=== PATIENT | female | born 1985 | race Caucasian/White ===

== ENCOUNTER 2016-05-02 03:49 | Emergency (ER) | payer OTHER ==
[~2016-05-02] VITALS: Ht 167.6 cm; Wt 125.1 kg
[~2016-05-02 03:49] MED LIST: NAPR500T3 PO
[2016-05-02 03:57] VITALS: TEMP 36.8; Ht 167.6 cm; Wt 125.1 kg
[2016-05-02] MEDS ORDERED: DiphenhydrAMINE HCL 50 MG/ML VIAL IV STA (04:06)
[2016-05-02] MEDS ORDERED: SODIUM CHLORIDE 0.9% 1000ML 1,000 ML IV STA (04:06)
[2016-05-02] MEDS ORDERED: METOCLOPRAMIDE HCL INJ 5 MG/ML 2 ML VIAL IV STA (04:06)
[2016-05-02] MEDS ORDERED: KETOROLAC TROMETHAMINE 30 MG/ML VIAL IV STA (04:06)
--- NOTE | 2016-05-02 05:01 | EMERGENCY ROOM VISIT NOTE ---
History First contact with patient: 04:01 Chief Complaint: HEADACHE Stated Complaint: HEADACHE,NAUSEA History of Present Illness The patient is a 31 year old female who presents to the Emergency Room with complaints of headache for the past few days described as aching, ranging in severity 8 out of 10 throughout the right occipital region. Nothing makes it better or worse. Patient tried naproxen with no improvement of symptoms. She' s had headaches before. Patient with some nausea. Patient denies chest pain, dyspnea, numbness, tingling, visual problems, facial pain, fever, chills, cold symptoms, abdominal pain, localized weakness. Headache was slow in onset. Review of Systems See HPI for pertinent positives & negatives. A total of 10 systems reviewed and were otherwise negative. Past Medical/Surgical History Medical Problems: (1) Asthma (2) Diabetes mellitus (3) DM type 2 (diabetes mellitus, type 2) (4) GERD (gastroesophageal reflux disease) (5) Kidney stone Surgical Problems: (1) S/P appendectomy (2) S/P bilateral breast reduction (3) S/P section (4) S/P cholecystectomy Family History Diabetes mellitus FH: gallbladder disease FH: heart disease FH: lung disease Hypertension Kidney disease or stones Seizures Social History Smoking Status: Never Smoker Alcohol Use: none Drug Use: none Marital Status: Housing Status: lives with family Occupation Status: unemployed Current/Historical Medications Scheduled Amitriptyline HCl (Amitriptyline HCl), 50 MG PO HS Doxycycline Hyclate (Doxycycline Hyclate), 50 MG PO QAM Enalapril (Vasotec), 5 MG PO QAM Ergocalciferol (Vitamin D), 50,000 INTER.UNIT PO WK Exenatide (Bydureon), 2 MG SC WK Loratadine (Claritin), 10 MG PO HS Lubiprostone (Amitiza), 24 MCG PO BID Metformin HCl (Metformin HCl ER), 1,000 MG PO BID Montelukast Sod (Montelukast Sodium), 10 MG PO QAM Naproxen (Naproxen), 500 MG PO BID Omeprazole Magnesium (Prilosec Otc), 20 MG PO QAM Ranitidine Hcl (Zantac), 300 MG PO HS Scheduled PRN Mometasone Furoate-Formoterol (Dulera 200/5 Mcg), 2 PUFFS INH BID PRN for Shortness of Breath Allergies Uncoded Allergies: MINT (Allergy, Unknown, unknown, 08/03/15) Physical Exam Vital Signs Date Time Temp Pulse Resp B/P Pulse Ox O2 Delivery O2 Flow Rate FiO2 05/02/16 03:57 36.8 104 20 127/81 97 Room Air Physical Exam VITALS: Vitals are noted on the nurse's note and reviewed by myself. Vital signs stable. GENERAL: Pleasant female, in no acute distress, nondiaphoretic, well-developed well-nourished. SKIN: The skin was without rashes, erythema, edema, or bruising. There is no tenting of the skin. Capillary reflex less than 2 seconds. HEAD: Normocephalic atraumatic. EARS: External auditory canals clear, tympanic membranes pearly herbert without erythema or effusion bilaterally. EYES: Pupils equal round and reactive to light and accommodation. Conjunctivae without injection, sclerae without icterus. Extraocular movements intact. NOSE: Patent, turbinates without inflammation or discharge. No sinus tenderness. MOUTH: Mucous membranes moist. Pharynx without erythema or exudate. Uvula midline. Airway patent. Tongue does not deviate. NECK: Supple without nuchal rigidity. No lymphadenopathy. No thyromegaly. Cervical spine is nontender. No JVD. No meningeal signs HEART: Regular rate and rhythm without murmurs gallops or rubs. LUNGS: Clear to auscultation bilaterally without wheezes, rales or rhonchi. No dullness to percussion. No retractions or accessory muscle use. ABDOMEN: Positive bowel sounds x 4. Normal tympanic percussion. Soft, nontender, without masses or organomegaly. Garces sign negative. No guarding or rebound tenderness. MUSCULOSKELETAL: No muscle atrophy, erythema, or edema noted. NEURO: Patient was alert and oriented to person place and time. Normal sensation to light and sharp touch. No focal neurological deficits. Cranial nerves II-12 grossly intact. No pronator drift. Cerebellar exam intact. Medical Decision & Procedures Medications Administered Medications (Trade) Dose Ordered Sig/Rody Route Start Time Stop Time Status Last Admin Dose Admin Ketorolac Tromethamine (Toradol Inj) 30 mg NOW STAT IV 05/02/16 04:06 05/02/16 04:08 DC 05/02/16 04:23 30 MG Diphenhydramine HCl (Benadryl Inj) 25 mg NOW STAT IV 05/02/16 04:06 05/02/16 04:08 DC 05/02/16 04:22 25 MG Metoclopramide HCl 10 mg 10 mg NOW STAT IV 05/02/16 04:06 05/02/16 04:08 DC 05/02/16 04:23 10 MG Sodium Chloride (Nss 1000ml) 1,000 ml @ 999 mls/hr Q1H1M STAT IV 05/02/16 04:06 05/02/16 05:06 05/02/16 04:22 999 MLS/HR ED Course Prior records/ancillary studies reviewed. Additional history obtained from family Triage Nursing notes reviewed. The patient's history was concerning for headache. Differential diagnosis: Etiologies such as migraine headache, meningitis, sinusitis, CO exposure, ICH, SAH, infection, tumor, headache, sinus thrombosis, arterial dissection, as well as others were entertained. Physical examination findings: As above. Non-focal. ER treatment provided: toradol, benadryl, reglan On reassessment the patient felt better. Diagnostics interpreted by me: Deferred This appears to be consistent with migraine. Patient felt much better to be medicated as above. She was neurovascularly and neurologically intact. She is well-appearing. She felt much better. She is advised follow-up family care in a few days or here in the ER sooner for headache, fevers, chills, numbness, tingling, worsening signs or symptoms or as needed. By the evaluation outlined above emergent etiologies such as meningitis, sinusitis, CO exposure, ICH, SAH, infection, temporal arteritis, tumor, sinus thrombosis, arterial dissection, as well as others were deemed relatively unlikely. The pt informed about the findings as listed above. All questions were answered and pleased with the treatment. Return instructions were outlined and the patient was discharged in stable condition. Referral: The patient was referred back to their primary care physician for follow-up in 2 to 3 days for a recheck of the current condition. Medical Decision As above Impression Primary Impression: Migraine Departure Information Dispostion Home / Self-Care Condition GOOD Referrals Ulises Matias, D.O. (PCP) Patient Instructions My [facility] Additional Instructions DO NOT drive, drink alcohol, operate machinery, or perform dangerous activities today. You were given medications in the ER that can affect your ability to safely function or operate a vehicle. Rest today in a quiet, peaceful, dark environment and get a full 8-10 hrs of sleep tonight. Avoid loud noises, smoke/smoking, alcohol, bright lights, stress, or physical exertion today to minimize the chance the headache may return. Continue current medications. Acetaminophen(Tylenol) may be used for fever or pain. Use 1000mg every six hours as needed. Avoid using more than 3000mg in a 24 hour period. Return to the ER for passing out, worsening headache, vision problems, neck stiffness/pain, fevers, vomiting, worsening of your condition, or as needed. Follow up with your primary physician and/or a neurologist in 2-3 days for a recheck of your current condition. Problem Qualifiers Primary Impression: Migraine Migraine type: without aura Status migrainosus presence: without status migrainosus Intractability: not intractable Qualified Codes: G43.009 - Migraine without aura, not intractable, without status migrainosus
[2016-05-02 05:23] VITALS: BP 131/78; PULSE 100; O2SAT 97
[2016-05-09] MEDS ORDERED: EXEN1INJ3 SC (15:42)
[2016-05-09] MEDS ORDERED: ENAL5TAB83 PO (15:42)
[2016-05-09] MEDS ORDERED: GLCSR/500 PO (17:38)
[2016-05-09] MEDS ORDERED: DXY50 PO (17:38)
[2016-05-09] MEDS ORDERED: VTMD PO (17:38)
[2016-05-09] MEDS ORDERED: LORA10TA5 PO (19:33)
[2016-05-09] MEDS ORDERED: RANI300T PO (19:33)
[2016-05-09] MEDS ORDERED: AMT/50 PO (19:33)
[2016-05-09] MEDS ORDERED: MOME200A INH (19:43)
[2016-06-06] MEDS ORDERED: FLUC100T4 PO (14:35)
[2016-06-06] MEDS ORDERED: LEVO-18 PO (14:35)
[2016-06-24] MEDS ORDERED: AMITIZA PO (14:03)
[2016-08-04] MEDS ORDERED: ERGO1CAP41 PO (00:46)
[2016-10-28] MEDS ORDERED: PRLSR20 PO (14:01)
[2016-11-13] MEDS ORDERED: ONDA4TAB46 PO (10:23)
== END 2016-05-02 05:26 | disposition home or self-care (01) ==
LOC: C.EDB 03:50
DX: G43.009 Migraine without aura, not intractable, without status migrainosus (principal); J45.909 Unspecified asthma, uncomplicated; E11.9 Type 2 diabetes mellitus without complications; K21.9 Gastro-esophageal reflux disease without esophagitis; Z87.442 Personal history of urinary calculi; Z90.49 Acquired absence of other specified parts of digestive tract; Z83.3 Family history of diabetes mellitus; Z82.49 Family history of ischemic heart disease and other diseases of the circulatory system; Z82.0 Family history of epilepsy and other diseases of the nervous system; Z79.899 Other long term (current) drug therapy

== ENCOUNTER 2016-05-09 21:48 | Emergency (ER) | payer OTHER ==
[~2016-05-09] VITALS: Ht 167.6 cm; Wt 124.5 kg
[~2016-05-09 21:48] MED LIST changes: +AMT/50 PO; +DXY50 PO; +ENAL5TAB83 PO; +EXEN1INJ3 SC; +GLCSR/500 PO; +LORA10TA5 PO; +MOME200A INH; +RANI300T PO; +VTMD PO
[2016-05-09 21:55] VITALS: TEMP 36.8; Ht 167.6 cm; Wt 124.5 kg
[2016-05-09] MEDS ORDERED: SODIUM CHLORIDE 0.9% 1000ML 1,000 ML IV ONE (22:27)
[2016-05-09] MEDS ORDERED: SODIUM CHLORIDE 0.9% 1000ML 1,000 ML IV STA (22:27)
--- NOTE | 2016-05-09 22:38 | EMERGENCY ROOM VISIT NOTE ---
History Report prepared by Berenice: Linda Vargas Under the Supervision of: Dr. Jose R Brown M.D. First contact with patient: 22:17 Chief Complaint: ABDOMINAL PAIN Stated Complaint: ABD PAIN,DIARRHEA History of Present Illness The patient is a 31 year old female who presents to the Emergency Room with complaints of constant abdominal pain beginning today. She reports that she has a history of stomach problems and is seeing a doctor and having a swallowing study in 2 weeks. She notes that her stomach pain is worse after she eats and feels like a pressure. She complains of nausea, back pain on both sides, constipation, and red hot legs at night. She denies any vomiting and chance of . The patient states that she has diabetes and gastroparesis. Source of History: patient, friend Onset: today Position: abdomen Quality: pressure Timing: constant Modifying Factors (Worsening): eating Associated Symptoms: + back pain, + nausea, No vomiting Note: She complains of constipation, and red hot legs at night. She denies any chance of . Review of Systems See HPI for pertinent positives & negatives. A total of 10 systems reviewed and were otherwise negative. Past Medical & Surgical Medical Problems: (1) Asthma (2) Diabetes mellitus (3) DM type 2 (diabetes mellitus, type 2) (4) GERD (gastroesophageal reflux disease) (5) Kidney stone Surgical Problems: (1) S/P appendectomy (2) S/P bilateral breast reduction (3) S/P section (4) S/P cholecystectomy Old medical records were reviewed. Nurse's notes were reviewed and I agree with. Family History Diabetes mellitus FH: gallbladder disease FH: heart disease FH: lung disease Hypertension Kidney disease or stones Seizures Social History Smoking Status: Never Smoker Alcohol Use: none Drug Use: none Marital Status: Housing Status: lives with family Occupation Status: unemployed Current/Historical Medications Scheduled Amitriptyline HCl (Amitriptyline HCl), 50 MG PO HS Doxycycline Hyclate (Doxycycline Hyclate), 50 MG PO QAM Enalapril (Vasotec), 5 MG PO QAM Ergocalciferol (Vitamin D), 50,000 INTER.UNIT PO WK Exenatide (Bydureon), 2 MG SC WK Fluticasone Furoate-Vilanterol (Breo Ellipta), 1 PUFF INH DAILY Insulin Glargine (Lantus Solostar), 80 UNITS SC HS Loratadine (Claritin), 10 MG PO HS Lubiprostone (Amitiza), 24 MCG PO BID Metformin HCl (Metformin HCl ER), 1,000 MG PO BID Montelukast Sod (Montelukast Sodium), 10 MG PO QAM Naproxen Sodium (Naproxen Sodium Ds), 550 MG PO BID Omeprazole Magnesium (Prilosec Otc), 20 MG PO QAM Ranitidine Hcl (Zantac), 300 MG PO HS Scheduled PRN Albuterol Hfa (Ventolin Hfa), 2 PUFFS INH Q6H PRN for Wheezing Mometasone Furoate-Formoterol (Dulera 200/5 Mcg), 2 PUFFS INH BID PRN for Shortness of Breath Ondasetron Odt (Zofran Odt), 4 MG SL Q8 PRN for Nausea Allergies Uncoded Allergies: MINT (Allergy, Unknown, unknown, 08/03/15) Physical Exam Vital Signs Date Time Temp Pulse Resp B/P Pulse Ox O2 Delivery O2 Flow Rate FiO2 05/10/16 00:10 93 18 115/73 98 Room Air 05/09/16 23:13 96 18 135/88 99 Room Air 05/09/16 21:55 36.8 104 18 138/84 99 Room Air Physical Exam General: Well developed well nourished in no acute distress, breathing comfortably on room air. Normal speech. Non-Ill appearing young female. HEENT: Normal cephalic atraumatic. Pupils are equal round and reactive to light. SCleara anicteric. Extraocular movements are intact. Oropharynx is pink with moist mucous membranes. No swelling of the mouth lips or tongue. Neck: Supple with a midline trachea. No meningeal signs or stiffness, no JVD or bruits. No Stridor. Chest: Clear to auscultation bilaterally. No wheezes or rhonchi. No increased work of breathing. Heart: regular rate and rhythm. Abdomen: Soft nontender, nondistended without rebound guarding or rigidity. Extremities: No cyanosis clubbing or edema. No calf tenderness or assymetry Spine/Back. Non tender to palpation. No CVA tenderness Skin: Good turgor without rashes. Neurologic exam: Cranial nerves two through 12 are intact. Motor and sensation are intact and symmetrical throughout. Medical Decision & Procedures Laboratory Results 05/09/16 22:40 Red Blood Count 4.88, Mean Corpuscular Volume 80.5, Mean Corpuscular Hemoglobin 26.0, Mean Corpuscular Hemoglobin Concent 32.3, Mean Platelet Volume 9.7, Neutrophils (%) (Auto) 52.5, Lymphocytes (%) (Auto) 36.2, Monocytes (%) (Auto) 5.9, Eosinophils (%) (Auto) 4.3, Basophils (%) (Auto) 0.8, Neutrophils # (Auto) 4.15, Lymphocytes # (Auto) 2.86, Monocytes # (Auto) 0.47, Eosinophils # (Auto) 0.34, Basophils # (Auto) 0.06 05/09/16 22:40 Test 05/09/16 22:40 05/09/16 22:49 White Blood Count 7.90 K/uL (4.8-10.8) Red Blood Count 4.88 M/uL (4.2-5.4) Hemoglobin 12.7 g/dL (12.0-16.0) Hematocrit 39.3 % (37-47) Mean Corpuscular Volume 80.5 fL (80-100) Mean Corpuscular Hemoglobin 26.0 pg (25-34) Mean Corpuscular Hemoglobin Concent 32.3 g/dl (32-36) Platelet Count 297 K/uL (130-400) Mean Platelet Volume 9.7 fL (7.4-10.4) Neutrophils (%) (Auto) 52.5 % Lymphocytes (%) (Auto) 36.2 % Monocytes (%) (Auto) 5.9 % Eosinophils (%) (Auto) 4.3 % Basophils (%) (Auto) 0.8 % Neutrophils # (Auto) 4.15 K/uL (1.4-6.5) Lymphocytes # (Auto) 2.86 K/uL (1.2-3.4) Monocytes # (Auto) 0.47 K/uL (0.11-0.59) Eosinophils # (Auto) 0.34 K/uL (0-0.5) Basophils # (Auto) 0.06 K/uL (0-0.2) RDW Standard Deviation 41.9 fL (36.4-46.3) RDW Coefficient of Variation 14.4 % (11.5-14.5) Immature Granulocyte % (Auto) 0.3 % Immature Granulocyte # (Auto) 0.02 K/uL (0.00-0.02) Urine Color YELLOW Urine Appearance CLEAR (CLEAR) Urine pH 5.0 (4.5-7.5) Urine Specific [place] 1.025 (1.000-1.030) Urine Protein NEG (NEG) Urine Glucose (UA) NEG (NEG) Urine Ketones TRACE (NEG) Urine Occult Blood 2+ (NEG) Urine Nitrite NEG (NEG) Urine Bilirubin NEG (NEG) Urine Urobilinogen NEG (NEG) Urine Leukocyte Esterase NEG (NEG) Urine WBC (Auto) 1-5 /hpf (0-5) Urine RBC (Auto) 5-10 /hpf (0-4) Urine Hyaline Casts (Auto) 1-5 /lpf (0-5) Urine Epithelial Cells (Auto) >30 /lpf (0-5) Urine Bacteria (Auto) NEG (NEG) Urine Crystals CALCIUM OXALATE (NONE Anion Gap 13.0 mmol/L (3-11) Est Creatinine Clear Calc Drug Dose 171.1 ml/min Estimated GFR () 136.6 Estimated GFR (Non- 117.9 BUN/Creatinine Ratio 15.5 (10-20) Calcium Level 9.4 mg/dl (8.5-10.1) Total Bilirubin 0.3 mg/dl (0.2-1) Direct Bilirubin < 0.1 mg/dl (0-0.2) Aspartate Amino Transf (AST/SGOT) 34 U/L (15-37) Alanine Aminotransferase (ALT/SGPT) 62 U/L (12-78) Alkaline Phosphatase 104 U/L (45-117) Total Protein 7.8 gm/dl (6.4-8.2) Albumin 3.8 gm/dl (3.4-5.0) Lipase 203 U/L (73-393) Bedside Troponin I 0.000 ng/ml (0-0.045) Laboratory studies as stated above per my review. Medications Administered Medications (Trade) Dose Ordered Sig/Rody Route Start Time Stop Time Status Last Admin Dose Admin Sodium Chloride 1,000 ml @ 999 mls/hr Q1H1M STAT IV 05/09/16 22:27 05/09/16 23:27 DC 05/09/16 23:14 999 MLS/HR Sodium Chloride (Nss 1000ml) 1,000 ml @ 150 mls/hr Q6H40M ONCE IV 05/09/16 22:27 05/10/16 05:06 05/09/16 23:32 150 MLS/HR Ketorolac Tromethamine (Toradol Inj) 30 mg NOW STAT IV 05/09/16 23:17 05/09/16 23:18 DC 05/09/16 23:33 30 MG ECG Indication: abdominal pain Rate (beats per minute): 90 Rhythm: normal sinus Findings: no acute ischemic change, no ectopy Comparison ECG Date: 11/04/15 Change: no significant change ED Course 7: Past medical records reviewed. The patient was evaluated in room B3, and a complete history and physical examination were performed. 2227: Sodium Chloride 1000 ml @ 999 mls/hr IV, Sodium Chloride 1000 ml @ 150 mls /hr IV. 2317: Toradol Inj 30m IV. 0005: I reevaluated the patient. She is ready to go home. 0010: Upon reevaluation, the patient is hemodynamically stable. I discussed the results and treatment plan with the patient. She verbalized agreement of the treatment plan. The patient was discharged home. Medical Decision Differential diagnoses include gastritis, diabetic emergency, arrhythmia, infection, electrolyte or metabolic imbalance. This patient comes in as described above she has multiple medical complaints she has some epigastric pain and legs burning. she is a diabetic. She's been seen by GI specialist and is scheduled to have a nuclear GI test coming up. She looks well on exam IV access established she was given Toradol 30 milligrams IV. Multiple blood tests was obtained. She has no white count or fever to suggest infection. She's had no acute electrode or metabolic abnormalities. She has nothing to suggest UTI or . I reviewed her records. She's had multiple CAT scans for this. She has no white count or fever to suggest infection. She is not severely anemic. She is not . Her blood sugar is a 200 besides that she has no electrolyte or metabolic abnormalities and nothing to suggest diabetic emergency. Her urinalysis does not suggest UTI. And I went and reassessed her, she was sleeping and appeared comfortable and when she woke up she ask about her abdominal discomfort. I think this is related to her diabetes and she has a gastroparesis or gastritis. She should continue use her stomach medication and follow up with her doctor Wednesday for recheck and continue to have her outpatient studies as previously scheduled . return ER if increasing pain, worsening of symptoms, fever chills, any problems concerns. She was happy with plan and discharged home with her friend driving Impression Primary Impression: Epigastric abdominal pain Scribe Attestation The scribe's documentation has been prepared under my direction and personally reviewed by me in its entirety. I confirm that the note above accurately reflects all work, treatment, procedures, and medical decision making performed by me. Departure Information Dispostion Home / Self-Care Referrals Ulises Matias D.O. (PCP) Forms Call Back Authorization, HOME CARE DOCUMENTATION FORM, IMPORTANT VISIT INFORMATION Patient Instructions [facility] Additional Instructions Rest. Drink plenty of fluids. Mild diet. Continue to use your stomach pill and may use Maalox if needed Return if: Increasing pain, worsening symptoms, fever chills, any new problems or concerns Follow-up with your doctor Wednesday for recheck and have your stomach imaging test
[2016-05-09] MEDS ORDERED: AMT24 PO (22:53)
[2016-05-09] MEDS ORDERED: SNG10 PO (22:53)
[2016-05-09] MEDS ORDERED: FLUT1INH INH (22:54)
[2016-05-09] MEDS ORDERED: VNTHFA/IN INH (22:54)
[2016-05-09] MEDS ORDERED: ONDA4TAB10 SL (22:58)
[2016-05-09] MEDS ORDERED: INSDGIPEN SC (22:58)
[2016-05-09] MEDS ORDERED: NAPR-1161 PO (22:58)
[2016-05-09 23:01] LABS: BASO % 0.8 %; BASO ABS # 0.06 K/uL (0-0.2); COMPLETE YES; EOS % 4.3 %; HEMATOCRIT 39.3 % (37-47); IG% 0.3 %; LYMPH % 36.2 %; LYMPH ABS # 2.86 K/uL (1.2-3.4); MEAN CELL VOLUME 80.5 fL (80-100); MEAN CORPUSCULAR HGB CONC 32.3 g/dl (32-36); MEAN PLATELET VOLUME 9.7 fL (7.4-10.4); MONO % 5.9 %; NEUT % 52.5 %; PLATELET COUNT 297 K/uL (130-400); RED BLOOD COUNT 4.88 M/uL (4.2-5.4)
[2016-05-09 23:14] LABS: REVIEW REQ? YES; URINE APPEARANCE CLEAR (CLEAR); URINE BILIRUBIN NEG (NEG); URINE COLOR YELLOW; URINE EPITHELIAL CELL AUTO >30 /lpf (0-5); URINE NITRITE NEG (NEG); URINE SPECIFIC GRAVITY 1.025 (1.000-1.030); UROBILINOGEN NEG (NEG)
[2016-05-09 23:15] LABS: MANUAL MICROSCOPIC REQUIRED? NO
[2016-05-09] MEDS ORDERED: KETOROLAC TROMETHAMINE 30 MG/ML VIAL IV STA (23:17)
[2016-05-09 23:19] LABS: ALT/SGPT 62 U/L (12-78); AST/SGOT 34 U/L (15-37); BLOOD UREA NITROGEN 10 mg/dl (7-18); BUN/CREATININE RATIO 15.5 (10-20); CALCIUM 9.4 mg/dl (8.5-10.1); CARBON DIOXIDE 29 mmol/L (21-32); CHLORIDE 102 mmol/L (98-107); CREATININE 0.63 mg/dl (0.60-1.20); GLUCOSE 227 mg/dl (70-99); POTASSIUM 3.7 mmol/L (3.5-5.1); SODIUM 144 mmol/L (136-145)
[2016-05-09 23:22] LABS: ALKALINE PHOSPHATASE 104 U/L (45-117)
[2016-05-10 00:10] VITALS: BP 115/73; PULSE 93; O2SAT 98
[2016-06-06] MEDS ORDERED: FLUC100T4 PO (14:35)
[2016-06-06] MEDS ORDERED: LEVO-18 PO (14:35)
[2016-06-24] MEDS ORDERED: AMITIZA PO (14:03)
[2016-08-04] MEDS ORDERED: ERGO1CAP41 PO (00:46)
[2016-10-28] MEDS ORDERED: PRLSR20 PO (14:01)
[2016-11-13] MEDS ORDERED: ONDA4TAB46 PO (10:23)
== END 2016-05-10 00:12 | disposition home or self-care (01) ==
LOC: C.EDB 21:49
DX: R10.13 Epigastric pain (principal); J45.909 Unspecified asthma, uncomplicated; E11.9 Type 2 diabetes mellitus without complications; K21.9 Gastro-esophageal reflux disease without esophagitis; Z90.49 Acquired absence of other specified parts of digestive tract; Z79.4 Long term (current) use of insulin

== ENCOUNTER 2016-05-27 20:39 | Inpatient (IN) | payer OTHER ==
[~2016-05-27] VITALS: Ht 167.6 cm; Wt 122.9 kg
[~2016-05-27 20:39] MED LIST changes: -AMITIZA PO; -ERGO1CAP41 PO; -FLUC100T4 PO; -GABA1CAP4 PO; -HYDR0.2O4 EXT; -IPRASOL4 INH; -LEVO-18 PO; -LUBI8CAP4 PO; -OMEP20TA14 PO; -ONDA4TAB46 PO; -OXYC-57 PO; -PRLSR20 PO; -PROM25TA9 PO; -ZNTT/150 PO
[2016-05-27] MEDS ORDERED: SODIUM CHLORIDE 0.9% 1000ML 1,000 ML IV STA ×2 (22:03)
[2016-05-27] MEDS ORDERED: ACETAMINOPHEN 500 MG TAB PO STA (22:03)
[2016-05-27] MEDS ORDERED: CEFTRIAXONE SOD INJ 1 GM ADDVIAL IV STA (22:03)
[2016-05-27] MEDS ORDERED: NYSTATIN POWDER 15GM BTL EXT STA (22:03)
[2016-05-27] MEDS ORDERED: DiphenhydrAMINE HCL 50 MG/ML VIAL IV STA (22:03)
[2016-05-27] MEDS ORDERED: METOCLOPRAMIDE HCL INJ 5 MG/ML 2 ML VIAL IV STA (22:03)
[2016-05-27] MEDS ORDERED: GABA1CAP4 PO (22:22)
--- NOTE | 2016-05-27 22:27 | DIAGNOSTIC IMAGING REPORT ---
CHEST ONE VIEW PORTABLE CLINICAL HISTORY: Sepsis. COMPARISON STUDY: Chest radiograph August 03, 2015. FINDINGS: Lung volumes are diminished. This is unchanged. There is no pneumothorax or pleural effusion. Cardiac size is normal. Mediastinal contours are within normal limits. There is no evidence of pulmonary edema. IMPRESSION: No acute cardiopulmonary findings. No change in appearance of the chest. Electronically signed by: Ren Potts M.D. 05/27/2016 10:25 PM Dictated Date/Time: 05/27/2016 10:24 PM
[2016-05-27 22:55] LABS: URINE APPEARANCE CLEAR (CLEAR); URINE BILIRUBIN NEG (NEG); URINE COLOR YELLOW; URINE EPITHELIAL CELL AUTO >30 /lpf (0-5); URINE NITRITE NEG (NEG); URINE PH 6.5 (4.5-7.5); URINE SPECIFIC GRAVITY 1.022 (1.000-1.030); UROBILINOGEN NEG (NEG); ZZUR CULT IF INDIC CLEAN CATCH NO
[2016-05-27 22:58] LABS: MANUAL MICROSCOPIC REQUIRED? NO; REVIEW REQ? NO
[2016-05-27 23:29] LABS: BASO % 0.5 %; BASO ABS # 0.03 K/uL (0-0.2); COMPLETE YES; EOS % 2.3 %; HEMATOCRIT 33.5 % (37-47); IG% 0.2 %; LYMPH % 26.3 %; LYMPH ABS # 1.62 K/uL (1.2-3.4); MEAN CELL VOLUME 81.3 fL (80-100); MEAN CORPUSCULAR HGB CONC 31.9 g/dl (32-36); MEAN PLATELET VOLUME 9.7 fL (7.4-10.4); NEUT % 63.7 %; PLATELET COUNT 257 K/uL (130-400); RED BLOOD COUNT 4.12 M/uL (4.2-5.4); WHITE BLOOD COUNT 6.15 K/uL (4.8-10.8)
[2016-05-27 23:49] LABS: ALT/SGPT 64 U/L (12-78); AST/SGOT 33 U/L (15-37); BLOOD UREA NITROGEN 8 mg/dl (7-18); BUN/CREATININE RATIO 11.9 (10-20); CALCIUM 8.9 mg/dl (8.5-10.1); CARBON DIOXIDE 28 mmol/L (21-32); CHLORIDE 105 mmol/L (98-107); CREATININE 0.69 mg/dl (0.60-1.20); GLUCOSE 186 mg/dl (70-99); POTASSIUM 3.6 mmol/L (3.5-5.1); SODIUM 141 mmol/L (136-145)
[2016-05-27 23:51] LABS: PARTIAL THROMBOPLASTIN RATIO 0.8; PROTHROMBIN TIME (PATIENT) 10.7 SECONDS (9.0-12.0)
[2016-05-27 23:54] LABS: ALB/GLOB RATIO 0.9 (0.9-2); ALKALINE PHOSPHATASE 97 U/L (45-117)
[2016-05-28] VITALS (7 sets, daily range): BP systolic 121–145; BP diastolic 70–92; PULSE 104–120; TEMP 36.8–37.9; O2SAT 95–100; Ht 167.6 cm; Wt 122.9 kg
[2016-05-28 00:06] LABS: PREG INTERNAL NEGATIVE QC NEG CLEAR BACKGROUND; PREG INTERNAL POSITIVE QC POS CONTROL LINE
[2016-05-28 00:17] LABS: LYME DISEASE AB IGG NEG (NEG); LYME DISEASE AB IGM NEG (NEG)
[2016-05-28] MEDS ORDERED: OPTIRAY 320 IV PRN (00:30)
[2016-05-28 01:55] LABS: INFLUENZA A PCR Neg for Influ A (NEG); INFLUENZA B PCR Neg for Influ B (NEG)
[2016-05-28 02:52] LABS: MAGNESIUM 1.8 mg/dl (1.8-2.4)
--- NOTE | 2016-05-28 03:18 | EMERGENCY ROOM VISIT NOTE ---
History First contact with patient: 22:03 Chief Complaint: FLU LIKE SX Stated Complaint: CHILLY, LEFT LEG ITCH,LEFT KIDNEY History of Present Illness The patient is a 31 year old female who presents to the Emergency Room with complaints of left leg pain and swelling for the past week has been on Augmentin as gotten steadily worse who now has chest pain, dyspnea and fever and chills. Patient states the rash is itchy. No new foods soaps or discharge. No injury to the area. Patient complains of some nausea. Patient denies abdominal pain, vomiting, urinary symptoms, cough, congestion. She is tolerating by mouth fluids and food. Review of Systems See HPI for pertinent positives & negatives. A total of 10 systems reviewed and were otherwise negative. Past Medical/Surgical History Medical Problems: (1) Asthma (2) Diabetes mellitus (3) DM type 2 (diabetes mellitus, type 2) (4) GERD (gastroesophageal reflux disease) (5) Kidney stone (6) Sepsis Surgical Problems: (1) S/P appendectomy (2) S/P bilateral breast reduction (3) S/P section (4) S/P cholecystectomy Family History Diabetes mellitus FH: gallbladder disease FH: heart disease FH: lung disease Hypertension Kidney disease or stones Seizures Social History Smoking Status: Never Smoker Alcohol Use: none Drug Use: none Marital Status: Housing Status: lives with family Occupation Status: unemployed Current/Historical Medications Scheduled Amitriptyline HCl (Amitriptyline HCl), 50 MG PO HS Doxycycline Hyclate (Doxycycline Hyclate), 50 MG PO QAM Enalapril (Vasotec), 5 MG PO QAM Ergocalciferol (Vitamin D), 50,000 INTER.UNIT PO WK Exenatide (Bydureon), 2 MG SC WK Fluticasone Furoate-Vilanterol (Breo Ellipta), 1 PUFF INH DAILY Gabapentin (Gabapentin), 300 MG PO TID Insulin Glargine (Lantus Solostar), 60 UNITS SC HS Loratadine (Claritin), 10 MG PO HS Lubiprostone (Amitiza), 24 MCG PO BID Metformin HCl (Metformin HCl ER), 1,000 MG PO BID Montelukast Sod (Montelukast Sodium), 10 MG PO QAM Naproxen Sodium (Naproxen Sodium Ds), 550 MG PO BID Omeprazole Magnesium (Prilosec Otc), 20 MG PO QAM Ranitidine Hcl (Zantac), 300 MG PO HS Scheduled PRN Albuterol Hfa (Ventolin Hfa), 2 PUFFS INH Q6H PRN for Wheezing Mometasone Furoate-Formoterol (Dulera 200/5 Mcg), 2 PUFFS INH BID PRN for Shortness of Breath Ondasetron Odt (Zofran Odt), 4 MG SL Q8 PRN for Nausea Allergies Uncoded Allergies: MINT (Allergy, Unknown, unknown, 08/03/15) Physical Exam Vital Signs Date Time Temp Pulse Resp B/P Pulse Ox O2 Delivery O2 Flow Rate FiO2 05/28/16 03:09 104 20 105/73 96 05/28/16 02:23 37.3 118 16 114/64 95 Room Air 05/28/16 00:58 123 18 129/71 95 Room Air 05/28/16 00:11 117 18 132/82 96 Room Air 05/27/16 23:23 119 20 111/81 100 Room Air 05/27/16 23:11 Room Air 05/27/16 20:50 37.8 86 18 144/90 100 Room Air Physical Exam VITALS: Vitals are noted on the nurse's note and reviewed by myself. Vital signs low-grade temperature. GENERAL: Pleasant female, in no acute distress, nondiaphoretic, well-developed well-nourished. SKIN: Left medial aspect of the thigh and knee erythematous and warm concerning for cellulitis The rest of the skin was without rashes, erythema, edema, or bruising. There is no tenting of the skin. Capillary reflex less than 2 seconds. HEAD: Normocephalic atraumatic. EARS: External auditory canals clear, tympanic membranes pearly herbert without erythema or effusion bilaterally. EYES: Pupils equal round and reactive to light and accommodation. Conjunctivae without injection, sclerae without icterus. Extraocular movements intact. NOSE: Patent, turbinates without inflammation or discharge. MOUTH: Mucous membranes moist. Pharynx without erythema or exudate. Uvula midline. Airway patent. Tongue does not deviate. NECK: Supple without nuchal rigidity. No lymphadenopathy. No thyromegaly. Cervical spine is nontender. No JVD. HEART: Regular rate and rhythm without murmurs gallops or rubs. LUNGS: Clear to auscultation bilaterally without wheezes, rales or rhonchi. No dullness to percussion. No retractions or accessory muscle use. ABDOMEN: Positive bowel sounds x 4. Normal tympanic percussion. Soft, protuberant, obese, nontender, without masses or organomegaly. Garces sign negative. No guarding or rebound tenderness. No CVA tenderness MUSCULOSKELETAL: No muscle atrophy noted. + Pitting edema up to the mid tib- fib bilaterally. NEURO: Patient was alert and oriented to person place and time. Normal sensation to light and sharp touch. No focal neurological deficits. Medical Decision & Procedures Laboratory Results 05/27/16 22:25 Red Blood Count 4.12, Mean Corpuscular Volume 81.3, Mean Corpuscular Hemoglobin 26.0, Mean Corpuscular Hemoglobin Concent 31.9, Mean Platelet Volume 9.7, Neutrophils (%) (Auto) 63.7, Lymphocytes (%) (Auto) 26.3, Monocytes (%) (Auto) 7.0, Eosinophils (%) (Auto) 2.3, Basophils (%) (Auto) 0.5, Neutrophils # (Auto) 3.92, Lymphocytes # (Auto) 1.62, Monocytes # (Auto) 0.43, Eosinophils # (Auto) 0.14, Basophils # (Auto) 0.03 05/27/16 22:25 Test 05/27/16 22:20 05/27/16 22:25 05/27/16 22:33 05/27/16 23:15 Urine Color YELLOW Urine Appearance CLEAR (CLEAR) Urine pH 6.5 (4.5-7.5) Urine Specific [place] 1.022 (1.000-1.030) Urine Protein NEG (NEG) Urine Glucose (UA) NEG (NEG) Urine Ketones TRACE (NEG) Urine Occult Blood NEG (NEG) Urine Nitrite NEG (NEG) Urine Bilirubin NEG (NEG) Urine Urobilinogen NEG (NEG) Urine Leukocyte Esterase NEG (NEG) Urine WBC (Auto) 0 /hpf (0-5) Urine RBC (Auto) 5-10 /hpf (0-4) Urine Hyaline Casts (Auto) 1-5 /lpf (0-5) Urine Epithelial Cells (Auto) >30 /lpf (0-5) Urine Bacteria (Auto) NEG (NEG) White Blood Count 6.15 K/uL (4.8-10.8) Red Blood Count 4.12 M/uL (4.2-5.4) Hemoglobin 10.7 g/dL (12.0-16.0) Hematocrit 33.5 % (37-47) Mean Corpuscular Volume 81.3 fL (80-100) Mean Corpuscular Hemoglobin 26.0 pg (25-34) Mean Corpuscular Hemoglobin Concent 31.9 g/dl (32-36) Platelet Count 257 K/uL (130-400) Mean Platelet Volume 9.7 fL (7.4-10.4) Neutrophils (%) (Auto) 63.7 % Lymphocytes (%) (Auto) 26.3 % Monocytes (%) (Auto) 7.0 % Eosinophils (%) (Auto) 2.3 % Basophils (%) (Auto) 0.5 % Neutrophils # (Auto) 3.92 K/uL (1.4-6.5) Lymphocytes # (Auto) 1.62 K/uL (1.2-3.4) Monocytes # (Auto) 0.43 K/uL (0.11-0.59) Eosinophils # (Auto) 0.14 K/uL (0-0.5) Basophils # (Auto) 0.03 K/uL (0-0.2) RDW Standard Deviation 42.5 fL (36.4-46.3) RDW Coefficient of Variation 14.3 % (11.5-14.5) Immature Granulocyte % (Auto) 0.2 % Immature Granulocyte # (Auto) 0.01 K/uL (0.00-0.02) Prothrombin Time 10.7 SECONDS (9.0-12.0) Prothromb Time International Ratio 1.0 (0.9-1.1) Activated Partial Thromboplast Time 19.6 SECONDS (21.0-31.0) Partial Thromboplastin Ratio 0.8 D-Dimer 1360 ug/L FEU (0-500) Anion Gap 8.0 mmol/L (3-11) Est Creatinine Clear Calc Drug Dose 155.4 ml/min Estimated GFR () 132.6 Estimated GFR (Non- 114.4 BUN/Creatinine Ratio 11.9 (10-20) Calcium Level 8.9 mg/dl (8.5-10.1) Magnesium Level 1.8 mg/dl (1.8-2.4) Total Bilirubin 0.4 mg/dl (0.2-1) Aspartate Amino Transf (AST/SGOT) 33 U/L (15-37) Alanine Aminotransferase (ALT/SGPT) 64 U/L (12-78) Alkaline Phosphatase 97 U/L (45-117) Troponin I < 0.015 ng/ml (0-0.045) Total Protein 7.4 gm/dl (6.4-8.2) Albumin 3.6 gm/dl (3.4-5.0) Globulin 3.8 gm/dl (2.5-4.0) Albumin/Globulin Ratio 0.9 (0.9-2) Thyroid Stimulating Hormone (TSH) 1.530 uIu/ml (0.300-4.500) Human Chorionic Gonadotropin, Qual NEG (NEG) Lyme Disease IgG Antibody NEG (NEG) Lyme Disease IgM Antibody NEG (NEG) Bedside Lactic Acid Venous 1.77 mmol/L (0.90-1.70) Influenza Type A (RT-PCR) Neg for Influ A (NEG) Influenza Type A Antigen Neg for Influ A (NEG) Influenza Type B Antigen Neg for Influ B (NEG) Influenza Type B (RT-PCR) Neg for Influ B (NEG) Test 05/28/16 02:30 Lactic Acid Level 1.7 mmol/L (0.4-2.0) Medications Administered Medications (Trade) Dose Ordered Sig/Rody Route Start Time Stop Time Status Last Admin Dose Admin Metoclopramide HCl (Reglan Inj) 10 mg NOW STAT IV 05/27/16 22:03 05/27/16 22:09 DC 05/27/16 23:15 10 MG Diphenhydramine HCl 50 mg 50 mg NOW STAT IV 05/27/16 22:03 05/27/16 22:09 DC 05/27/16 23:15 50 MG Sodium Chloride 1,000 ml @ 999 mls/hr Q1H1M STAT IV 05/27/16 22:03 05/27/16 23:03 DC 05/27/16 23:16 999 MLS/HR Sodium Chloride (Nss 1000ml) 1,000 ml @ 125 mls/hr Q8H STAT IV 05/27/16 22:03 05/28/16 06:02 05/27/16 23:16 125 MLS/HR Ceftriaxone Sodium (Rocephin Inj) 1 gm NOW STAT IV 05/27/16 22:03 05/27/16 22:09 DC 05/27/16 23:16 1 GM Acetaminophen (Tylenol Tab) 1,000 mg NOW STAT PO 05/27/16 22:03 05/27/16 22:09 DC 05/27/16 23:16 1,000 MG Nystatin (Mycostatin Powder) 1 appln NOW STAT EXT 05/27/16 22:03 05/27/16 22:09 DC 05/28/16 00:12 1 APPLN ED Course Prior records reviewed and summarized as above. Triage Nursing notes reviewed. Additional history obtained from family The patient's history was concerning for swelling and redness of the skin with chest pain, dyspnea and fever. Differential diagnosis: Etiologies such as cellulitis, abscess, MRSA infection, DVT, necrotizing fasciitis, dermatitis, drug eruption, PE, cardiac, influenza, pneumonia, infectious, as well as others were entertained.. Physical examination: As above ER treatment provided: Rocephin, Tylenol On reassessment the patient felt better. Diagnostics interpreted by me: The labs revealed no worrisome leukocytosis. Hyperglycemia without DKA. Mildly elevated lactic acid. Negative urine Imaging studies: CTA CHEST: Mildly limited by beam hardening artifact. There is also suboptimal opacification of subsegmental branches. Within these technical limitations, there is no definite evidence for an acute pulmonary embolism. No acute aortic abnormality. No consolidation or effusion. Radiologist: Hubert Kyle M.D. CHEST ONE VIEW PORTABLE CLINICAL HISTORY: Sepsis. COMPARISON STUDY: Chest radiograph August 03, 2015. FINDINGS: Lung volumes are diminished. This is unchanged. There is no pneumothorax or pleural effusion. Cardiac size is normal. Mediastinal contours are within normal limits. There is no evidence of pulmonary edema. IMPRESSION: No acute cardiopulmonary findings. No change in appearance of the chest. Electronically signed by: Ren Potts M.D. Consultation: A consultation was placed with Dr. Kiesha painting. The case was discussed and diagnostics were reviewed. The patient was evaluated in the ER for further treatment. This appears to be left leg cellulitis who has been on outpatient antibiotics and gotten worse. No DVT. No PE. Patient was given antibiotics. She now has a fever and symptoms and gotten worse. Elevated lactic. Patient's been on Augmentin and symptoms got worse. She will be evaluated by medicine for possible admission. By the evaluation outlined above emergent etiologies such as abscess, necrotizing fasciitis, DVT, as well as others were deemed relatively unlikely. The pt informed about the findings as listed above. All questions were answered and pleased with the treatment. . Case reviewed with my attending Medical Decision as above Impression Primary Impression: Left leg cellulitis Additional Impressions: Chest pain Dyspnea Failure of outpatient treatment Departure Information Dispostion Being Evaluated By Hospitalist Condition FAIR Referrals No Doctor, Assigned (PCP) Patient Instructions My [facility] Problem Qualifiers
[2016-05-28] MEDS ORDERED: INSULIN GLARGINE SOLOSTAR 100 UNITS/ML 3 ML PEN SC ONE (03:20)
[2016-05-28] MEDS ORDERED: INSULIN ASPART 100 UNITS/ML 3 ML PEN SC ONE (03:20)
[2016-05-28] MEDS ORDERED: LORAZEPAM 2 MG/ML 1 ML VIAL IV PRN (03:30)
[2016-05-28] MEDS ORDERED: PROMETHAZINE HCL INJ 12.5 MG in SODIUM CHLORIDE 0.9% 50ML 50 ML IV PRN (03:30)
[2016-05-28] MEDS ORDERED: ACETAMINOPHEN 325 MG TAB PO PRN (03:30)
[2016-05-28] MEDS ORDERED: VANCOMYCIN INJ 2,700 MG in SODIUM CHLORIDE 0.9% 500ML 500 ML IV STA (03:30)
[2016-05-28] MEDS ORDERED: NITROGLYCERIN 0.4 MG SL PER TAB CHARGE SL PRN (03:30)
[2016-05-28] MEDS ORDERED: DEXTROSE 50% 50 ML SYR IV PRN (03:30)
[2016-05-28] MEDS ORDERED: LACTATED RINGER'S 1000ML 1,000 ML IV ONE (03:30)
[2016-05-28] MEDS ORDERED: GLUCOSE 40% GEL 15 GM TUBE PO PRN (03:30)
[2016-05-28] MEDS ORDERED: GLUCOSE 10 TABS/TUBE PO PRN (03:30)
[2016-05-28] MEDS ORDERED: GLUCAGON FOR INJ 1 MG VIAL SQ PRN (03:30)
[2016-05-28] MEDS ORDERED: VANCOMYCIN CONSULT ACTIVE PRN (03:45)
[2016-05-28] MEDS ORDERED: CEFEPIME IV 2,000 MG in DEXTROSE 5% 100ML 100 ML IV ONE (04:00)
[2016-05-28] MEDS ORDERED: METRONIDAZOLE / NSS 500 MG in PREMIXED NSS 100 ML IV SCH (04:00)
[2016-05-28] MEDS ORDERED: PNEUMOCOCCAL POLYSACCHARIDES 25 MCG/0.5 ML VIAL/SYR IM. ONE (04:15)
[2016-05-28] MEDS ORDERED: PNEUMOCOCCAL ADMINISTRATION CHARGE ONE (04:15)
[2016-05-28] MEDS ORDERED: BACITRACIN/POLYMYXIN B OINT 15 GM TUBE EXT ONE (04:27)
[2016-05-28] MEDS: TRAMADOL HCL 50 MG TAB PO PRN ×3 (04:38→22:34)
--- NOTE | 2016-05-28 06:41 | DIAGNOSTIC IMAGING REPORT ---
BILATERAL LOWER EXTREMITY VENOUS DOPPLER CLINICAL HISTORY: Left leg swelling, chest pain and shortness of breath. COMPARISON STUDY: Right lower extremity venous Doppler October 24, 2013. TECHNIQUE: Sonography of the deep venous system of the right lateral lower extremities was performed. Compression and augmentation were evaluated. FINDINGS: This exam was compromised by suboptimal penetration. The bilateral common femoral, superficial femoral and popliteal veins were compressible. Augmentation was normal. Flow was shown within the deep calf vessels. IMPRESSION: Technically difficult exam due to suboptimal visualization but no evidence of deep venous thrombus within the bilateral lower extremities. Electronically signed by: Ren Potts M.D. 05/28/2016 6:40 AM Dictated Date/Time: 05/28/2016 6:38 AM
[2016-05-28 06:43] LABS: BASO % 0.5 %; BASO ABS # 0.02 K/uL (0-0.2); COMPLETE YES; EOS % 2.3 %; HEMATOCRIT 34.8 % (37-47); IG% 0.2 %; LYMPH % 31.1 %; LYMPH ABS # 1.34 K/uL (1.2-3.4); MEAN CELL VOLUME 80.7 fL (80-100); MEAN CORPUSCULAR HGB CONC 32.2 g/dl (32-36); MEAN PLATELET VOLUME 9.4 fL (7.4-10.4); NEUT % 59.9 %; PLATELET COUNT 172 K/uL (130-400); RED BLOOD COUNT 4.31 M/uL (4.2-5.4); WHITE BLOOD COUNT 4.31 K/uL (4.8-10.8)
--- NOTE | 2016-05-28 06:59 | DIAGNOSTIC IMAGING REPORT ---
ABDOMEN AND PELVIS CT WITHOUT CONTRAST CT DOSE: 1973.88 mGy.cm HISTORY: Abdominal pain nephrocalcinosis TECHNIQUE: Multiaxial CT images of the abdomen and pelvis were performed without contrast. COMPARISON STUDY: 10/12/2015 FINDINGS: Lung bases are clear. Fatty infiltration of liver. Mild hepatosplenomegaly. Bilateral nonobstructing renal calcifications, difficult to see due to the presence of a small amount of residual intravenous contrast enhancement from a prior CT study. No evidence for hydronephrosis. Bowel pattern is considered nonobstructive. Uterus is anteflexed. Bladder is midline. IMPRESSION: 1. Moderate hepatosplenomegaly unchanged in the prior study. 2. Fatty infiltration of liver. 3. Otherwise no acute process of the abdomen or pelvis Electronically signed by: Toby Bautista M.D. 05/28/2016 6:57 AM Dictated Date/Time: 05/28/2016 6:54 AM
[2016-05-28 07:15] LABS: BUN/CREATININE RATIO 11.9 (10-20); CALCIUM 8.1 mg/dl (8.5-10.1); CREATININE 0.53 mg/dl (0.60-1.20); POTASSIUM 3.5 mmol/L (3.5-5.1)
--- NOTE | 2016-05-28 07:20 | DIAGNOSTIC IMAGING REPORT ---
CT ANGIOGRAPHY OF THE CHEST, PULMONARY EMBOLUS PROTOCOL CLINICAL HISTORY: Chest pain with shortness of breath and elevated d-dimer. COMPARISON STUDY: Chest CT August 11, 2013. TECHNIQUE: Following IV administration of 92 mL of [id number]-[id number], helical axial images of the chest were obtained utilizing the pulmonary embolus protocol. Maximal intensity projections and sagittal and coronal reformats were viewed on an independent 3D workstation. IV contrast was administered without complication. CT DOSE: 622.76 mGy.cm FINDINGS: No pulmonary emboli are identified although the subsegmental vessels are suboptimally assessed due to respiratory motion. There is no evidence of thoracic aortic dissection. No enlarged thoracic lymph nodes are present. Cardiac size is at the upper limits of normal. Central airways are patent. No consolidation is identified to suggest pneumonia. Linear and groundglass opacities are suggestive of atelectasis. There is no pneumothorax or pleural effusion. The bony thorax is unremarkable. Visualized portions of the upper abdomen demonstrate hepatosplenomegaly which were shown on prior CT. There is fatty infiltration of the liver. IMPRESSION: 1. No pulmonary emboli identified. 2. No acute intrathoracic findings. 3. Fatty infiltration of the liver and hepatosplenomegaly, as shown on prior CT. Electronically signed by: Ren Potts M.D. 05/28/2016 7:18 AM Dictated Date/Time: 05/28/2016 7:11 AM
--- NOTE | 2016-05-28 07:37 | HISTORY & PHYSICAL EXAMINATION ---
DATE OF ADMISSION: 05/28/2016 PRIMARY CARE DOCTOR: Dr. Matias. Hx obtained from px and records. CHIEF COMPLAINT: Fever, left leg swelling, abdominal pain. HISTORY OF PRESENT ILLNESS: Medical history significant for hypertension, DM2 insulin requiring, urolithiasis, asthma. Recent confinement last May 2014 for right ovarian cyst and renal colic. Patient was seen at PCP's office about 2 weeks ago for headache, sinus congestion for a week, itching in the lower extremities worse at night. Given doxycycline for possible sinusitis, cellulitis. No response. Patient noted bloody loose stools, achy abdominal pain, more on the left. No hematemesis, no coffee-ground emesis. Worsening of L leg swelling, itchy. itchy superficial wound also noted L sternum No chest pain, some shortness of breath, no cough symptoms. Denies bladder discomfort. At the Emergency Room the patient received ceftriaxone for sepsis. MEDICAL HISTORY: As above. May 2016 normal gastric emptying study. EGD done 03/2015 showed hiatal hernia with diffuse mild inflammation in the stomach. SURGERIES: Appendectomy, breast reduction, section, cholecystectomy. HOME MEDICATIONS: Ventolin, amitriptyline, doxycycline, Vasotec, vitamin D, exenatide, Breo Ellipta, gabapentin, Lantus, Claritin, Amitiza, Dulera, metformin, montelukast, naproxen, Prilosec, Zofran, Zantac. ALLERGIES: MINT. FAMILY HISTORY: Family history of diabetes. PERSONAL AND SOCIAL HISTORY: Nonsmoker, no chronic intake of alcoholic beverages. Currently unemployed, former [employer] employee. REVIEW OF SYSTEMS: As per HPI, all other ROS negative. PHYSICAL EXAMINATION: VITAL SIGNS: Blood pressure was noted to be 129/82, pulse rate 120, RR 18, temperature 37.8, sats 100 on room air. GENERAL: Noted to be uncomfortable. No respiratory distress. SKIN: Pallor. HEENT: Pale palpebral conjunctivae. Dry mucosa. NECK: Short neck. LUNGS: Decreased breath sounds. superficial wound, sternum with some crusting. No drainage. HEART : RRR ABDOMEN: Minimal left-sided tenderness. EXTREMITIES: papular lesions with induration on the left medial aspect of the knee, lower thigh. minimal tenderness NEUROLOGIC: No gross focality. LABS: Hemoglobin was noted to be 10.7, hematocrit 33.5, white count 6.15, platelets 257. Sodium noted to be 141, potassium 3.6, chloride 105, CO2 28, BUN 8, creatinine 0.6, glucose 186 Hemoglobin A1c March 2016 was 7.3. Chest x-ray no acute cardiopulmonary findings. LLE Venous Dopplers negative for DVT. CT thorax negative for PE. UA showed trace ketones. ASSESSMENT: 1. Sepsis possible sources : cellulitis, LLE LGIB rule out Clostridium difficile colitis 2. Hypertension, stable. 3. DM2, insulin requiring, reasonable control as of recent outpx HgA1c. 4. Anemia. Hemoglobin drop secondary to gastrointestinal bleed. PLAN: PCU CS, stool C. dif IV Vancomycin for cellulitis Cefepime, Flagyl for poss colitis CT abd pelvis RE l abd pain serial HH, transfuse pRBC if hemoglobin less than 7 and/or symptomatic anemia. GI consult RE LGIB, patient known to Dr. Valenzuela. Basal insulin adjusted for clear liquid diet for now. ISS BG goal 140-180. DVT prophylaxis, SCDs. RE GI bleed. Full code. MTDD
[2016-05-28] MEDS: INSULIN ASPART 100 UNITS/ML 3 ML PEN SC SCH ×4 (08:51→21:20)
[2016-05-28] MEDS: BREO ELLIPTA - ORDER AWAITING ACTION SCH ×2 (08:51→16:00)
[2016-05-28] MEDS: DULERA - ORDER AWAITING ACTION SCH ×2 (08:51→16:00)
[2016-05-28] MEDS: GABAPENTIN 300 MG CAP PO SCH ×2 (08:56→12:21)
[2016-05-28] MEDS: PANTOprazole SOD 40 MG TAB PO SCH (08:56)
[2016-05-28] MEDS: MONTELUKAST SOD 10 MG TAB PO SCH (08:56)
[2016-05-28] MEDS: ENALAPRIL MALEATE 5 MG TAB PO SCH (08:56)
[2016-05-28] MEDS: HYDROmorphone INJ 0.5 MG/0.5 ML SYR IV PRN ×3 (08:57→19:50)
--- NOTE | 2016-05-28 09:45 | Gastrointestinal Consultation ---
Gastrointestinal Consultation Date of Consultation: May 28, 2016 Attending Physician: Dr. Kennedy Consulting Physician: Dr. Valenzuela/KERRI Gonzales Reason for Consultation: Abdominal pain and rectal bleeding History of Present Illness Patient is a 31 year old female with a history of diabetes, morbid obesity, GERD , gastroparesis and chronic constipation following in our office as an outpatient. She has done well overall on Amitiza for control of constipation, she continued to have intermittent abdominal pain, bloating, belching and halitosis however. She did undergo an EGD one year ago with findings of a hiatus hernia and gastritis. Most recently, she did have a repeat gastric emptying study yesterday which was normal. The patient did contact our office with reports of worsening abdominal pain after the procedure and subsequently developed bloody diarrhea per H&P and presented to the hospital last night. She was also reportedly being treated as an outpatient with doxycycline for suspected cellulitis and on arrival she was febrile and hypertensive. She was admitted with cellulitis and sepsis. Laboratory testing on arrival includes a white blood cell count of 6.15, hemoglobin 10.7, and hematocrit 33.5. There were no electrolyte, renal or liver panel elevations. She did undergo a nonenhanced abdominopelvic CT which demonstrated no obstruction. No overt acute process was noted. Currently, the patient reports ongoing left-sided abdominal pain, worse in the left lower quadrant. She states to me today that she has not had a bowel movement in two days and she requests her Amitiza which has not been ordered on admission. Pain is sharp and non-radiating. No nausea or vomiting, hematochezia or melena today. Her H&H has improved to 11.2 and 34.8 today. She has never undergone a prior colonoscopy. Stool studies for enteric pathogens have been ordered but not collected as the patient has not had a bowel movement. Past Medical/Surgical History Medical Problems: (1) Abdominal pain Status: Acute (2) Anterior chest wall pain Status: Acute (3) Asthma exacerbation Status: Acute (4) Asthmatic bronchitis Status: Acute (5) Chest pain Status: Acute (6) Depression Status: Acute (7) Dyspnea Status: Acute (8) Epigastric abdominal pain Status: Acute (9) Failure of outpatient treatment Status: Acute (10) Hyperglycemia Status: Acute (11) Laceration Status: Acute (12) Left flank pain Status: Acute (13) Left leg cellulitis Status: Acute (14) Left ovarian cyst Status: Acute (15) Low back pain Status: Acute (16) Lumbosacral radiculopathy Status: Acute (17) Migraine Status: Acute (18) Pain with swallowing Status: Acute (19) Precordial chest pain Status: Acute (20) Renal colic Status: Acute (21) Renal colic Status: Acute Past Medical History: 1. Hypertension 2. Diabetes, type 2 3. Urolithiasis 4. Asthma 5. Fatty liver 6. as above Past Surgical History: 1. Appendectomy 2. Breast reduction 3. section 4. Cholecystectomy 5. EGD Family History Diabetes mellitus FH: gallbladder disease FH: heart disease FH: lung disease Hypertension Kidney disease or stones Seizures Negative for GI malignancy or IBD Social History Smoking Status: Never Smoker Alcohol Use: none Drug Use: none Marital Status: Housing Status: lives with family Occupation Status: unemployed Allergies Uncoded Allergies: MINT (Allergy, Unknown, unknown, 08/03/15) Current Medications Home Meds and Scripts Medications Dose Route/Sig Max Daily Dose Days Date Category Dose Instructions Gabapentin 300 Mg Cap 300 Mg PO TID 05/27/16 Reported Zofran Odt (Ondansetron HCl) 4 Mg Tab 4 Mg SL Q8 PRN 05/09/16 Reported Naproxen Sodium Ds (Naproxen Sodium) 550 Mg Tab 550 Mg PO BID 05/09/16 Reported TAKE THIS MEDICATION WITH FOOD Lantus Solostar (Insulin Glargine) 100 Unit/Ml Inj 60 Units SC HS 05/09/16 Reported Ventolin Hfa (Albuterol) 200 Puffs/12429 Mcg Aers 2 Puffs INH Q6H PRN 05/09/16 Reported Breo Ellipta (Fluticasone Furoate-Vilanterol) 1 Inh Inh 1 Puff INH DAILY 05/09/16 Reported Dulera 200/5 Mcg (Mometasone Furoate-Formoterol) 1 Aer Aer 2 Puffs INH BID PRN 10/12/15 Reported Amitriptyline HCl 50 Mg Tab 50 Mg PO HS 10/12/15 Reported Prilosec Otc (Omeprazole Magnesium) 20 Mg Tab 20 Mg PO QAM 10/12/15 Reported Zantac (Ranitidine Hcl) 300 Mg Tab 300 Mg PO HS 10/12/15 Reported Claritin (Loratadine) 10 Mg Tab 10 Mg PO HS 10/12/15 Reported Vitamin D (Ergocalciferol) 50,000 Interunit Cap 50,000 Inter.unit PO WK 10/10/15 Reported TAKE THIS MEDICATION EVERY WEDNESDAY Metformin HCl ER (Metformin HCl) 500 Mg Tabcr 1,000 Mg PO BID 10/10/15 Reported Doxycycline Hyclate 50 Mg Cap 50 Mg PO QAM 10/10/15 Reported Bydureon (Exenatide) 2 Mg Inj 2 Mg SC WK 04/08/15 Reported INJECT UNDER THE SKIN ONCE WEEKLY EVERY WEDNESDAY. Vasotec (Enalapril Maleate) 5 Mg Tab 5 Mg PO QAM 04/08/15 Reported Montelukast Sodium (Montelukast Sod) 10 Mg Tab 10 Mg PO QAM 12/19/14 Reported Amitiza (Lubiprostone) 24 Mcg Cap 24 Mcg PO BID 12/19/14 Reported Review of Systems See HPI for pertinent positives & negatives. A total of 10 systems reviewed and were otherwise negative. Physical Exam Date Time Temp Pulse Resp B/P Pulse Ox O2 Delivery O2 Flow Rate FiO2 05/28/16 03:38 36.8 120 18 129/82 98 Room Air 05/28/16 03:09 104 20 105/73 96 05/28/16 02:23 37.3 118 16 114/64 95 Room Air 05/28/16 00:58 123 18 129/71 95 Room Air 05/28/16 00:11 117 18 132/82 96 Room Air 05/27/16 23:23 119 20 111/81 100 Room Air 05/27/16 23:11 Room Air 05/27/16 20:50 37.8 86 18 144/90 100 Room Air General Appearance: WD/WN, no apparent distress Eyes: EOMI ENT: hearing grossly normal Neck: supple Respiratory/Chest: lungs clear, normal breath sounds, no respiratory distress Cardiovascular: regular rate, rhythm, no gallop, no murmur Abdomen: normal bowel sounds, soft, + tenderness (left side) Extremities: + swelling (and erythema of left thigh) Neurologic/Psych: alert, normal mood/affect, oriented x 3 Skin: warm/dry Laboratory Results Last 24 Hours Test 05/27/16 22:20 05/27/16 22:25 05/27/16 22:33 05/27/16 23:15 Urine Color YELLOW Urine Appearance CLEAR Urine pH 6.5 Urine Specific [place] 1.022 Urine Protein NEG Urine Glucose (UA) NEG Urine Ketones TRACE Urine Occult Blood NEG Urine Nitrite NEG Urine Bilirubin NEG Urine Urobilinogen NEG Urine Leukocyte Esterase NEG Urine WBC (Auto) 0 /hpf Urine RBC (Auto) 5-10 /hpf Urine Hyaline Casts (Auto) 1-5 /lpf Urine Epithelial Cells (Auto) >30 /lpf Urine Bacteria (Auto) NEG White Blood Count 6.15 K/uL Red Blood Count 4.12 M/uL Hemoglobin 10.7 g/dL Hematocrit 33.5 % Mean Corpuscular Volume 81.3 fL Mean Corpuscular Hemoglobin 26.0 pg Mean Corpuscular Hemoglobin Concent 31.9 g/dl Platelet Count 257 K/uL Mean Platelet Volume 9.7 fL Neutrophils (%) (Auto) 63.7 % Lymphocytes (%) (Auto) 26.3 % Monocytes (%) (Auto) 7.0 % Eosinophils (%) (Auto) 2.3 % Basophils (%) (Auto) 0.5 % Neutrophils # (Auto) 3.92 K/uL Lymphocytes # (Auto) 1.62 K/uL Monocytes # (Auto) 0.43 K/uL Eosinophils # (Auto) 0.14 K/uL Basophils # (Auto) 0.03 K/uL RDW Standard Deviation 42.5 fL RDW Coefficient of Variation 14.3 % Immature Granulocyte % (Auto) 0.2 % Immature Granulocyte # (Auto) 0.01 K/uL Prothrombin Time 10.7 SECONDS Prothromb Time International Ratio 1.0 Activated Partial Thromboplast Time 19.6 SECONDS Partial Thromboplastin Ratio 0.8 D-Dimer 1360 ug/L FEU Sodium Level 141 mmol/L Potassium Level 3.6 mmol/L Chloride Level 105 mmol/L Carbon Dioxide Level 28 mmol/L Anion Gap 8.0 mmol/L Blood Urea Nitrogen 8 mg/dl Creatinine 0.69 mg/dl Est Creatinine Clear Calc Drug Dose 155.4 ml/min Estimated GFR () 132.6 Estimated GFR (Non- 114.4 BUN/Creatinine Ratio 11.9 Random Glucose 186 mg/dl Calcium Level 8.9 mg/dl Magnesium Level 1.8 mg/dl Total Bilirubin 0.4 mg/dl Aspartate Amino Transf (AST/SGOT) 33 U/L Alanine Aminotransferase (ALT/SGPT) 64 U/L Alkaline Phosphatase 97 U/L Troponin I < 0.015 ng/ml Total Protein 7.4 gm/dl Albumin 3.6 gm/dl Globulin 3.8 gm/dl Albumin/Globulin Ratio 0.9 Thyroid Stimulating Hormone (TSH) 1.530 uIu/ml Human Chorionic Gonadotropin, Qual NEG Lyme Disease IgG Antibody NEG Lyme Disease IgM Antibody NEG Bedside Lactic Acid Venous 1.77 mmol/L Influenza Type A (RT-PCR) Neg for Influ A Influenza Type A Antigen Neg for Influ A Influenza Type B Antigen Neg for Influ B Influenza Type B (RT-PCR) Neg for Influ B Test 05/28/16 02:30 05/28/16 04:10 05/28/16 06:15 Lactic Acid Level 1.7 mmol/L Bedside Glucose 162 mg/dl White Blood Count 4.31 K/uL Red Blood Count 4.31 M/uL Hemoglobin 11.2 g/dL Hematocrit 34.8 % Mean Corpuscular Volume 80.7 fL Mean Corpuscular Hemoglobin 26.0 pg Mean Corpuscular Hemoglobin Concent 32.2 g/dl Platelet Count 172 K/uL Mean Platelet Volume 9.4 fL Neutrophils (%) (Auto) 59.9 % Lymphocytes (%) (Auto) 31.1 % Monocytes (%) (Auto) 6.0 % Eosinophils (%) (Auto) 2.3 % Basophils (%) (Auto) 0.5 % Neutrophils # (Auto) 2.58 K/uL Lymphocytes # (Auto) 1.34 K/uL Monocytes # (Auto) 0.26 K/uL Eosinophils # (Auto) 0.10 K/uL Basophils # (Auto) 0.02 K/uL RDW Standard Deviation 42.4 fL RDW Coefficient of Variation 14.4 % Immature Granulocyte % (Auto) 0.2 % Immature Granulocyte # (Auto) 0.01 K/uL Sodium Level 141 mmol/L Potassium Level 3.5 mmol/L Chloride Level 107 mmol/L Carbon Dioxide Level 25 mmol/L Anion Gap 9.0 mmol/L Blood Urea Nitrogen 6 mg/dl Creatinine 0.53 mg/dl Est Creatinine Clear Calc Drug Dose 201.9 ml/min Estimated GFR () 144.6 Estimated GFR (Non- 124.8 BUN/Creatinine Ratio 11.9 Random Glucose 155 mg/dl Calcium Level 8.1 mg/dl Impression Patient is a 31 year old female with a history of GERD, gastritis, gastroparesis , diabetes and chronic constipation presenting with fever, cellulitis and worsening abdominal pain as well as reported bloody diarrhea. Plan 1. Agree with stool studies to exclude enteric pathogens in light of recent oral antibiotic use. 2. Clear liquid diet. 3. Continue Protonix 40 mg daily for GI prophylaxis. 4. Recommend colonoscopy for further evaluation, although will await results of stool studies to determine timing. Thank you for allowing us to participate in the care of this mutual patient. If you have any questions or concerns, please do not hesitate to contact us. Agree with KERRI Gonzales as above Abd: Soft, Tender LLQ, and RUQ, ND, +BS Patient states she is feeling better over the past 12 hours She did have a BM today and is tolerating clear liquid diet Continue current treatment and supportive care
--- NOTE | 2016-05-28 10:59 | Pharmacy Progress Note ---
Pharmacy Antibiotic Consult Date of Service: May 28, 2016. Pharmacy Dosing Scope Pharmacy is consulted to initiate IV VANCOMYCIN therapy, order appropriate labs and adjust drug dose/frequency. Subjective The patient is a 31 year old female admitted on May 28, 2016 at 02:39 for worsening LLE cellulitis despite Doxycycline therapy as well as abdominal pain w / bloody loose stools and fever. Objective Height (Feet): 5 Height (Inches): 6.00 Weight (Kilograms): 122.900 Lab Results (24hrs): Laboratory Tests Test 05/27/16 22:25 05/28/16 06:15 BUN/Creatinine Ratio 11.9 11.9 Blood Urea Nitrogen 8 mg/dl 6 mg/dl Creatinine 0.69 mg/dl 0.53 mg/dl White Blood Count 6.15 K/uL 4.31 K/uL Red Blood Count 4.12 M/uL 4.31 M/uL Hemoglobin 10.7 g/dL 11.2 g/dL Hematocrit 33.5 % 34.8 % Mean Corpuscular Volume 81.3 fL 80.7 fL Mean Corpuscular Hemoglobin 26.0 pg 26.0 pg Mean Corpuscular Hemoglobin Concent 31.9 g/dl 32.2 g/dl Platelet Count 257 K/uL 172 K/uL Mean Platelet Volume 9.7 fL 9.4 fL Neutrophils (%) (Auto) 63.7 % 59.9 % Lymphocytes (%) (Auto) 26.3 % 31.1 % Monocytes (%) (Auto) 7.0 % 6.0 % Eosinophils (%) (Auto) 2.3 % 2.3 % Basophils (%) (Auto) 0.5 % 0.5 % Neutrophils # (Auto) 3.92 K/uL 2.58 K/uL Lymphocytes # (Auto) 1.62 K/uL 1.34 K/uL Monocytes # (Auto) 0.43 K/uL 0.26 K/uL Eosinophils # (Auto) 0.14 K/uL 0.10 K/uL Basophils # (Auto) 0.03 K/uL 0.02 K/uL Micro Results: Blood Cx's ordered C diff toxin ordered Lyme IgG/IgM negative Influenza A/B Ag + PCR negative Recent Pertinent Medications Metronidazole 500mg IV Q 8 hours Cefepime 2gm IV X 1 in ER Assessment & Plan * Morbidly obese 31 yo female presents to ER w/ worsening LLE cellulitis despite Doxycycline, as well as abdominal pain, fever and loose bloody stools * Lactate only mildly elevated on POC testing (1.77), not hypotensive or tachypneic, but pt is tachycardic, WBC decreased to 4.3 today, no fever noted since hospitalized * BLCX's and stool Cx's ordered, C diff toxin assay pending * CT abd no acute process per report VANCOMYCIN: * 2700mg loading dose x 1 given in ER at 0413 today * Maintenance dose: 1600mg (~13mg/kg) IV Q 8 hours * Goal trough = 15-20mcg/mL for empiric treatment of sepsis, awaiting cx results * Will check trough w/ 3rd maint dose * Very difficult to estimate this patient's p'kinetic parameters given morbid obesity (BMI 43.8). Will base doses on a smaller Vd than general, non-obese population and dose Q 8 hrs initially given predicted enhanced elimination rate. Will obtain the trough early on in treatment given these uncertainties. * P'kinetic estimates: cCrCl ~130-160cc/min; Kendall ~0.1-0.13 hr-1; Vd 0.55L/kg Pharmacy will continue to follow and will adjust dose/frequency as necessary. Thank you
[2016-05-28] MEDS: METRONIDAZOLE / NSS 500 MG in PREMIXED NSS 100 ML IV SCH ×2 (12:21→19:55)
[2016-05-28] MEDS: VANCOMYCIN INJ 1,600 MG in SODIUM CHLORIDE 0.9% 500ML 500 ML IV SCH ×2 (12:21→19:34)
--- NOTE | 2016-05-28 16:14 | Progress Note ---
Internal Med Progress Note Date of Service: May 28, 2016. Provider Documentation: still complaining of significant left lower abdominal pain. Says her pain in left lower medial thigh/knee region is better today. afebrile. hemodynamics stable. ct abd/pelvis unremarkable.On iv vancomycin and Flagyl. Await stool studies.Appreciate GI inputs. Will monitor ASSESSMENT & PLAN: [] DVT PROPHYLAXIS [] DISPOSITION [] Vital Signs: Date Time Temp Pulse Resp B/P Pulse Ox O2 Delivery O2 Flow Rate FiO2 05/28/16 12:00 Room Air 05/28/16 11:11 37.0 109 19 145/70 97 Room Air 05/28/16 08:06 37.2 108 18 124/88 97 Room Air 05/28/16 08:00 Room Air 05/28/16 03:38 36.8 120 18 129/82 98 Room Air 05/28/16 03:09 104 20 105/73 96 05/28/16 02:23 37.3 118 16 114/64 95 Room Air 05/28/16 00:58 123 18 129/71 95 Room Air 05/28/16 00:11 117 18 132/82 96 Room Air 05/27/16 23:23 119 20 111/81 100 Room Air 05/27/16 23:11 Room Air 05/27/16 20:50 37.8 86 18 144/90 100 Room Air Lab Results: Results Past 24 Hours Test 05/27/16 22:20 05/27/16 22:25 05/27/16 22:33 05/27/16 23:15 Range/Units Urine Color YELLOW Urine Appearance CLEAR CLEAR Urine pH 6.5 4.5-7.5 Urine Specific [place] 1.022 1.000-1.030 Urine Protein NEG NEG Urine Glucose (UA) NEG NEG Urine Ketones TRACE NEG Urine Occult Blood NEG NEG Urine Nitrite NEG NEG Urine Bilirubin NEG NEG Urine Urobilinogen NEG NEG Urine Leukocyte Esterase NEG NEG Urine WBC (Auto) 0 0-5 /hpf Urine RBC (Auto) 5-10 0-4 /hpf Urine Hyaline Casts (Auto) 1-5 0-5 /lpf Urine Epithelial Cells (Auto) >30 0-5 /lpf Urine Bacteria (Auto) NEG NEG White Blood Count 6.15 4.8-10.8 K/uL Red Blood Count 4.12 4.2-5.4 M/uL Hemoglobin 10.7 12.0-16.0 g/dL Hematocrit 33.5 37-47 % Mean Corpuscular Volume 81.3 80-100 fL Mean Corpuscular Hemoglobin 26.0 25-34 pg Mean Corpuscular Hemoglobin Concent 31.9 32-36 g/dl Platelet Count 257 130-400 K/uL Mean Platelet Volume 9.7 7.4-10.4 fL Neutrophils (%) (Auto) 63.7 % Lymphocytes (%) (Auto) 26.3 % Monocytes (%) (Auto) 7.0 % Eosinophils (%) (Auto) 2.3 % Basophils (%) (Auto) 0.5 % Neutrophils # (Auto) 3.92 1.4-6.5 K/uL Lymphocytes # (Auto) 1.62 1.2-3.4 K/uL Monocytes # (Auto) 0.43 0.11-0.59 K/uL Eosinophils # (Auto) 0.14 0-0.5 K/uL Basophils # (Auto) 0.03 0-0.2 K/uL RDW Standard Deviation 42.5 36.4-46.3 fL RDW Coefficient of Variation 14.3 11.5-14.5 % Immature Granulocyte % (Auto) 0.2 % Immature Granulocyte # (Auto) 0.01 0.00-0.02 K/uL Prothrombin Time 10.7 9.0-12.0 SECONDS Prothromb Time International Ratio 1.0 0.9-1.1 Activated Partial Thromboplast Time 19.6 21.0-31.0 SECONDS Partial Thromboplastin Ratio 0.8 D-Dimer 1360 0-500 ug/L FEU Sodium Level 141 136-145 mmol/L Potassium Level 3.6 3.5-5.1 mmol/L Chloride Level 105 98-107 mmol/L Carbon Dioxide Level 28 21-32 mmol/L Anion Gap 8.0 3-11 mmol/L Blood Urea Nitrogen 8 7-18 mg/dl Creatinine 0.69 0.60-1.20 mg/dl Est Creatinine Clear Calc Drug Dose 155.4 ml/min Estimated GFR () 132.6 Estimated GFR (Non- 114.4 BUN/Creatinine Ratio 11.9 10-20 Random Glucose 186 70-99 mg/dl Calcium Level 8.9 8.5-10.1 mg/dl Magnesium Level 1.8 1.8-2.4 mg/dl Total Bilirubin 0.4 0.2-1 mg/dl Aspartate Amino Transf (AST/SGOT) 33 15-37 U/L Alanine Aminotransferase (ALT/SGPT) 64 12-78 U/L Alkaline Phosphatase 97 45-117 U/L Troponin I < 0.015 0-0.045 ng/ml Total Protein 7.4 6.4-8.2 gm/dl Albumin 3.6 3.4-5.0 gm/dl Globulin 3.8 2.5-4.0 gm/dl Albumin/Globulin Ratio 0.9 0.9-2 Thyroid Stimulating Hormone (TSH) 1.530 0.300-4.500 uIu/ml Human Chorionic Gonadotropin, Qual NEG NEG Lyme Disease IgG Antibody NEG NEG Lyme Disease IgM Antibody NEG NEG Bedside Lactic Acid Venous 1.77 0.90-1.70 mmol/L Influenza Type A (RT-PCR) Neg for Influ A NEG Influenza Type A Antigen Neg for Influ A NEG Influenza Type B Antigen Neg for Influ B NEG Influenza Type B (RT-PCR) Neg for Influ B NEG Test 05/28/16 02:30 05/28/16 04:10 05/28/16 06:15 05/28/16 11:09 Range/Units Lactic Acid Level 1.7 0.4-2.0 mmol/L Bedside Glucose 162 177 70-90 mg/dl White Blood Count 4.31 4.8-10.8 K/uL Red Blood Count 4.31 4.2-5.4 M/uL Hemoglobin 11.2 12.0-16.0 g/dL Hematocrit 34.8 37-47 % Mean Corpuscular Volume 80.7 80-100 fL Mean Corpuscular Hemoglobin 26.0 25-34 pg Mean Corpuscular Hemoglobin Concent 32.2 32-36 g/dl Platelet Count 172 130-400 K/uL Mean Platelet Volume 9.4 7.4-10.4 fL Neutrophils (%) (Auto) 59.9 % Lymphocytes (%) (Auto) 31.1 % Monocytes (%) (Auto) 6.0 % Eosinophils (%) (Auto) 2.3 % Basophils (%) (Auto) 0.5 % Neutrophils # (Auto) 2.58 1.4-6.5 K/uL Lymphocytes # (Auto) 1.34 1.2-3.4 K/uL Monocytes # (Auto) 0.26 0.11-0.59 K/uL Eosinophils # (Auto) 0.10 0-0.5 K/uL Basophils # (Auto) 0.02 0-0.2 K/uL RDW Standard Deviation 42.4 36.4-46.3 fL RDW Coefficient of Variation 14.4 11.5-14.5 % Immature Granulocyte % (Auto) 0.2 % Immature Granulocyte # (Auto) 0.01 0.00-0.02 K/uL Sodium Level 141 136-145 mmol/L Potassium Level 3.5 3.5-5.1 mmol/L Chloride Level 107 98-107 mmol/L Carbon Dioxide Level 25 21-32 mmol/L Anion Gap 9.0 3-11 mmol/L Blood Urea Nitrogen 6 7-18 mg/dl Creatinine 0.53 0.60-1.20 mg/dl Est Creatinine Clear Calc Drug Dose 201.9 ml/min Estimated GFR () 144.6 Estimated GFR (Non- 124.8 BUN/Creatinine Ratio 11.9 10-20 Random Glucose 155 70-99 mg/dl Calcium Level 8.1 8.5-10.1 mg/dl Test 05/28/16 14:10 Range/Units Hemoglobin 11.1 12.0-16.0 g/dL Hematocrit 34.0 37-47 % Microbiology Results 05/27/16 Blood Culture, Received Pending 05/27/16 Blood Culture, Received Pending
[2016-05-28] MEDS ORDERED: BISACODYL 10 MG SUPP PR PRN (16:15)
[2016-05-28] MEDS ORDERED: POLYETHYLENE (MIRALAX) 17 GM PACK PO PRN (16:15)
[2016-05-28] MEDS: BACITRACIN/POLYMYXIN B OINT 15 GM TUBE EXT SCH (20:42)
[2016-05-28] MEDS: RANITIDINE HCL 150 MG TAB PO SCH (21:12)
[2016-05-28] MEDS: LORATADINE 10 MG TAB PO SCH (21:12)
[2016-05-28] MEDS: AMITRIPTYLINE HCL 50 MG TAB PO SCH (21:12)
[2016-05-28] MEDS: INSULIN GLARGINE SOLOSTAR 100 UNITS/ML 3 ML PEN SC SCH (21:20)
[2016-05-29] MEDS ORDERED: VANCOMYCIN TROUGH ONE (03:30)
[2016-05-29] MEDS: HYDROmorphone INJ 0.5 MG/0.5 ML SYR IV PRN ×3 (04:12→23:52)
[2016-05-29] MEDS: ACETAMINOPHEN 325 MG TAB PO PRN ×2 (04:14→11:56)
[2016-05-29] MEDS: ONDANSETRON INJ 2 MG/ML 2 ML VIAL IV PRN ×3 (04:15→18:49)
[2016-05-29] MEDS: VANCOMYCIN INJ 1,600 MG in SODIUM CHLORIDE 0.9% 500ML 500 ML IV SCH ×3 (04:28→20:56)
[2016-05-29 04:30] LABS: BUN/CREATININE RATIO 5.5 (10-20); CALCIUM 8.2 mg/dl (8.5-10.1); CREATININE 0.55 mg/dl (0.60-1.20); MAGNESIUM 1.8 mg/dl (1.8-2.4); POTASSIUM 3.4 mmol/L (3.5-5.1)
[2016-05-29] MEDS ORDERED: POTASSIUM CHLORIDE 10 MEQ TABCR PO ONE (07:15)
[2016-05-29 07:21] VITALS: BP 112/71; PULSE 108; TEMP 36.7; O2SAT 91
[2016-05-29] MEDS ORDERED: PIPERACILL/TAZOBAC CONSULT ACTIVE PRN (07:30)
[2016-05-29] MEDS ORDERED: PIPERACILL/TAZOBAC IV 4.5 GM in DEXTROSE 5% 100ML IV ONE (07:30)
[2016-05-29 07:37] LABS: BASO % 0.2 %; BASO ABS # 0.01 K/uL (0-0.2); COMPLETE YES; EOS % 0.2 %; HEMATOCRIT 34.7 % (37-47); IG% 0.2 %; LYMPH % 26.3 %; LYMPH ABS # 1.18 K/uL (1.2-3.4); MEAN CORPUSCULAR HEMOGLOBIN 25.7 pg (25-34); MEAN CORPUSCULAR HGB CONC 32.6 g/dl (32-36); MEAN PLATELET VOLUME 8.9 fL (7.4-10.4); MONO % 6.5 %; NEUT % 66.6 %; PLATELET COUNT 147 K/uL (130-400); RED BLOOD COUNT 4.39 M/uL (4.2-5.4); WHITE BLOOD COUNT 4.48 K/uL (4.8-10.8)
[2016-05-29] MEDS ORDERED: FLUTICASONE FUROATE-VILANTEROL 30 PUFFS/INHALER INH INH SCH (08:00)
[2016-05-29] MEDS: BACITRACIN/POLYMYXIN B OINT 15 GM TUBE EXT SCH ×2 (08:00→21:00)
[2016-05-29] MEDS: DULERA - ORDER AWAITING ACTION SCH ×4 (08:00→23:54)
[2016-05-29] MEDS: MONTELUKAST SOD 10 MG TAB PO SCH (08:07)
[2016-05-29] MEDS: ENALAPRIL MALEATE 5 MG TAB PO SCH (08:07)
[2016-05-29] MEDS: GABAPENTIN 300 MG CAP PO SCH ×3 (08:08→20:53)
[2016-05-29] MEDS: PANTOprazole SOD 40 MG TAB PO SCH (08:08)
[2016-05-29] MEDS: SODIUM CHLORIDE 0.9% 1000ML 1,000 ML IV SCH ×2 (08:12→18:39)
[2016-05-29] MEDS: INSULIN GLARGINE SOLOSTAR 100 UNITS/ML 3 ML PEN SC SCH ×2 (08:19→21:12)
[2016-05-29] MEDS: INSULIN ASPART 100 UNITS/ML 3 ML PEN SC SCH ×4 (09:34→21:13)
--- NOTE | 2016-05-29 09:42 | Gastroenterology Progress Note ---
Progress Note Date of Service: May 29, 2016 Subjective Pt evaluation today including: conversation w/ patient, physical exam, chart review, lab review, review of inpatient medication list C Diff testing negative. Patient reports improved abdominal pain. She did have a soft bowel movement yesterday. No diarrhea or bloody stools. Tolerating clear liquid diet. She was noted to be febrile last evening but not this morning. Continues IV antibiotics. Review of Systems Constitutional: + see HPI Respiratory: No problem reported Cardiac: No problem reported Abdomen: + see HPI Psych: No problem reported Medications Current Inpatient Medications Medications (Trade) Dose Ordered Sig/Rody Route Start Time Stop Time Status Last Admin Dose Admin Ioversol (Optiray 320) 100 ml UD PRN IV 05/28/16 00:30 06/01/16 00:29 Nitroglycerin (Nitrostat Tab) 0.4 mg UD PRN SL 05/28/16 03:30 06/27/16 03:29 Insulin Aspart (novoLOG ASPART) SLIDING SCALE If C... ACHS SC 05/28/16 06:45 06/27/16 06:59 05/28/16 21:20 1 UNITS Glucose (Glucose 40% Gel) 15-30 GRAMS 15 GRAMS... UD PRN PO 05/28/16 03:30 06/27/16 03:29 Glucose (Glucose Chew Tab) 4-8 Tablets 4 Tabl... UD PRN PO 05/28/16 03:30 06/27/16 03:29 Dextrose (Dextrose 50% 50ML Syringe) 25-50ML OF 50% DW IV FOR... UD PRN IV 05/28/16 03:30 06/27/16 03:29 Glucagon (Glucagon Inj) 1 mg UD PRN SQ 05/28/16 03:30 06/27/16 03:29 Amitriptyline HCl (Elavil Tab) 50 mg HS PO 05/28/16 21:00 06/27/16 20:59 05/28/16 21:12 50 MG Enalapril Maleate (Vasotec Tab) 5 mg QAM PO 05/28/16 09:00 06/27/16 08:59 05/29/16 08:07 5 MG Gabapentin (Neurontin Cap) 300 mg TID PO 05/28/16 09:00 06/27/16 08:59 05/29/16 08:08 300 MG Insulin Glargine (Lantus Solostar Pen) 10 unit BID SC 05/28/16 20:42 06/27/16 20:59 05/29/16 08:19 10 UNIT Loratadine (Claritin Tab) 10 mg HS PO 05/28/16 21:00 06/27/16 20:59 05/28/16 21:12 10 MG Montelukast Sodium (Singulair Tab) 10 mg QAM PO 05/28/16 09:00 06/27/16 08:59 05/29/16 08:07 10 MG Miscellaneous Information (Order Awaiting Action) 1 ea QS N/A 05/28/16 08:00 06/27/16 07:59 Pantoprazole Sodium (Protonix Tab) 40 mg QAM PO 05/28/16 09:00 06/27/16 08:59 05/29/16 08:08 40 MG Ranitidine HCl (zANTac TAB) 300 mg HS PO 05/28/16 21:00 06/27/16 20:59 05/28/16 21:12 300 MG Lorazepam (Ativan Inj) 0.5 mg Q4H PRN IV 05/28/16 03:30 06/27/16 03:29 Tramadol HCl (Ultram Tab) 25 mg Q6H PRN PO 05/28/16 03:30 06/27/16 03:29 05/28/16 22:34 25 MG Ondansetron HCl 4 mg 4 mg Q6H PRN IV 05/28/16 03:30 06/27/16 03:29 05/29/16 04:15 4 MG Promethazine HCl/ Sodium Chloride (Phenergan Inj/ Nss 50ml) 50.5 ml @ 204 mls/hr Q6H PRN IV 05/28/16 03:30 06/27/16 03:29 Hydromorphone HCl (Dilaudid Inj) 0.5 mg Q3H PRN IV 05/28/16 03:30 06/11/16 03:29 05/29/16 04:12 0.5 MG Vancomycin HCl (Consult) 1 ea UD PRN N/A 05/28/16 03:45 06/27/16 03:44 Acetaminophen (Tylenol Tab) 325 mg Q6H PRN PO 05/28/16 09:30 06/27/16 09:29 05/29/16 04:14 325 MG Bacitracin/ Polymyxin B Sulfate 1 appln 1 appln BID EXT 05/28/16 20:42 06/02/16 20:59 Vancomycin HCl/ Sodium Chloride (Vancomycin Inj/ Nss 500ml) 532 ml @ 200 mls/hr Q8H IV 05/28/16 12:00 06/07/16 11:59 05/29/16 04:28 200 MLS/HR Polyethylene (Miralax Powder Packet) 17 gm DAILY PRN PO 05/28/16 16:15 06/27/16 16:14 05/28/16 16:37 17 GM Bisacodyl (Dulcolax Supp) 10 mg DAILY PRN W[place] 05/28/16 16:15 06/27/16 16:14 05/28/16 16:37 10 MG Fluticasone/ Vilanterol 1 puffs 1 puffs DAILY INH 05/29/16 08:00 06/28/16 07:59 05/29/16 08:09 1 PUFFS Sodium Chloride 1,000 ml @ 100 mls/hr Q10H IV 05/29/16 07:15 06/28/16 07:14 05/29/16 08:12 100 MLS/HR Piperacillin Sod/ Tazobactam Sod/ Dextrose (Zosyn Iv/D5 100ml) 120 ml @ 30 mls/hr Q8H IV 05/29/16 14:00 06/08/16 13:59 Piperacillin Sod/ Tazobactam Sod (Consult) 1 ea UD PRN N/A 05/29/16 07:30 06/28/16 07:29 Objective Vital Signs Date Time Temp Pulse Resp B/P Pulse Ox O2 Delivery O2 Flow Rate FiO2 05/29/16 07:21 36.7 108 20 112/71 91 Room Air 05/29/16 01:00 Room Air 05/28/16 23:52 37.3 104 18 130/81 95 Room Air 05/28/16 21:00 37.6 111 18 121/86 97 Room Air 05/28/16 20:30 Room Air 05/28/16 20:00 37.9 115 18 133/90 100 Room Air 05/28/16 20:00 Room Air 05/28/16 20:00 37.9 115 18 100 05/28/16 16:00 37.1 104 20 135/92 97 Room Air 05/28/16 16:00 Room Air 05/28/16 12:00 Room Air 05/28/16 11:11 37.0 109 19 145/70 97 Room Air Physical Exam General Appearance: WD/WN, no apparent distress Eyes: EOMI ENT: hearing grossly normal Neck: supple Respiratory/Chest: lungs clear, normal breath sounds, no respiratory distress Cardiovascular: regular rate, rhythm, no gallop, no murmur Abdomen: normal bowel sounds, soft, + tenderness (minimal left-sided) Neurologic/Psych: alert, normal mood/affect, oriented x 3 Skin: warm/dry Laboratory Results Last 24 Hours Test 05/28/16 11:09 05/28/16 14:10 05/28/16 16:15 05/28/16 20:53 Bedside Glucose 177 mg/dl 110 mg/dl 189 mg/dl Hemoglobin 11.1 g/dL Hematocrit 34.0 % Test 05/29/16 04:05 05/29/16 07:10 05/29/16 07:43 Sodium Level 139 mmol/L Potassium Level 3.4 mmol/L Chloride Level 104 mmol/L Carbon Dioxide Level 26 mmol/L Anion Gap 9.0 mmol/L Blood Urea Nitrogen 3 mg/dl Creatinine 0.55 mg/dl Est Creatinine Clear Calc Drug Dose 194.6 ml/min Estimated GFR () 142.8 Estimated GFR (Non- 123.2 BUN/Creatinine Ratio 5.5 Random Glucose 164 mg/dl Lactic Acid Level 1.2 mmol/L Calcium Level 8.2 mg/dl Magnesium Level 1.8 mg/dl Vancomycin Level Trough 12.1 mcg/ml White Blood Count 4.48 K/uL Red Blood Count 4.39 M/uL Hemoglobin 11.3 g/dL Hematocrit 34.7 % Mean Corpuscular Volume 79.0 fL Mean Corpuscular Hemoglobin 25.7 pg Mean Corpuscular Hemoglobin Concent 32.6 g/dl Platelet Count 147 K/uL Mean Platelet Volume 8.9 fL Neutrophils (%) (Auto) 66.6 % Lymphocytes (%) (Auto) 26.3 % Monocytes (%) (Auto) 6.5 % Eosinophils (%) (Auto) 0.2 % Basophils (%) (Auto) 0.2 % Neutrophils # (Auto) 2.98 K/uL Lymphocytes # (Auto) 1.18 K/uL Monocytes # (Auto) 0.29 K/uL Eosinophils # (Auto) 0.01 K/uL Basophils # (Auto) 0.01 K/uL RDW Standard Deviation 41.5 fL RDW Coefficient of Variation 14.5 % Immature Granulocyte % (Auto) 0.2 % Immature Granulocyte # (Auto) 0.01 K/uL Bedside Glucose 137 mg/dl Assessment and Plan Patient is a 31 year old female with a history of GERD, gastritis, gastroparesis , diabetes and chronic constipation presenting with fever, cellulitis and worsening abdominal pain which has since improved after having a bowel movement. 1. No further bleeding noted. H&H remains stable. 2. C Diff negative. 3. Okay to advance diet as tolerated. 4. Outpatient colonoscopy once acute infection has resolved. Will arrange through our office. Agree with KERRI Gonzales as above Abd: Soft, NT, ND, +BS Continue current therapy Advance diet as tolerated
[2016-05-29] MEDS ORDERED: PIPERACILL/TAZOBAC IV 3.375 GM in DEXTROSE 5% 100ML 100 ML IV SCH (12:00)
[2016-05-29] MEDS: PIPERACILL/TAZOBAC IV 4.5 GM in DEXTROSE 5% 100ML IV SCH ×2 (14:47→22:21)
[2016-05-29] MEDS: OXYCODONE/ACETAMINOPHEN 5-325 TAB PO PRN (14:55)
--- NOTE | 2016-05-29 15:27 | Progress Note ---
Internal Med Progress Note Date of Service: May 29, 2016. Provider Documentation: sitting on the chair comfortably says her abdominal pain is better moved her bowels complains of headache eating ok had temp spike last night exam: General-alert and oriented. Not in distress ENT-normal hearing Neck-no neck masses Lungs-cta b/l no wheezing no crackles Heart-s1 and s2 heard, regular rate and rhythm no murmurs Abdomen-soft bowel sounds present non tender no distension Extremities-no edema erythema on left medial thigh region Neuro-alert and awake moves extremities ASSESSMENT & PLAN: 1. 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 Gi plan for colonoscopy as out patient. 2. Hypertension,stable on enalapril 3. DM2, insulin requiring, on lantus and iss will monitor. . 4. Anemia. Hemoglobin drop secondary to gastrointestinal bleed. hb stable at 11 will f/u labs. DVT PROPHYLAXIS scds DISPOSITION monitor in medical floor to be determined Vital Signs: Date Time Temp Pulse Resp B/P Pulse Ox O2 Delivery O2 Flow Rate FiO2 05/29/16 09:30 Room Air 05/29/16 07:21 36.7 108 20 112/71 91 Room Air 05/29/16 01:00 Room Air 05/28/16 23:52 37.3 104 18 130/81 95 Room Air 05/28/16 21:00 37.6 111 18 121/86 97 Room Air 05/28/16 20:30 Room Air 05/28/16 20:00 37.9 115 18 133/90 100 Room Air 05/28/16 20:00 Room Air 05/28/16 20:00 37.9 115 18 100 05/28/16 16:00 37.1 104 20 135/92 97 Room Air 05/28/16 16:00 Room Air Lab Results: Results Past 24 Hours Test 05/28/16 16:15 05/28/16 20:53 05/29/16 04:05 05/29/16 07:10 Range/Units Bedside Glucose 110 189 70-90 mg/dl Sodium Level 139 136-145 mmol/L Potassium Level 3.4 3.5-5.1 mmol/L Chloride Level 104 98-107 mmol/L Carbon Dioxide Level 26 21-32 mmol/L Anion Gap 9.0 3-11 mmol/L Blood Urea Nitrogen 3 7-18 mg/dl Creatinine 0.55 0.60-1.20 mg/dl Est Creatinine Clear Calc Drug Dose 194.6 ml/min Estimated GFR () 142.8 Estimated GFR (Non- 123.2 BUN/Creatinine Ratio 5.5 10-20 Random Glucose 164 70-99 mg/dl Lactic Acid Level 1.2 0.4-2.0 mmol/L Calcium Level 8.2 8.5-10.1 mg/dl Magnesium Level 1.8 1.8-2.4 mg/dl Vancomycin Level Trough 12.1 SEE COMMENT mcg/ml White Blood Count 4.48 4.8-10.8 K/uL Red Blood Count 4.39 4.2-5.4 M/uL Hemoglobin 11.3 12.0-16.0 g/dL Hematocrit 34.7 37-47 % Mean Corpuscular Volume 79.0 80-100 fL Mean Corpuscular Hemoglobin 25.7 25-34 pg Mean Corpuscular Hemoglobin Concent 32.6 32-36 g/dl Platelet Count 147 130-400 K/uL Mean Platelet Volume 8.9 7.4-10.4 fL Neutrophils (%) (Auto) 66.6 % Lymphocytes (%) (Auto) 26.3 % Monocytes (%) (Auto) 6.5 % Eosinophils (%) (Auto) 0.2 % Basophils (%) (Auto) 0.2 % Neutrophils # (Auto) 2.98 1.4-6.5 K/uL Lymphocytes # (Auto) 1.18 1.2-3.4 K/uL Monocytes # (Auto) 0.29 0.11-0.59 K/uL Eosinophils # (Auto) 0.01 0-0.5 K/uL Basophils # (Auto) 0.01 0-0.2 K/uL RDW Standard Deviation 41.5 36.4-46.3 fL RDW Coefficient of Variation 14.5 11.5-14.5 % Immature Granulocyte % (Auto) 0.2 % Immature Granulocyte # (Auto) 0.01 0.00-0.02 K/uL Test 05/29/16 07:43 05/29/16 11:53 Range/Units Bedside Glucose 137 240 70-90 mg/dl Microbiology Results 05/28/16 C.difficile Toxin B Gene (PCR) - Final, Complete No C. difficile toxin B gene detected
[2016-05-29 15:41] VITALS: BP 128/82; PULSE 116; TEMP 37; O2SAT 96
[2016-05-29] MEDS ORDERED: FLUCONAZOLE 100 MG TAB PO ONE (18:00)
[2016-05-29] MEDS: TRAMADOL HCL 50 MG TAB PO PRN (20:52)
[2016-05-29] MEDS: LORATADINE 10 MG TAB PO SCH (20:53)
[2016-05-29] MEDS: AMITRIPTYLINE HCL 50 MG TAB PO SCH (20:54)
[2016-05-29] MEDS: RANITIDINE HCL 150 MG TAB PO SCH (20:55)
[2016-05-29] MEDS: MICONAZOLE NITRATE 2% VAG CR 45 GM TUBE PV SCH (21:17)
[2016-05-29] MEDS ORDERED: ACETAMINOPHEN 325 MG TAB PO STA (22:41)
[2016-05-29] MEDS ORDERED: GI COCKTAIL PO ONE (22:45)
[2016-05-29] MEDS ORDERED: ALUMINUM/MAGNESIUM SUSP 18 ML, LIDOCAINE HCL 2% VISCOUS SOLN 6 ML, BARCODE IDENTIFIER 1 EA PO ONE ×2 (23:00)
[2016-05-29 23:41] VITALS: TEMP 37.9
[2016-05-29 23:42] LABS: BASO % 0.5 %; BASO ABS # 0.02 K/uL (0-0.2); COMPLETE YES; EOS % 0.3 %; HEMATOCRIT 32.4 % (37-47); IG% 0.3 %; LYMPH % 25.4 %; LYMPH ABS # 1.01 K/uL (1.2-3.4); MEAN CELL VOLUME 78.8 fL (80-100); MEAN PLATELET VOLUME 9.7 fL (7.4-10.4); MONO % 8.3 %; NEUT % 65.2 %; PLATELET COUNT 154 K/uL (130-400); RED BLOOD COUNT 4.11 M/uL (4.2-5.4); WHITE BLOOD COUNT 3.98 K/uL (4.8-10.8)
[2016-05-29 23:44] LABS: ALT/SGPT 63 U/L (12-78); AST/SGOT 56 U/L (15-37); BLOOD UREA NITROGEN 4 mg/dl (7-18); CALCIUM 8.1 mg/dl (8.5-10.1); CARBON DIOXIDE 29 mmol/L (21-32); CHLORIDE 103 mmol/L (98-107); CREATININE 0.68 mg/dl (0.60-1.20); GLUCOSE 191 mg/dl (70-99); POTASSIUM 3.8 mmol/L (3.5-5.1); SODIUM 140 mmol/L (136-145)
[2016-05-29 23:49] LABS: ALB/GLOB RATIO 0.8 (0.9-2); ALKALINE PHOSPHATASE 89 U/L (45-117)
[2016-05-30 00:37] LABS: PARTIAL THROMBOPLASTIN RATIO 1.1
[2016-05-30] MEDS ORDERED: OPTIRAY 320 IV PRN (02:00)
[2016-05-30] MEDS: SODIUM CHLORIDE 0.9% 1000ML 1,000 ML IV SCH ×3 (03:12→22:42)
[2016-05-30] MEDS: VANCOMYCIN INJ 1,600 MG in SODIUM CHLORIDE 0.9% 500ML 500 ML IV SCH ×3 (04:09→20:00)
[2016-05-30 04:15] VITALS: TEMP 36.7
[2016-05-30] MEDS: PIPERACILL/TAZOBAC IV 4.5 GM in DEXTROSE 5% 100ML IV SCH ×3 (05:46→21:05)
[2016-05-30] MEDS: HYDROmorphone INJ 0.5 MG/0.5 ML SYR IV PRN ×2 (05:58→12:31)
--- NOTE | 2016-05-30 05:59 | DIAGNOSTIC IMAGING REPORT ---
CHEST ONE VIEW PORTABLE CLINICAL HISTORY: sob dyspnea COMPARISON STUDY: 05/27/2016 FINDINGS: Respiratory volumes. Crowding of the basilar lung markings. No focal infiltrate. IMPRESSION: Negative chest. Electronically signed by: Toby Bautista M.D. 05/30/2016 5:58 AM Dictated Date/Time: 05/30/2016 5:57 AM
[2016-05-30 06:29] LABS: BASO % 0.7 %; BASO ABS # 0.03 K/uL (0-0.2); COMPLETE YES; EOS % 0.7 %; HEMATOCRIT 35.4 % (37-47); IG% 0.2 %; LYMPH % 27.2 %; LYMPH ABS # 1.19 K/uL (1.2-3.4); MEAN CELL VOLUME 81.4 fL (80-100); MEAN CORPUSCULAR HEMOGLOBIN 25.7 pg (25-34); MEAN CORPUSCULAR HGB CONC 31.6 g/dl (32-36); MEAN PLATELET VOLUME 9.2 fL (7.4-10.4); MONO % 9.4 %; NEUT % 61.8 %; PLATELET COUNT 150 K/uL (130-400); RED BLOOD COUNT 4.35 M/uL (4.2-5.4); WHITE BLOOD COUNT 4.37 K/uL (4.8-10.8)
--- NOTE | 2016-05-30 06:41 | DIAGNOSTIC IMAGING REPORT ---
ABDOMEN AND PELVIS CT WITH IV CONTRAST CT DOSE: 1926.59 mGy.cm HISTORY: Pain pain TECHNIQUE: Multiaxial CT images of the abdomen and pelvis were performed following the use of intravenous contrast. COMPARISON STUDY: 05/28/2016 FINDINGS: Mild bibasilar platelike atelectasis. Hepatosplenomegaly. Fatty infiltration of liver. Small nonobstructing renal calcifications unchanged. Nonobstructive bowel pattern. Bilateral ovarian cysts unchanged. Bladder is midline. IMPRESSION: Small renal and ovarian cyst. Nonobstructive bowel pattern. No change from the prior study Electronically signed by: Toby Bautista M.D. 05/30/2016 6:40 AM Dictated Date/Time: 05/30/2016 6:38 AM
[2016-05-30 06:59] LABS: BUN/CREATININE RATIO 7.3 (10-20); CALCIUM 8.6 mg/dl (8.5-10.1); CREATININE 0.51 mg/dl (0.60-1.20); MAGNESIUM 2.1 mg/dl (1.8-2.4); POTASSIUM 3.7 mmol/L (3.5-5.1)
[2016-05-30 07:31] VITALS: BP 115/71; PULSE 118; TEMP 37.6; O2SAT 95
[2016-05-30] MEDS: INSULIN ASPART 100 UNITS/ML 3 ML PEN SC SCH ×4 (09:03→21:01)
[2016-05-30] MEDS: DULERA - ORDER AWAITING ACTION SCH ×3 (09:04→23:04)
[2016-05-30] MEDS: INSULIN GLARGINE SOLOSTAR 100 UNITS/ML 3 ML PEN SC SCH ×2 (09:05→21:01)
[2016-05-30] MEDS: GABAPENTIN 300 MG CAP PO SCH ×3 (09:06→21:04)
[2016-05-30] MEDS: MONTELUKAST SOD 10 MG TAB PO SCH (09:06)
[2016-05-30] MEDS: BACITRACIN/POLYMYXIN B OINT 15 GM TUBE EXT SCH ×2 (09:06→21:40)
[2016-05-30] MEDS: ENALAPRIL MALEATE 5 MG TAB PO SCH (09:06)
[2016-05-30] MEDS: PANTOprazole SOD 40 MG TAB PO SCH (09:07)
[2016-05-30] MEDS: FLUTICASONE FUROATE-VILANTEROL 30 PUFFS/INHALER INH INH SCH (09:07)
[2016-05-30] MEDS: OXYCODONE/ACETAMINOPHEN 5-325 TAB PO PRN ×3 (09:08→19:20)
[2016-05-30 15:30] VITALS: BP 134/84; PULSE 115; TEMP 37.1; O2SAT 96
[2016-05-30] MEDS ORDERED: METHYLPREDNISOLONE IV 40 MG in SYRINGE 0 ML IV ONE (17:00)
--- NOTE | 2016-05-30 17:41 | Progress Note ---
Internal Med Progress Note Date of Service: May 30, 2016. Provider Documentation: sitting on the chair comfortably says last night she had some pain in her right side of trunk says today she noticed blood in her stool requests to advance the diet had mild temp spike exam: General-alert and oriented. Not in distress ENT-normal hearing Neck-no neck masses Lungs-cta b/l no wheezing no crackles Heart-s1 and s2 heard, regular rate and rhythm no murmurs Abdomen-soft bowel sounds present non tender no distension Extremities-no edema erythema on left medial thigh region improving Neuro-alert and awake moves extremities ASSESSMENT & PLAN: 1. 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 Gi plan for colonoscopy as out patient. maricarmen had blood in stool today will check stool Hemoccult' hb stable at 11.2 will f/u h and h 2. Hypertension,stable on enalapril 3. DM2, insulin requiring, on lantus and iss will monitor. . 4. Anemia. Hemoglobin drop secondary to gastrointestinal bleed. hb stable at 11 will f/u labs. DVT PROPHYLAXIS scds DISPOSITION monitor in medical floor to be determined Vital Signs: Date Time Temp Pulse Resp B/P Pulse Ox O2 Delivery O2 Flow Rate FiO2 05/30/16 15:36 Room Air 05/30/16 15:30 37.1 115 18 134/84 96 Room Air 05/30/16 11:46 Room Air 05/30/16 10:58 Nasal Cannula 2.0 05/30/16 07:31 37.6 118 18 115/71 95 Room Air 05/30/16 04:15 36.7 05/30/16 00:00 Room Air 05/29/16 23:41 37.9 Lab Results: Results Past 24 Hours Test 05/29/16 20:42 05/29/16 23:10 05/29/16 23:17 05/30/16 00:08 Range/Units Bedside Glucose 219 70-90 mg/dl Lactic Acid Level 1.3 0.4-2.0 mmol/L White Blood Count 3.98 4.8-10.8 K/uL Red Blood Count 4.11 4.2-5.4 M/uL Hemoglobin 10.7 12.0-16.0 g/dL Hematocrit 32.4 37-47 % Mean Corpuscular Volume 78.8 80-100 fL Mean Corpuscular Hemoglobin 26.0 25-34 pg Mean Corpuscular Hemoglobin Concent 33.0 32-36 g/dl Platelet Count 154 130-400 K/uL Mean Platelet Volume 9.7 7.4-10.4 fL Neutrophils (%) (Auto) 65.2 % Lymphocytes (%) (Auto) 25.4 % Monocytes (%) (Auto) 8.3 % Eosinophils (%) (Auto) 0.3 % Basophils (%) (Auto) 0.5 % Neutrophils # (Auto) 2.60 1.4-6.5 K/uL Lymphocytes # (Auto) 1.01 1.2-3.4 K/uL Monocytes # (Auto) 0.33 0.11-0.59 K/uL Eosinophils # (Auto) 0.01 0-0.5 K/uL Basophils # (Auto) 0.02 0-0.2 K/uL RDW Standard Deviation 42.6 36.4-46.3 fL RDW Coefficient of Variation 14.8 11.5-14.5 % Immature Granulocyte % (Auto) 0.3 % Immature Granulocyte # (Auto) 0.01 0.00-0.02 K/uL Sodium Level 140 136-145 mmol/L Potassium Level 3.8 3.5-5.1 mmol/L Chloride Level 103 98-107 mmol/L Carbon Dioxide Level 29 21-32 mmol/L Anion Gap 8.0 3-11 mmol/L Blood Urea Nitrogen 4 7-18 mg/dl Creatinine 0.68 0.60-1.20 mg/dl Est Creatinine Clear Calc Drug Dose 157.4 ml/min Estimated GFR () 133.2 Estimated GFR (Non- 114.9 BUN/Creatinine Ratio 6.0 10-20 Random Glucose 191 70-99 mg/dl Calcium Level 8.1 8.5-10.1 mg/dl Total Bilirubin 0.5 0.2-1 mg/dl Aspartate Amino Transf (AST/SGOT) 56 15-37 U/L Alanine Aminotransferase (ALT/SGPT) 63 12-78 U/L Alkaline Phosphatase 89 45-117 U/L Troponin I < 0.015 0-0.045 ng/ml Total Protein 6.6 6.4-8.2 gm/dl Albumin 3.0 3.4-5.0 gm/dl Globulin 3.6 2.5-4.0 gm/dl Albumin/Globulin Ratio 0.8 0.9-2 Lipase 85 73-393 U/L Activated Partial Thromboplast Time 28.0 21.0-31.0 SECONDS Partial Thromboplastin Ratio 1.1 Test 05/30/16 06:00 05/30/16 07:41 05/30/16 11:56 05/30/16 16:45 Range/Units White Blood Count 4.37 4.8-10.8 K/uL Red Blood Count 4.35 4.2-5.4 M/uL Hemoglobin 11.2 12.0-16.0 g/dL Hematocrit 35.4 37-47 % Mean Corpuscular Volume 81.4 80-100 fL Mean Corpuscular Hemoglobin 25.7 25-34 pg Mean Corpuscular Hemoglobin Concent 31.6 32-36 g/dl Platelet Count 150 130-400 K/uL Mean Platelet Volume 9.2 7.4-10.4 fL Neutrophils (%) (Auto) 61.8 % Lymphocytes (%) (Auto) 27.2 % Monocytes (%) (Auto) 9.4 % Eosinophils (%) (Auto) 0.7 % Basophils (%) (Auto) 0.7 % Neutrophils # (Auto) 2.70 1.4-6.5 K/uL Lymphocytes # (Auto) 1.19 1.2-3.4 K/uL Monocytes # (Auto) 0.41 0.11-0.59 K/uL Eosinophils # (Auto) 0.03 0-0.5 K/uL Basophils # (Auto) 0.03 0-0.2 K/uL RDW Standard Deviation 44.1 36.4-46.3 fL RDW Coefficient of Variation 14.9 11.5-14.5 % Immature Granulocyte % (Auto) 0.2 % Immature Granulocyte # (Auto) 0.01 0.00-0.02 K/uL Sodium Level 141 136-145 mmol/L Potassium Level 3.7 3.5-5.1 mmol/L Chloride Level 105 98-107 mmol/L Carbon Dioxide Level 28 21-32 mmol/L Anion Gap 8.0 3-11 mmol/L Blood Urea Nitrogen 4 7-18 mg/dl Creatinine 0.51 0.60-1.20 mg/dl Est Creatinine Clear Calc Drug Dose 209.8 ml/min Estimated GFR () 146.4 Estimated GFR (Non- 126.3 BUN/Creatinine Ratio 7.3 10-20 Random Glucose 187 70-99 mg/dl Calcium Level 8.6 8.5-10.1 mg/dl Magnesium Level 2.1 1.8-2.4 mg/dl Bedside Glucose 178 164 277 70-90 mg/dl Microbiology Results 05/29/16 Blood Culture, Received Pending 05/29/16 Blood Culture, Received Pending
[2016-05-30] MEDS ORDERED: PANTOprazole INJ 40 MG in SYRINGE 0 ML IV ONE (20:00)
[2016-05-30 20:13] VITALS: TEMP 37.5
[2016-05-30] MEDS: MICONAZOLE NITRATE 2% VAG CR 45 GM TUBE PV SCH (20:37)
[2016-05-30] MEDS: AMITRIPTYLINE HCL 50 MG TAB PO SCH (21:03)
[2016-05-30] MEDS: RANITIDINE HCL 150 MG TAB PO SCH (21:03)
[2016-05-30] MEDS: LORATADINE 10 MG TAB PO SCH (21:03)
[2016-05-30] MEDS ORDERED: INSULIN GLARGINE SOLOSTAR 100 UNITS/ML 3 ML PEN SC ONE (22:14)
[2016-05-30 23:39] VITALS: BP 117/77; PULSE 96; TEMP 36.7; O2SAT 92
[2016-05-31] MEDS ORDERED: VANCOMYCIN TROUGH ONE (03:30)
[2016-05-31] MEDS: VANCOMYCIN INJ 1,600 MG in SODIUM CHLORIDE 0.9% 500ML 500 ML IV SCH ×2 (03:45→12:06)
[2016-05-31 03:58] LABS: BASO % 0.3 %; BASO ABS # 0.01 K/uL (0-0.2); COMPLETE YES; HEMATOCRIT 31.3 % (37-47); IG% 0.3 %; LYMPH ABS # 0.92 K/uL (1.2-3.4); MEAN CELL VOLUME 79.4 fL (80-100); MEAN CORPUSCULAR HEMOGLOBIN 25.4 pg (25-34); MEAN CORPUSCULAR HGB CONC 31.9 g/dl (32-36); MEAN PLATELET VOLUME 9.3 fL (7.4-10.4); MONO % 8.1 %; NEUT % 67.3 %; PLATELET COUNT 139 K/uL (130-400); RED BLOOD COUNT 3.94 M/uL (4.2-5.4); WHITE BLOOD COUNT 3.84 K/uL (4.8-10.8)
[2016-05-31 04:17] LABS: BUN/CREATININE RATIO 6.1 (10-20); CALCIUM 8.4 mg/dl (8.5-10.1); CREATININE 0.54 mg/dl (0.60-1.20); MAGNESIUM 2.2 mg/dl (1.8-2.4); POTASSIUM 3.8 mmol/L (3.5-5.1)
[2016-05-31] MEDS: PIPERACILL/TAZOBAC IV 4.5 GM in DEXTROSE 5% 100ML IV SCH (05:20)
[2016-05-31 07:45] VITALS: BP 115/75; PULSE 89; TEMP 36.5; O2SAT 91
--- NOTE | 2016-05-31 08:55 | Pharmacy Progress Note ---
Pharmacy Antibiotic Prog Note Date of Service: May 31, 2016. Subjective: Patient admitted with worsening LLE cellulitis/sepsis despite Doxycycline therapy as well as abdominal pain w/ bloody loose stools and fever. The patient is currently receiving Vancomycin 1600 mg (~13 mg/kg) IV every 8 hours. The patient is currently on day # 4 of Vancomycin and day #3 of Zosyn IV therapy. Objective: Height (Feet): 5 Height (Inches): 6.00 Weight (Kilograms): 122.900 Levels: Item Value Date Time Vancomycin Level Trough 13.5 mcg/ml 05/31/16 0328 Vancomycin Level Trough 12.1 mcg/ml 05/29/16 0405 Lab Results (24hrs): Laboratory Tests Test 05/31/16 03:28 05/31/16 03:38 White Blood Count 3.84 K/uL Red Blood Count 3.94 M/uL Hemoglobin 10.0 g/dL Hematocrit 31.3 % Mean Corpuscular Volume 79.4 fL Mean Corpuscular Hemoglobin 25.4 pg Mean Corpuscular Hemoglobin Concent 31.9 g/dl Platelet Count 139 K/uL Mean Platelet Volume 9.3 fL Neutrophils (%) (Auto) 67.3 % Lymphocytes (%) (Auto) 24.0 % Monocytes (%) (Auto) 8.1 % Eosinophils (%) (Auto) 0.0 % Basophils (%) (Auto) 0.3 % Neutrophils # (Auto) 2.59 K/uL Lymphocytes # (Auto) 0.92 K/uL Monocytes # (Auto) 0.31 K/uL Eosinophils # (Auto) 0.00 K/uL Basophils # (Auto) 0.01 K/uL BUN/Creatinine Ratio 6.1 Blood Urea Nitrogen 3 mg/dl Creatinine 0.54 mg/dl Micro Results: Item Value Date Time MRSA DNA Surveillance Screen - Final Complete 05/30/16 1800 Nasal Specimen Negative for MRSA by DNA Probe Blood Culture - Preliminary Resulted 05/29/16 2317 Blood NO GROWTH TO DATE. Blood Culture - Preliminary Resulted 05/29/16 2310 Blood NO GROWTH TO DATE. C.difficile Toxin B Gene (PCR) - Final Complete 05/28/16 1730 Stool No C. difficile toxin B gene detected Blood Culture - Preliminary Resulted 05/27/16 2225 Blood NO GROWTH TO DATE. Blood Culture - Preliminary Resulted 05/27/16 2224 Blood NO GROWTH TO DATE. 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 Patient now stable, moved to general medical floor, renal function unchanged with cellulitis - decreased erythema. No positive cultures to this point. Hyperglycemia persists. This Vancomycin trough level is: trending near therapeutic - noted accumulation since previous trough, further accumulation likely and pt improving Continue Vancomycin 1600 mg IV every 8 hours. Goal peak level estimate: between 25 - 40 mcg/mL. Goal trough level estimate: between 13 - 20 mcg/mL. Repeat Vancomycin trough level has been ordered for: 06/02/16 prior to the 12 noon dose. (further accumulation expected BMI 43.8 kg/m2) Pharmacy will continue to follow and will adjust dose/frequency as necessary. Thank you
[2016-05-31] MEDS: MONTELUKAST SOD 10 MG TAB PO SCH (10:29)
[2016-05-31] MEDS: ENALAPRIL MALEATE 5 MG TAB PO SCH (10:29)
[2016-05-31] MEDS: GABAPENTIN 300 MG CAP PO SCH ×3 (10:29→20:23)
[2016-05-31] MEDS: BACITRACIN/POLYMYXIN B OINT 15 GM TUBE EXT SCH ×2 (10:30→20:36)
[2016-05-31] MEDS: FLUTICASONE FUROATE-VILANTEROL 30 PUFFS/INHALER INH INH SCH (10:30)
[2016-05-31] MEDS: DULERA - ORDER AWAITING ACTION SCH ×3 (10:30→22:34)
[2016-05-31] MEDS: OXYCODONE/ACETAMINOPHEN 5-325 TAB PO PRN ×4 (10:30→22:10)
[2016-05-31] MEDS: PANTOprazole SOD 40 MG TAB PO SCH (10:31)
[2016-05-31] MEDS: SODIUM CHLORIDE 0.9% 1000ML 1,000 ML IV SCH (10:31)
[2016-05-31] MEDS: INSULIN ASPART 100 UNITS/ML 3 ML PEN SC SCH ×4 (10:39→21:18)
[2016-05-31] MEDS: INSULIN GLARGINE SOLOSTAR 100 UNITS/ML 3 ML PEN SC SCH ×2 (10:40→21:18)
[2016-05-31] MEDS ORDERED: COUGH DROP (SUGAR FREE) LOZ 24 LOZ/1 BOX ONE (11:56)
[2016-05-31 12:41] VITALS: TEMP 37.7
[2016-05-31] MEDS: CEPHALEXIN MONOHYDRATE 500 MG CAP PO SCH ×2 (15:09→20:22)
[2016-05-31] MEDS: LACTOBACILLUS ACIDOPHILUS (FLORANEX) TAB PO SCH (15:10)
[2016-05-31 15:27] VITALS: BP 109/70; PULSE 113; TEMP 37.1; O2SAT 94
--- NOTE | 2016-05-31 16:34 | Progress Note ---
Internal Med Progress Note Date of Service: May 31, 2016. Provider Documentation: resting comfortably had mild rash on the cheeks mild temp spike no sob or chest pain exam: General-alert and oriented. Not in distress ENT-normal hearing Neck-no neck masses Lungs-cta b/l no wheezing no crackles Heart-s1 and s2 heard, regular rate and rhythm no murmurs Abdomen-soft bowel sounds present non tender no distension Extremities-no edema erythema on left medial thigh region much improved Neuro-alert and awake moves extremities ASSESSMENT & PLAN: 1. 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 Gi plan for colonoscopy as out patient. says had blood in stool yesterday negative stool Hemoccult' hb stable in 10 will f/u labs 2. Hypertension,stable on enalapril 3. DM2, insulin requiring, on lantus and iss will monitor. . 4. Anemia. Hemoglobin drop secondary to gastrointestinal bleed. hb stable at 10 will f/u labs. DVT PROPHYLAXIS scds DISPOSITION monitor in medical floor possible d/c in am Vital Signs: Date Time Temp Pulse Resp B/P Pulse Ox O2 Delivery O2 Flow Rate FiO2 05/31/16 16:20 Room Air 05/31/16 15:27 37.1 113 22 109/70 94 Room Air 05/31/16 12:41 37.7 05/31/16 10:42 Room Air 05/31/16 07:45 36.5 89 20 115/75 91 Room Air 05/31/16 01:20 Room Air 05/30/16 23:39 36.7 96 20 117/77 92 Room Air 05/30/16 20:13 37.5 05/30/16 19:46 Room Air Lab Results: Results Past 24 Hours Test 05/30/16 16:45 05/30/16 18:00 05/30/16 20:07 05/30/16 22:03 Range/Units Bedside Glucose 277 360 358 70-90 mg/dl Stool Occult Blood NEGATIVE NEGATIVE Test 05/31/16 03:28 05/31/16 03:38 05/31/16 03:55 05/31/16 07:32 Range/Units White Blood Count 3.84 4.8-10.8 K/uL Red Blood Count 3.94 4.2-5.4 M/uL Hemoglobin 10.0 12.0-16.0 g/dL Hematocrit 31.3 37-47 % Mean Corpuscular Volume 79.4 80-100 fL Mean Corpuscular Hemoglobin 25.4 25-34 pg Mean Corpuscular Hemoglobin Concent 31.9 32-36 g/dl Platelet Count 139 130-400 K/uL Mean Platelet Volume 9.3 7.4-10.4 fL Neutrophils (%) (Auto) 67.3 % Lymphocytes (%) (Auto) 24.0 % Monocytes (%) (Auto) 8.1 % Eosinophils (%) (Auto) 0.0 % Basophils (%) (Auto) 0.3 % Neutrophils # (Auto) 2.59 1.4-6.5 K/uL Lymphocytes # (Auto) 0.92 1.2-3.4 K/uL Monocytes # (Auto) 0.31 0.11-0.59 K/uL Eosinophils # (Auto) 0.00 0-0.5 K/uL Basophils # (Auto) 0.01 0-0.2 K/uL RDW Standard Deviation 43.2 36.4-46.3 fL RDW Coefficient of Variation 14.8 11.5-14.5 % Immature Granulocyte % (Auto) 0.3 % Immature Granulocyte # (Auto) 0.01 0.00-0.02 K/uL Vancomycin Level Trough 13.5 SEE COMMENT mcg/ml Sodium Level 140 136-145 mmol/L Potassium Level 3.8 3.5-5.1 mmol/L Chloride Level 104 98-107 mmol/L Carbon Dioxide Level 29 21-32 mmol/L Anion Gap 7.0 3-11 mmol/L Blood Urea Nitrogen 3 7-18 mg/dl Creatinine 0.54 0.60-1.20 mg/dl Est Creatinine Clear Calc Drug Dose 198.2 ml/min Estimated GFR () 143.7 Estimated GFR (Non- 124.0 BUN/Creatinine Ratio 6.1 10-20 Random Glucose 288 70-99 mg/dl Calcium Level 8.4 8.5-10.1 mg/dl Magnesium Level 2.2 1.8-2.4 mg/dl Bedside Glucose 273 247 70-90 mg/dl Test 05/31/16 11:46 Range/Units Bedside Glucose 158 70-90 mg/dl Microbiology Results 05/30/16 MRSA DNA Surveillance Screen - Final, Complete Specimen Negative for MRSA by DNA Probe
[2016-05-31] MEDS: GUAIFENESIN/CODEINE 100MG/10MG 5ML UDC PO PRN (20:03)
[2016-05-31] MEDS: DOXYCYCLINE HYCLATE 100 MG CAP PO SCH (20:22)
[2016-05-31] MEDS: LORATADINE 10 MG TAB PO SCH (20:22)
[2016-05-31] MEDS: AMITRIPTYLINE HCL 50 MG TAB PO SCH (20:23)
[2016-05-31] MEDS: ACETAMINOPHEN 325 MG TAB PO PRN (20:23)
[2016-05-31] MEDS: RANITIDINE HCL 150 MG TAB PO SCH (20:24)
[2016-05-31 20:32] VITALS: PULSE 120; TEMP 38.7; O2SAT 87; O2SAT 93
[2016-05-31] MEDS ORDERED: LEVALBUTEROL/IPRATROPIUM NEB INH STA (20:44)
[2016-05-31] MEDS ORDERED: LEVALBUTEROL/IPRATROPIUM NEB INH PRN (20:45)
[2016-05-31] MEDS ORDERED: LEVALBUTEROL 1.25MG/0.5ML NEB INH ONE (21:00)
[2016-05-31] MEDS ORDERED: IPRATROPIUM BROMIDE NEB SOLN 0.02% 2.5 ML VIAL INH ONE (21:00)
[2016-05-31 21:12] VITALS: PULSE 135; O2SAT 99
[2016-05-31] MEDS: MICONAZOLE NITRATE 2% VAG CR 45 GM TUBE PV SCH (21:19)
[2016-05-31 22:00] VITALS: PULSE 118; TEMP 38.3; O2SAT 94
[2016-06-01] VITALS (9 sets, daily range): BP systolic 123–150; BP diastolic 63–90; PULSE 114–128; TEMP 37.3–38.8; O2SAT 85–95
[2016-06-01] MEDS: ACETAMINOPHEN 325 MG TAB PO PRN ×2 (00:06→08:57)
[2016-06-01] MEDS: GUAIFENESIN/CODEINE 100MG/10MG 5ML UDC PO PRN ×2 (06:30→21:43)
[2016-06-01] MEDS: OXYCODONE/ACETAMINOPHEN 5-325 TAB PO PRN (06:32)
[2016-06-01] MEDS: IPRATROPIUM BROMIDE NEB SOLN 0.02% 2.5 ML VIAL INH PRN ×2 (06:38→22:18)
[2016-06-01] MEDS: LEVALBUTEROL 1.25MG/0.5ML NEB INH PRN ×2 (06:38→22:18)
[2016-06-01] MEDS: LACTOBACILLUS ACIDOPHILUS (FLORANEX) TAB PO SCH ×3 (08:55→18:39)
[2016-06-01] MEDS: ENALAPRIL MALEATE 5 MG TAB PO SCH (08:56)
[2016-06-01] MEDS: PANTOprazole SOD 40 MG TAB PO SCH (08:56)
[2016-06-01] MEDS: GABAPENTIN 300 MG CAP PO SCH ×3 (08:56→21:42)
[2016-06-01] MEDS: MONTELUKAST SOD 10 MG TAB PO SCH (08:56)
[2016-06-01] MEDS: CEPHALEXIN MONOHYDRATE 500 MG CAP PO SCH ×2 (08:56→15:41)
[2016-06-01] MEDS: DOXYCYCLINE HYCLATE 100 MG CAP PO SCH (08:56)
[2016-06-01] MEDS: FLUTICASONE FUROATE-VILANTEROL 30 PUFFS/INHALER INH INH SCH (08:59)
[2016-06-01] MEDS: INSULIN GLARGINE SOLOSTAR 100 UNITS/ML 3 ML PEN SC SCH ×2 (09:06→21:48)
[2016-06-01] MEDS: INSULIN ASPART 100 UNITS/ML 3 ML PEN SC SCH ×4 (09:06→21:46)
[2016-06-01 09:12] LABS: BASO % 0.3 %; BASO ABS # 0.02 K/uL (0-0.2); COMPLETE YES; EOS % 0.3 %; HEMATOCRIT 31.2 % (37-47); IG% 0.3 %; LYMPH % 21.9 %; LYMPH ABS # 1.55 K/uL (1.2-3.4); MEAN CELL VOLUME 81.5 fL (80-100); MEAN CORPUSCULAR HEMOGLOBIN 26.1 pg (25-34); MEAN CORPUSCULAR HGB CONC 32.1 g/dl (32-36); MEAN PLATELET VOLUME 9.8 fL (7.4-10.4); NEUT % 67.2 %; PLATELET COUNT 172 K/uL (130-400); RED BLOOD COUNT 3.83 M/uL (4.2-5.4); WHITE BLOOD COUNT 7.08 K/uL (4.8-10.8)
[2016-06-01] MEDS: DULERA - ORDER AWAITING ACTION SCH ×2 (09:20→15:42)
[2016-06-01] MEDS: BACITRACIN/POLYMYXIN B OINT 15 GM TUBE EXT SCH ×2 (11:26→21:43)
--- NOTE | 2016-06-01 12:35 | Progress Note ---
Internal Med Progress Note Date of Service: Jun 01, 2016. Provider Documentation: resting comfortably on the chair says not feeling well still spiking temps has mild low abdominal pain says she had hot feeling in her legs for about a month before she developed itchy rash on her left thigh cough seems better exam: General-alert and oriented. Not in distress ENT-normal hearing Neck-no neck masses Lungs-cta b/l no wheezing no crackles Heart-s1 and s2 heard, regular rate and rhythm no murmurs Abdomen-soft bowel sounds present non tender no distension Extremities-no edema erythema on left medial thigh region improving Neuro-alert and awake moves extremities ASSESSMENT & PLAN: 1. Sepsis cellulitis, LLE was started on iv vanco/cefepime and Flagyl but as c dif was negative cefepime and Flagyl stopped then patient developed fever and Zosyn was added to vancomycin cellulitis was improving but still patient was spiking temp vanco and Zosyn were stopped for possible drug fever and was started on po doxycycline and Keflex but today she had again temp spike 38.8 says she never had problems with penicillins multiple cx no growth so far will reculture repeat ct chest as she has cough, sob and tachycardia.. consulted ID and await recommendations 2 LG bleeding? pain ct scan fine c diff negative pain improved. Gi plan for colonoscopy as out patient. says had blood in stool but negative stool Hemoccult' hb stable in 10 no complaints today will f/u labs 3. Hypertension,stable on enalapril will monitor 4. DM2, insulin requiring, on lantus and iss will monitor. . 5. Anemia. Hemoglobin drop secondary to gastrointestinal bleed. hb stable at 10 will f/u labs. DVT PROPHYLAXIS scds DISPOSITION monitor in medical floor to be determined Vital Signs: Date Time Temp Pulse Resp B/P Pulse Ox O2 Delivery O2 Flow Rate FiO2 06/01/16 11:34 93 Nasal Cannula 4.0 06/01/16 11:29 125 20 123/78 85 Room Air 06/01/16 11:29 38.8 06/01/16 10:58 Room Air 06/01/16 07:22 37.9 128 20 150/90 91 Nasal Cannula 2.0 06/01/16 06:39 120 22 85 Nasal Cannula 2.0 06/01/16 00:15 Nasal Cannula 2.0 06/01/16 00:15 37.6 114 131/63 95 Nasal Cannula 2.0 05/31/16 22:00 38.3 118 94 Nasal Cannula 2.0 05/31/16 21:15 Nasal Cannula 2.0 05/31/16 21:12 135 22 99 Nasal Cannula 2.0 05/31/16 20:32 93 Nasal Cannula 2.0 Humidified Oxygen 05/31/16 20:32 38.7 120 24 87 Room Air 05/31/16 16:20 Room Air 05/31/16 15:27 37.1 113 22 109/70 94 Room Air 05/31/16 12:41 37.7 Lab Results: Results Past 24 Hours Test 05/31/16 17:03 05/31/16 20:15 06/01/16 07:31 06/01/16 08:45 Range/Units Bedside Glucose 171 223 205 70-90 mg/dl White Blood Count 7.08 4.8-10.8 K/uL Red Blood Count 3.83 4.2-5.4 M/uL Hemoglobin 10.0 12.0-16.0 g/dL Hematocrit 31.2 37-47 % Mean Corpuscular Volume 81.5 80-100 fL Mean Corpuscular Hemoglobin 26.1 25-34 pg Mean Corpuscular Hemoglobin Concent 32.1 32-36 g/dl Platelet Count 172 130-400 K/uL Mean Platelet Volume 9.8 7.4-10.4 fL Neutrophils (%) (Auto) 67.2 % Lymphocytes (%) (Auto) 21.9 % Monocytes (%) (Auto) 10.0 % Eosinophils (%) (Auto) 0.3 % Basophils (%) (Auto) 0.3 % Neutrophils # (Auto) 4.76 1.4-6.5 K/uL Lymphocytes # (Auto) 1.55 1.2-3.4 K/uL Monocytes # (Auto) 0.71 0.11-0.59 K/uL Eosinophils # (Auto) 0.02 0-0.5 K/uL Basophils # (Auto) 0.02 0-0.2 K/uL RDW Standard Deviation 45.4 36.4-46.3 fL RDW Coefficient of Variation 15.4 11.5-14.5 % Immature Granulocyte % (Auto) 0.3 % Immature Granulocyte # (Auto) 0.02 0.00-0.02 K/uL Test 06/01/16 11:10 Range/Units Bedside Glucose 227 70-90 mg/dl
[2016-06-01 14:18] LABS: URINE APPEARANCE CLEAR (CLEAR); URINE BILIRUBIN NEG (NEG); URINE COLOR YELLOW; URINE EPITHELIAL CELL AUTO >30 /lpf (0-5); URINE NITRITE NEG (NEG); URINE PH 7.5 (4.5-7.5); URINE SPECIFIC GRAVITY 1.014 (1.000-1.030); UROBILINOGEN NEG (NEG); ZZUR CULT IF INDIC CLEAN CATCH NO
[2016-06-01 14:23] LABS: MANUAL MICROSCOPIC REQUIRED? NO; REVIEW REQ? NO; SULFASALICYLIC ACID NEG (NEG)
[2016-06-01] MEDS: SODIUM CHLORIDE 0.9% 1000ML 1,000 ML IV SCH (15:42)
--- NOTE | 2016-06-01 16:37 | Medical Consult ---
Consultation Date of Consultation: Jun 01, 2016. Attending Physician: Pj Bacon MD Reason for Consultation: FUO History of Present Illness Patient is a 31 yo diabetic female who presented to the ED with concerns of left leg pain and swelling for about 1 week. The patient states that she had been placed on PO Augmentin previously for concerns of cellulitis in the left lower extremity. The erythema and edema did not change or improve with Augmentin. She also started to experience SOB, chest pain, sweats and chills at home. The patient describes her sweats as from the waist down she becomes very hot. She has been having this problem for about 1 year or so, but just recently started to also notice the associated rash and itching. She states that she does get itchy on and off but not typically in one spot like her current left knee rash. She otherwise denies nausea, vomiting, urinary symptoms, cough or congestion. She was having some abdominal pain on admission but that has resolved. Her WBC count has been stable or slightly decreased since admission with a Hgb of 10 today. She is diabetic and her glucose did go up to 360 2 days ago. Her urinalysis was unremarkable. Lyme screen and Flu screen and PCR were negative. Monoscreen and Parvovirus pending. Abdominal/Pelvic CT showed renal/ ovarian cyst and hepatosplenomegaly with fatty liver infiltration but otherwise were unremarkable for acute process. CTA of the chest and Venous Doppler of B/L LE showed no blood clots. Repeat blood cultures have continued to show no growth. C. Diff toxin was negative. MRSA nasal swab was negative. She is currently on PO Doxycycline and Keflex. She has not traveled out of the country recently. She has 4 kids at home. She does not have any pets. She does not go out into the dodd. She has never had contacts with TB that she knows of. She describes that she has "rheumatism" but is unsure of what exactly. Past Medical/Surgical History Medical Problems: (1) Abdominal pain Status: Acute (2) Anterior chest wall pain Status: Acute (3) Asthma exacerbation Status: Acute (4) Asthmatic bronchitis Status: Acute (5) Chest pain Status: Acute (6) Depression Status: Acute (7) Dyspnea Status: Acute (8) Epigastric abdominal pain Status: Acute (9) Failure of outpatient treatment Status: Acute (10) Hyperglycemia Status: Acute (11) Laceration Status: Acute (12) Left flank pain Status: Acute (13) Left leg cellulitis Status: Acute (14) Left ovarian cyst Status: Acute (15) Low back pain Status: Acute (16) Lumbosacral radiculopathy Status: Acute (17) Migraine Status: Acute (18) Pain with swallowing Status: Acute (19) Precordial chest pain Status: Acute (20) Renal colic Status: Acute (21) Renal colic Status: Acute Medical Problems: (1) Asthma (2) Diabetes mellitus (3) DM type 2 (diabetes mellitus, type 2) (4) GERD (gastroesophageal reflux disease) (5) Kidney stone (6) Sepsis Surgical Problems: (1) S/P appendectomy (2) S/P bilateral breast reduction (3) S/P section (4) S/P cholecystectomy Family History Diabetes mellitus FH: gallbladder disease FH: heart disease FH: lung disease Hypertension Kidney disease or stones Seizures Noncontributory Social History Smoking Status: Never Smoker Drug Use: none Marital Status: Housing Status: lives with family Occupation Status: unemployed Allergies Uncoded Allergies: MINT (Allergy, Unknown, unknown, 08/03/15) Home Medications Reported Home Medications Medications Dose Route/Sig Max Daily Dose Days Date Category Dose Instructions Gabapentin 300 Mg Cap 300 Mg PO TID 05/27/16 Reported Zofran Odt (Ondansetron HCl) 4 Mg Tab 4 Mg SL Q8 PRN 05/09/16 Reported Naproxen Sodium Ds (Naproxen Sodium) 550 Mg Tab 550 Mg PO BID 05/09/16 Reported TAKE THIS MEDICATION WITH FOOD Lantus Solostar (Insulin Glargine) 100 Unit/Ml Inj 60 Units SC HS 05/09/16 Reported Ventolin Hfa (Albuterol) 200 Puffs/04591 Mcg Aers 2 Puffs INH Q6H PRN 05/09/16 Reported Breo Ellipta (Fluticasone Furoate-Vilanterol) 1 Inh Inh 1 Puff INH DAILY 05/09/16 Reported Dulera 200/5 Mcg (Mometasone Furoate-Formoterol) 1 Aer Aer 2 Puffs INH BID PRN 10/12/15 Reported Amitriptyline HCl 50 Mg Tab 50 Mg PO HS 10/12/15 Reported Prilosec Otc (Omeprazole Magnesium) 20 Mg Tab 20 Mg PO QAM 10/12/15 Reported Zantac (Ranitidine Hcl) 300 Mg Tab 300 Mg PO HS 10/12/15 Reported Claritin (Loratadine) 10 Mg Tab 10 Mg PO HS 10/12/15 Reported Vitamin D (Ergocalciferol) 50,000 Interunit Cap 50,000 Inter.unit PO WK 10/10/15 Reported TAKE THIS MEDICATION EVERY WEDNESDAY Metformin HCl ER (Metformin HCl) 500 Mg Tabcr 1,000 Mg PO BID 10/10/15 Reported Doxycycline Hyclate 50 Mg Cap 50 Mg PO QAM 10/10/15 Reported Bydureon (Exenatide) 2 Mg Inj 2 Mg SC WK 04/08/15 Reported INJECT UNDER THE SKIN ONCE WEEKLY EVERY WEDNESDAY. Vasotec (Enalapril Maleate) 5 Mg Tab 5 Mg PO QAM 04/08/15 Reported Montelukast Sodium (Montelukast Sod) 10 Mg Tab 10 Mg PO QAM 12/19/14 Reported Amitiza (Lubiprostone) 24 Mcg Cap 24 Mcg PO BID 12/19/14 Reported Current Inpatient Medications Current Inpatient Medications Medications (Trade) Dose Ordered Sig/Rody Route Start Time Stop Time Status Last Admin Dose Admin Nitroglycerin (Nitrostat Tab) 0.4 mg UD PRN SL 05/28/16 03:30 06/27/16 03:29 Insulin Aspart (novoLOG ASPART) SLIDING SCALE If C... ACHS SC 05/28/16 06:45 06/27/16 06:59 06/01/16 12:35 2 UNITS Glucose (Glucose 40% Gel) 15-30 GRAMS 15 GRAMS... UD PRN PO 05/28/16 03:30 06/27/16 03:29 Glucose (Glucose Chew Tab) 4-8 Tablets 4 Tabl... UD PRN PO 05/28/16 03:30 06/27/16 03:29 Dextrose (Dextrose 50% 50ML Syringe) 25-50ML OF 50% DW IV FOR... UD PRN IV 05/28/16 03:30 06/27/16 03:29 Glucagon (Glucagon Inj) 1 mg UD PRN SQ 05/28/16 03:30 06/27/16 03:29 Amitriptyline HCl (Elavil Tab) 50 mg HS PO 05/28/16 21:00 06/27/16 20:59 05/31/16 20:23 50 MG Enalapril Maleate (Vasotec Tab) 5 mg QAM PO 05/28/16 09:00 06/27/16 08:59 06/01/16 08:56 5 MG Gabapentin (Neurontin Cap) 300 mg TID PO 05/28/16 09:00 06/27/16 08:59 06/01/16 15:40 300 MG Loratadine (Claritin Tab) 10 mg HS PO 05/28/16 21:00 06/27/16 20:59 05/31/16 20:22 10 MG Montelukast Sodium (Singulair Tab) 10 mg QAM PO 05/28/16 09:00 06/27/16 08:59 06/01/16 08:56 10 MG Miscellaneous Information (Order Awaiting Action) 1 ea QS N/A 05/28/16 08:00 06/27/16 07:59 Pantoprazole Sodium (Protonix Tab) 40 mg QAM PO 05/28/16 09:00 06/27/16 08:59 06/01/16 08:56 40 MG Ranitidine HCl (zANTac TAB) 300 mg HS PO 05/28/16 21:00 06/27/16 20:59 05/31/16 20:24 300 MG Lorazepam (Ativan Inj) 0.5 mg Q4H PRN IV 05/28/16 03:30 06/27/16 03:29 Tramadol HCl (Ultram Tab) 25 mg Q6H PRN PO 05/28/16 03:30 06/27/16 03:29 05/29/16 20:52 25 MG Ondansetron HCl 4 mg 4 mg Q6H PRN IV 05/28/16 03:30 06/27/16 03:29 05/29/16 18:49 4 MG Promethazine HCl/ Sodium Chloride (Phenergan Inj/ Nss 50ml) 50.5 ml @ 204 mls/hr Q6H PRN IV 05/28/16 03:30 06/27/16 03:29 Acetaminophen (Tylenol Tab) 325 mg Q6H PRN PO 05/28/16 09:30 06/27/16 09:29 06/01/16 08:57 325 MG Bacitracin/ Polymyxin B Sulfate (Polysporin Oint) 1 appln BID EXT 05/28/16 20:42 06/02/16 20:59 06/01/16 11:26 1 APPLN Polyethylene (Miralax Powder Packet) 17 gm DAILY PRN PO 05/28/16 16:15 06/27/16 16:14 05/28/16 16:37 17 GM Bisacodyl (Dulcolax Supp) 10 mg DAILY PRN MT 05/28/16 16:15 06/27/16 16:14 05/28/16 16:37 10 MG Oxycodone/ Acetaminophen (Percocet 5-325mg Tab) 1 tab Q4H PRN PO 05/29/16 13:30 06/12/16 13:29 06/01/16 06:32 1 TAB Fluticasone/ Vilanterol (Breo Ellipta 100-25 Mcg/Inh) 1 puffs DAILY INH 05/30/16 08:00 06/28/16 07:59 06/01/16 08:59 1 PUFFS Diphenhydramine HCl (Benadryl Cap) 25 mg TID PRN PO 05/29/16 17:45 06/28/16 17:44 06/01/16 00:05 25 MG Miconazole Nitrate (Monistat 7 Vag Crm) 1 appln HS PV 05/29/16 21:00 06/05/16 20:59 05/31/16 21:19 1 APPLN Ioversol (Optiray 320) 125 ml UD PRN IV 05/30/16 02:00 06/03/16 01:59 Insulin Glargine (Lantus Solostar Pen) 15 unit BID SC 05/31/16 08:00 06/30/16 07:59 06/01/16 09:06 15 UNIT Cephalexin Monohydrate (Keflex Cap) 500 mg TID PO 05/31/16 14:00 06/10/16 13:59 06/01/16 15:41 500 MG Doxycycline Hyclate (Vibramycin Cap) 100 mg BID PO 05/31/16 20:00 06/10/16 19:59 06/01/16 08:56 100 MG Lactobacillus Acidophilus (Floranex Tab) 4 tab TIDM PO 05/31/16 17:00 06/30/16 16:59 06/01/16 08:55 4 TAB Codeine Phosphate/ Guaifenesin (Robitussin-AC Sugar Free Syrup) 5 ml Q6H PRN PO 05/31/16 19:00 06/30/16 18:59 06/01/16 06:30 5 ML Ipratropium [place] (Atrovent 0.02% 0.5MG/2.5ML Neb) 0.5 mg Q4H PRN INH 05/31/16 21:00 06/30/16 20:59 06/01/16 06:38 0.5 MG Levalbuterol 1.25 mg 1.25 mg Q4H PRN INH 05/31/16 21:00 06/30/16 20:59 06/01/16 06:38 1.25 MG Sodium Chloride (Nss 1000ml) 1,000 ml @ 50 mls/hr Q20H IV 06/01/16 12:30 07/01/16 12:29 06/01/16 15:42 50 MLS/HR Review of Systems Constitutional: + fatigue, + fever Eyes: No worsening of vision ENT: + sore throat (mild- mostly resolved), No hearing loss Respiratory: + cough (this morning- none until then), No shortness of breath Cardiovascular: No chest pain, No palpitations Abdomen: + pain (resolving) Musculoskeletal: + swelling (bilateral lower extremities), No joint pain Genitourinary - Female: + dysuria (this morning), No urinary frequency, No urinary urgency Integumentary: + rash (left leg, medial knee) Physical Exam Date Time Temp Pulse Resp B/P Pulse Ox O2 Delivery O2 Flow Rate FiO2 06/01/16 15:07 37.9 123 20 123/79 89 Room Air 06/01/16 11:34 93 Nasal Cannula 4.0 06/01/16 11:29 125 20 123/78 85 Room Air 06/01/16 11:29 38.8 06/01/16 10:58 Room Air 06/01/16 07:22 37.9 128 20 150/90 91 Nasal Cannula 2.0 06/01/16 06:39 120 22 85 Nasal Cannula 2.0 06/01/16 00:15 Nasal Cannula 2.0 06/01/16 00:15 37.6 114 131/63 95 Nasal Cannula 2.0 05/31/16 22:00 38.3 118 94 Nasal Cannula 2.0 05/31/16 21:15 Nasal Cannula 2.0 05/31/16 21:12 135 22 99 Nasal Cannula 2.0 05/31/16 20:32 93 Nasal Cannula 2.0 Humidified Oxygen 05/31/16 20:32 38.7 120 24 87 Room Air General Appearance: no apparent distress, + obese Head: normocephalic, atraumatic Eyes: normal inspection, sclerae normal ENT: hearing grossly normal Neck: supple, trachea midline Respiratory/Chest: chest non-tender, lungs clear, normal breath sounds, no respiratory distress, no accessory muscle use Cardiovascular: regular rate, rhythm (distant heart sounds) Abdomen/GI: normal bowel sounds, non tender, soft Back: normal inspection Extremities/Musculoskelatal: + swelling (bilateral lower extremities) Neurologic/Psych: alert, normal mood/affect Skin: warm/dry, + rash (mild papular, morbilliform rash of the left lower extremity. Dry, very mildly erthematous patch over the superior, medial left knee. ) Laboratory Results CT ANGIOGRAPHY OF THE CHEST, PULMONARY EMBOLUS PROTOCOL CLINICAL HISTORY: Chest pain with shortness of breath and elevated d-dimer. COMPARISON STUDY: Chest CT August 11, 2013. TECHNIQUE: Following IV administration of 92 mL of Optiray-320, helical axial images of the chest were obtained utilizing the pulmonary embolus protocol. Maximal intensity projections and sagittal and coronal reformats were viewed on an independent 3D workstation. IV contrast was administered without complication. CT DOSE: 622.76 mGy.cm FINDINGS: No pulmonary emboli are identified although the subsegmental vessels are suboptimally assessed due to respiratory motion. There is no evidence of thoracic aortic dissection. No enlarged thoracic lymph nodes are present. Cardiac size is at the upper limits of normal. Central airways are patent. No consolidation is identified to suggest pneumonia. Linear and groundglass opacities are suggestive of atelectasis. There is no pneumothorax or pleural effusion. The bony thorax is unremarkable. Visualized portions of the upper abdomen demonstrate hepatosplenomegaly which were shown on prior CT. There is fatty infiltration of the liver. IMPRESSION: 1. No pulmonary emboli identified. 2. No acute intrathoracic findings. 3. Fatty infiltration of the liver and hepatosplenomegaly, as shown on prior CT. ABDOMEN AND PELVIS CT WITH IV CONTRAST CT DOSE: 1926.59 mGy.cm HISTORY: Pain pain TECHNIQUE: Multiaxial CT images of the abdomen and pelvis were performed following the use of intravenous contrast. COMPARISON STUDY: 05/28/2016 FINDINGS: Mild bibasilar platelike atelectasis. Hepatosplenomegaly. Fatty infiltration of liver. Small nonobstructing renal calcifications unchanged. Nonobstructive bowel pattern. Bilateral ovarian cysts unchanged. Bladder is midline. IMPRESSION: Small renal and ovarian cyst. Nonobstructive bowel pattern. No change from the prior study Item Value Date Time Blood Culture Received 06/01/16 1316 Blood Pending Blood Culture Received 06/01/16 1300 Blood Pending Fungal Smear Received 06/01/16 1300 Blood Pending MRSA DNA Surveillance Screen - Final Complete 05/30/16 1800 Nasal Specimen Negative for MRSA by DNA Probe Blood Culture - Preliminary Resulted 05/29/16 2317 Blood NO GROWTH TO DATE. Blood Culture - Preliminary Resulted 05/29/16 2310 Blood NO GROWTH TO DATE. C.difficile Toxin B Gene (PCR) - Final Complete 05/28/16 1730 Stool No C. difficile toxin B gene detected Blood Culture - Preliminary Resulted 05/27/16 2225 Blood NO GROWTH TO DATE. Blood Culture - Preliminary Resulted 05/27/16 2224 Blood NO GROWTH TO DATE. Last 24 Hours Test 05/31/16 17:03 05/31/16 20:15 06/01/16 00:00 06/01/16 07:31 Bedside Glucose 171 mg/dl 223 mg/dl 205 mg/dl Urine Color YELLOW Urine Appearance CLEAR Urine pH 7.5 Urine Specific [place] 1.014 Urine Protein NEG Urine Glucose (UA) 1+ Urine Ketones NEG Urine Occult Blood NEG Urine Nitrite NEG Urine Bilirubin NEG Urine Urobilinogen NEG Urine Leukocyte Esterase NEG Urine WBC (Auto) 1-5 /hpf Urine RBC (Auto) 5-10 /hpf Urine Hyaline Casts (Auto) 1-5 /lpf Urine Epithelial Cells (Auto) >30 /lpf Urine Bacteria (Auto) NEG Test 06/01/16 08:45 06/01/16 11:10 06/01/16 16:05 06/01/16 16:06 White Blood Count 7.08 K/uL Red Blood Count 3.83 M/uL Hemoglobin 10.0 g/dL Hematocrit 31.2 % Mean Corpuscular Volume 81.5 fL Mean Corpuscular Hemoglobin 26.1 pg Mean Corpuscular Hemoglobin Concent 32.1 g/dl Platelet Count 172 K/uL Mean Platelet Volume 9.8 fL Neutrophils (%) (Auto) 67.2 % Lymphocytes (%) (Auto) 21.9 % Monocytes (%) (Auto) 10.0 % Eosinophils (%) (Auto) 0.3 % Basophils (%) (Auto) 0.3 % Neutrophils # (Auto) 4.76 K/uL Lymphocytes # (Auto) 1.55 K/uL Monocytes # (Auto) 0.71 K/uL Eosinophils # (Auto) 0.02 K/uL Basophils # (Auto) 0.02 K/uL RDW Standard Deviation 45.4 fL RDW Coefficient of Variation 15.4 % Immature Granulocyte % (Auto) 0.3 % Immature Granulocyte # (Auto) 0.02 K/uL Bedside Glucose 227 mg/dl 226 mg/dl Assessment & Plan Patient with FUO, rash, and abdominal pain. TSH was normal. Abdominal/pelvic CT showed renal and ovarian cyst, hepatosplenomegaly, and fatty liver infiltration. Flu PCR negative. Lyme negative. Chest CTA and B/L LE Venous Doppler negative for DVT. Patient describes "rheumatism" but cannot explain what type. Will check KRISTI, RF, and ESR. Noted EBV and Parvovirus pending. Will also check CMV, Toxoplasmosis, and Quantiferon. Feel that this patient also could have drug related fever since she was previously on Augmentin, then Zosyn and now Doxycycline and Keflex. Not convinced of an infectious source of her fever, and blood cultures have been negative, therefore will trial off of antibiotic therapy pending further workup. We will continue to follow. Plan: 1. Check KRISTI, RF, ESr 2. Check CMV, Toxo, and Quantiferon 3. D/C Abx pending workup PROVIDER ADDENDUM: patient was examined and reviewed with Ms. Abad. Agree with above assessment. Recommended addition of CMV and toxo serologies, as well as QuantiFERON.
[2016-06-01] MEDS: RANITIDINE HCL 150 MG TAB PO SCH (21:41)
[2016-06-01] MEDS: MICONAZOLE NITRATE 2% VAG CR 45 GM TUBE PV SCH (21:41)
[2016-06-01] MEDS: LORATADINE 10 MG TAB PO SCH (21:41)
[2016-06-01] MEDS: AMITRIPTYLINE HCL 50 MG TAB PO SCH (21:42)
[2016-06-02] VITALS (9 sets, daily range): BP systolic 130–133; BP diastolic 83–87; PULSE 92–125; TEMP 36.6–36.8; O2SAT 88–95
[2016-06-02] MEDS: GUAIFENESIN/CODEINE 100MG/10MG 5ML UDC PO PRN ×2 (06:17→11:32)
[2016-06-02] MEDS: IPRATROPIUM BROMIDE NEB SOLN 0.02% 2.5 ML VIAL INH PRN ×2 (06:30→11:56)
[2016-06-02] MEDS: LEVALBUTEROL 1.25MG/0.5ML NEB INH PRN ×2 (06:30→11:56)
[2016-06-02 07:43] LABS: BASO % 0.3 %; BASO ABS # 0.02 K/uL (0-0.2); COMPLETE YES; EOS % 1.2 %; HEMATOCRIT 29.6 % (37-47); IG% 0.3 %; LYMPH % 27.1 %; LYMPH ABS # 1.88 K/uL (1.2-3.4); MEAN CELL VOLUME 81.5 fL (80-100); MEAN CORPUSCULAR HEMOGLOBIN 25.9 pg (25-34); MEAN CORPUSCULAR HGB CONC 31.8 g/dl (32-36); MEAN PLATELET VOLUME 9.3 fL (7.4-10.4); MONO % 8.1 %; PLATELET COUNT 178 K/uL (130-400); RED BLOOD COUNT 3.63 M/uL (4.2-5.4); WHITE BLOOD COUNT 6.95 K/uL (4.8-10.8)
[2016-06-02 08:13] LABS: CREATININE 0.47 mg/dl (0.60-1.20)
[2016-06-02] MEDS: BACITRACIN/POLYMYXIN B OINT 15 GM TUBE EXT SCH ×2 (08:26→20:00)
[2016-06-02] MEDS: FLUTICASONE FUROATE-VILANTEROL 30 PUFFS/INHALER INH INH SCH (08:26)
[2016-06-02] MEDS: PANTOprazole SOD 40 MG TAB PO SCH (08:27)
[2016-06-02] MEDS: MONTELUKAST SOD 10 MG TAB PO SCH (08:27)
[2016-06-02] MEDS: GABAPENTIN 300 MG CAP PO SCH ×3 (08:27→20:45)
[2016-06-02] MEDS: ENALAPRIL MALEATE 5 MG TAB PO SCH (08:27)
[2016-06-02] MEDS: LACTOBACILLUS ACIDOPHILUS (FLORANEX) TAB PO SCH ×3 (08:27→18:02)
[2016-06-02] MEDS: INSULIN ASPART 100 UNITS/ML 3 ML PEN SC SCH ×4 (08:29→20:51)
[2016-06-02] MEDS: INSULIN GLARGINE SOLOSTAR 100 UNITS/ML 3 ML PEN SC SCH ×2 (08:30→20:52)
[2016-06-02] MEDS: DULERA - ORDER AWAITING ACTION SCH ×3 (08:33→16:00)
[2016-06-02] MEDS: SODIUM CHLORIDE 0.9% 1000ML 1,000 ML IV SCH (10:20)
[2016-06-02] MEDS ORDERED: VANCOMYCIN TROUGH ONE (11:30)
[2016-06-02] MEDS ORDERED: FLUCONAZOLE 50 MG TAB PO ONE (12:15)
[2016-06-02] MEDS ORDERED: SODIUM CHLORIDE 0.65% NA SOLN 45 ML (OCEAN) ONE (14:38)
[2016-06-02 14:49] LABS: PREG INTERNAL NEGATIVE QC NEG CLEAR BACKGROUND; PREG INTERNAL POSITIVE QC POS CONTROL LINE
--- NOTE | 2016-06-02 16:32 | Infectious Disease Progress Nt ---
Progress Note Date of Service Jun 02, 2016. Subjective Pt evaluation today including: conversation w/ patient, physical exam, chart review, lab review, review of studies, conversation w/ information systems consultant (Dr. Sterling), review of inpatient medication list White blood cell count today was 6.95. Hemoglobin was 9.4. Her ESR was 58. Her creatinine was 0.47. Her urine test was negative. Rheumatoid factor was less than 10. KRISTI is pending. [place] screen was negative. Other viral serologies are pending. Her repeat blood cultures continue to show no growth but most recent set are pending. No new imaging. The patient has been afebrile today. She states that she is hoping to go home tomorrow morning because she has a very important appointment. She states that she continues to have rash and itching of the left lower extremity. She does not have any pain associated with this. She is not having any abdominal pain today, but she has had continued shortness breath. She reiterates that she has history of asthma. All Other Systems: Reviewed and Negative Medications Current Inpatient Medications Medications (Trade) Dose Ordered Sig/Rody Route Start Time Stop Time Status Last Admin Dose Admin Nitroglycerin (Nitrostat Tab) 0.4 mg UD PRN SL 05/28/16 03:30 06/27/16 03:29 Insulin Aspart (novoLOG ASPART) SLIDING SCALE If C... ACHS SC 05/28/16 06:45 06/27/16 06:59 06/02/16 12:54 5 UNITS Glucose (Glucose 40% Gel) 15-30 GRAMS 15 GRAMS... UD PRN PO 05/28/16 03:30 06/27/16 03:29 Glucose (Glucose Chew Tab) 4-8 Tablets 4 Tabl... UD PRN PO 05/28/16 03:30 06/27/16 03:29 Dextrose (Dextrose 50% 50ML Syringe) 25-50ML OF 50% DW IV FOR... UD PRN IV 05/28/16 03:30 06/27/16 03:29 Glucagon (Glucagon Inj) 1 mg UD PRN SQ 05/28/16 03:30 06/27/16 03:29 Amitriptyline HCl (Elavil Tab) 50 mg HS PO 05/28/16 21:00 06/27/16 20:59 06/01/16 21:42 50 MG Enalapril Maleate (Vasotec Tab) 5 mg QAM PO 05/28/16 09:00 06/27/16 08:59 06/02/16 08:27 5 MG Gabapentin (Neurontin Cap) 300 mg TID PO 05/28/16 09:00 06/27/16 08:59 06/02/16 12:54 300 MG Loratadine (Claritin Tab) 10 mg HS PO 05/28/16 21:00 06/27/16 20:59 06/01/16 21:41 10 MG Montelukast Sodium (Singulair Tab) 10 mg QAM PO 05/28/16 09:00 06/27/16 08:59 06/02/16 08:27 10 MG Miscellaneous Information (Order Awaiting Action) 1 ea QS N/A 05/28/16 08:00 06/27/16 07:59 Pantoprazole Sodium (Protonix Tab) 40 mg QAM PO 05/28/16 09:00 06/27/16 08:59 06/02/16 08:27 40 MG Ranitidine HCl (zANTac TAB) 300 mg HS PO 05/28/16 21:00 06/27/16 20:59 06/01/16 21:41 300 MG Lorazepam (Ativan Inj) 0.5 mg Q4H PRN IV 05/28/16 03:30 06/27/16 03:29 Tramadol HCl (Ultram Tab) 25 mg Q6H PRN PO 05/28/16 03:30 06/27/16 03:29 05/29/16 20:52 25 MG Ondansetron HCl 4 mg 4 mg Q6H PRN IV 05/28/16 03:30 06/27/16 03:29 05/29/16 18:49 4 MG Promethazine HCl/ Sodium Chloride (Phenergan Inj/ Nss 50ml) 50.5 ml @ 204 mls/hr Q6H PRN IV 05/28/16 03:30 06/27/16 03:29 Acetaminophen (Tylenol Tab) 325 mg Q6H PRN PO 05/28/16 09:30 06/27/16 09:29 06/01/16 08:57 325 MG Bacitracin/ Polymyxin B Sulfate (Polysporin Oint) 1 appln BID EXT 05/28/16 20:42 06/02/16 20:59 06/02/16 08:26 1 APPLN Polyethylene (Miralax Powder Packet) 17 gm DAILY PRN PO 05/28/16 16:15 06/27/16 16:14 05/28/16 16:37 17 GM Bisacodyl (Dulcolax Supp) 10 mg DAILY PRN [place] 05/28/16 16:15 06/27/16 16:14 05/28/16 16:37 10 MG Oxycodone/ Acetaminophen (Percocet 5-325mg Tab) 1 tab Q4H PRN PO 05/29/16 13:30 06/12/16 13:29 06/01/16 06:32 1 TAB Fluticasone/ Vilanterol (Breo Ellipta 100-25 Mcg/Inh) 1 puffs DAILY INH 05/30/16 08:00 06/28/16 07:59 06/02/16 08:26 1 PUFFS Diphenhydramine HCl (Benadryl Cap) 25 mg TID PRN PO 05/29/16 17:45 06/28/16 17:44 06/01/16 00:05 25 MG Ioversol (Optiray 320) 125 ml UD PRN IV 05/30/16 02:00 06/03/16 01:59 Insulin Glargine (Lantus Solostar Pen) 15 unit BID SC 05/31/16 08:00 06/30/16 07:59 06/02/16 08:30 15 UNIT Lactobacillus Acidophilus (Floranex Tab) 4 tab TIDM PO 05/31/16 17:00 06/30/16 16:59 06/02/16 12:54 4 TAB Codeine Phosphate/ Guaifenesin (Robitussin-AC Sugar Free Syrup) 5 ml Q6H PRN PO 05/31/16 19:00 06/30/16 18:59 06/02/16 11:32 5 ML Ipratropium [place] (Atrovent 0.02% 0.5MG/2.5ML Neb) 0.5 mg Q4H PRN INH 05/31/16 21:00 06/30/16 20:59 06/02/16 11:56 0.5 MG Levalbuterol (Xopenex 1.25MG/ 0.5ML Neb) 1.25 mg Q4H PRN INH 05/31/16 21:00 06/30/16 20:59 06/02/16 11:56 1.25 MG Objective Vital Signs Date Time Temp Pulse Resp B/P Pulse Ox O2 Delivery O2 Flow Rate FiO2 06/02/16 15:15 Nasal Cannula 1.0 06/02/16 15:03 36.8 114 22 133/87 90 Room Air 06/02/16 14:47 88 Room Air 06/02/16 14:47 94 Nasal Cannula 1.0 06/02/16 11:56 108 18 92 Nasal Cannula 1.0 06/02/16 11:08 120 94 Nasal Cannula 1.0 Humidified Air 06/02/16 10:19 93 Nasal Cannula 2.0 06/02/16 10:18 125 88 Room Air 06/02/16 09:59 Room Air 06/02/16 08:23 36.8 111 18 130/85 95 Nasal Cannula 1.0 Humidified Oxygen 06/02/16 06:30 112 18 90 Nasal Cannula 1.0 06/01/16 23:59 Room Air 06/01/16 23:56 37.3 124 20 135/84 94 Nasal Cannula 1.0 06/01/16 22:18 115 20 86 Room Air Physical Exam General Appearance: no apparent distress, + obese Eyes: normal inspection, sclerae normal ENT: hearing grossly normal Neck: supple, trachea midline Respiratory/Chest: chest non-tender, normal breath sounds, no respiratory distress, no accessory muscle use Cardiovascular: regular rate, rhythm Abdomen: normal bowel sounds, non tender Extremities: + pertinent finding (Continued mild edema of the medial left knee area, nontender, surrounding maculopapular rash ) Neurologic/Psychiatric: alert, normal mood/affect Skin: + rash (left lower extremity maculopapular rash) Laboratory Results Item Value Date Time Blood Culture Received 06/01/16 1316 Blood Pending Blood Culture Received 06/01/16 1300 Blood Pending Fungal Smear - Final Resulted 06/01/16 1300 Blood MRSA DNA Surveillance Screen - Final Complete 05/30/16 1800 Nasal Specimen Negative for MRSA by DNA Probe Blood Culture - Preliminary Resulted 05/29/16 2317 Blood NO GROWTH TO DATE. Blood Culture - Preliminary Resulted 05/29/16 2310 Blood NO GROWTH TO DATE. Last 24 Hours Test 06/01/16 20:21 06/02/16 07:05 06/02/16 07:31 06/02/16 11:31 Bedside Glucose 239 mg/dl 201 mg/dl 225 mg/dl White Blood Count 6.95 K/uL Red Blood Count 3.63 M/uL Hemoglobin 9.4 g/dL Hematocrit 29.6 % Mean Corpuscular Volume 81.5 fL Mean Corpuscular Hemoglobin 25.9 pg Mean Corpuscular Hemoglobin Concent 31.8 g/dl Platelet Count 178 K/uL Mean Platelet Volume 9.3 fL Neutrophils (%) (Auto) 63.0 % Lymphocytes (%) (Auto) 27.1 % Monocytes (%) (Auto) 8.1 % Eosinophils (%) (Auto) 1.2 % Basophils (%) (Auto) 0.3 % Neutrophils # (Auto) 4.39 K/uL Lymphocytes # (Auto) 1.88 K/uL Monocytes # (Auto) 0.56 K/uL Eosinophils # (Auto) 0.08 K/uL Basophils # (Auto) 0.02 K/uL RDW Standard Deviation 45.9 fL RDW Coefficient of Variation 15.6 % Immature Granulocyte % (Auto) 0.3 % Immature Granulocyte # (Auto) 0.02 K/uL Creatinine 0.47 mg/dl Est Creatinine Clear Calc Drug Dose 227.7 ml/min Estimated GFR () > 150.0 Estimated GFR (Non- 129.8 Rheumatoid Factor < 10.0 U/mL Test 06/02/16 13:45 Urine Test NEG Assessment and Plan Patient with FUO, rash, and abdominal pain. She did have an elevated ESR of 58 , negative rheumatoid factor, and her KRISTI is pending. Viral serology is pending. Antibiotics were discontinued, and the patient has been afebrile. Continue to monitor of antibiotic therapy. Feel at this time that this patient' s rash likely is non infectious. Will continue to follow workup. PROVIDER ADDENDUM: Patient reviewed with Ms. Abad. Agree with above assessment.
[2016-06-02] MEDS: OXYCODONE/ACETAMINOPHEN 5-325 TAB PO PRN (18:41)
[2016-06-02] MEDS: RANITIDINE HCL 150 MG TAB PO SCH (20:45)
[2016-06-02] MEDS: AMITRIPTYLINE HCL 50 MG TAB PO SCH (20:45)
[2016-06-02] MEDS: LORATADINE 10 MG TAB PO SCH (20:45)
[2016-06-02] MEDS ORDERED: PHARMACY GLYCEMIC MGMT CONSULT PRN (22:44)
--- NOTE | 2016-06-02 23:07 | Progress Note ---
Medicine Progress Note Date & Time of Visit: Jun 02, 2016 at 12:16. Subjective 31 yoF presents with FUO -reports pain where she was stuck with a needle multiple times for blood draws and/or IV placement -walking around off oxygen but still requiring it. -reports whitish curd-like discharge from vagina since starting abx for knee rash as outpatient -rash on medial L knee-itchy -otherwise denies pain in chest or abdomen and reports resolution of bloody stool or diarrhea. Objective Last 8 Hrs Date Time Temp Pulse Resp B/P Pulse Ox O2 Delivery O2 Flow Rate FiO2 06/02/16 11:56 108 18 92 Nasal Cannula 1.0 06/02/16 11:08 120 94 Nasal Cannula 1.0 Humidified Air 06/02/16 10:19 93 Nasal Cannula 2.0 06/02/16 10:18 125 88 Room Air 06/02/16 09:59 Room Air 06/02/16 08:23 36.8 111 18 130/85 95 Nasal Cannula 1.0 Humidified Oxygen 06/02/16 06:30 112 18 90 Nasal Cannula 1.0 Physical Exam: GEN: obese, in no acute distress, alert and appropriate, no conversational HEENT: NC/AT, normal sclerae CARDIO: tachy rate, S1/2 heard without m/g/r LUNGS: CTA bilaterally, no crackles, rales or wheezes, good diaphragmatic excursion ABD: soft, non-tender, non-distended, no rebound or guarding, +BS EXTREMITY: no LE swelling or edema, extremities are warm and well-perfused, medial knee rash-erythematous small circular area of papules about 10-15cm in diameter. N/M: No gross focal deficits. SKIN: warm and dry and rash as above. Laboratory Results: 06/02/16 07:05 Red Blood Count 3.63, Mean Corpuscular Volume 81.5, Mean Corpuscular Hemoglobin 25.9, Mean Corpuscular Hemoglobin Concent 31.8, Mean Platelet Volume 9.3, Neutrophils (%) (Auto) 63.0, Lymphocytes (%) (Auto) 27.1, Monocytes (%) (Auto) 8.1, Eosinophils (%) (Auto) 1.2, Basophils (%) (Auto) 0.3, Neutrophils # (Auto) 4.39, Lymphocytes # (Auto) 1.88, Monocytes # (Auto) 0.56, Eosinophils # (Auto) 0.08, Basophils # (Auto) 0.02 05/31/16 03:38 06/02/16 07:05 Test 05/27/16 22:25 05/27/16 22:33 05/27/16 23:15 05/29/16 23:10 Prothrombin Time 10.7 SECONDS (9.0-12.0) Prothromb Time International Ratio 1.0 (0.9-1.1) D-Dimer 1360 ug/L FEU (0-500) Thyroid Stimulating Hormone (TSH) 1.530 uIu/ml (0.300-4.500) Human Chorionic Gonadotropin, Qual NEG (NEG) Lyme Disease IgG Antibody NEG (NEG) Lyme Disease IgM Antibody NEG (NEG) Bedside Lactic Acid Venous 1.77 mmol/L (0.90-1.70) Influenza Type A (RT-PCR) Neg for Influ A (NEG) Influenza Type A Antigen Neg for Influ A (NEG) Influenza Type B Antigen Neg for Influ B (NEG) Influenza Type B (RT-PCR) Neg for Influ B (NEG) Lactic Acid Level 1.3 mmol/L (0.4-2.0) Test 05/29/16 23:17 05/30/16 00:08 05/30/16 18:00 05/31/16 03:28 Total Bilirubin 0.5 mg/dl (0.2-1) Aspartate Amino Transf (AST/SGOT) 56 U/L (15-37) Alanine Aminotransferase (ALT/SGPT) 63 U/L (12-78) Alkaline Phosphatase 89 U/L (45-117) Troponin I < 0.015 ng/ml (0-0.045) Total Protein 6.6 gm/dl (6.4-8.2) Albumin 3.0 gm/dl (3.4-5.0) Globulin 3.6 gm/dl (2.5-4.0) Albumin/Globulin Ratio 0.8 (0.9-2) Lipase 85 U/L (73-393) Activated Partial Thromboplast Time 28.0 SECONDS (21.0-31.0) Partial Thromboplastin Ratio 1.1 Stool Occult Blood NEGATIVE (NEGATIVE) Vancomycin Level Trough 13.5 mcg/ml (SEE COMMENT) Test 05/31/16 03:38 06/01/16 00:00 06/01/16 08:45 06/01/16 16:05 Anion Gap 7.0 mmol/L (3-11) BUN/Creatinine Ratio 6.1 (10-20) Calcium Level 8.4 mg/dl (8.5-10.1) Magnesium Level 2.2 mg/dl (1.8-2.4) Urine Color YELLOW Urine Appearance CLEAR (CLEAR) Urine pH 7.5 (4.5-7.5) Urine Specific [place] 1.014 (1.000-1.030) Urine Protein NEG (NEG) Urine Glucose (UA) 1+ (NEG) Urine Ketones NEG (NEG) Urine Occult Blood NEG (NEG) Urine Nitrite NEG (NEG) Urine Bilirubin NEG (NEG) Urine Urobilinogen NEG (NEG) Urine Leukocyte Esterase NEG (NEG) Urine WBC (Auto) 1-5 /hpf (0-5) Urine RBC (Auto) 5-10 /hpf (0-4) Urine Hyaline Casts (Auto) 1-5 /lpf (0-5) Urine Epithelial Cells (Auto) >30 /lpf (0-5) Urine Bacteria (Auto) NEG (NEG) Erythrocyte Sedimentation Rate 58 mm/hr (0-21) Monoscreen NEG (NEG) Test 06/02/16 07:05 06/02/16 13:45 06/02/16 20:09 White Blood Count 6.95 K/uL (4.8-10.8) Red Blood Count 3.63 M/uL (4.2-5.4) Hemoglobin 9.4 g/dL (12.0-16.0) Hematocrit 29.6 % (37-47) Mean Corpuscular Volume 81.5 fL (80-100) Mean Corpuscular Hemoglobin 25.9 pg (25-34) Mean Corpuscular Hemoglobin Concent 31.8 g/dl (32-36) Platelet Count 178 K/uL (130-400) Mean Platelet Volume 9.3 fL (7.4-10.4) Neutrophils (%) (Auto) 63.0 % Lymphocytes (%) (Auto) 27.1 % Monocytes (%) (Auto) 8.1 % Eosinophils (%) (Auto) 1.2 % Basophils (%) (Auto) 0.3 % Neutrophils # (Auto) 4.39 K/uL (1.4-6.5) Lymphocytes # (Auto) 1.88 K/uL (1.2-3.4) Monocytes # (Auto) 0.56 K/uL (0.11-0.59) Eosinophils # (Auto) 0.08 K/uL (0-0.5) Basophils # (Auto) 0.02 K/uL (0-0.2) RDW Standard Deviation 45.9 fL (36.4-46.3) RDW Coefficient of Variation 15.6 % (11.5-14.5) Immature Granulocyte % (Auto) 0.3 % Immature Granulocyte # (Auto) 0.02 K/uL (0.00-0.02) Est Creatinine Clear Calc Drug Dose 227.7 ml/min Estimated GFR () > 150.0 Estimated GFR (Non- 129.8 Rheumatoid Factor < 10.0 U/mL (0-15) Urine Test NEG (NEG) Bedside Glucose 220 mg/dl (70-90) Date/Time Source Procedure Growth Status 06/01/16 13:16 Blood Blood Culture Pending Received 05/30/16 18:00 Nasal MRSA DNA Surveillance Screen - Final Specimen Negative for MRSA by DNA Probe Complete 05/28/16 17:30 Stool C.difficile Toxin B Gene (PCR) - Final No C. difficile toxin B gene detected Complete Last 24 Hours Test 06/01/16 16:05 06/01/16 16:06 06/01/16 20:21 06/02/16 07:05 Monoscreen NEG Bedside Glucose 226 mg/dl 239 mg/dl White Blood Count 6.95 K/uL Red Blood Count 3.63 M/uL Hemoglobin 9.4 g/dL Hematocrit 29.6 % Mean Corpuscular Volume 81.5 fL Mean Corpuscular Hemoglobin 25.9 pg Mean Corpuscular Hemoglobin Concent 31.8 g/dl Platelet Count 178 K/uL Mean Platelet Volume 9.3 fL Neutrophils (%) (Auto) 63.0 % Lymphocytes (%) (Auto) 27.1 % Monocytes (%) (Auto) 8.1 % Eosinophils (%) (Auto) 1.2 % Basophils (%) (Auto) 0.3 % Neutrophils # (Auto) 4.39 K/uL Lymphocytes # (Auto) 1.88 K/uL Monocytes # (Auto) 0.56 K/uL Eosinophils # (Auto) 0.08 K/uL Basophils # (Auto) 0.02 K/uL RDW Standard Deviation 45.9 fL RDW Coefficient of Variation 15.6 % Immature Granulocyte % (Auto) 0.3 % Immature Granulocyte # (Auto) 0.02 K/uL Creatinine 0.47 mg/dl Est Creatinine Clear Calc Drug Dose 227.7 ml/min Estimated GFR () > 150.0 Estimated GFR (Non- 129.8 Rheumatoid Factor < 10.0 U/mL Test 06/02/16 07:31 06/02/16 11:31 Bedside Glucose 201 mg/dl 225 mg/dl Date/Time Source Procedure Growth Status 06/01/16 13:16 Blood Blood Culture Pending Received 06/01/16 13:00 Blood Blood Culture Pending Received 06/01/16 13:00 Blood Fungal Smear - Final Resulted 06/01/16 13:00 Blood Fungal Culture Pending Resulted Assessment & Plan ASSESSMENT & PLAN: 1. FUO- has knee rash for the past month and initially had some bloody diarrhea and abdominal pain that has resolved. Now is hypoxic with some nonproductive cough that began today. Infectious workup pending per ID- negative so far. All abx have been stopped and she has remained afebrile overnight. Connective tissue disease is a possibility, however, Rheumatology evaluation in 2013 was unremarkable. Other etiologies include but not limited to malignancy , drug reaction, pheochromocytoma (reports flushing in lower half of body for the past year), Familiar Medit Fever?-fits with rash, serositis, pleuritis and fever. Cont supportive care and discussion with subspecialists. Consult placed to Rheumatology. 2. Hypertension,stable on enalapril 3.. DM2, insulin requiring, on lantus and iss--uncontrolled, requesting inpatient pharmacy consult for assist. 4. Anemia. Hemoglobin drop secondary to recent GI bleeding, menstruating female, and daily phlebotomy. No indication for transfusion at this time. Monitor 5. Hypoxia-recent PFTs (05/14/16) reveal restrictive lung disease possibly 2/2 obesity or suboptimal effort. She was noted by nursing to go down to the cafeteria in street clothes off oxygen, and was short of breath when she returned, requiring 2L via NC. 6. Moderate persistent asthma-no wheezing, stable. Cont Breo ellipta, Singulair and albuterol PRN 7. LYNN-noncompliant with CPAP because of a mask fit issue. 8. Vaginal candidiasis 2/2 recent abx use. Monistat topical was stopped and Diflucan 150mg given. 9. Obesity-considering gastric bypass surgery. Noted fatty liver on imaging. DVT PROPHYLAXIS scds DISPOSITION monitor in medical floor to be determined--needs to be off oxygen and afebrile, feeling better DO Wayne Adame Hospitalist Continued [facility] stay due to: fever Discharge planning: home Consultants: Infectious Disease Current Inpatient Medications: Current Inpatient Medications Medications (Trade) Dose Ordered Sig/Rody Route Start Time Stop Time Status Last Admin Dose Admin Nitroglycerin (Nitrostat Tab) 0.4 mg UD PRN SL 05/28/16 03:30 06/27/16 03:29 Insulin Aspart (novoLOG ASPART) SLIDING SCALE If C... ACHS SC 05/28/16 06:45 06/27/16 06:59 06/02/16 08:29 4 UNITS Glucose (Glucose 40% Gel) 15-30 GRAMS 15 GRAMS... UD PRN PO 05/28/16 03:30 06/27/16 03:29 Glucose (Glucose Chew Tab) 4-8 Tablets 4 Tabl... UD PRN PO 05/28/16 03:30 06/27/16 03:29 Dextrose (Dextrose 50% 50ML Syringe) 25-50ML OF 50% DW IV FOR... UD PRN IV 05/28/16 03:30 06/27/16 03:29 Glucagon (Glucagon Inj) 1 mg UD PRN SQ 05/28/16 03:30 06/27/16 03:29 Amitriptyline HCl (Elavil Tab) 50 mg HS PO 05/28/16 21:00 06/27/16 20:59 06/01/16 21:42 50 MG Enalapril Maleate (Vasotec Tab) 5 mg QAM PO 05/28/16 09:00 06/27/16 08:59 06/02/16 08:27 5 MG Gabapentin (Neurontin Cap) 300 mg TID PO 05/28/16 09:00 06/27/16 08:59 06/02/16 08:27 300 MG Loratadine (Claritin Tab) 10 mg HS PO 05/28/16 21:00 06/27/16 20:59 06/01/16 21:41 10 MG Montelukast Sodium (Singulair Tab) 10 mg QAM PO 05/28/16 09:00 06/27/16 08:59 06/02/16 08:27 10 MG Miscellaneous Information (Order Awaiting Action) 1 ea QS N/A 05/28/16 08:00 06/27/16 07:59 Pantoprazole Sodium (Protonix Tab) 40 mg QAM PO 05/28/16 09:00 06/27/16 08:59 06/02/16 08:27 40 MG Ranitidine HCl (zANTac TAB) 300 mg HS PO 05/28/16 21:00 06/27/16 20:59 06/01/16 21:41 300 MG Lorazepam (Ativan Inj) 0.5 mg Q4H PRN IV 05/28/16 03:30 06/27/16 03:29 Tramadol HCl (Ultram Tab) 25 mg Q6H PRN PO 05/28/16 03:30 06/27/16 03:29 05/29/16 20:52 25 MG Ondansetron HCl 4 mg 4 mg Q6H PRN IV 05/28/16 03:30 06/27/16 03:29 05/29/16 18:49 4 MG Promethazine HCl/ Sodium Chloride (Phenergan Inj/ Nss 50ml) 50.5 ml @ 204 mls/hr Q6H PRN IV 05/28/16 03:30 06/27/16 03:29 Acetaminophen (Tylenol Tab) 325 mg Q6H PRN PO 05/28/16 09:30 06/27/16 09:29 06/01/16 08:57 325 MG Bacitracin/ Polymyxin B Sulfate (Polysporin Oint) 1 appln BID EXT 05/28/16 20:42 06/02/16 20:59 06/02/16 08:26 1 APPLN Polyethylene (Miralax Powder Packet) 17 gm DAILY PRN PO 05/28/16 16:15 06/27/16 16:14 05/28/16 16:37 17 GM Bisacodyl (Dulcolax Supp) 10 mg DAILY PRN [place] 05/28/16 16:15 06/27/16 16:14 05/28/16 16:37 10 MG Oxycodone/ Acetaminophen (Percocet 5-325mg Tab) 1 tab Q4H PRN PO 05/29/16 13:30 06/12/16 13:29 06/01/16 06:32 1 TAB Fluticasone/ Vilanterol (Breo Ellipta 100-25 Mcg/Inh) 1 puffs DAILY INH 05/30/16 08:00 06/28/16 07:59 06/02/16 08:26 1 PUFFS Diphenhydramine HCl (Benadryl Cap) 25 mg TID PRN PO 05/29/16 17:45 06/28/16 17:44 06/01/16 00:05 25 MG Miconazole Nitrate (Monistat 7 Vag Crm) 1 appln HS PV 05/29/16 21:00 06/05/16 20:59 06/01/16 21:41 1 APPLN Ioversol (Optiray 320) 125 ml UD PRN IV 05/30/16 02:00 06/03/16 01:59 Insulin Glargine (Lantus Solostar Pen) 15 unit BID SC 05/31/16 08:00 06/30/16 07:59 06/02/16 08:30 15 UNIT Lactobacillus Acidophilus (Floranex Tab) 4 tab TIDM PO 05/31/16 17:00 06/30/16 16:59 06/02/16 08:27 4 TAB Codeine Phosphate/ Guaifenesin (Robitussin-AC Sugar Free Syrup) 5 ml Q6H PRN PO 05/31/16 19:00 06/30/16 18:59 06/02/16 11:32 5 ML Ipratropium [place] (Atrovent 0.02% 0.5MG/2.5ML Neb) 0.5 mg Q4H PRN INH 05/31/16 21:00 06/30/16 20:59 06/02/16 11:56 0.5 MG Levalbuterol 1.25 mg 1.25 mg Q4H PRN INH 05/31/16 21:00 06/30/16 20:59 06/02/16 11:56 1.25 MG Sodium Chloride (Nss 1000ml) 1,000 ml @ 50 mls/hr Q20H IV 06/01/16 12:30 07/01/16 12:29 06/01/16 15:42 50 MLS/HR
[2016-06-03 02:00] VITALS: O2SAT 92
[2016-06-03] MEDS: DULERA - ORDER AWAITING ACTION SCH (06:56)
[2016-06-03 07:39] VITALS: BP 134/85; PULSE 98; TEMP 36.6; O2SAT 93
[2016-06-03] MEDS ORDERED: INSULIN GLARGINE SOLOSTAR 100 UNITS/ML 3 ML PEN SC SCH (08:00)
--- NOTE | 2016-06-03 08:53 | Discharge Instructions ---
Discharge Instructions Date of Service Jun 03, 2016. Admission Reason for Admission: Sepsis Discharge Discharge Diagnosis / Problem: FUO-resolved Discharge Goals Goal(s): Prevent Disease Progression Activity Recommendations Activity Limitations: resume your previous activity . Instructions / Follow-Up Instructions / Follow-Up Please take all medications as instructed. You have an appointment with your PCP, Dr. Ulises Matias, at the [facility] location for follow-up of this hospitalization. This is for 06/08 @ 1100. Please bring all paperwork from this hospitalization with you. You will need continued followup/outpatient workup for anemia, which is new. You will also need follow-up with your lung doctor as you were requiring oxygen for most of your hospitalization. I strongly recommend compliance with nightly CPAP for sleep apnea. This will help your blood pressure remain lower and lower daily fatigue. An outpatient colonoscopy will be arranged through your GI provider. Please contact their office to schedule. It was a pleasure taking care of you! Call if you have any questions or problems. You can reach a [facility] hospitalist on duty at [facility] 24 hours a day by calling [phone]. Take care of yourself. Liliana Sterling, [facility] Hospitalist Current Hospital Diet Patient's current hospital diet: Regular Diet, Diabetes Type 2 Diet Discharge Diet Recommended Diet: Diabetes Type 2 Diet Procedures Procedures Performed: None. Pending Studies Studies pending at discharge: yes List of pending studies: CMV, Toxo, parvo, Quantiferon, KRISTI screening Medical Emergencies . Who to Call and When: Medical Emergencies: If at any time you feel your situation is an emergency, please call 911 immediately. . Non-Emergent Contact Non-Emergency issues call your: Primary Care Provider . . "Provider Documentation" section prepared by Liliana Sterling. VTE Core Measure Inpt VTE Proph given/why not?: SCD's
[2016-06-03 08:59] VITALS: BP 134/85; PULSE 98; TEMP 36.6; O2SAT 93
[2016-06-03] MEDS: INSULIN ASPART 100 UNITS/ML 3 ML PEN SC SCH (09:00)
[2016-06-03] MEDS: ENALAPRIL MALEATE 5 MG TAB PO SCH (09:02)
[2016-06-03] MEDS: LACTOBACILLUS ACIDOPHILUS (FLORANEX) TAB PO SCH (09:02)
[2016-06-03] MEDS: MONTELUKAST SOD 10 MG TAB PO SCH (09:02)
[2016-06-03] MEDS: GABAPENTIN 300 MG CAP PO SCH (09:02)
[2016-06-03] MEDS: PANTOprazole SOD 40 MG TAB PO SCH (09:02)
[2016-06-03] MEDS: FLUTICASONE FUROATE-VILANTEROL 30 PUFFS/INHALER INH INH SCH (09:03)
[2016-06-03] MEDS ORDERED: FLUCONAZOLE 50 MG TAB PO STA (10:25)
[2016-06-03] MEDS ORDERED: HYDR0.2O4 EXT (10:36)
--- NOTE | 2016-06-03 10:38 | Discharge Summary ---
Discharge Summary Date of Service Jun 03, 2016. Discharge Summary Admission Date: May 28, 2016 at 02:39 Discharge Date: Jun 03, 2016 Discharge Disposition: Home Principal Diagnosis: FUO-resolved Rash on knee Vaginal areli Fatty liver Anemia Hypoxia--Restrictive lung disease Asthma Obesity DMII HTN Procedures: None. Vaccinations: None. Consultations: Infectious Disease Pending Studies/Follow-Up: see instructions below Medication Reconciliation New Medications: Hydrocortisone Valerate (Westcort) 0.2 % Oin 1 APPL EXT TID PRN for Itching for 30 Days, #45 GM Apply thin film to knee area three times daily as needed for itching Continued Medications: Albuterol Hfa (Ventolin Hfa) 200 Puffs/80068 Mcg Aers 2 PUFFS INH Q6H PRN for Wheezing Amitriptyline HCl (Amitriptyline HCl) 50 Mg Tab 50 MG PO HS Enalapril (Vasotec) 5 Mg Tab 5 MG PO QAM, TAB Ergocalciferol (Vitamin D) 50,000 Interunit Cap 34497 INTER.UNIT PO WK TAKE THIS MEDICATION EVERY WEDNESDAY Exenatide (Bydureon) 2 Mg Inj 2 MG SC WK INJECT UNDER THE SKIN ONCE WEEKLY EVERY WEDNESDAY. Fluticasone Furoate-Vilanterol (Breo Ellipta) 1 Inh Inh 1 PUFF INH DAILY Gabapentin (Gabapentin) 300 Mg Cap 300 MG PO TID, #90 Insulin Glargine (Lantus Solostar) 100 Unit/Ml Inj 60 UNITS SC HS Loratadine (Claritin) 10 Mg Tab 10 MG PO HS Metformin HCl (Metformin HCl ER) 500 Mg Tabcr 1000 MG PO BID Mometasone Furoate-Formoterol (Dulera 200/5 Mcg) 1 Aer Aer 2 PUFFS INH BID PRN for Shortness of Breath Montelukast Sod (Montelukast Sodium) 10 Mg Tab 10 MG PO QAM Naproxen Sodium (Naproxen Sodium Ds) 550 Mg Tab 550 MG PO BID TAKE THIS MEDICATION WITH FOOD Omeprazole Magnesium (Prilosec Otc) 20 Mg Tab 20 MG PO QAM Ondasetron Odt (Zofran Odt) 4 Mg Tab 4 MG SL Q8 PRN for Nausea, TAB Ranitidine Hcl (Zantac) 300 Mg Tab 300 MG PO HS Discontinued Medications: Doxycycline Hyclate (Doxycycline Hyclate) 50 Mg Cap 50 MG PO QAM Lubiprostone (Amitiza) 24 Mcg Cap 24 MCG PO BID, CAP Admission Information HPI (per Admitting provider): HISTORY OF PRESENT ILLNESS: Medical history significant for hypertension, DM2 insulin requiring, urolithiasis, asthma. Recent confinement last May 2014 for right ovarian cyst and renal colic. Patient was seen at PCP's office about 2 weeks ago for headache, sinus congestion for a week, itching in the lower extremities worse at night. Given doxycycline for possible sinusitis, cellulitis. No response. Patient noted bloody loose stools, achy abdominal pain, more on the left. No hematemesis, no coffee-ground emesis. Worsening of L leg swelling, itchy. itchy superficial wound also noted L sternum No chest pain, some shortness of breath, no cough symptoms. Denies bladder discomfort. At the Emergency Room the patient received ceftriaxone for sepsis. Physical Exam (per Admitting): PHYSICAL EXAMINATION: VITAL SIGNS: Blood pressure was noted to be 129/82, pulse rate 120, RR 18, temperature 37.8, sats 100 on room air. GENERAL: Noted to be uncomfortable. No respiratory distress. SKIN: Pallor. HEENT: Pale palpebral conjunctivae. Dry mucosa. NECK: Short neck. LUNGS: Decreased breath sounds. superficial wound, sternum with some crusting. No drainage. HEART : RRR ABDOMEN: Minimal left-sided tenderness. EXTREMITIES: papular lesions with induration on the left medial aspect of the knee, lower thigh. minimal tenderness NEUROLOGIC: No gross focality. Hospital Course ASSESSMENT & PLAN: 1. FUO- has knee rash for the past month and initially had some bloody diarrhea and abdominal pain that has resolved. Now is hypoxic with some nonproductive cough that began today. Infectious workup pending per ID- negative so far. All abx have been stopped and she has remained afebrile overnight. Connective tissue disease is a possibility, however, Rheumatology evaluation in 2013 was unremarkable. Other etiologies include but not limited to malignancy , drug reaction, pheochromocytoma (reports flushing in lower half of body for the past year), Familiar Medit Fever?-fits with rash, serositis, pleuritis and fever. Cont supportive care and discussion with subspecialists. Consult placed to Rheumatology. 2. Hypertension,stable on enalapril 3.. DM2, insulin requiring, on lantus and iss--uncontrolled, requesting inpatient pharmacy consult for assist. 4. Anemia. Hemoglobin drop secondary to recent GI bleeding, menstruating female, and daily phlebotomy. No indication for transfusion at this time. Monitor 5. Hypoxia-recent PFTs (05/14/16) reveal restrictive lung disease possibly 2/2 obesity or suboptimal effort. She was noted by nursing to go down to the cafeteria in street clothes off oxygen, and was short of breath when she returned, requiring 2L via NC. 6. Moderate persistent asthma-no wheezing, stable. Cont Breo ellipta, Singulair and albuterol PRN 7. LYNN-noncompliant with CPAP because of a mask fit issue. 8. Vaginal candidiasis 2/2 recent abx use. Monistat topical was stopped and Diflucan 150mg given. 9. Obesity-considering gastric bypass surgery. Noted fatty liver on imaging. On day of discharge Mrs. Barrett was afebrile and hemodynamically stable. She was intermittently wearing oxygen, so a two-step test was ordered revealing no need for supplemental oxygen. Physical exam was unremarkable aside from obesity, and a small rash on her left knee present on admission. She was discharged home in stable condition with close follow-up scheduled with PCP within one week of discharge. Total time spent on discharge = 60 minutes This includes examination of the patient, discharge planning, medication reconciliation, and communication with other providers. Discharge Instructions Discharge Instructions Date of Service Jun 03, 2016. Admission Reason for Admission: Sepsis Discharge Discharge Diagnosis / Problem: FUO-resolved Discharge Goals Goal(s): Prevent Disease Progression Activity Recommendations Activity Limitations: resume your previous activity . Instructions / Follow-Up Instructions / Follow-Up Please take all medications as instructed. You have an appointment with your PCP, Dr. Ulises Matias, at the [facility] location for follow-up of this hospitalization. This is for 06/08 @ 1100. Please bring all paperwork from this hospitalization with you. You will need continued followup/outpatient workup for anemia, which is new. You will also need follow-up with your lung doctor as you were requiring oxygen for most of your hospitalization. I strongly recommend compliance with nightly CPAP for sleep apnea. This will help your blood pressure remain lower and lower daily fatigue. An outpatient colonoscopy will be arranged through your GI provider. Please contact their office to schedule. It was a pleasure taking care of you! Call if you have any questions or problems. You can reach a [facility] hospitalist on duty at [facility] 24 hours a day by calling [phone]. Take care of yourself. Liliana Sterling, DO [facility] Additional Copies To Ulises Matias D.O.
--- NOTE | 2016-06-03 11:15 | Rheumatology Consultation ---
Rheumatology Consultation Date of Consultation: Jun 03, 2016. Requesting Physician: Dr Sterling Attending Physician: Dr Sterling Reason for Consultation: FUO, ? FMF History of Present Illness Ms Barrett presented to [facility] last week with ongoing abdominal pain, fevers, LE rash (concern for cellulitis) with some bloody diarrhea. She was placed on abx with some continued fever, abdominal pains and concern for sepsis/cellulitis, c diff colitis. she has a pmhx for type 2 DM (Relatively well controlled with a1c 7.3 recently), obesity (considering gastric bypass), LYNN with non compliance of CPAP, asthma. she reports that several weeks prior was seen by PCP office with concerns of sinusitis (congestion, headaches) as well as le cellulitis. was placed on augmentin. she reported that she started to have abdominal pains and loose bloody diarrhea that brought denise to [facility] 05/28/2016. she had low grade fevers as well. she has since been seen by ID and all abx was stopped. ? fever of unknown origin was raised - RF was checked and normal, NA is pending, her ESR was 58. she has not had fever for > 1 day and has been off abx as well now. she denies any family history of autoimmune diseases. No fever syndromes either. she is originally from [place] and admits does not know much family history. she has 4 children and all healthy. No issues with her pregnancies - no miscarriages or blood clots. she denies any history of photosensitivity, serositis, pericarditis, pleurisy, raynaud's, reports some mild dry mouth. she also has known history of spinal stenosis with diabetic neuropathy in her legs and possible radicular symptoms from her back into the legs as well. she reports that over that last year mainly at night she gets a burning sensation in her legs and they itch. usually not red but at times can be. she scratches her legs a lot and causes trauma and has some healing ulcers now. at the presentation to ED she had redness to the medial left knee and anterior canela. she still has some redness there and states itchy and still scratches it. she is overweight and gets swelling in her legs every day. she is trying to lose weight on her own prior to surgery. CT scan done in house showed non obstructing renal stones, small ovarian cysts, fatty liver disease with hepatosplenomegaly. she has had EGD in past that showed mild gastritis and small hiatal hernia. she denies any recurrent fevers at home over this last year or prior. she was seen by Dr Hawkins in 2013 for le joint pains and not felt to have an autoimmune disease at that time even though she had reported someone in [facility] told her she might have lupus. at that time KRISTI was negative and ESR was 39. she denies any history concerning for psoriasis, RA, CTD. she still has some adbominal pain and cough from her asthma but is feeling better. no joint complaints. Past Medical/Surgical History Medical History: asthma, chronic back pain, diabetes, ovarian cyst, other ( obesity, LYNN) Surgical History: cholecystectomy, other (breast reduction) Family History no family history of autoimmune disease Social History Smoking Status: Never Smoker History of Alcohol Use: No Drug Use: none Marital Status: Housing Status: lives with family Occupation Status: unemployed Review of Systems Constitutional: + fever, + weight loss Respiratory: + cough Cardiac: + edema, No chest pain Abdomen: + see HPI Musculoskeletal: + see HPI Neurologic: + numbness/tingling Skin: + see HPI All Other Systems: Reviewed and Negative Allergies Uncoded Allergies: MINT (Allergy, Unknown, unknown, 08/03/15) Medications Current Inpatient Medications Medications (Trade) Dose Ordered Sig/Rody Route Start Time Stop Time Status Last Admin Dose Admin Nitroglycerin (Nitrostat Tab) 0.4 mg UD PRN SL 05/28/16 03:30 06/27/16 03:29 Insulin Aspart (novoLOG ASPART) SLIDING SCALE If C... ACHS SC 05/28/16 06:45 06/27/16 06:59 06/02/16 20:51 2 UNITS Glucose (Glucose 40% Gel) 15-30 GRAMS 15 GRAMS... UD PRN PO 05/28/16 03:30 06/27/16 03:29 Glucose (Glucose Chew Tab) 4-8 Tablets 4 Tabl... UD PRN PO 05/28/16 03:30 06/27/16 03:29 Dextrose (Dextrose 50% 50ML Syringe) 25-50ML OF 50% DW IV FOR... UD PRN IV 05/28/16 03:30 06/27/16 03:29 Glucagon (Glucagon Inj) 1 mg UD PRN SQ 05/28/16 03:30 06/27/16 03:29 Amitriptyline HCl (Elavil Tab) 50 mg HS PO 05/28/16 21:00 06/27/16 20:59 06/02/16 20:45 50 MG Enalapril Maleate (Vasotec Tab) 5 mg QAM PO 05/28/16 09:00 06/27/16 08:59 06/02/16 08:27 5 MG Gabapentin (Neurontin Cap) 300 mg TID PO 05/28/16 09:00 06/27/16 08:59 06/02/16 20:45 300 MG Loratadine (Claritin Tab) 10 mg HS PO 05/28/16 21:00 06/27/16 20:59 06/02/16 20:45 10 MG Montelukast Sodium (Singulair Tab) 10 mg QAM PO 05/28/16 09:00 06/27/16 08:59 06/02/16 08:27 10 MG Miscellaneous Information (Order Awaiting Action) 1 ea QS N/A 05/28/16 08:00 06/27/16 07:59 Pantoprazole Sodium (Protonix Tab) 40 mg QAM PO 05/28/16 09:00 06/27/16 08:59 06/02/16 08:27 40 MG Ranitidine HCl (zANTac TAB) 300 mg HS PO 05/28/16 21:00 06/27/16 20:59 06/02/16 20:45 300 MG Lorazepam (Ativan Inj) 0.5 mg Q4H PRN IV 05/28/16 03:30 06/27/16 03:29 Tramadol HCl (Ultram Tab) 25 mg Q6H PRN PO 05/28/16 03:30 06/27/16 03:29 05/29/16 20:52 25 MG Ondansetron HCl 4 mg 4 mg Q6H PRN IV 05/28/16 03:30 06/27/16 03:29 05/29/16 18:49 4 MG Promethazine HCl/ Sodium Chloride (Phenergan Inj/ Nss 50ml) 50.5 ml @ 204 mls/hr Q6H PRN IV 05/28/16 03:30 06/27/16 03:29 Acetaminophen (Tylenol Tab) 325 mg Q6H PRN PO 05/28/16 09:30 06/27/16 09:29 06/01/16 08:57 325 MG Polyethylene (Miralax Powder Packet) 17 gm DAILY PRN PO 05/28/16 16:15 06/27/16 16:14 05/28/16 16:37 17 GM Bisacodyl (Dulcolax Supp) 10 mg DAILY PRN NV 05/28/16 16:15 06/27/16 16:14 05/28/16 16:37 10 MG Oxycodone/ Acetaminophen (Percocet 5-325mg Tab) 1 tab Q4H PRN PO 05/29/16 13:30 06/12/16 13:29 06/02/16 18:41 1 TAB Fluticasone/ Vilanterol (Breo Ellipta 100-25 Mcg/Inh) 1 puffs DAILY INH 05/30/16 08:00 06/28/16 07:59 06/02/16 08:26 1 PUFFS Diphenhydramine HCl (Benadryl Cap) 25 mg TID PRN PO 05/29/16 17:45 06/28/16 17:44 06/01/16 00:05 25 MG Lactobacillus Acidophilus (Floranex Tab) 4 tab TIDM PO 05/31/16 17:00 06/30/16 16:59 06/02/16 18:02 4 TAB Codeine Phosphate/ Guaifenesin (Robitussin-AC Sugar Free Syrup) 5 ml Q6H PRN PO 05/31/16 19:00 06/30/16 18:59 06/02/16 11:32 5 ML Ipratropium [place] (Atrovent 0.02% 0.5MG/2.5ML Neb) 0.5 mg Q4H PRN INH 05/31/16 21:00 06/30/16 20:59 06/02/16 11:56 0.5 MG Levalbuterol (Xopenex 1.25MG/ 0.5ML Neb) 1.25 mg Q4H PRN INH 05/31/16 21:00 06/30/16 20:59 06/02/16 11:56 1.25 MG Miscellaneous Information (Consult Glycemic Management Pharmacy) 1 ea DAILY PRN N/A 06/02/16 22:44 07/02/16 22:43 Insulin Glargine (Lantus Solostar Pen) 20 unit BID SC 06/03/16 08:00 07/03/16 07:59 Physical Exam Date Time Temp Pulse Resp B/P Pulse Ox O2 Delivery O2 Flow Rate FiO2 06/03/16 07:39 36.6 98 16 134/85 93 Nasal Cannula 1.0 06/03/16 02:00 92 Nasal Cannula 1.0 06/02/16 23:47 36.6 92 20 130/83 95 Nasal Cannula 1.0 06/02/16 15:15 Nasal Cannula 1.0 06/02/16 15:03 36.8 114 22 133/87 90 Room Air 06/02/16 14:47 88 Room Air 06/02/16 14:47 94 Nasal Cannula 1.0 06/02/16 11:56 108 18 92 Nasal Cannula 1.0 06/02/16 11:08 120 94 Nasal Cannula 1.0 Humidified Air 06/02/16 10:19 93 Nasal Cannula 2.0 06/02/16 10:18 125 88 Room Air 06/02/16 09:59 Room Air General Appearance: WD/WN, no apparent distress Eyes: bilateral eyes EOMI, bilateral eyes normal inspection ENT: normal ENT inspection, hearing grossly normal, pharynx normal Neck: supple, no adenopathy Respiratory: chest non-tender, lungs clear, normal breath sounds, no respiratory distress Cardiovascular: regular rate, rhythm, no edema, no gallop, no murmur Abdomen: normal bowel sounds, non tender, soft Musculoskeletal: normal Neurologic/Psychiatric: alert, normal mood/affect, oriented x 3 Skin: + pertinent finding (mild erythema with some scratching trauma left medial knee, mild erythema (rash ) extending anterior canela. old healed areas of excoriation) Laboratory Results Last 24 Hours Test 06/02/16 11:31 06/02/16 13:45 06/02/16 16:24 06/02/16 20:09 Bedside Glucose 225 mg/dl 141 mg/dl 220 mg/dl Urine Test NEG Test 06/03/16 08:10 Bedside Glucose 166 mg/dl Assessment & Plan Assessment & Plan: Assessment: Pal is a 31 y/o female with multiple medical issues that presented with abdominal pain, bloody diarrhea, LE cellulitis and fevers felt to be possibly FUO. Since being off abx no fevers last 1.5 days. feeling better. Overall her history is not concerning for auto immune inflammatory disease including periodic fever syndromes such as FMF. this was discussed with her. In past KRISTI was neagtive and ESR elevated at 39. Her elevated ESR likely multifactorial including diabetes, weight and recent infection. Her fevers may of been drug related since now gone once off all abx's. KRISTI is pending but would expect to be normal. I discussed case with Dr Sterling as well. Plan: 1. await KRISTI result 2. likely will not need rheumatology outpatient follow up but will arrange if KRISTI + 3. Thank you for the consult and involving me in this patient's care
[2016-06-05 00:32] LABS: PARVOVIRUS IgM INDEX 0.3 (<0.9)
[2016-06-05 13:29] LABS: CYTOMEGALOVIRUS IGG AB 3.45; QUANTIF TB AG-NIL <0.00 IU/ML; QUANTIFERON NIL 0.07 IU/ML
[2016-06-06] MEDS ORDERED: FLUC100T4 PO (14:35)
[2016-06-06] MEDS ORDERED: LEVO-18 PO (14:35)
[2016-06-24] MEDS ORDERED: AMITIZA PO (14:03)
[2016-08-04] MEDS ORDERED: ERGO1CAP41 PO (00:46)
[2016-10-28] MEDS ORDERED: PRLSR20 PO (14:01)
[2016-11-13] MEDS ORDERED: ONDA4TAB46 PO (10:23)
== END 2016-06-03 11:13 | disposition home or self-care (01) | DRG 864 ==
LOC: ENRESERVTM → ENRESERV → ENRESERVDT → C.EDB 20:42 → C.MSICU 05-28 02:39 → C.4E 05-28 20:41
PROVIDERS: ADMIT Internal Medicine; ATTEND Internal Medicine
DX: R50.9 Fever, unspecified (principal); Z68.41 Body mass index [BMI] 40.0-44.9, adult; K92.1 Melena; L03.116 Cellulitis of left lower limb; R21 Rash and other nonspecific skin eruption; R19.7 Diarrhea, unspecified; R10.9 Unspecified abdominal pain; B37.3 Candidiasis of vulva and vagina; T36.95XA Adverse effect of unspecified systemic antibiotic, initial encounter; J98.4 Other disorders of lung; J45.40 Moderate persistent asthma, uncomplicated; R09.02 Hypoxemia; I10 Essential (primary) hypertension; E11.9 Type 2 diabetes mellitus without complications; K21.9 Gastro-esophageal reflux disease without esophagitis; D50.0 Iron deficiency anemia secondary to blood loss (chronic); K76.0 Fatty (change of) liver, not elsewhere classified; K59.00 Constipation, unspecified; E66.01 Morbid (severe) obesity due to excess calories; G47.33 Obstructive sleep apnea (adult) (pediatric); Z91.19 Patient's noncompliance with other medical treatment and regimen; Z79.2 Long term (current) use of antibiotics; Z79.84 Long term (current) use of oral hypoglycemic drugs; Z79.51 Long term (current) use of inhaled steroids; Z79.4 Long term (current) use of insulin; Z79.1 Long term (current) use of non-steroidal anti-inflammatories (NSAID); Z79.899 Other long term (current) drug therapy

== ENCOUNTER → 2016-05-27 | Outpatient (CLI) | payer OTHER ==
[~2016-05-27] MED LIST changes: +AMITIZA PO; +AMT24 PO; +ERGO1CAP41 PO; +FLUC100T4 PO; +FLUT1INH INH; +GABA1CAP4 PO; +HYDR0.2O4 EXT; +INSDGIPEN SC; +IPRASOL4 INH; +LEVO-18 PO; +LUBI8CAP4 PO; +NAPR-1161 PO; -NAPR500T3 PO; +OMEP20TA14 PO; +ONDA4TAB10 SL; +ONDA4TAB46 PO; +OXYC-57 PO; +PRLSR20 PO; +PROM25TA9 PO; +SNG10 PO; +VNTHFA/IN INH; +ZNTT/150 PO
--- NOTE | 2016-05-27 14:29 | DIAGNOSTIC IMAGING REPORT ---
NUCLEAR GASTRIC EMPTYING STUDY CLINICAL HISTORY: Nausea. Early satiety. COMPARISON STUDY: Abdominal CT dated 10/12/2015. TECHNIQUE: Following the oral administration of 1.089 mCi of technetium 99m sulfur colloid in egg sandwich and 8 ounces of water, static abdominal images are obtained anteriorly and posteriorly at 0 minutes, 1 hour, 2 hour, and 4 hour time intervals. Gastric emptying was calculated utilizing the geometric mean method. FINDINGS: There is approximately 49% remaining at the 2 hour time interval (normal is less than 60%), and 0% activity remaining at the 4 hour time interval (normal is less than 10%). IMPRESSION: Findings are consistent with normal gastric emptying for solids Electronically signed by: Delonte Sow M.D. 05/27/2016 2:28 PM Dictated Date/Time: 05/27/2016 2:25 PM
== END | disposition home or self-care (01) ==
LOC: C.NUCL 08:39
PROVIDERS: ATTEND Registered Nurse
DX: K21.9 Gastro-esophageal reflux disease without esophagitis (principal); K30 Functional dyspepsia; R68.81 Early satiety; R11.0 Nausea

== ENCOUNTER 2016-06-04 18:03 | Emergency (ER) | payer OTHER ==
[2016-05-28 03:38] VITALS: BMI 43.7
[2016-06-03 02:00] VITALS: O2SAT 92
[2016-06-03 08:59] VITALS: BP 134/85; PULSE 98; TEMP 36.6
[~2016-06-04 18:03] MED LIST changes: -AMT24 PO; -DXY50 PO; +GABA1CAP4 PO; +HYDR0.2O4 EXT
[2016-06-06] MEDS ORDERED: FLUC100T4 PO (14:35)
[2016-06-06] MEDS ORDERED: LEVO-18 PO (14:35)
[2016-06-24] MEDS ORDERED: AMITIZA PO (14:03)
[2016-08-04] MEDS ORDERED: ERGO1CAP41 PO (00:46)
[2016-10-28] MEDS ORDERED: PRLSR20 PO (14:01)
[2016-11-13] MEDS ORDERED: ONDA4TAB46 PO (10:23)
== END 2016-06-04 18:19 | disposition left against medical advice (07) ==
LOC: C.EDB 18:04
DX: R06.00 Dyspnea, unspecified (principal)

== ENCOUNTER 2016-06-05 18:39 | Inpatient (IN) | payer OTHER ==
[~2016-06-05] VITALS: Ht 167.6 cm; Wt 120.7 kg
[2016-06-05] MEDS ORDERED: ONDANSETRON INJ 2 MG/ML 2 ML VIAL IV STA (19:07)
[2016-06-05] MEDS ORDERED: ALBUT/IPRATROP 3MG/0.5MG NEB 3 ML VIAL INH STA ×2 (19:09→23:09)
--- NOTE | 2016-06-05 19:12 | DIAGNOSTIC IMAGING REPORT ---
CHEST ONE VIEW PORTABLE CLINICAL HISTORY: CHEST PAIN dyspnea COMPARISON STUDY: 05/29/2016 FINDINGS: Poor inspiratory volumes. Mild cardiomegaly. No well-defined focal infiltrate. Mild prominence pulmonary vasculature IMPRESSION: Mild prominence pulmonary vasculature. Mild cardiomegaly. No acute infiltrate. Electronically signed by: Toby Bautista M.D. 06/05/2016 7:11 PM Dictated Date/Time: 06/05/2016 7:11 PM
[2016-06-05] MEDS: HYDROmorphone INJ 1 MG/ML SYR IV PRN ×2 (19:34→21:10)
[2016-06-05] MEDS ORDERED: OPTIRAY 320 IV PRN (20:15)
[2016-06-05 21:18] LABS: ALT/SGPT 47 U/L (12-78); BLOOD UREA NITROGEN 9 mg/dl (7-18); BUN/CREATININE RATIO 18.2 (10-20); CARBON DIOXIDE 26 mmol/L (21-32); CHLORIDE 107 mmol/L (98-107); CREATININE 0.51 mg/dl (0.60-1.20); GLUCOSE 144 mg/dl (70-99); POTASSIUM 3.6 mmol/L (3.5-5.1); SODIUM 140 mmol/L (136-145)
[2016-06-05 21:19] LABS: PREG INTERNAL NEGATIVE QC NEG CLEAR BACKGROUND; PREG INTERNAL POSITIVE QC POS CONTROL LINE
[2016-06-05 21:23] LABS: ALKALINE PHOSPHATASE 101 U/L (45-117); AST/SGOT 43 U/L (15-37)
--- NOTE | 2016-06-05 21:42 | DIAGNOSTIC IMAGING REPORT ---
CHEST CTA for PULMONARY ARTERIES CT DOSE: 607.11 mGy.cm HISTORY: Chest pain dyspnea TECHNIQUE: Multiaxial CT images of the chest were performed following the intravenous administration of contrast to evaluate the pulmonary arteries. Maximal intensity projection images were also obtained. COMPARISON STUDY: None. FINDINGS: There is a normal caliber thoracic aorta with no evidence for dissection. There is no evidence for pulmonary embolus. No pleural effusions. No pneumothorax. The liver and spleen are unremarkable. No mediastinal or hilar lymphadenopathy. The central airways are patent. The lungs are clear. Minimal basilar dependent atelectatic change. Potential small left basilar parenchymal infiltrate. Trace left pleural effusion. IMPRESSION: 1. Study is negative for pulmonary embolus. 2. Small parenchymal infiltrate left base. 3. Mild bibasilar atelectatic change. 4. Fatty infiltration of liver. Electronically signed by: Toby Bautista M.D. 06/05/2016 9:40 PM Dictated Date/Time: 06/05/2016 9:39 PM
[2016-06-05 21:43] LABS: BASO % 0.3 %; BASO ABS # 0.03 K/uL (0-0.2); COMPLETE YES; EOS % 3.4 %; HEMATOCRIT 34.1 % (37-47); IG% 0.6 %; LYMPH % 30.3 %; LYMPH ABS # 2.68 K/uL (1.2-3.4); MEAN CELL VOLUME 81.8 fL (80-100); MEAN CORPUSCULAR HEMOGLOBIN 25.7 pg (25-34); MEAN CORPUSCULAR HGB CONC 31.4 g/dl (32-36); MEAN PLATELET VOLUME 9.3 fL (7.4-10.4); MONO % 6.2 %; NEUT % 59.2 %; PLATELET COUNT 331 K/uL (130-400); POLYCHROMASIA 1+; RED BLOOD COUNT 4.17 M/uL (4.2-5.4); WHITE BLOOD COUNT 8.85 K/uL (4.8-10.8)
[2016-06-05] MEDS ORDERED: LEVOFLOXACIN 250 MG TAB PO STA (23:09)
[2016-06-06] MEDS ORDERED: ACETAMINOPHEN 325 MG TAB PO PRN (00:45)
--- NOTE | 2016-06-06 00:59 | History and Physical ---
History & Physical Date & Time of Service: Jun 06, 2016 at 00:59 . Chief Complaint: chest pain, shortness of breath . Primary Care Physician: Dr. Ulises Matias . History of Present Illness Source: patient, clinic records, hospital records 31 YO female followed by Dr. Ulises Matias. History of hypertension, asthma, diabetes, and other problems. Hospitalized at [facility] 05/28/16 for LLE erythema / pain- cellulitis vs other etiology. Discharged to home 06/03/16. Came to ED 06/04/16 for cough and SOB, but left before she could be evaluated. Returned to ED tonight with cough, SOB, left pleuritic chest pain. No fever. CTA chest negative for pulmonary embolism, but demonstrated LLL infiltrate. No significant improvement after receiving analgesics and nebs. Referred for admission. . Past Medical/Surgical History Chronic Medical Problems: (1) Asthma Status: Chronic (2) Diabetes mellitus Status: Chronic (3) DM type 2 (diabetes mellitus, type 2) Status: Chronic (4) GERD (gastroesophageal reflux disease) Status: Chronic (5) Kidney stone Status: Chronic (6) Ovarian cyst Status: Resolved Surgical Problems: (1) S/P appendectomy Status: Chronic (2) S/P bilateral breast reduction Status: Chronic (3) S/P section Status: Chronic (4) S/P cholecystectomy Status: Chronic . Family History Diabetes mellitus FH: gallbladder disease FH: heart disease FH: lung disease Hypertension Kidney disease or stones Seizures Social History Smoking Status: Never Smoker Drug Use: none Marital Status: Housing status: lives with family Occupational Status: unemployed Allergies Uncoded Allergies: MINT (Allergy, Unknown, unknown, 08/03/15) Home Medications Scheduled Amitriptyline HCl (Amitriptyline HCl), 50 MG PO HS Enalapril (Vasotec), 5 MG PO QAM Ergocalciferol (Vitamin D), 50,000 INTER.UNIT PO WK Exenatide (Bydureon), 2 MG SC WK Fluticasone Furoate-Vilanterol (Breo Ellipta), 1 PUFF INH DAILY Gabapentin (Gabapentin), 300 MG PO TID Insulin Glargine (Lantus Solostar), 60 UNITS SC HS Loratadine (Claritin), 10 MG PO HS Metformin HCl (Metformin HCl ER), 1,000 MG PO BID Montelukast Sod (Montelukast Sodium), 10 MG PO QAM Naproxen Sodium (Naproxen Sodium Ds), 550 MG PO BID Omeprazole Magnesium (Prilosec Otc), 20 MG PO QAM Ranitidine Hcl (Zantac), 300 MG PO HS Scheduled PRN Albuterol Hfa (Ventolin Hfa), 2 PUFFS INH Q6H PRN for Wheezing Hydrocortisone Valerate (Westcort), 1 APPL EXT TID PRN for Itching Mometasone Furoate-Formoterol (Dulera 200/5 Mcg), 2 PUFFS INH BID PRN for Shortness of Breath Ondasetron Odt (Zofran Odt), 4 MG SL Q8 PRN for Nausea Review of Systems As noted above in HPI. . Physical Exam Vital Signs Date Time Temp Pulse Resp B/P Pulse Ox O2 Delivery O2 Flow Rate FiO2 06/05/16 23:33 86 Room Air 06/05/16 23:14 100 06/05/16 22:38 102 136/72 94 Nasal Cannula 2.0 06/05/16 21:12 94 Nasal Cannula 2.0 06/05/16 21:12 107 24 114/79 88 Room Air 06/05/16 19:37 96 06/05/16 18:51 36.7 100 17 123/86 96 Room Air 06/05/16 18:51 96 Room Air General Appearance: + mild distress, + obese Head: normocephalic, atraumatic Eyes: normal inspection, PERRL, EOMI, sclerae normal ENT: normal ENT inspection, hearing grossly normal, pharynx normal Neck: supple, no adenopathy, thyroid normal, no JVD, trachea midline Respiratory/Chest: no respiratory distress, no accessory muscle use, + crackles (left base), + wheezing (mild) Cardiovascular: regular rate, rhythm, no edema, no gallop, no JVD, no murmur Abdomen/GI: normal bowel sounds, non tender, soft, no organomegaly, no pulsatile mass Extremities/Musculoskelatal: normal inspection, no calf tenderness, normal capillary refill, no pedal edema Neurologic/Psych: bone tender II-XII nml as tested, alert, oriented x 3 Skin: normal color, warm/dry, + pertinent finding (rash left medial leg / thigh ) Lymphatic: no adenopathy Diagnostics Laboratory Results Results Past 24 Hours Test 06/05/16 20:44 06/05/16 20:45 Range/Units Bedside D-Dimer > 450 0-450 ng/mlFEU Bedside Troponin I 0.000 0-0.045 ng/ml White Blood Count 8.85 4.8-10.8 K/uL Red Blood Count 4.17 4.2-5.4 M/uL Hemoglobin 10.7 12.0-16.0 g/dL Hematocrit 34.1 37-47 % Mean Corpuscular Volume 81.8 80-100 fL Mean Corpuscular Hemoglobin 25.7 25-34 pg Mean Corpuscular Hemoglobin Concent 31.4 32-36 g/dl Platelet Count 331 130-400 K/uL Mean Platelet Volume 9.3 7.4-10.4 fL Neutrophils (%) (Auto) 59.2 % Lymphocytes (%) (Auto) 30.3 % Monocytes (%) (Auto) 6.2 % Eosinophils (%) (Auto) 3.4 % Basophils (%) (Auto) 0.3 % Neutrophils # (Auto) 5.24 1.4-6.5 K/uL Lymphocytes # (Auto) 2.68 1.2-3.4 K/uL Monocytes # (Auto) 0.55 0.11-0.59 K/uL Eosinophils # (Auto) 0.30 0-0.5 K/uL Basophils # (Auto) 0.03 0-0.2 K/uL RDW Standard Deviation 45.6 36.4-46.3 fL RDW Coefficient of Variation 15.4 11.5-14.5 % Immature Granulocyte % (Auto) 0.6 % Immature Granulocyte # (Auto) 0.05 0.00-0.02 K/uL Polychromasia 1+ Sodium Level 140 136-145 mmol/L Potassium Level 3.6 3.5-5.1 mmol/L Chloride Level 107 98-107 mmol/L Carbon Dioxide Level 26 21-32 mmol/L Anion Gap 7.0 3-11 mmol/L Blood Urea Nitrogen 9 7-18 mg/dl Creatinine 0.51 0.60-1.20 mg/dl Est Creatinine Clear Calc Drug Dose 207.0 ml/min Estimated GFR () 146.4 Estimated GFR (Non- 126.3 BUN/Creatinine Ratio 18.2 10-20 Random Glucose 144 70-99 mg/dl Calcium Level 9.0 8.5-10.1 mg/dl Total Bilirubin 0.4 0.2-1 mg/dl Direct Bilirubin 0.1 0-0.2 mg/dl Aspartate Amino Transf (AST/SGOT) 43 15-37 U/L Alanine Aminotransferase (ALT/SGPT) 47 12-78 U/L Alkaline Phosphatase 101 45-117 U/L Total Creatine Kinase 31 26-192 U/L Creatine Kinase MB < 0.5 0.5-3.6 ng/ml Creatine Kinase MB Ratio 0-3.0 Total Protein 7.7 6.4-8.2 gm/dl Albumin 3.0 3.4-5.0 gm/dl Lipase 114 73-393 U/L Human Chorionic Gonadotropin, Qual NEG NEG Diagnostic Radiology CHEST ONE VIEW PORTABLE FINDINGS: Poor inspiratory volumes. Mild cardiomegaly. No well-defined focal infiltrate. Mild prominence pulmonary vasculature IMPRESSION: Mild prominence pulmonary vasculature. Mild cardiomegaly. No acute infiltrate. Electronically signed by: Toby Bautista M.D. 06/05/2016 7:11 PM CHEST CTA for PULMONARY ARTERIES COMPARISON STUDY: None. FINDINGS: There is a normal caliber thoracic aorta with no evidence for dissection. There is no evidence for pulmonary embolus. No pleural effusions. No pneumothorax. The liver and spleen are unremarkable. No mediastinal or hilar lymphadenopathy. The central airways are patent. The lungs are clear. Minimal basilar dependent atelectatic change. Potential small left basilar parenchymal infiltrate. Trace left pleural effusion. IMPRESSION: 1. Study is negative for pulmonary embolus. 2. Small parenchymal infiltrate left base. 3. Mild bibasilar atelectatic change. 4. Fatty infiltration of liver. Electronically signed by: Toby Bautista M.D. 06/05/2016 9:40 PM . EKG EKG performed at 18:52 reviewed and demonstrated NSR at 90 / minute, no acute changes. . Impression Assessment and Plan LLL PNEUMONIA / PLEURISY Rx with levofloxacin started in ED and will be continued. EXACERBATION OF ASTHMA Secondary to pneumonia. Continue bronchodilators. Short course of steroids. HYPOXIA O2 sats at low as 86%. PE ruled out by CTA. Hypoxia probably due to combination of bronchospasm and hypoventilation. Supplemental O2 as needed. DM TYPE II Hold oral agents. Lantus / NovoLog. LLE RASH Outpatient f/u. VTE PROPHYLAXIS SQ enxoaparin. RESUSCITATION STATUS Full code. DISPOSITION Admit to Med-Surg Unit. Expected discharge to home. Family Medicine follow-up with Dr. Ulises Matias. . VTE Prophylaxis VTE Risk Assessment Done? Y/N: Yes Risk Level: Moderate Given or contraindicated: Enoxaparin (Lovenox)SQ
[2016-06-06] MEDS ORDERED: HYDROmorphone INJ 0.5 MG/0.5 ML SYR IV PRN (01:45)
--- NOTE | 2016-06-06 01:55 | EMERGENCY ROOM VISIT NOTE ---
History Report prepared by Berenice: Harriet La Under the Supervision of: Dr. Aldo Clement D.O. First contact with patient: 18:46 Chief Complaint: SHORTNESS OF BREATH Stated Complaint: SOB, CHEST PAIN History of Present Illness The patient is a 31 year old female who presents to the Emergency Room with complaints of worsening shortness of breath since last night. She was discharged from the hospital 2 days ago after being treated for cellulitis of the left leg. She states that she has had a cough since she was discharged. Last night she developed left-sided chest pain that radiates into her left shoulder into her back. Exertion exacerbates her symptoms. The patient rates her pain as a 10/10 in severity. She has not taken any medication for her symptoms. She has been using her inhaler and that helped alleviate her cough. She states that she has never had pain like this before. She was brought to the ED by ambulance. She has a history of hypoxia from restrictive lung disease, HTN , DM, and asthma. The patient denies any pain or swelling in her legs. Pt denies LOC, headache, fevers, chills, diaphoresis, visual changes, neck pain, nausea, vomiting, abdominal pain, melena, hematochezia, urinary symptoms, numbness, weakness, lymphadenopathy, rash, or other complaints. She is not currently taking any blood thinners. Source of History: patient Onset: last night Position: chest Symptom Intensity: 10/10 Quality: other (radiating) Timing: worsening Modifying Factors (Worsening): exertion Modifying Factors (Relieving): other (inhaler) Associated Symptoms: + back pain, + chest pain, + cough Review of Systems See HPI for pertinent positives and negatives. A total of ten systems were reviewed and were otherwise negative. Past Medical & Surgical Medical Problems: (1) Asthma (2) Diabetes mellitus (3) DM type 2 (diabetes mellitus, type 2) (4) GERD (gastroesophageal reflux disease) (5) Kidney stone (6) Ovarian cyst (7) Sepsis Surgical Problems: (1) S/P appendectomy (2) S/P bilateral breast reduction (3) S/P section (4) S/P cholecystectomy Family History Diabetes mellitus FH: gallbladder disease FH: heart disease FH: lung disease Hypertension Kidney disease or stones Seizures Social History Smoking Status: Never Smoker Alcohol Use: none Drug Use: none Marital Status: Housing Status: lives with family Occupation Status: unemployed Current/Historical Medications Scheduled Amitriptyline HCl (Amitriptyline HCl), 50 MG PO HS Enalapril (Vasotec), 5 MG PO QAM Ergocalciferol (Vitamin D), 50,000 INTER.UNIT PO WK Exenatide (Bydureon), 2 MG SC WK Fluticasone Furoate-Vilanterol (Breo Ellipta), 1 PUFF INH DAILY Gabapentin (Gabapentin), 300 MG PO TID Insulin Glargine (Lantus Solostar), 60 UNITS SC HS Loratadine (Claritin), 10 MG PO HS Metformin HCl (Metformin HCl ER), 1,000 MG PO BID Montelukast Sod (Montelukast Sodium), 10 MG PO QAM Naproxen Sodium (Naproxen Sodium Ds), 550 MG PO BID Omeprazole Magnesium (Prilosec Otc), 20 MG PO QAM Ranitidine Hcl (Zantac), 300 MG PO HS Scheduled PRN Albuterol Hfa (Ventolin Hfa), 2 PUFFS INH Q6H PRN for Wheezing Hydrocortisone Valerate (Westcort), 1 APPL EXT TID PRN for Itching Mometasone Furoate-Formoterol (Dulera 200/5 Mcg), 2 PUFFS INH BID PRN for Shortness of Breath Ondasetron Odt (Zofran Odt), 4 MG SL Q8 PRN for Nausea Allergies Uncoded Allergies: MINT (Allergy, Unknown, unknown, 08/03/15) Physical Exam Vital Signs Date Time Temp Pulse Resp B/P Pulse Ox O2 Delivery O2 Flow Rate FiO2 06/06/16 01:33 91 19 112/58 95 06/05/16 23:33 86 Room Air 06/05/16 23:14 100 06/05/16 22:38 102 136/72 94 Nasal Cannula 2.0 06/05/16 21:12 94 Nasal Cannula 2.0 06/05/16 21:12 107 24 114/79 88 Room Air 06/05/16 19:37 96 06/05/16 18:51 36.7 100 17 123/86 96 Room Air 06/05/16 18:51 96 Room Air Physical Exam GENERAL: Awake, alert, uncomfortable-appearing, in no distress HENT: Normocephalic, atraumatic. Oropharynx unremarkable. EYES: Normal conjunctiva. Sclera non-icteric. NECK: Supple. No nuchal rigidity. FROM. No JVD. RESPIRATORY: Clear to auscultation. CARDIAC: Borderline tachycardic rate, normal rhythm. Extremities warm and well perfused. Pulses equal. ABDOMEN: Soft, non-distended. No tenderness to palpation. No rebound or guarding. No masses. RECTAL: Deferred. MUSCULOSKELETAL: Chest examination reveals no tenderness. The back is symmetrical on inspection without obvious abnormality. There is no CVA tenderness to palpation. No joint edema. LOWER EXTREMITIES: Calves are equal size bilaterally and non-tender. No edema. No discoloration. NEURO: Normal sensorium. No sensory or motor deficits noted. SKIN: No rash or jaundice noted. Medical Decision & Procedures ER Provider Diagnostic Interpretation: Radiology results as stated below per my review and radiologist interpretation: CHEST ONE VIEW PORTABLE CLINICAL HISTORY: CHEST PAIN dyspnea COMPARISON STUDY: 05/29/2016 FINDINGS: Poor inspiratory volumes. Mild cardiomegaly. No well-defined focal infiltrate. Mild prominence pulmonary vasculature IMPRESSION: Mild prominence pulmonary vasculature. Mild cardiomegaly. No acute infiltrate. Electronically signed by: Toby Bautista M.D. 06/05/2016 7:11 PM Dictated Date/Time: 06/05/2016 7:11 PM CHEST CTA for PULMONARY ARTERIES CT DOSE: 607.11 mGy.cm HISTORY: Chest pain dyspnea TECHNIQUE: Multiaxial CT images of the chest were performed following the intravenous administration of contrast to evaluate the pulmonary arteries. Maximal intensity projection images were also obtained. COMPARISON STUDY: None. FINDINGS: There is a normal caliber thoracic aorta with no evidence for dissection. There is no evidence for pulmonary embolus. No pleural effusions. No pneumothorax. The liver and spleen are unremarkable. No mediastinal or hilar lymphadenopathy. The central airways are patent. The lungs are clear. Minimal basilar dependent atelectatic change. Potential small left basilar parenchymal infiltrate. Trace left pleural effusion. IMPRESSION: 1. Study is negative for pulmonary embolus. 2. Small parenchymal infiltrate left base. 3. Mild bibasilar atelectatic change. 4. Fatty infiltration of liver. Electronically signed by: Toby Bautista M.D. 06/05/2016 9:40 PM Dictated Date/Time: 06/05/2016 9:39 PM Laboratory Results 3/24/17 20:45 Red Blood Count 4.17, Mean Corpuscular Volume 81.8, Mean Corpuscular Hemoglobin 25.7, Mean Corpuscular Hemoglobin Concent 31.4, Mean Platelet Volume 9.3, Neutrophils (%) (Auto) 59.2, Lymphocytes (%) (Auto) 30.3, Monocytes (%) (Auto) 6.2, Eosinophils (%) (Auto) 3.4, Basophils (%) (Auto) 0.3, Neutrophils # (Auto) 5.24, Lymphocytes # (Auto) 2.68, Monocytes # (Auto) 0.55, Eosinophils # (Auto) 0.30, Basophils # (Auto) 0.03 06/05/16 20:45 Test 06/05/16 20:44 06/05/16 20:45 Bedside D-Dimer > 450 ng/mlFEU (0-450) Bedside Troponin I 0.000 ng/ml (0-0.045) White Blood Count 8.85 K/uL (4.8-10.8) Red Blood Count 4.17 M/uL (4.2-5.4) Hemoglobin 10.7 g/dL (12.0-16.0) Hematocrit 34.1 % (37-47) Mean Corpuscular Volume 81.8 fL (80-100) Mean Corpuscular Hemoglobin 25.7 pg (25-34) Mean Corpuscular Hemoglobin Concent 31.4 g/dl (32-36) Platelet Count 331 K/uL (130-400) Mean Platelet Volume 9.3 fL (7.4-10.4) Neutrophils (%) (Auto) 59.2 % Lymphocytes (%) (Auto) 30.3 % Monocytes (%) (Auto) 6.2 % Eosinophils (%) (Auto) 3.4 % Basophils (%) (Auto) 0.3 % Neutrophils # (Auto) 5.24 K/uL (1.4-6.5) Lymphocytes # (Auto) 2.68 K/uL (1.2-3.4) Monocytes # (Auto) 0.55 K/uL (0.11-0.59) Eosinophils # (Auto) 0.30 K/uL (0-0.5) Basophils # (Auto) 0.03 K/uL (0-0.2) RDW Standard Deviation 45.6 fL (36.4-46.3) RDW Coefficient of Variation 15.4 % (11.5-14.5) Immature Granulocyte % (Auto) 0.6 % Immature Granulocyte # (Auto) 0.05 K/uL (0.00-0.02) Polychromasia 1+ Anion Gap 7.0 mmol/L (3-11) Est Creatinine Clear Calc Drug Dose 207.0 ml/min Estimated GFR () 146.4 Estimated GFR (Non- 126.3 BUN/Creatinine Ratio 18.2 (10-20) Calcium Level 9.0 mg/dl (8.5-10.1) Total Bilirubin 0.4 mg/dl (0.2-1) Direct Bilirubin 0.1 mg/dl (0-0.2) Aspartate Amino Transf (AST/SGOT) 43 U/L (15-37) Alanine Aminotransferase (ALT/SGPT) 47 U/L (12-78) Alkaline Phosphatase 101 U/L (45-117) Total Creatine Kinase 31 U/L (26-192) Creatine Kinase MB < 0.5 ng/ml (0.5-3.6) Creatine Kinase MB Ratio (0-3.0) Total Protein 7.7 gm/dl (6.4-8.2) Albumin 3.0 gm/dl (3.4-5.0) Lipase 114 U/L (73-393) Human Chorionic Gonadotropin, Qual NEG (NEG) Laboratory results reviewed by me Medications Administered Medications (Trade) Dose Ordered Sig/Rody Route Start Time Stop Time Status Last Admin Dose Admin Hydromorphone HCl (Dilaudid Inj) 1 mg Q15M PRN IV 06/05/16 19:15 06/19/16 19:14 06/05/16 21:10 1 MG Ondansetron HCl (Zofran Inj) 4 mg NOW STAT IV 06/05/16 19:07 06/05/16 19:09 DC 06/05/16 19:34 4 MG Albuterol/ Ipratropium (Duoneb) 3 ml NOW STAT INH 06/05/16 19:09 06/05/16 19:10 DC 06/05/16 19:34 3 ML Levofloxacin (Levaquin Tab) 500 mg NOW STAT PO 06/05/16 23:09 06/05/16 23:11 DC 06/05/16 23:13 500 MG Albuterol/ Ipratropium (Duoneb) 3 ml NOW STAT INH 06/05/16 23:09 06/05/16 23:11 DC 06/05/16 23:13 3 ML ECG Indication: chest pain Rate (beats per minute): 90 Rhythm: normal sinus Findings: no acute ischemic change, no ectopy, other (poor R-wave progression) ED Course 1855: The patient was evaluated in room C6. A complete history and physical exam was performed. 1906: Zofran 4 mg IV 1908: Duoneb 3 ml INH 1914: Dilaudid 1 mg IV - PRN 2003: I reassessed the patient and updated her on the results. She will be going for a CT. Medical Decision Triage Nursing notes reviewed. The patient's presentation and history were concerning for chest pain. Etiologies such as cardiac ischemia, aortic dissection, pulmonary embolism, pneumonia, pneumothorax, musculoskeletal, infections, gastrointestinal, as well as others were entertained. The patient was evaluated. She was feeling quite uncomfortable with her left- sided chest pain. This was worse with breathing. She was given IV Dilaudid and Zofran. She was also given a DuoNeb. She was feeling better with this. Her CBC, chemistry panel, and cardiac markers were unremarkable. ECG was nonischemic. Chest x-ray did not reveal any evidence of acute disease. A d- dimer was performed and was markedly elevated. The patient underwent CT imaging. This did reveal a pneumonia. The patient was given a second DuoNeb and oral Levaquin as she was feeling better. Unfortunately she was requiring supplemental oxygen and still had moderate pleuritic-like pain. At this point I felt the patient would need to be treated in the hospital. Consultation was made with internal medicine. I discussed the case with Dr. Richy Ramos. The Patient was evaluated in the emergency department for further treatment. The chart was completed utilizing [employer] voice recognition software. Grammatical errors, random word insertions, pronoun errors, and incomplete sentences are an occasional consequence of this system due to software limitations, ambient noise, and hardware issues. Any formal questions or concerns about the content, text, or information contained within the body of this dictation should be directly addressed to the physician for clarification. Impression Primary Impression: Pneumonia Additional Impression: Left sided chest pain Scribe Attestation The scribe's documentation has been prepared under my direction and personally reviewed by me in its entirety. I confirm that the note above accurately reflects all work, treatment, procedures, and medical decision making performed by me. Departure Information Dispostion Being Evaluated By Hospitalist Referrals No Doctor, Assigned (PCP) Patient Instructions My [facility] Problem Qualifiers
[2016-06-06] MEDS ORDERED: METHYLPREDNISOLONE IV 40 MG in SYRINGE 0 ML IV ONE (02:00)
[2016-06-06] MEDS ORDERED: PIPERACILL/TAZOBAC CONSULT ACTIVE PRN (02:15)
[2016-06-06] MEDS ORDERED: PIPERACILL/TAZOBAC IV 4.5 GM in DEXTROSE 5% 100ML IV ONE (02:30)
[2016-06-06] MEDS: OXYCODONE HCL IR 5 MG TAB (IMMEDIATE RELEASE) PO PRN ×2 (02:50→09:34)
[2016-06-06 03:37] VITALS: BP 119/82; PULSE 97; TEMP 36.5; O2SAT 96; Ht 167.6 cm; Wt 120.7 kg
[2016-06-06] MEDS ORDERED: PIPERACILL/TAZOBAC IV 4.5 GM in DEXTROSE 5% 100ML 100 ML IV SCH (06:00)
[2016-06-06] MEDS: PIPERACILL/TAZOBAC IV 4.5 GM in DEXTROSE 5% 100ML IV SCH ×2 (06:27→13:51)
[2016-06-06] MEDS ORDERED: ALBUTEROL HFA 8 GM INHALER INH PRN (06:45)
[2016-06-06] MEDS ORDERED: ONDANSETRON 4MG OD TAB SL PRN (06:45)
[2016-06-06] MEDS ORDERED: HYDROCORTISONE VAL 0.2% OINT 15GM TUBE EXT PRN (06:45)
[2016-06-06 07:43] VITALS: BP 129/80; PULSE 107; TEMP 36.7; O2SAT 92
[2016-06-06 08:00] VITALS: O2SAT 92
[2016-06-06] MEDS ORDERED: PNEUMOCOCCAL ADMINISTRATION CHARGE ONE (08:00)
[2016-06-06] MEDS ORDERED: PNEUMOCOCCAL POLYSACCHARIDES 25 MCG/0.5 ML VIAL/SYR IM. ONE (08:00)
[2016-06-06] MEDS ORDERED: PANTOprazole SOD 40 MG TAB PO SCH (08:00)
[2016-06-06] MEDS ORDERED: ENALAPRIL MALEATE 5 MG TAB PO SCH (08:00)
[2016-06-06] MEDS ORDERED: MONTELUKAST SOD 10 MG TAB PO SCH (08:00)
[2016-06-06] MEDS: GABAPENTIN 300 MG CAP PO SCH ×2 (08:09→13:51)
[2016-06-06] MEDS: INSULIN ASPART 100 UNITS/ML 3 ML PEN SC SCH ×2 (08:12→12:39)
[2016-06-06] MEDS ORDERED: ENOXAPARIN 40 MG/0.4 ML SYR SQ ONE (12:45)
[2016-06-06] MEDS ORDERED: LEVO-18 PO (14:35)
[2016-06-06] MEDS ORDERED: FLUC100T4 PO (14:35)
--- NOTE | 2016-06-06 14:46 | Discharge Instructions ---
Discharge Instructions Date of Service Jun 06, 2016. Admission Reason for Admission: Hypoxia,Pneumonia Discharge Discharge Diagnosis / Problem: HCAP Discharge Goals Goal(s): Prevent Disease Progression Activity Recommendations Activity Limitations: per Instructions/Follow-up section . Instructions / Follow-Up Instructions / Follow-Up Please take all medications as instructed. You have been given an antibiotic course of Levaquin to finish for pneumonia, which is the likely cause of your chest pain. Please use Naproxen 500mg twice daily as needed for the pain at home. If you develop a vaginal yeast infection , you may take the Diflucan tablet provided. Please follow-up with Rheumatology (Dr. Coronado) as an outpatient to discuss your recent bloodwork from the prior hospitalization. You will need continued followup/outpatient workup for anemia, which is new. You will also need follow-up with your lung doctor as you were requiring oxygen for most of your hospitalization. I strongly recommend compliance with nightly CPAP for sleep apnea. This will help your blood pressure remain lower and lower daily fatigue. An outpatient colonoscopy will be arranged through your GI provider. Please contact their office to schedule. You have a follow-up appointment with Dr. Ulises Matias at the [facility] location for 06/08 at 11:00am. Please bring all paperwork from recent hospitalizations with you to this appointment. It was a pleasure taking care of you! Call if you have any questions or problems. You can reach a [facility] hospitalist on duty at [facility] 24 hours a day by calling [phone]. Take care of yourself. Liliana Sterling, DO [facility] Diet Patient's current hospital diet: Diabetes Type 2 Diet, AHA Diet (Heart Healthy) Discharge Diet Recommended Diet: AHA Diet (Heart Healthy), Diabetes Type 2 Diet Procedures Procedures Performed: None. Pending Studies Studies pending at discharge: no Medical Emergencies . Who to Call and When: Medical Emergencies: If at any time you feel your situation is an emergency, please call 911 immediately. . Non-Emergent Contact Non-Emergency issues call your: Primary Care Provider . . "Provider Documentation" section prepared by Liliana Sterling. VTE Core Measure Inpt VTE Proph given/why not?: Enoxaparin (Lovenox)SQ
[2016-06-06 14:57] VITALS: BP 120/73; PULSE 98; TEMP 36.7; O2SAT 91
[2016-06-06 15:05] VITALS: BP 120/73; PULSE 98; TEMP 36.7; O2SAT 91
[2016-06-06] MEDS ORDERED: RANITIDINE HCL 150 MG TAB PO SCH (21:00)
[2016-06-06] MEDS ORDERED: LORATADINE 10 MG TAB PO SCH (21:00)
[2016-06-06] MEDS ORDERED: INSULIN GLARGINE SOLOSTAR 100 UNITS/ML 3 ML PEN SC SCH (21:00)
[2016-06-06] MEDS ORDERED: AMITRIPTYLINE HCL 50 MG TAB PO SCH (21:00)
[2016-06-06] MEDS ORDERED: LEVOFLOXACIN / D5W 750 MG in PREMIXED IN D5W 150 ML IV SCH (22:00)
[2016-06-07] MEDS ORDERED: ENOXAPARIN 40 MG/0.4 ML SYR SQ SCH (08:00)
--- NOTE | 2016-06-12 10:27 | Discharge Summary ---
Discharge Summary Date of Service Jun 12, 2016. Discharge Summary Admission Date: Jun 06, 2016 at 00:44 Discharge Date: Jun 06, 2016 Discharge Disposition: Home Principal Diagnosis: HCAP Rash on knee-resolving Fatty liver Anemia Hypoxia--Restrictive lung disease--resolved Asthma Obesity DMII HTN Procedures: None. Vaccinations: None. Consultations: None. Pending Studies/Follow-Up: see instructions below Medication Reconciliation New Medications: Levofloxacin (Levaquin) 750 Mg Tab 1 TAB PO DAILY for 7 Days, #7 TAB Continued Medications: Albuterol Hfa (Ventolin Hfa) 200 Puffs/82821 Mcg Aers 2 PUFFS INH Q6H PRN for Wheezing Amitriptyline HCl (Amitriptyline HCl) 50 Mg Tab 50 MG PO HS Enalapril (Vasotec) 5 Mg Tab 5 MG PO QAM, TAB Ergocalciferol (Vitamin D) 50,000 Interunit Cap 00639 INTER.UNIT PO WK TAKE THIS MEDICATION EVERY WEDNESDAY Exenatide (Bydureon) 2 Mg Inj 2 MG SC WK INJECT UNDER THE SKIN ONCE WEEKLY EVERY WEDNESDAY. Fluticasone Furoate-Vilanterol (Breo Ellipta) 1 Inh Inh 1 PUFF INH DAILY Gabapentin (Gabapentin) 300 Mg Cap 300 MG PO TID, #90 Hydrocortisone Valerate (Westcort) 0.2 % Oin 1 APPL EXT TID PRN for Itching for 30 Days, #45 GM Apply thin film to knee area three times daily as needed for itching Insulin Glargine (Lantus Solostar) 100 Unit/Ml Inj 60 UNITS SC HS Loratadine (Claritin) 10 Mg Tab 10 MG PO HS Metformin HCl (Metformin HCl ER) 500 Mg Tabcr 1000 MG PO BID Mometasone Furoate-Formoterol (Dulera 200/5 Mcg) 1 Aer Aer 2 PUFFS INH BID PRN for Shortness of Breath Montelukast Sod (Montelukast Sodium) 10 Mg Tab 10 MG PO QAM Naproxen Sodium (Naproxen Sodium Ds) 550 Mg Tab 550 MG PO BID PRN for Pain TAKE THIS MEDICATION WITH FOOD Omeprazole Magnesium (Prilosec Otc) 20 Mg Tab 20 MG PO QAM Ondasetron Odt (Zofran Odt) 4 Mg Tab 4 MG SL Q8 PRN for Nausea, TAB Ranitidine Hcl (Zantac) 300 Mg Tab 300 MG PO HS Admission Information HPI (per Admitting provider): 31 YO female followed by Dr. Ulises Matias. History of hypertension, asthma, diabetes, and other problems. Hospitalized at [facility] 05/28/16 for LLE erythema / pain- cellulitis vs other etiology. Discharged to home 06/03/16. Came to ED 06/04/16 for cough and SOB, but left before she could be evaluated. Returned to ED tonight with cough, SOB, left pleuritic chest pain. No fever. CTA chest negative for pulmonary embolism, but demonstrated LLL infiltrate. No significant improvement after receiving analgesics and nebs. Referred for admission. . Physical Exam (per Admitting): General Appearance: + mild distress, + obese Head: normocephalic, atraumatic Eyes: normal inspection, PERRL, EOMI, sclerae normal ENT: normal ENT inspection, hearing grossly normal, pharynx normal Neck: supple, no adenopathy, thyroid normal, no JVD, trachea midline Respiratory/Chest: no respiratory distress, no accessory muscle use, + crackles (left base), + wheezing (mild) Cardiovascular: regular rate, rhythm, no edema, no gallop, no JVD, no murmur Abdomen/GI: normal bowel sounds, non tender, soft, no organomegaly, no pulsatile mass Extremities/Musculoskelatal: normal inspection, no calf tenderness, normal capillary refill, no pedal edema 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 In the ED she was given Dilaudid for her chest pain along with a Duoneb treatment and was reportedly better. Her CBC, chem. Panel and cardiac markers were unremarkable. EKG did not reveal evidence of ischemia. CXR did not reveal evidence of acute disease. A D-dimer was performed and was markedly elevated so a CT chest was ordered which revealed an infiltrate. She was started on Levaquin and although she was feeling better she had an oxygen requirement, so she was admitted to the hospital. Crackles and mild wheezing was noted by the admitting physician, which is the setting of known asthma, prompted the use of steroids. Wheezing was resolved the following morning. She was requesting to go home and was off oxygen and feeling better the following day. She was afebrile, hemodynamically stable, ambulating around the room and tolerating PO without issue. Her physical exam was otherwise unremarkable with a noted improvement on the hydrocortisone cream that had been given to her at prior discharge. She was given a dose of Diflucan to take in case of re-emergence of vaginal discharge with the Levaquin as she had a history of vaginal yeast infection on antibiotics in the past. She has a follow-up appointment already established with PCP within this week. Total time spent on discharge = 60 minutes This includes examination of the patient, discharge planning, medication reconciliation, and communication with other providers. Discharge Instructions Discharge Instructions Date of Service Jun 06, 2016. Admission Reason for Admission: Hypoxia,Pneumonia Discharge Discharge Diagnosis / Problem: HCAP Discharge Goals Goal(s): Prevent Disease Progression Activity Recommendations Activity Limitations: per Instructions/Follow-up section . Instructions / Follow-Up Instructions / Follow-Up Please take all medications as instructed. You have been given an antibiotic course of Levaquin to finish for pneumonia, which is the likely cause of your chest pain. Please use Naproxen 500mg twice daily as needed for the pain at home. If you develop a vaginal yeast infection , you may take the Diflucan tablet provided. Please follow-up with Rheumatology (Dr. Coronado) as an outpatient to discuss your recent bloodwork from the prior hospitalization. You will need continued followup/outpatient workup for anemia, which is new. You will also need follow-up with your lung doctor as you were requiring oxygen for most of your hospitalization. I strongly recommend compliance with nightly CPAP for sleep apnea. This will help your blood pressure remain lower and lower daily fatigue. An outpatient colonoscopy will be arranged through your GI provider. Please contact their office to schedule. You have a follow-up appointment with Dr. Ulises Matias at the [facility] location for 06/08 at 11:00am. Please bring all paperwork from recent hospitalizations with you to this appointment. It was a pleasure taking care of you! Call if you have any questions or problems. You can reach a [facility] hospitalist on duty at [facility] 24 hours a day by calling [phone]. Take care of yourself. Liliana Sterling DO [facility] Additional Copies To Ulises Matias D.O.
[2016-06-24] MEDS ORDERED: AMITIZA PO (14:03)
[2016-08-04] MEDS ORDERED: ERGO1CAP41 PO (00:46)
[2016-10-28] MEDS ORDERED: PRLSR20 PO (14:01)
[2016-11-13] MEDS ORDERED: ONDA4TAB46 PO (10:23)
== END 2016-06-06 15:18 | disposition home or self-care (01) | DRG 194 ==
LOC: ENRESERVTM → ENRESERVDT → EDBD 18:39 → C.EDC 18:43 → C.4E 06-06 00:44
PROVIDERS: ADMIT Hospitalist; ATTEND Hospitalist
DX: J18.9 Pneumonia, unspecified organism (principal); J45.901 Unspecified asthma with (acute) exacerbation; R09.1 Pleurisy; R09.02 Hypoxemia; I10 Essential (primary) hypertension; E11.9 Type 2 diabetes mellitus without complications; R21 Rash and other nonspecific skin eruption; Z79.84 Long term (current) use of oral hypoglycemic drugs; Z79.51 Long term (current) use of inhaled steroids; Z79.4 Long term (current) use of insulin; Z79.1 Long term (current) use of non-steroidal anti-inflammatories (NSAID); Z79.899 Other long term (current) drug therapy

== ENCOUNTER → 2016-07-02 | Day surgery (SDC) | payer OTHER ==
[2016-06-24 14:05] VITALS: BMI 42.0
[~2016-07-02] VITALS: Ht 167.6 cm; Wt 119.1 kg
[~2016-07-02] MED LIST changes: +AMITIZA PO; +AMT24 PO; +ANT25 PO; +ERGO500011 PO; -GABA1CAP4 PO; -HYDR0.2O4 EXT; +IPRASOL4 INH; +LIDOCAINE HCL 2% 2 ML VIAL (20MG/ML) ONE; +LUBI8CAP4 PO; +MIDAZOLAM HCL 1 MG/ML 2ML VIAL ONE; -MOME200A INH; -NAPR-1161 PO; +OMEP20TA14 PO; +ONDA4TAB46 PO; +ONDANSETRON INJ 2 MG/ML 2 ML VIAL ONE; +OXYC-57 PO; +PRLSR20 PO; +PROM25TA9 PO; +PROPOFOL IV EMULSION 10 MG/ML 20 ML VIAL IV ONE; -RANI300T PO; +ZNTT/150 PO
[2016-07-02 14:40] VITALS: Ht 167.6 cm; Wt 119.1 kg
--- NOTE | 2016-07-02 16:10 | Endo History and Physical ---
History & Physical Date of Service: Jul 02, 2016. Chief Complaint: CHANGE IN BOWEL HABITS CONSTIPATION/DIARRHEA Referring Physician: DR MARY CARMEN RAMÍREZ History of Present Illness 31 yo female who presents for colonoscopy secondary to change in bowel habits. Past Medical History Diabetes, Asthma, Reflux, High Cholesterol, CHF Past Surgical History Hx Cardiac Surgery: No Hx Internal Defibrillator: No Hx Pacemaker: No Hx Abdominal Surgery: Yes ( X3, APPY AND LISSY) Hx of Implantable Prosthesis: No Hx Post-Op Nausea and Vomiting: No Hx Cancer Surgery: No Hx Thoracic Surgery: No Hx Orthopedic: No Hx Urinary Tract Surgery: No Family History None Social History Smoking Status: Never Smoker Hx Substance Use: No Hx Alcohol Use: No Allergies Coded Allergies: NO KNOWN DRUG ALLERGIES (Verified Allergy, Unknown, ., 07/02/16) Current Medications Reported Home Medications Medications Dose Route/Sig Max Daily Dose Days Date Category Dose Instructions [Amitiza] 1 Tab PO BID 06/24/16 Reported Zofran Odt (Ondansetron HCl) 4 Mg Tab 4 Mg SL Q8 PRN 05/09/16 Reported Lantus Solostar (Insulin Glargine) 100 Unit/Ml Inj 80 Units SC HS 05/09/16 Reported Ventolin Hfa (Albuterol) 200 Puffs/13483 Mcg Aers 2 Puffs INH Q6H PRN 05/09/16 Reported Breo Ellipta (Fluticasone Furoate-Vilanterol) 1 Inh Inh 1 Puff INH QAM 05/09/16 Reported Amitriptyline HCl 50 Mg Tab 50 Mg PO HS 10/12/15 Reported Prilosec Otc (Omeprazole Magnesium) 20 Mg Tab 20 Mg PO QAM 10/12/15 Reported Claritin (Loratadine) 10 Mg Tab 10 Mg PO HS 10/12/15 Reported Vitamin D (Ergocalciferol) 50,000 Interunit Cap 50,000 Inter.unit PO WK 10/10/15 Reported TAKE THIS MEDICATION EVERY WEDNESDAY Metformin HCl ER (Metformin HCl) 500 Mg Tabcr 1,000 Mg PO BID 10/10/15 Reported Bydureon (Exenatide) 2 Mg Inj 2 Mg SC WK 04/08/15 Reported INJECT UNDER THE SKIN ONCE WEEKLY EVERY WEDNESDAY. Vasotec (Enalapril Maleate) 5 Mg Tab 5 Mg PO QAM 04/08/15 Reported Montelukast Sodium (Montelukast Sod) 10 Mg Tab 10 Mg PO QAM PRN 12/19/14 Reported Vital Signs Weight (Kilograms): 119.09 Height (Feet): 5 Height (Inches): 6 Date Time Temp Pulse Resp B/P Pulse Ox O2 Delivery O2 Flow Rate FiO2 07/02/16 14:45 36.8 95 20 127/71 97 Room Air Physical Exam General Appearance: WD/WN, no apparent distress Respiratory/Chest: Auscultation: breath sounds normal Cardiovascular: Heart Auscultation: RRR Abdomen: Bowel Sounds: normal Inspection & Palpation: soft, non-distended, no tenderness, guarding & rebound Assessment and Plan Assessment: 31 yo female who presents for colonoscopy secondary to change in bowel habits. Plan: Proceed with colonoscopy.
--- NOTE | 2016-07-02 16:10 | Discharge Instructions ---
Endoscopy Patient Instructions Date / Procedure(s) Performed Jul 02, 2016. Colonoscopy Allergy Information Coded Allergies: NO KNOWN DRUG ALLERGIES (Verified Allergy, Unknown, ., 07/02/16) Discharge Date / Findings Jul 02, 2016. Internal hemorrhoids Medication Instructions Stopped Medication(s): PT HAS NOT TAKEN ANY PO MEDS SINCE WEDNESDAY TOOK 1/2 DOSE OF INSULIN LAST PM OK to resume all medications today as prescribed Reported Home Medications Medications Dose Route/Sig Max Daily Dose Days Date Category Dose Instructions [Amitiza] 1 Tab PO BID 06/24/16 Reported Zofran Odt (Ondansetron HCl) 4 Mg Tab 4 Mg SL Q8 PRN 05/09/16 Reported Lantus Solostar (Insulin Glargine) 100 Unit/Ml Inj 80 Units SC HS 05/09/16 Reported Ventolin Hfa (Albuterol) 200 Puffs/31434 Mcg Aers 2 Puffs INH Q6H PRN 05/09/16 Reported Breo Ellipta (Fluticasone Furoate-Vilanterol) 1 Inh Inh 1 Puff INH QAM 05/09/16 Reported Amitriptyline HCl 50 Mg Tab 50 Mg PO HS 10/12/15 Reported Prilosec Otc (Omeprazole Magnesium) 20 Mg Tab 20 Mg PO QAM 10/12/15 Reported Claritin (Loratadine) 10 Mg Tab 10 Mg PO HS 10/12/15 Reported Vitamin D (Ergocalciferol) 50,000 Interunit Cap 50,000 Inter.unit PO WK 10/10/15 Reported TAKE THIS MEDICATION EVERY WEDNESDAY Metformin HCl ER (Metformin HCl) 500 Mg Tabcr 1,000 Mg PO BID 10/10/15 Reported Bydureon (Exenatide) 2 Mg Inj 2 Mg SC WK 04/08/15 Reported INJECT UNDER THE SKIN ONCE WEEKLY EVERY WEDNESDAY. Vasotec (Enalapril Maleate) 5 Mg Tab 5 Mg PO QAM 04/08/15 Reported Montelukast Sodium (Montelukast Sod) 10 Mg Tab 10 Mg PO QAM PRN 12/19/14 Reported Provider Instructions Activity Restrictions - No exercising or heavy lifting for 24 hours. - Do not drink alcohol the day of the procedure. - Do not drive a car or operate machinery until the day after the procedure. - Do not make any important decisions or sign important papers in 24 hours after the procedure. Following Day: - Return to full activity which may include returning to work/school. Diet Start your diet with liquids and light foods (jello, soup, juice, toast). Then eat your usual diet if not nauseated. Treatment For Common After Affects For mild abdominal pain, bloating, or excessive gas: - Rest - Eat lightly - Lie on right side Follow-Up Information Follow-up with DR MARY CARMEN RAMÍREZ as scheduled Anesthesia Information What You Should Know You have had a procedure that required some medicine to reduce anxiety and discomfort. This treatment is called moderate sedation. After receiving the treatment, you may be sleepy, but you will be able to breathe on your own. The effects of the treatment may last for several hours. Follow these instructions along with Activity/Diet recommendations noted above: * Do NOT do anything where dizziness or clumsiness would be dangerous. * Rest quietly at home today, then you can be up and about tomorrow. * Have a responsible person stay with you the rest of today. * You may have had an I.V. today. If so, you may take the dressing off later today. Recommendations Call your doctor if: * Trouble breathing * Continuous vomiting for more than 24 hours * Temperature above 101 degrees * Severe abdominal pain or bloating * Pain not relieved by pain medicine ordered * There is increased drainage or redness from any incision * A large amount of rectal bleeding greater than 2-3 tablespoons. (If you had a polyp/s removed or have hemorrhoids, a small amount of blood - from the rectum is to be expected.) * You have any unanswered questions or concerns. IN THE EVENT OF A SERIOUS EMERGENCY, GO TO THE NEAREST EMERGENCY ROOM Your discharge instructions were prepared by provider Hermes Valenzuela. Patient Instructions Signature Page Pal Barrett Patient (or Guardian) Signature/Date: I have read and understand the instructions given to me by my caregivers. Caregiver/RN/Doctor Signature/Date: The above-named patient and/or guardian has received patient instructions on this date. + Original Patient Signature Page (only) stays with chart. Please make copy for patient.
--- NOTE | 2016-07-02 16:16 | GI REPORT ---
Procedure Date: 07/02/2016 3:35 PM Procedure: Colonoscopy Indications: Change in bowel habits Medicines: Monitored Anesthesia Care Complications: No immediate complications. Estimated Blood Loss: Estimated blood loss: none. Procedure: Pre-Anesthesia Assessment: - Prior to the procedure, a History and Physical was performed, and patient medications and allergies were reviewed. The patient's tolerance of previous anesthesia was also reviewed. The risks and benefits of the procedure and the sedation options and risks were discussed with the patient. All questions were answered, and informed consent was obtained. Prior Anticoagulants: The patient has taken no previous anticoagulant or antiplatelet agents. ASA Grade Assessment: III - A patient with severe systemic disease. After reviewing the risks and benefits, the patient was deemed in satisfactory condition to undergo the procedure. After I obtained informed consent, the scope was passed under direct vision. Throughout the procedure, the patient's blood pressure, pulse, and oxygen saturations were monitored continuously. The scope was introduced through the anus and advanced to the terminal ileum. The colonoscopy was performed without difficulty. The patient tolerated the procedure well. The quality of the bowel preparation was good. The terminal ileum, ileocecal valve, appendiceal orifice, and rectum were photographed. Findings: Non-bleeding internal hemorrhoids were found during retroflexion. The hemorrhoids were small. The exam was otherwise without abnormality. Impression: - Non-bleeding internal hemorrhoids. - The examination was otherwise normal. - No specimens collected. Recommendation: - Resume previous diet. - Continue present medications. - Repeat colonoscopy in 10 years for surveillance. - Return to primary care physician as previously scheduled. Hermes Valenzuela DO 07/02/2016 4:14:58 PM This report has been signed electronically. Note Initiated On: 07/02/2016 3:35 PM I attest to the content of the Intraoperative Record and orders documented therein, exceptions below
--- NOTE | 2016-07-02 16:24 | Anesthesiology Progress Note ---
Anesthesia Post Op Note Date & Time Jul 02, 2016 at 16:24 Vital Signs Pain Intensity: 0 Vital Signs Past 12 Hours Date Time Temp Pulse Resp B/P Pulse Ox O2 Delivery O2 Flow Rate FiO2 07/02/16 16:09 101 16 112/76 95 Room Air 07/02/16 14:45 36.8 95 20 127/71 97 Room Air Notes Mental Status: alert / awake / arousable, participated in evaluation Pt Amnestic to Procedure: Yes Nausea / Vomiting: adequately controlled Pain: adequately controlled Airway Patency, RR, SpO2: stable & adequate BP & HR: stable & adequate Hydration State: stable & adequate Anesthetic Complications: no major complications apparent
[2016-07-02 16:39] VITALS: BP 114/87; PULSE 99; O2SAT 96
== END | disposition home or self-care (01) ==
LOC: C.GI 14:20
PROVIDERS: ATTEND Internal Medicine
DX: R19.4 Change in bowel habit (principal); K64.8 Other hemorrhoids; I50.9 Heart failure, unspecified; E11.9 Type 2 diabetes mellitus without complications; E78.00 Pure hypercholesterolemia, unspecified; J45.909 Unspecified asthma, uncomplicated; K21.9 Gastro-esophageal reflux disease without esophagitis; Z79.4 Long term (current) use of insulin; Z79.899 Other long term (current) drug therapy

== ENCOUNTER 2016-08-03 23:23 | Emergency (ER) | payer OTHER ==
[~2016-08-03] VITALS: Ht 167.6 cm; Wt 115.3 kg
[~2016-08-03 23:23] MED LIST changes: -AMT24 PO; -ANT25 PO; -ERGO500011 PO; -IPRASOL4 INH; -LIDOCAINE HCL 2% 2 ML VIAL (20MG/ML) ONE; -LUBI8CAP4 PO; -MIDAZOLAM HCL 1 MG/ML 2ML VIAL ONE; -OMEP20TA14 PO; -ONDA4TAB46 PO; -ONDANSETRON INJ 2 MG/ML 2 ML VIAL ONE; -OXYC-57 PO; -PRLSR20 PO; -PROM25TA9 PO; -PROPOFOL IV EMULSION 10 MG/ML 20 ML VIAL IV ONE; -ZNTT/150 PO
[2016-08-03 23:28] VITALS: Ht 167.6 cm; Wt 115.3 kg
[2016-08-03] MEDS ORDERED: FAMOTIDINE IV INJ 20 MG in DEXTROSE 5% 100ML 100 ML IV ONE (23:45)
[2016-08-03] MEDS ORDERED: DiphenhydrAMINE HCL 50 MG/ML VIAL IV STA (23:45)
[2016-08-03] MEDS ORDERED: SODIUM CHLORIDE 0.9% 1000ML 1,000 ML IV ONE (23:45)
[2016-08-03] MEDS ORDERED: FAMOTIDINE 20MG/102 ML D5W ONE (23:58)
[2016-08-04 00:19] LABS: BASO % 0.1 %; BASO ABS # 0.01 K/uL (0-0.2); COMPLETE YES; EOS % 3.4 %; HEMATOCRIT 37.7 % (37-47); IG% 0.1 %; LYMPH % 21.9 %; LYMPH ABS # 1.55 K/uL (1.2-3.4); MEAN CORPUSCULAR HEMOGLOBIN 26.1 pg (25-34); MEAN CORPUSCULAR HGB CONC 31.8 g/dl (32-36); MEAN PLATELET VOLUME 9.1 fL (7.4-10.4); MONO % 5.6 %; NEUT % 68.9 %; PLATELET COUNT 259 K/uL (130-400); WHITE BLOOD COUNT 7.08 K/uL (4.8-10.8)
[2016-08-04 00:28] LABS: URINE APPEARANCE CLEAR (CLEAR); URINE COLOR DK YELLOW; URINE NITRITE NEG (NEG); URINE SPECIFIC GRAVITY 1.023 (1.000-1.030); UROBILINOGEN NEG (NEG); ZZUR CULT IF INDIC CLEAN CATCH NO
[2016-08-04 00:38] LABS: ALT/SGPT 49 U/L (12-78); AST/SGOT 21 U/L (15-37); BLOOD UREA NITROGEN 5 mg/dl (7-18); BUN/CREATININE RATIO 10.9 (10-20); CARBON DIOXIDE 28 mmol/L (21-32); CHLORIDE 105 mmol/L (98-107); CREATININE 0.47 mg/dl (0.60-1.20); GLUCOSE 124 mg/dl (70-99); POTASSIUM 3.6 mmol/L (3.5-5.1); SODIUM 141 mmol/L (136-145)
[2016-08-04 00:40] LABS: ALB/GLOB RATIO 0.7 (0.9-2); ALKALINE PHOSPHATASE 121 U/L (45-117)
[2016-08-04] MEDS ORDERED: LUBI8CAP4 PO (00:43)
[2016-08-04] MEDS ORDERED: AMT24 PO (00:44)
[2016-08-04 00:45] LABS: MANUAL MICROSCOPIC REQUIRED? NO; REVIEW REQ? NO; URINE BILIRUBIN NEG (NEG)
[2016-08-04] MEDS ORDERED: ERGO500011 PO (00:46)
[2016-08-04] MEDS ORDERED: IPRASOL4 INH (00:48)
[2016-08-04 01:27] VITALS: BP 127/101; PULSE 101; TEMP 36.8; O2SAT 94
--- NOTE | 2016-08-04 06:47 | EMERGENCY ROOM VISIT NOTE ---
History First contact with patient: 23:31 Chief Complaint: SKIN PROBLEM Stated Complaint: ITCHING EVERYWHERE,BLEEDING FROM SCRATCHING History of Present Illness The patient is a 31 year old female who presents to the Emergency Room with complaints of itching of her arms, abdomen, and back worsening over the past 3 or 4 days. The patient does not have reports of new detergents or exposure to irritants. She had a gastric bypass performed at [facility] last week and has been recovering well following this. She does not have chest pain, chest tightness, shortness of breath, abdominal pain, or difficulty using the bathroom. She has been taking some pain medication, but has not taken any today because of her itching. She is without fever or chills. She rates her current discomfort a 5/10. Review of Systems More than 10 systems were reviewed and otherwise negative with the exception of history of present illness. Past Medical/Surgical History Medical Problems: (1) Asthma (2) Diabetes mellitus (3) DM type 2 (diabetes mellitus, type 2) (4) GERD (gastroesophageal reflux disease) (5) Kidney stone (6) Ovarian cyst (7) Sepsis Surgical Problems: (1) S/P appendectomy (2) S/P bilateral breast reduction (3) S/P section (4) S/P cholecystectomy Family History Diabetes mellitus FH: gallbladder disease FH: heart disease FH: lung disease Hypertension Kidney disease or stones Seizures Social History Smoking Status: Never Smoker Alcohol Use: none Drug Use: none Marital Status: Housing Status: lives with family Occupation Status: unemployed Current/Historical Medications Scheduled Amitriptyline HCl (Amitriptyline HCl), 50 MG PO HS Enalapril (Vasotec), 5 MG PO QAM Ergocalciferol (Vitamin D 34123 Unit), 500,000 UNIT PO WK Exenatide (Bydureon), 2 MG SC WK Fluticasone Furoate-Vilanterol (Breo Ellipta), 1 PUFF INH QAM Insulin Glargine (Lantus Solostar), 26 UNITS SC QAM Loratadine (Claritin), 10 MG PO HS Lubiprostone (Amitiza), 24 MCG PO BID Metformin HCl (Metformin HCl ER), 1,000 MG PO BID Omeprazole Magnesium (Prilosec Otc), 20 MG PO QAM Scheduled PRN Albuterol Hfa (Ventolin Hfa), 2 PUFFS INH Q6H PRN for Wheezing Ipratropium-Albuterol (Duoneb), 1 TREATMENT INH Q6 PRN for SOB/Wheezing Montelukast Sod (Montelukast Sodium), 10 MG PO QAM PRN for ALLERGIES Ondasetron Odt (Zofran Odt), 4 MG SL Q8 PRN for Nausea Allergies Coded Allergies: NO KNOWN DRUG ALLERGIES (Verified Allergy, Unknown, ., 08/04/16) Physical Exam Vital Signs Date Time Temp Pulse Resp B/P Pulse Ox O2 Delivery O2 Flow Rate FiO2 08/04/16 01:27 36.8 101 18 127/101 94 08/03/16 23:28 36.8 102 18 130/76 96 Room Air Pain Rating (0-10): 0 Physical Exam VITALS: Vitals are noted on the nurse's note and reviewed by myself. Vital signs stable. GENERAL: Well-developed, well-nourished, female, who is in no acute distress and resting comfortably. Patient is cooperative with the examination. HEAD: Normocephalic atraumatic. HEART: Regular rate and rhythm without murmurs gallops or rubs. LUNGS: Clear to auscultation bilaterally without wheezes, rales or rhonchi. No retractions or accessory muscle use. ABDOMEN: Positive normal bowel sounds x 4. Soft and nontender. Well-healing surgical incision sites appear intact without drainage, discharge, or evidence of infection. MUSCULOSKELETAL: No muscle atrophy, erythema, or edema noted. No posterior calf tenderness. NEURO: Patient was alert and oriented to person place and time. CN II through XII grossly intact. SKIN: The skin was with with several excoriated areas along the arms, back, and abdomen. No obvious lesions noted. No urticaria. Medical Decision & Procedures Laboratory Results 08/04/16 00:08 Red Blood Count 4.60, Mean Corpuscular Volume 82.0, Mean Corpuscular Hemoglobin 26.1, Mean Corpuscular Hemoglobin Concent 31.8, Mean Platelet Volume 9.1, Neutrophils (%) (Auto) 68.9, Lymphocytes (%) (Auto) 21.9, Monocytes (%) (Auto) 5.6, Eosinophils (%) (Auto) 3.4, Basophils (%) (Auto) 0.1, Neutrophils # (Auto) 4.87, Lymphocytes # (Auto) 1.55, Monocytes # (Auto) 0.40, Eosinophils # (Auto) 0.24, Basophils # (Auto) 0.01 08/04/16 00:08 Test 08/04/16 00:08 White Blood Count 7.08 K/uL (4.8-10.8) Red Blood Count 4.60 M/uL (4.2-5.4) Hemoglobin 12.0 g/dL (12.0-16.0) Hematocrit 37.7 % (37-47) Mean Corpuscular Volume 82.0 fL (80-100) Mean Corpuscular Hemoglobin 26.1 pg (25-34) Mean Corpuscular Hemoglobin Concent 31.8 g/dl (32-36) Platelet Count 259 K/uL (130-400) Mean Platelet Volume 9.1 fL (7.4-10.4) Neutrophils (%) (Auto) 68.9 % Lymphocytes (%) (Auto) 21.9 % Monocytes (%) (Auto) 5.6 % Eosinophils (%) (Auto) 3.4 % Basophils (%) (Auto) 0.1 % Neutrophils # (Auto) 4.87 K/uL (1.4-6.5) Lymphocytes # (Auto) 1.55 K/uL (1.2-3.4) Monocytes # (Auto) 0.40 K/uL (0.11-0.59) Eosinophils # (Auto) 0.24 K/uL (0-0.5) Basophils # (Auto) 0.01 K/uL (0-0.2) RDW Standard Deviation 44.4 fL (36.4-46.3) RDW Coefficient of Variation 15.1 % (11.5-14.5) Immature Granulocyte % (Auto) 0.1 % Immature Granulocyte # (Auto) 0.01 K/uL (0.00-0.02) Urine Color DK YELLOW Urine Appearance CLEAR (CLEAR) Urine pH 6.0 (4.5-7.5) Urine Specific [place] 1.023 (1.000-1.030) Urine Protein NEG (NEG) Urine Glucose (UA) NEG (NEG) Urine Ketones 4+ (NEG) Urine Occult Blood NEG (NEG) Urine Nitrite NEG (NEG) Urine Bilirubin NEG (NEG) Urine Urobilinogen NEG (NEG) Urine Leukocyte Esterase NEG (NEG) Anion Gap 8.0 mmol/L (3-11) Est Creatinine Clear Calc Drug Dose 219.5 ml/min Estimated GFR () > 150.0 Estimated GFR (Non- 129.8 BUN/Creatinine Ratio 10.9 (10-20) Calcium Level 9.0 mg/dl (8.5-10.1) Total Bilirubin 0.6 mg/dl (0.2-1) Aspartate Amino Transf (AST/SGOT) 21 U/L (15-37) Alanine Aminotransferase (ALT/SGPT) 49 U/L (12-78) Alkaline Phosphatase 121 U/L (45-117) Total Protein 7.3 gm/dl (6.4-8.2) Albumin 3.0 gm/dl (3.4-5.0) Globulin 4.3 gm/dl (2.5-4.0) Albumin/Globulin Ratio 0.7 (0.9-2) Medications Administered Medications (Trade) Dose Ordered Sig/Rody Route Start Time Stop Time Status Last Admin Dose Admin Diphenhydramine HCl 50 mg 50 mg NOW STAT IV 08/03/16 23:45 08/03/16 23:47 DC 08/04/16 00:23 50 MG Sodium Chloride (Nss 1000ml) 1,000 ml @ 999 mls/hr Q1H1M ONCE IV 08/03/16 23:45 08/04/16 00:45 DC 08/04/16 00:23 999 MLS/HR Famotidine (Pepcid 20mg/100 ml) 20 mg STK-MED ONCE .ROUTE 08/03/16 23:58 08/03/16 23:59 DC 08/04/16 00:22 20 MG ED Course Physical exam and history were performed. Nursing notes and EMR were reviewed. Patient appears to have itching for the past several days. She recently had gastric bypass surgery, but does not appear to have evidence of postoperative infection. She certainly does not have abdominal tenderness. IV access was established and labs were obtained. The patient was given IV Benadryl and IV Prevacid here in the department. Steroids were considered, but not provided as the patient is a diabetic and recently underwent surgery. The patient's blood work is as above and was reviewed. She does not have a significantly elevated white blood cell count, gross anemia, bandemia, or significant electrolyte imbalance. After being provided Benadryl and Prevacid the patient was able to sleep comfortably and essentially had complete resolution of her symptoms. The patient is felt to be having pruritus from her narcotic pain medication postoperatively. The patient should use her medication sparingly and may use [id number] Benadryl. She should follow with her primary care physician and surgeon for ongoing care. She was otherwise invited back to the ER with any new, worsening, or concerning symptoms. The chart was completed utilizing [employer] Speech Voice Recognition Software. Grammatical errors, random word insertions, pronoun errors, and incomplete sentences are an occasional consequence of this system due to software limitations, ambient noise, and hardware issues. Any formal questions or concerns about the content, text, or information contained within the body of this dictation should be directly addressed to the provider for clarification. . Medical Decision Differential diagnosis: Etiologies such as allergic reaction, anaphylaxis, urticaria, Paulino-Glenn syndrome, toxic epidermal necrolysis, erythema multiforme, cellulitis, as well as others were entertained. Impression Primary Impression: Itching with irritation Departure Information Dispostion Home / Self-Care Condition GOOD Forms HOME CARE DOCUMENTATION FORM, IMPORTANT VISIT INFORMATION Patient Instructions My [facility] Additional Instructions You were seen and evaluated today on an emergency basis only. This is not a substitute for, or an effort to provide, complete comprehensive medical care. It is not possible to recognize and treat all injuries or illnesses in a single emergency department visit. For this reason it is recommended that you followup with your primary care physician this week for ongoing care and evaluation. You may take [id number] Benadryl 25-50 mg every 6 hours for itching. Continue your other medications at home as prescribed. You are welcome to return to the emergency department anytime with new, worsening, or concerning symptoms.
[2016-10-28] MEDS ORDERED: PRLSR20 PO (14:01)
[2017-01-01] MEDS ORDERED: ONDA4TAB46 PO (10:23)
[2017-01-01] MEDS ORDERED: OMEP20TA14 PO (18:20)
== END 2016-08-04 01:27 | disposition home or self-care (01) ==
LOC: C.EDB 23:23 → C.EDA 08-04 01:27
DX: L29.9 Pruritus, unspecified (principal); Z98.890 Other specified postprocedural states; Z98.84 Bariatric surgery status; J45.909 Unspecified asthma, uncomplicated; E11.9 Type 2 diabetes mellitus without complications; K21.9 Gastro-esophageal reflux disease without esophagitis; Z87.442 Personal history of urinary calculi; Z90.49 Acquired absence of other specified parts of digestive tract; Z83.3 Family history of diabetes mellitus; Z82.49 Family history of ischemic heart disease and other diseases of the circulatory system; Z82.0 Family history of epilepsy and other diseases of the nervous system; Z84.1 Family history of disorders of kidney and ureter; Z79.899 Other long term (current) drug therapy; Z79.4 Long term (current) use of insulin

== ENCOUNTER 2016-08-15 17:42 | Emergency (ER) | payer OTHER ==
[~2016-08-15] VITALS: Ht 167.6 cm; Wt 105.9 kg
[~2016-08-15 17:42] MED LIST changes: -AMITIZA PO; +AMT24 PO; +ERGO500011 PO; +IPRASOL4 INH; -VTMD PO
[2016-08-15 17:49] VITALS: TEMP 36.8; Ht 167.6 cm; Wt 105.9 kg
[2016-08-15] MEDS ORDERED: SODIUM CHLORIDE 0.9% 1000ML 1,000 ML IV STA (18:03)
[2016-08-15] MEDS ORDERED: ONDANSETRON INJ 2 MG/ML 2 ML VIAL IV STA (18:03)
[2016-08-15 19:02] LABS: BASO % 0.4 %; BASO ABS # 0.03 K/uL (0-0.2); COMPLETE YES; EOS % 3.3 %; IG% 0.1 %; LYMPH % 28.7 %; LYMPH ABS # 2.12 K/uL (1.2-3.4); MEAN CELL VOLUME 79.6 fL (80-100); MEAN CORPUSCULAR HGB CONC 31.5 g/dl (32-36); MEAN PLATELET VOLUME 9.5 fL (7.4-10.4); MONO % 4.7 %; NEUT % 62.8 %; PLATELET COUNT 403 K/uL (130-400); RED BLOOD COUNT 5.15 M/uL (4.2-5.4); WHITE BLOOD COUNT 7.38 K/uL (4.8-10.8)
[2016-08-15 19:14] LABS: BUN/CREATININE RATIO 11.7 (10-20); CALCIUM 9.4 mg/dl (8.5-10.1); CREATININE 0.58 mg/dl (0.60-1.20); POTASSIUM 3.3 mmol/L (3.5-5.1)
--- NOTE | 2016-08-15 19:23 | EMERGENCY ROOM VISIT NOTE ---
History Report prepared by Berenice: Honey Turner Under the Supervision of: Dr. Hang Gudino D.O. First contact with patient: 17:53 Chief Complaint: CHOKING Stated Complaint: HEART HURTS,NAUSEA, HAVENT ATE FOR 4 DAYS Nursing Triage Summary: Pt presents with c/o "something stuck in my tongue. I don't know what I did. When I swallow it hurts. I haven't been able to eat or drink for four days. I feel hurt in my heart. The saw circles in my throat when I was in [place]. I was there because I had gastric byass on July 28." Pt reports nausea. History of Present Illness The patient is a 31 year old female who presents to the Emergency Room with complaints of persistent trouble swallowing that started about 2.5 weeks ago. The patient states that she had gastric bypass surgery done in [place] on July 29 and her symptoms started the day before that. She states that they "looked in her throat with a camera and they told her that she had a little yuhaaviatam on her tongue." The patient states that they looked in her mouth with a camera in the ED in [place]. She states that they told her she would have to follow-up with her PCP for further evaluation of that. The patient saw her PCP 1.5 weeks ago for further evaluation of the spot on her tongue and they referred her to ENT. She states that ENT still has not contacted her back to setup an appointment. She is also experiencing nausea and states that she has not been able to eat for the past 4 days. She states that she is able to drink some water , but it hurts to swallow. She states that she is also experiencing GERD and pruritus on her back and legs. The patient states that she had the gastric bypass surgery to lose weight and because she is diabetic. Source of History: patient Onset: 2.5 weeks ago Position: tongue Quality: other (trouble swallowing) Timing: other (persistent) Associated Symptoms: + nausea Note: GERD, pruritus on her back and legs, unable to eat, GERD Review of Systems See HPI for pertinent positives & negatives. A total of 10 systems reviewed and were otherwise negative. Past Medical & Surgical Medical Problems: (1) Asthma (2) Diabetes mellitus (3) DM type 2 (diabetes mellitus, type 2) (4) GERD (gastroesophageal reflux disease) (5) Kidney stone (6) Ovarian cyst (7) Sepsis Surgical Problems: (1) S/P appendectomy (2) S/P bilateral breast reduction (3) S/P section (4) S/P cholecystectomy Family History Diabetes mellitus FH: gallbladder disease FH: heart disease FH: lung disease Hypertension Kidney disease or stones Seizures Social History Smoking Status: Never Smoker Alcohol Use: none Drug Use: none Marital Status: Housing Status: lives with family Occupation Status: unemployed Current/Historical Medications Scheduled Enalapril (Vasotec), 5 MG PO QAM Fluticasone Furoate-Vilanterol (Breo Ellipta), 1 PUFF INH QAM Insulin Glargine (Lantus Solostar), 26 UNITS SC QAM Loratadine (Claritin), 10 MG PO HS Omeprazole Magnesium (Prilosec Otc), 20 MG PO QAM Scheduled PRN Albuterol Hfa (Ventolin Hfa), 2 PUFFS INH Q6H PRN for Wheezing Ipratropium-Albuterol (Duoneb), 1 TREATMENT INH Q6 PRN for SOB/Wheezing Ondasetron Odt (Zofran Odt), 4 MG SL Q8 PRN for Nausea Allergies Coded Allergies: NO KNOWN DRUG ALLERGIES (Verified Allergy, Unknown, ., 08/15/16) Physical Exam Vital Signs Date Time Temp Pulse Resp B/P (MAP) Pulse Ox O2 Delivery O2 Flow Rate FiO2 08/15/16 17:52 97 Room Air 08/15/16 17:49 36.8 95 18 128/81 97 Room Air Physical Exam CONSTITUTIONAL/VITAL SIGNS: Reviewed / noted above. GENERAL: Non-toxic in appearance. INTEGUMENTARY: Warm, dry, and [place]. HEAD: Normocephalic. EYES: without scleral icterus or trauma. ENT/OROPHARYNX: clear and moist. LYMPHADENOPATHY/NECK: Is supple without lymphadenopathy or meningismus. RESPIRATORY: Lungs clear and equal. CARDIOVASCULAR: Regular rate and rhythm. GI/ABDOMEN: Soft and nontender. No organomegaly or pulsatile mass. No rebound or guarding. Normal bowel sounds. EXTREMITIES: Warm and well perfused. BACK: No CVA tenderness. NEUROLOGICAL: Intact without focal deficits. PSYCHIATRIC: normal affect. MUSCULOSKELETAL: Normally developed with good muscle tone. Medical Decision & Procedures Laboratory Results 08/15/16 18:45 Red Blood Count 5.15, Mean Corpuscular Volume 79.6, Mean Corpuscular Hemoglobin 25.0, Mean Corpuscular Hemoglobin Concent 31.5, Mean Platelet Volume 9.5, Neutrophils (%) (Auto) 62.8, Lymphocytes (%) (Auto) 28.7, Monocytes (%) (Auto) 4.7, Eosinophils (%) (Auto) 3.3, Basophils (%) (Auto) 0.4, Neutrophils # (Auto) 4.63, Lymphocytes # (Auto) 2.12, Monocytes # (Auto) 0.35, Eosinophils # (Auto) 0.24, Basophils # (Auto) 0.03 08/15/16 18:45 Test 08/15/16 18:45 White Blood Count 7.38 K/uL (4.8-10.8) Red Blood Count 5.15 M/uL (4.2-5.4) Hemoglobin 12.9 g/dL (12.0-16.0) Hematocrit 41.0 % (37-47) Mean Corpuscular Volume 79.6 fL (80-100) Mean Corpuscular Hemoglobin 25.0 pg (25-34) Mean Corpuscular Hemoglobin Concent 31.5 g/dl (32-36) Platelet Count 403 K/uL (130-400) Mean Platelet Volume 9.5 fL (7.4-10.4) Neutrophils (%) (Auto) 62.8 % Lymphocytes (%) (Auto) 28.7 % Monocytes (%) (Auto) 4.7 % Eosinophils (%) (Auto) 3.3 % Basophils (%) (Auto) 0.4 % Neutrophils # (Auto) 4.63 K/uL (1.4-6.5) Lymphocytes # (Auto) 2.12 K/uL (1.2-3.4) Monocytes # (Auto) 0.35 K/uL (0.11-0.59) Eosinophils # (Auto) 0.24 K/uL (0-0.5) Basophils # (Auto) 0.03 K/uL (0-0.2) RDW Standard Deviation 42.2 fL (36.4-46.3) RDW Coefficient of Variation 14.6 % (11.5-14.5) Immature Granulocyte % (Auto) 0.1 % Immature Granulocyte # (Auto) 0.01 K/uL (0.00-0.02) Anion Gap 11.0 mmol/L (3-11) Est Creatinine Clear Calc Drug Dose 169.7 ml/min Estimated GFR () 140.4 Estimated GFR (Non- 121.1 BUN/Creatinine Ratio 11.7 (10-20) Calcium Level 9.4 mg/dl (8.5-10.1) Lipase 207 U/L (73-393) Laboratory results as stated above per my review. Medications Administered Medications (Trade) Dose Ordered Sig/Rody Route Start Time Stop Time Status Last Admin Dose Admin Sodium Chloride 1,000 ml @ 999 mls/hr Q1H1M STAT IV 08/15/16 18:03 08/15/16 19:03 DC 08/15/16 18:50 999 MLS/HR Ondansetron HCl (Zofran Inj) 4 mg NOW STAT IV 08/15/16 18:03 08/15/16 18:06 DC 08/15/16 18:50 4 MG ED Course 1754: Previous medical records were reviewed. The patient was evaluated in room B2. A complete history and physical examination was performed. 1803: Ordered Zofran Inj 4 mg IV, Sodium Chloride 1000 ml @ 999 mls/hr IV 1923: On reevaluation, the patient is doing well. I discussed the results and findings with the patient. She verbalized agreement of the treatment plan. She was discharged home. Medical Decision The differential was considered includes dehydration, electrolyte abnormality, esophagitis. Medication Reconciliation: I attest that I have personally reviewed the patient' s current medication list. Blood pressure Screening: Patient was found to have normal blood pressure on screening and does not require follow-up. This is a 31-year-old female who presents to the ED with a chief complaint of a sensation of swelling in the right side of her tongue. The patient states that she has had this for at least 2 or 3 weeks. She had gastric bypass on July 29. She feels like she is unable to keep fluids down or eat because of the sensation that she has in her mouth. The patient does have follow-up with Dr. Rubio for this and has previously seen him in the past. She reports a history of diabetes. The patient's exam did not reveal any obvious abnormalities intraorally or in the neck. She has no difficulty breathing and does not appear to be having any difficulty swallowing her saliva. The rest of her exam was unremarkable. Her post surgical wounds appear to be healing normally. Abdomen is soft and nontender. Patient's blood work were normal. Vital signs are normal. The patient was treated with IV fluids and IV Zofran as she reported some nausea. She is felt to be stable for discharge and outpatient follow-up. Impression Primary Impression: Nausea Scribe Attestation The scribe's documentation has been prepared under my direction and personally reviewed by me in its entirety. I confirm that the note above accurately reflects all work, treatment, procedures, and medical decision making performed by me. Departure Information Dispostion Home / Self-Care Referrals Ulises Matias D.O. (PCP) Steve Rubio D.O. Forms HOME CARE DOCUMENTATION FORM, IMPORTANT VISIT INFORMATION, WORK / SCHOOL INSTRUCTIONS Patient Instructions My [facility] Additional Instructions Follow-up with your doctor for further care and evaluation in 1-2 days. Return to the emergency department for worsening or new symptoms or any concerns. You have been examined and treated today on an emergency basis only. This is not a substitute for, or an effort to provide, complete comprehensive medical care. It is impossible to recognize and treat all injuries or illnesses in a single emergency department visit. It is therefore important that you follow up closely with your doctor. Call as soon as possible for an appointment.
[2016-08-15 19:59] VITALS: BP 131/79; PULSE 92; O2SAT 100
[2016-10-28] MEDS ORDERED: PRLSR20 PO (14:01)
[2017-01-01] MEDS ORDERED: ONDA4TAB46 PO (10:23)
[2017-01-01] MEDS ORDERED: OMEP20TA14 PO (18:20)
== END 2016-08-15 19:45 | disposition home or self-care (01) ==
LOC: C.EDB 17:43
DX: R11.0 Nausea (principal); K21.9 Gastro-esophageal reflux disease without esophagitis; J45.909 Unspecified asthma, uncomplicated; E11.9 Type 2 diabetes mellitus without complications; Z83.3 Family history of diabetes mellitus; Z82.49 Family history of ischemic heart disease and other diseases of the circulatory system; Z82.0 Family history of epilepsy and other diseases of the nervous system; Z79.4 Long term (current) use of insulin

== ENCOUNTER 2016-08-25 12:58 | Emergency (ER) | payer OTHER ==
[~2016-08-25] VITALS: Ht 167.6 cm; Wt 107.0 kg
[~2016-08-25 12:58] MED LIST changes: -AMT/50 PO; -AMT24 PO; -ERGO500011 PO; -EXEN1INJ3 SC; -GLCSR/500 PO; -SNG10 PO
[2016-08-25 13:03] VITALS: Ht 167.6 cm; Wt 107.0 kg
[2016-08-25] MEDS ORDERED: SODIUM CHLORIDE 0.9% 1000ML 1,000 ML IV STA (13:17)
[2016-08-25] MEDS ORDERED: METOCLOPRAMIDE HCL INJ 5 MG/ML 2 ML VIAL IV STA (13:23)
[2016-08-25] MEDS ORDERED: HYDROmorphone INJ 1 MG/ML SYR IV STA (13:23)
[2016-08-25] MEDS ORDERED: OPTIRAY 320 IV PRN (13:30)
[2016-08-25 13:35] LABS: BASO % 0.7 %; BASO ABS # 0.03 K/uL (0-0.2); COMPLETE YES; EOS % 4.5 %; HEMATOCRIT 40.5 % (37-47); IG% 0.2 %; LYMPH % 48.6 %; LYMPH ABS # 2.15 K/uL (1.2-3.4); MEAN CELL VOLUME 81.8 fL (80-100); MEAN CORPUSCULAR HEMOGLOBIN 26.1 pg (25-34); MEAN CORPUSCULAR HGB CONC 31.9 g/dl (32-36); MEAN PLATELET VOLUME 10.6 fL (7.4-10.4); PLATELET COUNT 272 K/uL (130-400); RED BLOOD COUNT 4.95 M/uL (4.2-5.4); WHITE BLOOD COUNT 4.42 K/uL (4.8-10.8)
--- NOTE | 2016-08-25 13:39 | EMERGENCY ROOM VISIT NOTE ---
History Report prepared by Berenice: Luigi Ayala Under the Supervision of: Dr. Hang Begum M.D. First contact with patient: 13:05 Chief Complaint: ABDOMINAL PAIN Stated Complaint: STOMACH PAIN Nursing Triage Summary: triage note: pt reports generalized abd pain "it started 15-20 min ago." pt denies need for boat hop. pt reports hx of gastric bypass. History of Present Illness The patient is a 31 year old female who presents to the Emergency Room with complaints of sudden generalized abdominal pain that began 20 minutes prior to arrival. The patient reports her pain as a 10/10 in severity. She states that she was eating a small amount of chicken for lunch when she felt a sudden diffusive pain along her abdomen. The patient also reports that she felt burning up into her esophagus, was dry heaving, diaphoretic, and hot. She states that she had a large bowel movement before she came to the ED. The patient admits that she has a history of a gastric bypass and cholecystectomy. Source of History: patient Onset: 20 minutes COUNTER FORMER Position: abdomen Symptom Intensity: 10/10 Timing: other (sudden) Modifying Factors (Worsening): eating Associated Symptoms: + diaphoresis Review of Systems See HPI for pertinent positives & negatives. A total of 10 systems reviewed and were otherwise negative. Past Medical & Surgical Medical Problems: (1) Asthma (2) Diabetes mellitus (3) DM type 2 (diabetes mellitus, type 2) (4) GERD (gastroesophageal reflux disease) (5) Kidney stone (6) Ovarian cyst (7) Sepsis Surgical Problems: (1) S/P appendectomy (2) S/P bilateral breast reduction (3) S/P section (4) S/P cholecystectomy Family History Diabetes mellitus FH: gallbladder disease FH: heart disease FH: lung disease Hypertension Kidney disease or stones Seizures Social History Smoking Status: Never Smoker Alcohol Use: none Drug Use: none Marital Status: Housing Status: lives with family Occupation Status: unemployed Current/Historical Medications Scheduled Fluticasone Furoate-Vilanterol (Breo Ellipta), 1 PUFF INH QAM Omeprazole Magnesium (Prilosec Otc), 20 MG PO QAM Scheduled PRN Albuterol Hfa (Ventolin Hfa), 2 PUFFS INH Q6H PRN for Wheezing Ondasetron Odt (Zofran Odt), 4 MG SL Q8 PRN for Nausea Oxycodone/Acetaminophen 5MG/325MG (Percocet 5MG/325MG), 1-2 TAB PO Q4H PRN for Pain Allergies Coded Allergies: NO KNOWN DRUG ALLERGIES (Verified Allergy, Unknown, ., 08/25/16) Physical Exam Vital Signs Date Time Temp Pulse Resp B/P (MAP) Pulse Ox O2 Delivery O2 Flow Rate FiO2 08/25/16 17:14 36.4 62 18 131/77 96 08/25/16 15:28 74 18 118/65 98 Room Air 08/25/16 13:50 82 08/25/16 13:03 36.4 93 18 119/79 100 Room Air Physical Exam GENERAL: Patient is a healthy-appearing well-nourished [] HEAD: Normocephalic atraumatic EYES: Ocular movements intact pupils equal and react to light OROPHARYNX mucous membranes are moist no exudates present no erythema or edema present NECK: Supple no nuchal rigidity CHEST: Good equal expansion LUNGS: Clear and equal to auscultation CARDIAC: Normal S1 and S2 ABDOMEN: Tender in the epigastric area. no guarding BACK: No CVA tenderness EXTREMITIES: No pain upon palpation normal muscle strength in all groups no clubbing cyanosis or edema NEURO: Patient is following commands and answering questions appropriately. Alert and oriented x3 Cranial Nerves 2-12 grossly intact Medical Decision & Procedures ER Provider Diagnostic Interpretation: CT ABD/PELVIS IV AND ORAL CONT CLINICAL HISTORY: Diffuse epigastric pain. History of gastric bypass. History of cholecystectomy. History of appendectomy. COMPARISON STUDY: 05/30/2016 TECHNIQUE: Following the IV administration of 82 mL of Optiray-320, CT scan of the abdomen and pelvis was performed from the lung bases to the proximal femurs. Images are reviewed in the axial, sagittal, and coronal planes. IV contrast was administered without complication. CT DOSE: 1326.82 mGy.cm FINDINGS: Lower chest: There are minor basilar atelectatic changes. Liver: There is hepatic steatosis. No focal masses are visualized. Gallbladder: Surgically absent Spleen: Spleen is mildly enlarged measuring 13.4 cm. Pancreas: Unremarkable. Adrenal glands: Unremarkable. Kidneys: There is a stable 1 cm left renal hypodensity, likely representing a cyst. Bowel: There are no transition zones indicate bowel obstruction. There is minimal infiltration of the fat surrounding the transverse colon. This is likely secondary to either a colitis or omental infarct. There are postsurgical changes of a gastric bypass. Peritoneum: There is no intraperitoneal free air or abdominal ascites. Vasculature: The abdominal aorta is normal in course and caliber. Adenopathy: Minimally prominent central mesenteric lymph nodes are likely reactive. Pelvic viscera: There is prominent fluid within the endocervical canal, similar to the preceding study. No adnexal masses are visualized. Skeletal structures: No destructive osseous lesions are seen. IMPRESSION: 1. No evidence of bowel obstruction. No evidence of free air 2. Postsurgical changes of a prior gastric bypass 3. Surgically absent gallbladder and appendix 4. Hepatic steatosis. Mild splenomegaly. 5. Borderline diffuse colonic wall thickening. Subtle infiltration of the fat surrounding the transverse colon, likely secondary to either a colitis or an omental infarct. Electronically signed by: Shayan Marcial M.D. 08/25/2016 4:38 PM Dictated Date/Time: 08/25/2016 4:31 PM Laboratory Results 08/25/16 13:20 Red Blood Count 4.95, Mean Corpuscular Volume 81.8, Mean Corpuscular Hemoglobin 26.1, Mean Corpuscular Hemoglobin Concent 31.9, Mean Platelet Volume 10.6, Neutrophils (%) (Auto) 39.0, Lymphocytes (%) (Auto) 48.6, Monocytes (%) (Auto) 7.0, Eosinophils (%) (Auto) 4.5, Basophils (%) (Auto) 0.7, Neutrophils # (Auto) 1.72, Lymphocytes # (Auto) 2.15, Monocytes # (Auto) 0.31, Eosinophils # (Auto) 0.20, Basophils # (Auto) 0.03 08/25/16 13:20 Test 08/25/16 13:20 08/25/16 13:30 White Blood Count 4.42 K/uL (4.8-10.8) Red Blood Count 4.95 M/uL (4.2-5.4) Hemoglobin 12.9 g/dL (12.0-16.0) Hematocrit 40.5 % (37-47) Mean Corpuscular Volume 81.8 fL (80-100) Mean Corpuscular Hemoglobin 26.1 pg (25-34) Mean Corpuscular Hemoglobin Concent 31.9 g/dl (32-36) Platelet Count 272 K/uL (130-400) Mean Platelet Volume 10.6 fL (7.4-10.4) Neutrophils (%) (Auto) 39.0 % Lymphocytes (%) (Auto) 48.6 % Monocytes (%) (Auto) 7.0 % Eosinophils (%) (Auto) 4.5 % Basophils (%) (Auto) 0.7 % Neutrophils # (Auto) 1.72 K/uL (1.4-6.5) Lymphocytes # (Auto) 2.15 K/uL (1.2-3.4) Monocytes # (Auto) 0.31 K/uL (0.11-0.59) Eosinophils # (Auto) 0.20 K/uL (0-0.5) Basophils # (Auto) 0.03 K/uL (0-0.2) RDW Standard Deviation 45.1 fL (36.4-46.3) RDW Coefficient of Variation 15.2 % (11.5-14.5) Immature Granulocyte % (Auto) 0.2 % Immature Granulocyte # (Auto) 0.01 K/uL (0.00-0.02) Anion Gap 11.0 mmol/L (3-11) Est Creatinine Clear Calc Drug Dose 113.8 ml/min Estimated GFR () 101.4 Estimated GFR (Non- 87.5 BUN/Creatinine Ratio 6.9 (10-20) Calcium Level 9.1 mg/dl (8.5-10.1) Total Bilirubin 0.5 mg/dl (0.2-1) Direct Bilirubin 0.1 mg/dl (0-0.2) Aspartate Amino Transf (AST/SGOT) 50 U/L (15-37) Alanine Aminotransferase (ALT/SGPT) 70 U/L (12-78) Alkaline Phosphatase 82 U/L (45-117) Total Protein 6.9 gm/dl (6.4-8.2) Albumin 3.4 gm/dl (3.4-5.0) Lipase 126 U/L (73-393) Urine Color DK YELLOW Urine Appearance CLOUDY (CLEAR) Urine pH 6.0 (4.5-7.5) Urine Specific [place] 1.022 (1.000-1.030) Urine Protein TRACE (NEG) Urine Glucose (UA) NEG (NEG) Urine Ketones TRACE (NEG) Urine Occult Blood NEG (NEG) Urine Nitrite NEG (NEG) Urine Bilirubin NEG (NEG) Urine Urobilinogen NEG (NEG) Urine Leukocyte Esterase NEG (NEG) Urine WBC (Auto) 5-10 /hpf (0-5) Urine RBC (Auto) 5-10 /hpf (0-4) Urine Hyaline Casts (Auto) 0 /lpf (0-5) Urine Epithelial Cells (Auto) >30 /lpf (0-5) Urine Bacteria (Auto) NEG (NEG) Urine Renal Epithelial Cells /lpf (0-5) Urine Pathogenic Casts /lpf (0) Urine Test NEG (NEG) Labs reviewed by ED physician. Medications Administered Medications (Trade) Dose Ordered Sig/Rody Route Start Time Stop Time Status Last Admin Dose Admin Sodium Chloride 1,000 ml @ 999 mls/hr Q1H1M STAT IV 08/25/16 13:17 08/25/16 14:17 DC 08/25/16 13:17 999 MLS/HR Hydromorphone HCl (Dilaudid Inj) 1 mg NOW STAT IV 08/25/16 13:23 08/25/16 13:24 DC 08/25/16 13:37 1 MG Metoclopramide HCl (Reglan Inj) 10 mg NOW STAT IV 08/25/16 13:23 08/25/16 13:24 DC 08/25/16 13:36 10 MG Potassium Chloride (Bere Ciel Elix) 40 meq NOW STAT PO 08/25/16 14:00 08/25/16 14:01 DC 08/25/16 14:57 40 MEQ Ondansetron HCl (Zofran Inj) 4 mg NOW STAT IV 08/25/16 14:00 08/25/16 14:01 DC 08/25/16 14:56 4 MG ED Course 1317: Sodium Chloride 1000 ml @ 999 mls/hr IV. 1322: Past medical records reviewed. The patient was evaluated in room A02. A complete history and physical examination was performed. 1323:Reglan Injection 10 mg IV, Dilaudid Injection 1 mg IV. 1330: Ioversol 100 ml IV. Medical Decision The differential diagnosis includes but is not limited to: Etiologies such as appendicitis, diverticulitis, PUD, biliary pathology, UTI, pancreatitis, obstruction, mesenteric ischemia, aortic pathology, infections, inflammatory bowel disease, renal colic, as well as others were entertained. Medications were reviewed by me This is a 31-year-old female who presents emergency department complaining of severe epigastric pain after eating today. The patient has a history of gastric bypass. Based on this finding a CAT scan was performed of the abdomen and pelvis. IV was established, the patient given normal saline bolus, Dilaudid , Zofran. Repeat examination revealed improvement the patient's symptoms. Serial abdominal examinations were performed on the patient in the emergency department and at no time did the patient exhibit a surgical abdomen. CAT scan does not show any acute process I do believe the patient can be safely discharged home. Impression Primary Impression: Epigastric pain Scribe Attestation The scribe's documentation has been prepared under my direction and personally reviewed by me in its entirety. I confirm that the note above accurately reflects all work, treatment, procedures, and medical decision making performed by me. Departure Information Prescriptions Oxycodone/Acetaminophen 5MG/325MG (PERCOCET 5MG/325MG) Tab 1-2 TAB PO Q4H Y for Pain, #14 TAB Prov: Hang Begum MD 08/25/16 Referrals Ulises Matias, D.OChristina (PCP) Patient Instructions [facility]
[2016-08-25 13:53] LABS: CALCIUM 9.1 mg/dl (8.5-10.1)
[2016-08-25 13:57] LABS: BUN/CREATININE RATIO 6.9 (10-20); CREATININE 0.87 mg/dl (0.60-1.20); POTASSIUM 2.9 mmol/L (3.5-5.1)
[2016-08-25 13:57] LABS: URINE APPEARANCE CLOUDY (CLEAR); URINE COLOR DK YELLOW; URINE EPITHELIAL CELL AUTO >30 /lpf (0-5); URINE NITRITE NEG (NEG); URINE SPECIFIC GRAVITY 1.022 (1.000-1.030); UROBILINOGEN NEG (NEG)
[2016-08-25] MEDS ORDERED: ONDANSETRON INJ 2 MG/ML 2 ML VIAL IV STA (14:00)
[2016-08-25] MEDS ORDERED: POTASSIUM CHLORIDE 20 MEQ/15 ML UDC PO STA (14:00)
[2016-08-25 14:19] LABS: MANUAL MICROSCOPIC REQUIRED? NO; REVIEW REQ? YES
[2016-08-25 14:20] LABS: URINE BILIRUBIN NEG (NEG)
--- NOTE | 2016-08-25 16:40 | DIAGNOSTIC IMAGING REPORT ---
CT ABD/PELVIS IV AND ORAL CONT CLINICAL HISTORY: Diffuse epigastric pain. History of gastric bypass. History of cholecystectomy. History of appendectomy. COMPARISON STUDY: 05/30/2016 TECHNIQUE: Following the IV administration of 82 mL of Optiray-320, CT scan of the abdomen and pelvis was performed from the lung bases to the proximal femurs. Images are reviewed in the axial, sagittal, and coronal planes. IV contrast was administered without complication. CT DOSE: 1326.82 mGy.cm FINDINGS: Lower chest: There are minor basilar atelectatic changes. Liver: There is hepatic steatosis. No focal masses are visualized. Gallbladder: Surgically absent Spleen: Spleen is mildly enlarged measuring 13.4 cm. Pancreas: Unremarkable. Adrenal glands: Unremarkable. Kidneys: There is a stable 1 cm left renal hypodensity, likely representing a cyst. Bowel: There are no transition zones indicate bowel obstruction. There is minimal infiltration of the fat surrounding the transverse colon. This is likely secondary to either a colitis or omental infarct. There are postsurgical changes of a gastric bypass. Peritoneum: There is no intraperitoneal free air or abdominal ascites. Vasculature: The abdominal aorta is normal in course and caliber. Adenopathy: Minimally prominent central mesenteric lymph nodes are likely reactive. Pelvic viscera: There is prominent fluid within the endocervical canal, similar to the preceding study. No adnexal masses are visualized. Skeletal structures: No destructive osseous lesions are seen. IMPRESSION: 1. No evidence of bowel obstruction. No evidence of free air 2. Postsurgical changes of a prior gastric bypass 3. Surgically absent gallbladder and appendix 4. Hepatic steatosis. Mild splenomegaly. 5. Borderline diffuse colonic wall thickening. Subtle infiltration of the fat surrounding the transverse colon, likely secondary to either a colitis or an omental infarct. Electronically signed by: Shayan Marcial M.D. 08/25/2016 4:38 PM Dictated Date/Time: 08/25/2016 4:31 PM
[2016-08-25] MEDS ORDERED: OXYC-57 PO (16:53)
[2016-08-25 17:14] VITALS: BP 131/77; PULSE 62; TEMP 36.4; O2SAT 96
[2016-10-28] MEDS ORDERED: PRLSR20 PO (14:01)
[2017-01-01] MEDS ORDERED: ONDA4TAB46 PO (10:23)
[2017-01-01] MEDS ORDERED: OMEP20TA14 PO (18:20)
== END 2016-08-25 17:15 | disposition home or self-care (01) ==
LOC: C.EDB 12:59 → C.EDA 17:15
DX: R10.13 Epigastric pain (principal); E11.9 Type 2 diabetes mellitus without complications; K21.9 Gastro-esophageal reflux disease without esophagitis; N83.209 Unspecified ovarian cyst, unspecified side; J45.909 Unspecified asthma, uncomplicated; Z87.442 Personal history of urinary calculi; Z90.49 Acquired absence of other specified parts of digestive tract; Z98.890 Other specified postprocedural states; Z79.899 Other long term (current) drug therapy; Z83.3 Family history of diabetes mellitus; Z83.79 Family history of other diseases of the digestive system; Z82.49 Family history of ischemic heart disease and other diseases of the circulatory system; Z84.1 Family history of disorders of kidney and ureter; Z82.0 Family history of epilepsy and other diseases of the nervous system

== ENCOUNTER → 2016-09-01 | Outpatient (CLI) | payer OTHER ==
[~2016-09-01] MED LIST changes: +ANT25 PO; -ENAL5TAB83 PO; -INSDGIPEN SC; -IPRASOL4 INH; -LORA10TA5 PO; +OMEP20TA14 PO; +ONDA4TAB46 PO; +OPTIRAY 320 IV PRN; +OXYC-57 PO; +PRLSR20 PO; +PROM25TA9 PO; +ZNTT/150 PO
--- NOTE | 2016-09-01 11:29 | DIAGNOSTIC IMAGING REPORT ---
CT SCAN OF THE NECK WITH IV CONTRAST CLINICAL HISTORY: Trunk pain. Intermittent neck swelling with eating. COMPARISON STUDY: Radiographs of the neck dated 09/26/2013. Barium esophagram dated 02/02/2013. TECHNIQUE: Following the IV administration of 92 cc of Optiray 320, CT scan of the soft tissues of the neck was performed from the skull base to the upper chest. Images are reviewed in the axial, sagittal, and coronal planes. IV contrast was administered without complication. CT DOSE: 453.25 mGy.cm FINDINGS: Pharynx: The nasopharynx, oropharynx, and laryngeal pharynx are normal in appearance. The pharyngeal airway is widely patent. There is no evidence of mass lesion. The vocal cords are symmetric. The parapharyngeal fat is well maintained. The prevertebral/retropharyngeal soft tissues are within normal limits. The epiglottis is normal. The tongue is normal as visualized. Lymphadenopathy: No cervical lymphadenopathy is seen Thyroid: Normal in size and attenuation. Salivary glands: The parotid and submandibular glands are within normal limits. Brain parenchyma: The visualized brain parenchyma at the skull base is normal in appearance. Vascular structures: The carotid arteries and jugular veins are widely patent bilaterally. Skeletal structures: Imaged portions of the calvarium at the skull base are within normal limits. The cervical spine appears intact. Orbits: The bony orbits are intact. Orbital contents are normal as visualized. Sinuses and mastoids: There is mild to moderate mucosal thickening within the maxillary antra bilaterally, left greater than right. Trace mucosal thickening is present within the sphenoid sinuses. Moderate mucosal thickening is noted in the frontal and ethmoid sinuses. The mastoid air cells are well pneumatized. Lung apices: Visualized apical lung parenchyma is clear. IMPRESSION: 1. No acute abnormality. Specifically, the tongue is normal as visualized. 2. Pansinus disease as above. Electronically signed by: Delonte Sow M.D. 09/01/2016 11:28 AM Dictated Date/Time: 09/01/2016 11:23 AM
== END | disposition home or self-care (01) ==
LOC: C.CTS 10:19
DX: K14.6 Glossodynia (principal); R52 Pain, unspecified; J01.40 Acute pansinusitis, unspecified

== ENCOUNTER → 2016-09-23 | Outpatient (CLI) | payer OTHER ==
[~2016-09-23] MED LIST changes: -ANT25 PO; -OPTIRAY 320 IV PRN
--- NOTE | 2016-09-23 11:24 | DIAGNOSTIC IMAGING REPORT ---
Study: Fusion CT sinuses HISTORY: Chronic sinusitis FINDINGS: Moderate mucosal thickening along major sinuses. Soft tissue occlusion of the estimated units. No evidence for a bony destructive process. Near-complete opacification of the ethmoid sinuses. Mild mucosal thickening left frontal sinuses. IMPRESSION: Diffuse mucosal thickening of all major sinuses with near-complete opacification of the ethmoids. 2. Soft tissue occlusion of the ostiomeatal units bilaterally. 3. No evidence for bony destructive process. Electronically signed by: Toby Bautista M.D. 09/23/2016 11:23 AM Dictated Date/Time: 09/23/2016 10:59 AM
== END | disposition home or self-care (01) ==
LOC: C.CTS 10:34
DX: J32.9 Chronic sinusitis, unspecified (principal)

== ENCOUNTER 2016-10-24 17:53 | Emergency (ER) | payer OTHER ==
[~2016-10-24] VITALS: Ht 167.6 cm; Wt 98.0 kg
[~2016-10-24 17:53] MED LIST changes: -OMEP20TA14 PO; -ONDA4TAB46 PO; -PRLSR20 PO; -PROM25TA9 PO; -ZNTT/150 PO
[2016-10-24 18:03] VITALS: TEMP 36.6; Ht 167.6 cm; Wt 98.0 kg
[2016-10-24] MEDS ORDERED: ONDANSETRON INJ 2 MG/ML 2 ML VIAL IV STA (18:18)
[2016-10-24] MEDS ORDERED: MoRPHine SULFATE 10 MG/ML CARP/VIAL IV STA (18:18)
[2016-10-24] MEDS ORDERED: SODIUM CHLORIDE 0.9% 1000ML 1,000 ML IV STA (18:18)
[2016-10-24] MEDS ORDERED: GI COCKTAIL PO ONE (18:30)
[2016-10-24 18:56] LABS: URINE APPEARANCE CLEAR (CLEAR); URINE BILIRUBIN NEG (NEG); URINE COLOR YELLOW; URINE NITRITE NEG (NEG); URINE SPECIFIC GRAVITY 1.021 (1.000-1.030); UROBILINOGEN NEG (NEG)
[2016-10-24 19:00] LABS: MANUAL MICROSCOPIC REQUIRED? NO; REVIEW REQ? NO
[2016-10-24] MEDS ORDERED: MoRPHine SULFATE 2 MG/ML CARP ONE (19:09)
[2016-10-24] MEDS: MoRPHine SULFATE 4 MG/ML 1 ML CARP\\VIAL IV PRN ×2 (19:17→20:36)
[2016-10-24 19:24] LABS: BASO % 0.5 %; BASO ABS # 0.03 K/uL (0-0.2); COMPLETE YES; EOS % 3.9 %; IG% 0.2 %; LYMPH % 35.8 %; LYMPH ABS # 2.29 K/uL (1.2-3.4); MEAN CELL VOLUME 83.5 fL (80-100); MEAN CORPUSCULAR HEMOGLOBIN 26.3 pg (25-34); MEAN CORPUSCULAR HGB CONC 31.5 g/dl (32-36); MEAN PLATELET VOLUME 10.1 fL (7.4-10.4); MONO % 5.3 %; NEUT % 54.3 %; PLATELET COUNT 245 K/uL (130-400); RED BLOOD COUNT 4.91 M/uL (4.2-5.4)
[2016-10-24] MEDS ORDERED: OMEP20TA14 PO (19:33)
[2016-10-24] MEDS ORDERED: LIDOCAINE HCL 2% VISC SOLN 20 ML UDC ONE (19:33)
[2016-10-24] MEDS ORDERED: ALUMINUM/MAGNESIUM SUSP 30 ML UDC ONE (19:33)
[2016-10-24 19:35] LABS: ALT/SGPT 38 U/L (12-78); BLOOD UREA NITROGEN 7 mg/dl (7-18); BUN/CREATININE RATIO 11.1 (10-20); CALCIUM 9.1 mg/dl (8.5-10.1); CARBON DIOXIDE 29 mmol/L (21-32); CHLORIDE 110 mmol/L (98-107); CREATININE 0.62 mg/dl (0.60-1.20); GLUCOSE 86 mg/dl (70-99); POTASSIUM 4.1 mmol/L (3.5-5.1); SODIUM 144 mmol/L (136-145)
[2016-10-24 19:38] LABS: ALKALINE PHOSPHATASE 90 U/L (45-117); AST/SGOT 31 U/L (15-37)
[2016-10-24] MEDS ORDERED: OPTIRAY 320 IV PRN (22:00)
--- NOTE | 2016-10-24 22:15 | DIAGNOSTIC IMAGING REPORT ---
CT OF THE ABDOMEN AND PELVIS WITH CONTRAST CLINICAL HISTORY: Epigastric burning. COMPARISON STUDY: CT of the abdomen and pelvis August 25, 2016. TECHNIQUE: Following IV administration of 115 mL of Optiray-320, axial images of the abdomen and pelvis were obtained from the lung bases to the proximal femurs. Images were reviewed in the axial, sagittal, and coronal planes. IV contrast was administered without complication. A dose lowering technique was utilized adhering to the principles of ALARA. Oral contrast was administered. CT DOSE: 1091.18 mGy.cm FINDINGS: Fatty infiltration of the liver is noted. Mild hepatosplenomegaly is unchanged. There is no biliary ductal dilatation status post cholecystectomy. No peripancreatic infiltration is present. Note is made of a 1 cm left renal cyst. The nephrograms are symmetric. There is no hydronephrosis. There are findings consistent with a Nadeen-en-Y gastric bypass. A prominent loop of jejunum within the mid abdomen is noted which appears mildly dilated but this is at the anastomosis. Contrast passes beyond this site. There is no evidence for a bowel obstruction. The appendix is not visualized. The ovaries are not enlarged. There is no pneumatosis, free air or portal venous gas. There is an apparent small filling defect within the left ovarian vein. This is best shown on image 64 of 96. No suspicious osseous lesions are present. There is no lymphadenopathy. There are punctate right renal calculi. IMPRESSION: 1. Status post Nadeen-en-Y gastric bypass. Mild jejunal dilatation without transition point to suggest bowel obstruction. Oral contrast reaches the terminal ileum. 2. Punctate right renal calculi. No ureteral calculi or hydronephrosis. 3. Apparent small filling defect within the left ovarian vein. This could reflect a small amount of ovarian vein thrombus or mixing artifact. A short-term follow-up CT of the abdomen and pelvis with IV contrast might be considered. 4. Fatty infiltration of the liver. Electronically signed by: Ren Potts M.D. 10/24/2016 10:14 PM Dictated Date/Time: 10/24/2016 9:51 PM
[2016-10-24 22:53] VITALS: BP 109/67; PULSE 65; O2SAT 99
--- NOTE | 2016-10-24 23:44 | EMERGENCY ROOM VISIT NOTE ---
ED Visit Note First contact with patient: 18:01 Chief Complaint: Abdominal pain. History of Present Illness: Ms. Barrett is a 31 year-old [place] female who ambulates into the ED accompanied by male friend complaining of epigastric quadrant abdominal pain. Historically patient reports she has a history of gastric reflux since her gastric bypass surgery in July 2016 and she is also status post appendectomy and cholecystectomy. Most recently she had a uterine biopsy for enlarged uterus and was also told at that time she had a left ovarian cyst Patient reports gradual onset of severe epigastric abdominal pain that started approximately 14 hours ago. Since that time the pain has been gradually increasing in intensity. The pain is currently described as burning. The pain is radiating superiorly into the esophagus. She has not noted any aggravating or alleviating factors related to the pain. She has taken her prescribed Prilosec without relief of her discomfort. Associated with her pain she reports she has been intermittently nauseated but has not vomited, she has had 4 episodes of watery stools, she is feeling lightheaded and reports a frontal headache. Patient denies fevers, chills, sweats, skin eruptions, skin color changes, upper respiratory tract symptoms, shortness of breath, chest pain, constipation , rectal bleeding, black/tarry stools, urinary symptoms, hematuria, vaginal bleeding, vaginal discharge, back/flank pain. Review of Systems: As noted above in history of present illness. All body systems were reviewed and found to be negative as noted above. Past Medical History: As previously noted, asthma, bronchitis, diabetes, kidney stones, ovarian cysts, status post section and bilateral breast reduction. Current Medications:Prilosec. Allergies to Medications: Patient denies. Social History: Patient is not employed; she feels safe in her home environment ; she denies tobacco and alcohol use. Physical Examination: Vital Signs: Date Time Temp Pulse Resp B/P (MAP) Pulse Ox O2 Delivery O2 Flow Rate FiO2 10/24/16 22:53 65 15 109/67 99 10/24/16 20:35 70 22 100/64 99 Room Air 10/24/16 20:05 62 10/24/16 18:03 36.6 83 20 110/72 99 GENERAL: 31-year-old female in mild distress due to pain, nontoxic-appearing, afebrile and hemodynamically stable. NEUROLOGICAL: Awake, alert and oriented to person, place and time. Answering questions appropriately and following commands. Normal gait. Good hand eye coordination. SKIN: Warm, dry and pink. No soft tissue eruptions or trauma noted. HEENT: Atraumatic and normocephalic. PERRLA. Sclera white and conjunctiva pink. Oral cavity moist and pink. Pharynx is nonerythematous or edematous. Speech normal. No lymphadenopathy. Trachea midline. No jugular venous distention. BACK: No tenderness over the bony spine. No CVA tenderness. THORAX: Lungs sounds are clear to auscultation and equal bilaterally with symmetrical chest wall. No wheezing, rales or rhonchi. No crepitus, tenderness , subcutaneous air or deformities noted. HEART: Regular rate and rhythm. No gallops, rubs or murmurs are appreciated. ABDOMEN: Obese and soft with mild tenderness in the epigastrium and the left upper quadrant. Decreased bowel sounds in all quadrants. No guarding, rigidity or organomegaly. EXTREMITIES: Moves all extremities well on command and with purpose. All distal neurovascular statuses are intact and equal bilaterally. ED Course: Patient is assessed as noted above. Laboratory Testing: Test 10/24/16 18:37 10/24/16 18:55 Range/Units Urine Color YELLOW Urine Appearance CLEAR CLEAR Urine pH 5.0 4.5-7.5 Urine Specific [place] 1.021 1.000-1.030 Urine Protein NEG NEG Urine Glucose (UA) NEG NEG Urine Ketones NEG NEG Urine Occult Blood NEG NEG Urine Nitrite NEG NEG Urine Bilirubin NEG NEG Urine Urobilinogen NEG NEG Urine Leukocyte Esterase NEG NEG Urine Test NEG NEG White Blood Count 6.40 4.8-10.8 K/uL Red Blood Count 4.91 4.2-5.4 M/uL Hemoglobin 12.9 12.0-16.0 g/dL Hematocrit 41.0 37-47 % Mean Corpuscular Volume 83.5 80-100 fL Mean Corpuscular Hemoglobin 26.3 25-34 pg Mean Corpuscular Hemoglobin Concent 31.5 32-36 g/dl Platelet Count 245 130-400 K/uL Mean Platelet Volume 10.1 7.4-10.4 fL Neutrophils (%) (Auto) 54.3 % Lymphocytes (%) (Auto) 35.8 % Monocytes (%) (Auto) 5.3 % Eosinophils (%) (Auto) 3.9 % Basophils (%) (Auto) 0.5 % Neutrophils # (Auto) 3.48 1.4-6.5 K/uL Lymphocytes # (Auto) 2.29 1.2-3.4 K/uL Monocytes # (Auto) 0.34 0.11-0.59 K/uL Eosinophils # (Auto) 0.25 0-0.5 K/uL Basophils # (Auto) 0.03 0-0.2 K/uL RDW Standard Deviation 48.2 36.4-46.3 fL RDW Coefficient of Variation 15.6 11.5-14.5 % Immature Granulocyte % (Auto) 0.2 % Immature Granulocyte # (Auto) 0.01 0.00-0.02 K/uL Sodium Level 144 136-145 mmol/L Potassium Level 4.1 3.5-5.1 mmol/L Chloride Level 110 98-107 mmol/L Carbon Dioxide Level 29 21-32 mmol/L Anion Gap 5.0 3-11 mmol/L Blood Urea Nitrogen 7 7-18 mg/dl Creatinine 0.62 0.60-1.20 mg/dl Est Creatinine Clear Calc Drug Dose 152.3 ml/min Estimated GFR () 137.3 Estimated GFR (Non- 118.5 BUN/Creatinine Ratio 11.1 10-20 Random Glucose 86 70-99 mg/dl Calcium Level 9.1 8.5-10.1 mg/dl Total Bilirubin 0.3 0.2-1 mg/dl Direct Bilirubin < 0.1 0-0.2 mg/dl Aspartate Amino Transf (AST/SGOT) 31 15-37 U/L Alanine Aminotransferase (ALT/SGPT) 38 12-78 U/L Alkaline Phosphatase 90 45-117 U/L Total Protein 6.9 6.4-8.2 gm/dl Albumin 3.3 3.4-5.0 gm/dl Lipase 115 73-393 U/L Contrast Abdominal/Pelvic CT:was reviewed by myself and read by the radiologist and shows status post gastric bypass with mild jejunal dilatation without transition point to suggest bowel obstruction; oral cavity reaches terminal ileum. Punctate renal calculi with no hydronephrosis or ureter calculus. Small filling defect of the left ovary. Fatty infiltration of the liver. Patient was hydrated with normal saline and she received a total of 8 mg of morphine IV for pain and 4 mg of Zofran IV. patient was offered an oral GI cocktail and refused. I did have the [employer] manager the [facility] medical records and found the results of her EGD which were basically reported as normal; I did inform patient of this report. Patient was reassessed multiple times during her stay in the emergency department. Patient was educated about today's findings and instructed on her treatment plan ; she verbalizes understanding and agreement with this plan. Clinical Impression: Epigastric abdominal pain. Decision-Making: Initially my differential diagnosis I considered hepatitis, pancreatitis, bowel obstruction, anastomosis ulcer, GERD exacerbation and other causes. Disposition: Patient discharged home in stable condition accompanied by male friend; prior to departure she was reassessed and subjectively reported she was pain-free. Plan: Patient was encouraged to continue her current medications as prescribed. Patient was encouraged to use a bland diet and avoid stomach irritants. Patient was encouraged use 650 mg of acetaminophen every 6 hours as needed for pain. Patient was encouraged to follow-up with her manager lvn. Patient was encouraged return ED for worsening pain, bloody stools, fevers or any new/concerning symptoms.
[2016-10-28] MEDS ORDERED: PRLSR20 PO (14:01)
[2016-11-13] MEDS ORDERED: ONDA4TAB46 PO (10:23)
== END 2016-10-24 23:07 | disposition home or self-care (01) ==
LOC: C.EDB 17:55 → C.EDC 23:07
DX: R10.13 Epigastric pain (principal); R11.0 Nausea; R19.7 Diarrhea, unspecified; R51 Headache; K21.9 Gastro-esophageal reflux disease without esophagitis; Z98.84 Bariatric surgery status; N83.202 Unspecified ovarian cyst, left side; J45.909 Unspecified asthma, uncomplicated; E11.9 Type 2 diabetes mellitus without complications; Z87.442 Personal history of urinary calculi

== ENCOUNTER 2016-10-30 17:41 | Emergency (ER) | payer OTHER ==
[~2016-10-30] VITALS: Ht 167.6 cm; Wt 96.6 kg
[~2016-10-30 17:41] MED LIST changes: -FLUT1INH INH; -ONDA4TAB10 SL; -OXYC-57 PO; +PRLSR20 PO; -VNTHFA/IN INH
[2016-10-30 17:43] VITALS: TEMP 36.8; Ht 167.6 cm; Wt 96.6 kg
[2016-10-30] MEDS ORDERED: RANITIDINE HCL 50 MG/100 ML D5W IV STA (17:57)
[2016-10-30] MEDS ORDERED: SODIUM CHLORIDE 0.9% 1000ML 500 ML IV STA (17:57)
[2016-10-30] MEDS ORDERED: PROMETHAZINE HCL INJ 6.25 MG in SODIUM CHLORIDE 0.9% 50ML 50 ML IV STA (17:57)
[2016-10-30] MEDS ORDERED: ONDANSETRON INJ 2 MG/ML 2 ML VIAL IV STA (17:57)
[2016-10-30] MEDS ORDERED: SODIUM CHLORIDE 0.9% 1000ML 1,000 ML IV STA (17:57)
--- NOTE | 2016-10-30 18:14 | EMERGENCY ROOM VISIT NOTE ---
History Report prepared by Berenice: Rosa Ott Under the Supervision of: Dr. Delonte Cardenas M.D. First contact with patient: 17:50 Chief Complaint: DIZZY Stated Complaint: DIZZY, VOMITING, ABD PAIN History of Present Illness The patient is a 31 year old female who presents to the Emergency Room with complaints of persistent epigastric abdominal pain that started two weeks ago. The patient notes that her pain worsens when she eats. She states that she ate a small amount of food an hour ago and had an episode of productive vomiting soon after. The patient also notes shakes, dizziness, reflux, and a fever. The patient rates her pain as a 10/10. The patient notes she had a gastric bypass in July of this year. The patient was in the ED 6 days ago for the same symptoms that she is experiencing today. The patient states that she had a CT scan when in the ED that was slightly abnormal. The patient was discharged from the ED and told to follow up with GI. She saw GI 4 days ago and was referred back to her surgeon--she has an appt next week. The patient states she last saw her doctor who did her gastric bypass surgery in August and things were normal then. Source of History: patient Onset: two weeks ago Position: abdomen Symptom Intensity: 10/10 Timing: other (persistent) Modifying Factors (Worsening): eating Associated Symptoms: + fevers, + vomiting Note: Pt notes shakes, dizziness, reflux, Review of Systems See HPI for pertinent positives & negatives. A total of 10 systems reviewed and were otherwise negative. Past Medical & Surgical Medical Problems: (1) Asthma (2) Diabetes mellitus (3) DM type 2 (diabetes mellitus, type 2) (4) GERD (gastroesophageal reflux disease) (5) Kidney stone (6) Ovarian cyst (7) Sepsis Surgical Problems: (1) S/P appendectomy (2) S/P bilateral breast reduction (3) S/P section (4) S/P cholecystectomy Family History Diabetes mellitus FH: gallbladder disease FH: heart disease FH: lung disease Hypertension Kidney disease or stones Seizures Social History Smoking Status: Never Smoker Alcohol Use: none Drug Use: none Marital Status: Housing Status: lives with family Occupation Status: unemployed Current/Historical Medications Scheduled Omeprazole Magnesium (Prilosec Otc), 20 MG PO BID Ranitidine (Zantac), 150 MG PO BID Scheduled PRN Promethazine Hcl (Phenergan), 25 MG PO Q6H PRN for Nausea Allergies Coded Allergies: No Known Allergies (Unverified , 10/28/16) Physical Exam Vital Signs Date Time Temp Pulse Resp B/P (MAP) Pulse Ox O2 Delivery O2 Flow Rate FiO2 10/30/16 19:41 69 18 106/61 97 Room Air 10/30/16 18:40 77 16 108/63 99 Room Air 10/30/16 17:43 36.8 87 17 117/66 96 Room Air Physical Exam GENERAL: Patient is in no acute distress. HEENT: No acute trauma, normocephalic atraumatic, mucous membranes moist, no nasal congestion, no scleral icterus. NECK: No stridor, no adenopathy, no meningismus, trachea is midline. LUNGS: Clear to auscultation bilaterally, no wheeze, no rhonchi, breath sounds equal. HEART: Without murmurs gallops or rubs, regular rate and rhythm. ABDOMEN: Soft, moderately tender in epigastrium, bowel sounds positive, no hernias, no peritonitis. EXTREMITIES: No cyanosis or edema, full range of motion of all the joints without pain or difficulty, no signs for acute trauma. NEUROLOGIC: Oriented x 3, no acute motor or sensory deficits, no focal weakness. SKIN: No rash, no jaundice, no diaphoresis. Medical Decision & Procedures ER Provider Diagnostic Interpretation: Radiology results as stated below per my review and radiologist interpretation: CT SCAN OF THE ABDOMEN AND PELVIS WITH IV CONTRAST FINDINGS: Lung bases: The heart is normal in size and without pericardial effusion. The lung bases are clear. Liver: The contrast-enhanced liver is enlarged, measuring 20 cm in length. The liver demonstrates diffusely diminished attenuation consistent with hepatic steatosis. There is minimal central intrahepatic biliary ductal dilatation. The hepatic veins and portal veins are patent. Gallbladder: Surgically absent. Spleen: The spleen is enlarged, measuring 13.7 cm in length. Pancreas: Unremarkable. Adrenal glands: Unremarkable. Kidneys: The contrast enhanced kidneys are normal in size and without hydronephrosis. The kidneys enhance symmetrically. There is a 3 mm nonobstructing right renal calculus. A subcentimeter cortical hypodensity in the left kidney likely represents a cyst but is too small for definitive characterization. Abdominal vasculature: The abdominal aorta is normal in course and caliber. Stomach and bowel: There are postoperative changes consistent with a Nadeen-en-Y gastric bypass surgery. No bowel obstruction is seen. The appendix is not identified and reported surgically absent. Peritoneum: There is no intraperitoneal free air or abdominal ascites. Lymphadenopathy: None. Pelvic viscera: The bladder, uterus, and adnexa are normal as visualized. There are bilateral ovarian follicles. The left gonadal vein is not well opacified on today's examination. The questioned vein thrombus T12 17 is not appreciated. Skeletal structures: No lytic or blastic lesions are seen. IMPRESSION: 1. There are no acute infectious or inflammatory findings in the abdomen or pelvis and there has been no significant change from recent prior examinations. 2. There are postoperative changes consistent with a Nadeen-en-Y gastric bypass procedure. No bowel obstruction is seen. 3. Hepatomegaly and hepatic steatosis. 4. Splenomegaly. 5. Small nonobstructing right renal calculus. Electronically signed by: Delonte Sow M.D. SINGLE VIEW CHEST FINDINGS: An AP, portable, upright chest radiograph is compared to chest x-ray and chest CT dated 06/05/2016. The examination is degraded by portable technique and patient rotation. The cardiomediastinal silhouette is unremarkable. There are low lung volumes with mild bibasilar atelectasis. The lungs and pleural spaces are otherwise clear. No pneumothorax is seen. The bony thorax is grossly intact. IMPRESSION: Low lung volumes with no active disease in the chest. Electronically signed by: Delonte Sow M.D. Laboratory Results 10/30/16 19:49 Red Blood Count 4.62, Mean Corpuscular Volume 82.7, Mean Corpuscular Hemoglobin 26.0, Mean Corpuscular Hemoglobin Concent 31.4, Mean Platelet Volume 10.1, Neutrophils (%) (Auto) 64.2, Lymphocytes (%) (Auto) 28.2, Monocytes (%) (Auto) 5.8, Eosinophils (%) (Auto) 1.4, Basophils (%) (Auto) 0.3, Neutrophils # (Auto) 4.58, Lymphocytes # (Auto) 2.01, Monocytes # (Auto) 0.41, Eosinophils # (Auto) 0.10, Basophils # (Auto) 0.02 10/30/16 19:49 Test 10/30/16 18:30 10/30/16 19:49 Urine Color DK YELLOW Urine Appearance CLOUDY (CLEAR) Urine pH 5.0 (4.5-7.5) Urine Specific [place] 1.026 (1.000-1.030) Urine Protein NEG (NEG) Urine Glucose (UA) NEG (NEG) Urine Ketones 1+ (NEG) Urine Occult Blood NEG (NEG) Urine Nitrite NEG (NEG) Urine Bilirubin NEG (NEG) Urine Urobilinogen NEG (NEG) Urine Leukocyte Esterase TRACE (NEG) Urine WBC (Auto) 1-5 /hpf (0-5) Urine RBC (Auto) 5-10 /hpf (0-4) Urine Hyaline Casts (Auto) 1-5 /lpf (0-5) Urine Epithelial Cells (Auto) >30 /lpf (0-5) Urine Bacteria (Auto) NEG (NEG) Urine Pathogenic Casts /lpf (0) Urine Mucus PRESENT (NONE PRSENT) White Blood Count 7.13 K/uL (4.8-10.8) Red Blood Count 4.62 M/uL (4.2-5.4) Hemoglobin 12.0 g/dL (12.0-16.0) Hematocrit 38.2 % (37-47) Mean Corpuscular Volume 82.7 fL (80-100) Mean Corpuscular Hemoglobin 26.0 pg (25-34) Mean Corpuscular Hemoglobin Concent 31.4 g/dl (32-36) Platelet Count 209 K/uL (130-400) Mean Platelet Volume 10.1 fL (7.4-10.4) Neutrophils (%) (Auto) 64.2 % Lymphocytes (%) (Auto) 28.2 % Monocytes (%) (Auto) 5.8 % Eosinophils (%) (Auto) 1.4 % Basophils (%) (Auto) 0.3 % Neutrophils # (Auto) 4.58 K/uL (1.4-6.5) Lymphocytes # (Auto) 2.01 K/uL (1.2-3.4) Monocytes # (Auto) 0.41 K/uL (0.11-0.59) Eosinophils # (Auto) 0.10 K/uL (0-0.5) Basophils # (Auto) 0.02 K/uL (0-0.2) RDW Standard Deviation 46.7 fL (36.4-46.3) RDW Coefficient of Variation 15.5 % (11.5-14.5) Immature Granulocyte % (Auto) 0.1 % Immature Granulocyte # (Auto) 0.01 K/uL (0.00-0.02) Anion Gap 6.0 mmol/L (3-11) Est Creatinine Clear Calc Drug Dose 173.6 ml/min Estimated GFR () 143.7 Estimated GFR (Non- 124.0 BUN/Creatinine Ratio 12.1 (10-20) Lactic Acid Level 0.7 mmol/L (0.4-2.0) Calcium Level 8.6 mg/dl (8.5-10.1) Total Bilirubin 0.6 mg/dl (0.2-1) Aspartate Amino Transf (AST/SGOT) 27 U/L (15-37) Alanine Aminotransferase (ALT/SGPT) 35 U/L (12-78) Alkaline Phosphatase 92 U/L (45-117) Troponin I < 0.015 ng/ml (0-0.045) Total Protein 6.5 gm/dl (6.4-8.2) Albumin 3.1 gm/dl (3.4-5.0) Globulin 3.4 gm/dl (2.5-4.0) Albumin/Globulin Ratio 0.9 (0.9-2) Lipase 90 U/L (73-393) Human Chorionic Gonadotropin, Qual NEG (NEG) Laboratory results reviewed by me. Medications Administered Medications (Trade) Dose Ordered Sig/Rody Route Start Time Stop Time Status Last Admin Dose Admin Sodium Chloride 500 ml @ 999 mls/hr Q31M STAT IV 10/30/16 17:57 10/30/16 18:27 DC 10/30/16 19:16 999 MLS/HR Ondansetron HCl (Zofran Inj) 4 mg NOW STAT IV 10/30/16 17:57 10/30/16 18:02 DC 10/30/16 19:17 4 MG Sodium Chloride 1,000 ml @ 200 mls/hr Q5H STAT IV 10/30/16 17:57 10/30/16 22:56 10/30/16 20:09 200 MLS/HR Morphine Sulfate (MoRPHine SULFATE INJ) 4 mg Q30M PRN IV 10/30/16 18:00 11/13/16 17:59 10/30/16 21:39 4 MG Ranitidine HCl (zANTac IV) 50 mg NOW STAT IV 10/30/16 17:57 10/30/16 18:02 DC 10/30/16 19:20 50 MG Promethazine HCl 6.25 mg/Sodium Chloride 50.25 ml @ 204 mls/hr NOW STAT IV 10/30/16 17:57 10/30/16 18:11 DC 10/30/16 20:08 204 MLS/HR ECG Indication: other (dizziness) Rate (beats per minute): 73 Rhythm: normal sinus (poor r wave progression) Findings: no acute ischemic change ED Course 1754: The patient was evaluated in room B8. A complete history and physical exam was performed. 1756: Promethazine HCl 6.25mg/Sodium Chloride 50.25 ml @ 204 mls/hr IV. zANTac IV 50 mg IV, Sodium Chloride 1000 ml @ 200 mls/hr IV, Zofran Inj 4 mg IV, Sodium Chloride 500 ml @ 999 mls/hr IV. 1800: Morphine Sulfate 4 mg IV. 1904: I reevaluated the patient she is resting comfortably. 2034: Reevaluated the patient. Discussed results and discharge instructions: She verbalized understanding and agreement. The patient is ready for discharge. Medical Decision Differential diagnosis includes but is not limited to gastric outlet obstruction , gastritis, ulcer, bowel obstruction, pancreatitis, cardiac ischemia, pneumonia , dehydration, electrolyte imbalance, anemia. There is no leukocytosis or concerning anemia. No significant electrolyte abnormality, kidney failure, hepatitis or pancreatitis. Urinalysis shows contamination, no infection. Chest x-ray does not show free air, pneumonia or pneumothorax. EKG shows a sinus rhythm, no acute ischemia. Cardiac enzyme testing times one is not consistent with acute cardiac injury. Lactic acid level is not elevated making bowel ischemia less likely. Abdominal and pelvis CT shows some chronic findings, no bowel obstruction. No evidence for acute infectious process or acute surgical process by CT. On exam, there was no peritonitis, she was not toxic or febrile. The patient received IV saline, IV Phenergan and IV Zofran. She was given IV morphine for pain. She received IV Zantac. The patient presents with 2 weeks of epigastric pain when eating. She has seen GI. She has an appointment with her gastric bypass surgeon next week. The patient is stable for discharge. She may have a narrowing at her gastric bypass anastomosis site. This could explain her discomfort and vomiting with eating. She is going to continue her Prilosec, I will add Zantac as she still is describing heartburn. She can use Zofran or Phenergan for nausea. A bland and simple diet was suggested, small meals were suggested. If worsening, if developing fever, she can return. Medication Reconcilliation Current Medication List: was personally reviewed by me Blood Pressure Screening Patient's blood pressure: Normal blood pressure Blood pressure disposition: Did not require urgent referral Impression Primary Impression: Epigastric abdominal pain Additional Impression: S/P gastric bypass Scribe Attestation The scribe's documentation has been prepared under my direction and personally reviewed by me in its entirety. I confirm that the note above accurately reflects all work, treatment, procedures, and medical decision making performed by me. Departure Information Dispostion Home / Self-Care Prescriptions Ranitidine (Zantac) 150 Mg Tab 150 MG PO BID, #30 TAB Prov: Delonte Cardenas M.D. 10/30/16 Promethazine Hcl (Phenergan) 25 Mg Tab 25 MG PO Q6H Y for Nausea, #12 TAB Prov: Delonte Cardenas M.D. 10/30/16 Referrals Ulises Matias, D.O. (PCP) Forms HOME CARE DOCUMENTATION FORM, IMPORTANT VISIT INFORMATION Patient Instructions My [facility] Additional Instructions continue the prilosec zantac 2x per day use zofran or phenergan for nausea small meals at a time bland diet---crackers, soup, toast, gatorade otc pain meds like tylenol return if worsening or have fever see your surgeon as soon as possible Problem Qualifiers
[2016-10-30] MEDS ORDERED: OPTIRAY 320 IV PRN (18:15)
[2016-10-30] MEDS ORDERED: OMEP20TA14 PO (18:20)
--- NOTE | 2016-10-30 18:42 | DIAGNOSTIC IMAGING REPORT ---
SINGLE VIEW CHEST CLINICAL HISTORY: Generalized abdominal pain. FINDINGS: An AP, portable, upright chest radiograph is compared to chest x-ray and chest CT dated 06/05/2016. The examination is degraded by portable technique and patient rotation. The cardiomediastinal silhouette is unremarkable. There are low lung volumes with mild bibasilar atelectasis. The lungs and pleural spaces are otherwise clear. No pneumothorax is seen. The bony thorax is grossly intact. IMPRESSION: Low lung volumes with no active disease in the chest. Electronically signed by: Delonte Sow M.D. 10/30/2016 6:41 PM Dictated Date/Time: 10/30/2016 6:40 PM
[2016-10-30 18:49] LABS: MANUAL MICROSCOPIC REQUIRED? NO; REVIEW REQ? YES; URINE APPEARANCE CLOUDY (CLEAR); URINE COLOR DK YELLOW; URINE EPITHELIAL CELL AUTO >30 /lpf (0-5); URINE NITRITE NEG (NEG); URINE SPECIFIC GRAVITY 1.026 (1.000-1.030); UROBILINOGEN NEG (NEG); ZZUR CULT IF INDIC CLEAN CATCH NO
[2016-10-30 18:51] LABS: URINE BILIRUBIN NEG (NEG)
[2016-10-30 19:01] LABS: URINE MUCUS PRESENT (NONE PRSENT)
[2016-10-30] MEDS: MoRPHine SULFATE 4 MG/ML 1 ML CARP\\VIAL IV PRN ×2 (19:20→21:39)
[2016-10-30 20:02] LABS: BASO % 0.3 %; BASO ABS # 0.02 K/uL (0-0.2); COMPLETE YES; EOS % 1.4 %; HEMATOCRIT 38.2 % (37-47); IG% 0.1 %; LYMPH % 28.2 %; LYMPH ABS # 2.01 K/uL (1.2-3.4); MEAN CELL VOLUME 82.7 fL (80-100); MEAN CORPUSCULAR HGB CONC 31.4 g/dl (32-36); MEAN PLATELET VOLUME 10.1 fL (7.4-10.4); MONO % 5.8 %; NEUT % 64.2 %; PLATELET COUNT 209 K/uL (130-400); RED BLOOD COUNT 4.62 M/uL (4.2-5.4); WHITE BLOOD COUNT 7.13 K/uL (4.8-10.8)
[2016-10-30 20:28] LABS: ALT/SGPT 35 U/L (12-78); AST/SGOT 27 U/L (15-37); BLOOD UREA NITROGEN 7 mg/dl (7-18); BUN/CREATININE RATIO 12.1 (10-20); CALCIUM 8.6 mg/dl (8.5-10.1); CARBON DIOXIDE 27 mmol/L (21-32); CHLORIDE 109 mmol/L (98-107); CREATININE 0.54 mg/dl (0.60-1.20); GLUCOSE 105 mg/dl (70-99); POTASSIUM 3.7 mmol/L (3.5-5.1); SODIUM 142 mmol/L (136-145)
[2016-10-30 20:33] LABS: ALB/GLOB RATIO 0.9 (0.9-2); ALKALINE PHOSPHATASE 92 U/L (45-117); PREG INTERNAL NEGATIVE QC NEG CLEAR BACKGROUND; PREG INTERNAL POSITIVE QC POS CONTROL LINE
--- NOTE | 2016-10-30 21:14 | DIAGNOSTIC IMAGING REPORT ---
CT SCAN OF THE ABDOMEN AND PELVIS WITH IV CONTRAST CLINICAL HISTORY: Generalized abdominal pain. Vomiting. COMPARISON STUDY: Abdominal CT dated 10/24/2016. TECHNIQUE: Following the IV administration of 94 cc of Optiray 320, CT scan of the abdomen and pelvis is performed from the lung bases to the proximal femora. Images are reviewed in the axial, sagittal, and coronal planes. IV contrast was administered without complication. Automated dose control exposure was utilized. The examination is degraded by large body habitus, and by streak artifact from the body wall abutting the CT gantry. A dose lowering technique was utilized adhering to the principles of ALARA. CT DOSE: 1137.75 mGy.cm FINDINGS: Lung bases: The heart is normal in size and without pericardial effusion. The lung bases are clear. Liver: The contrast-enhanced liver is enlarged, measuring 20 cm in length. The liver demonstrates diffusely diminished attenuation consistent with hepatic steatosis. There is minimal central intrahepatic biliary ductal dilatation. The hepatic veins and portal veins are patent. Gallbladder: Surgically absent. Spleen: The spleen is enlarged, measuring 13.7 cm in length. Pancreas: Unremarkable. Adrenal glands: Unremarkable. Kidneys: The contrast enhanced kidneys are normal in size and without hydronephrosis. The kidneys enhance symmetrically. There is a 3 mm nonobstructing right renal calculus. A subcentimeter cortical hypodensity in the left kidney likely represents a cyst but is too small for definitive characterization. Abdominal vasculature: The abdominal aorta is normal in course and caliber. Stomach and bowel: There are postoperative changes consistent with a Nadeen-en-Y gastric bypass surgery. No bowel obstruction is seen. The appendix is not identified and reported surgically absent. Peritoneum: There is no intraperitoneal free air or abdominal ascites. Lymphadenopathy: None. Pelvic viscera: The bladder, uterus, and adnexa are normal as visualized. There are bilateral ovarian follicles. The left gonadal vein is not well opacified on today's examination. The questioned vein thrombus T12 17 is not appreciated. Skeletal structures: No lytic or blastic lesions are seen. IMPRESSION: 1. There are no acute infectious or inflammatory findings in the abdomen or pelvis and there has been no significant change from recent prior examinations. 2. There are postoperative changes consistent with a Nadeen-en-Y gastric bypass procedure. No bowel obstruction is seen. 3. Hepatomegaly and hepatic steatosis. 4. Splenomegaly. 5. Small nonobstructing right renal calculus. Electronically signed by: Delonte Sow M.D. 10/30/2016 9:13 PM Dictated Date/Time: 10/30/2016 9:08 PM
[2016-10-30] MEDS ORDERED: PROM25TA9 PO (21:30)
[2016-10-30] MEDS ORDERED: ZNTT/150 PO (21:30)
[2016-10-30 22:02] VITALS: BP 100/59; PULSE 73; O2SAT 97
[2016-11-13] MEDS ORDERED: ONDA4TAB46 PO (10:23)
== END 2016-10-30 22:02 | disposition home or self-care (01) ==
LOC: C.EDB 17:41
DX: R10.13 Epigastric pain (principal); Z98.84 Bariatric surgery status; R50.9 Fever, unspecified; R11.2 Nausea with vomiting, unspecified; E11.9 Type 2 diabetes mellitus without complications; K21.9 Gastro-esophageal reflux disease without esophagitis; J45.909 Unspecified asthma, uncomplicated; Z79.899 Other long term (current) drug therapy; Z87.42 Personal history of other diseases of the female genital tract; Z87.448 Personal history of other diseases of urinary system; Z86.19 Personal history of other infectious and parasitic diseases; Z82.0 Family history of epilepsy and other diseases of the nervous system; Z82.49 Family history of ischemic heart disease and other diseases of the circulatory system; Z83.3 Family history of diabetes mellitus; Z83.6 Family history of other diseases of the respiratory system; Z83.79 Family history of other diseases of the digestive system; Z84.1 Family history of disorders of kidney and ureter

== ENCOUNTER → 2016-11-13 | Day surgery (SDC) | payer OTHER ==
[2016-10-28 14:01] VITALS: BMI 34.0
[2016-11-09 09:39] LABS: BASO % 0.6 %; BASO ABS # 0.04 K/uL (0-0.2); COMPLETE YES; EOS % 2.5 %; HEMATOCRIT 40.1 % (37-47); IG% 0.2 %; LYMPH ABS # 2.04 K/uL (1.2-3.4); MEAN CELL VOLUME 81.2 fL (80-100); MEAN CORPUSCULAR HEMOGLOBIN 26.1 pg (25-34); MEAN CORPUSCULAR HGB CONC 32.2 g/dl (32-36); MEAN PLATELET VOLUME 10.5 fL (7.4-10.4); MONO % 5.5 %; NEUT % 59.2 %; PLATELET COUNT 240 K/uL (130-400); RED BLOOD COUNT 4.94 M/uL (4.2-5.4); WHITE BLOOD COUNT 6.38 K/uL (4.8-10.8)
[2016-11-09 09:44] LABS: PREG INTERNAL NEGATIVE QC NEG CLEAR BACKGROUND; PREG INTERNAL POSITIVE QC POS CONTROL LINE
[2016-11-09 09:48] LABS: PROTHROMBIN TIME (PATIENT) 11.1 SECONDS (9.0-12.0)
[2016-11-09 09:57] LABS: POTASSIUM 3.8 mmol/L (3.5-5.1)
[~2016-11-13] VITALS: Ht 167.6 cm; Wt 94.0 kg
[~2016-11-13] MED LIST changes: +ATROPINE SULFATE 0.1 MG/ML 5ML SYR IV PRN; +CEFAZOLIN 2000 MG/60 ML D5W IV SCH; +DEXAMETHASONE SOD INJ 4 MG/ML VIAL ONE; +EpHEDrine SULFATE INJ 50 MG/ML AMP IV PRN; +EpINEphrine INJ 1MG/ML AMP 1 MG/ML AMP ONE; +FENTANYL CITRATE INJ 50 MCG/1 ML 2 ML VIAL IV PRN; +FENTANYL CITRATE INJ 50 MCG/1 ML 2 ML VIAL ONE; +GLYCOPYRROLATE INJ 0.2 MG/ML VIAL ONE; +HYDROCODONE/ACETAMOPHEN 5/325MG TAB PO PRN; +LIDOCAINE 4% MPF SOAK 5 ML = 1 DOSE TOP ONE; +LIDOCAINE HCL 2% 2 ML VIAL (20MG/ML) ONE; +LIDOCAINE/EPINEPHRINE 1% INJ 50 ML VIAL ONE; +MIDAZOLAM HCL 1 MG/ML 2ML VIAL ONE; +NEOSTIGMINE METHYLSULFATE 5 MG/5 ML SYR ONE; +OMEP20TA14 PO; +ONDA4TAB46 PO; +ONDANSETRON INJ 2 MG/ML 2 ML VIAL IV PRN; +ONDANSETRON INJ 2 MG/ML 2 ML VIAL IV STA; +ONDANSETRON INJ 2 MG/ML 2 ML VIAL ONE; +OXYMETAZOLINE HCL 0.05% NA SPR 15 ML BTL NAE SCH; +OXYMETAZOLINE HCL 0.05% NA SPR 15 ML BTL PRN; -PRLSR20 PO; +PROM25TA9 PO; +PROPOFOL IV EMULSION 10 MG/ML 20 ML VIAL IV ONE; +SCOPOLAMINE 1.5 MG TDSY TD ONE; +ZNTT/150 PO
[2016-11-13 10:26] VITALS: Ht 167.6 cm; Wt 94.0 kg
[2016-11-13] MEDS: LACTATED RINGER'S 1000ML 1,000 ML IV SCH ×2 (10:51→14:37)
--- NOTE | 2016-11-13 12:17 | History and Physical: Surg Cnt ---
History & Physical Date Nov 13, 2016. Chief Complaint CHRONIC SINUSITIS History of Present Illness The patient is a 31 year old female with complaints of CHRONIC SINUSITIS WITH SYMPTOMS DESPITE MAXIMAL MEDICAL RX. Past Medical/Surgical History Medical Problems: (1) Asthma (2) Diabetes mellitus (3) DM type 2 (diabetes mellitus, type 2) (4) GERD (gastroesophageal reflux disease) (5) Kidney stone (6) Ovarian cyst (7) Sepsis 8. ARTHRITIS 9. DYSLIPIDEMIA 10. OBESITY 11. VITAMIN D DEFICIENCY Surgical Problems: (1) S/P appendectomy (2) S/P bilateral breast reduction (3) S/P section (4) S/P cholecystectomy 5. S/P GASTRIC BYPASS SURGERY Allergies Coded Allergies: No Known Allergies (Unverified , 11/13/16) Home Medications Scheduled Omeprazole Magnesium (Prilosec Otc), 20 MG PO BID Ranitidine (Zantac), 150 MG PO BID Scheduled PRN Ondansetron Hcl (Zofran), Unknown Dose PO for Nausea Promethazine Hcl (Phenergan), 25 MG PO Q6H PRN for Nausea Physical Examination Skin: warm/dry, no rash Eyes: normal inspection, EOMI, sclerae normal ENT: + pertinent finding (HYPONASAL VOICE, MILD CONGESTION, SEVERE B ITH) Head: normocephalic, atraumatic Neck: supple, no adenopathy, trachea midline Respiratory/Chest: lungs clear, normal breath sounds, no respiratory distress Cardiovascular: regular rate, rhythm, no edema, no murmur Neurologic/Psych: no motor/sensory deficits, alert, normal reflexes, oriented x 3 Diagnosis CHRONIC SINUSITIS AND BILATERAL INFERIOR TURBINATE HYPERTROPHY Plan of Treatment IMAGE GUIDED B FESS AND INFERIOR TURBINATE REDUCTION
--- NOTE | 2016-11-13 13:59 | [facility] Operative Report ---
Operative Report Operative Date Nov 13, 2016. Pre-Operative Diagnosis Chronic sinusitis and bilateral inferior turbinate hypertrophy Post-Operative Diagnosis Same as preop Procedure(s) Performed Image Guided Bilateral Endoscopic Sinus Surgery And Bilateral Inferior Turbinate Reduction Surgeon Dr. Haro [employer]ist Surgeon(s) None Estimated Blood Loss 50 mL Findings 1. SEVERE B ITH 2. SEVERE POLYPOSIS INVOLVING B ETHMOID SINUSES 3. SEVERE L FRONTAL, B MAXILLARY, AND B SPHENOID SINUS MPT Specimens None I attest to the content of the Intraoperative Record and any orders documented therein. Any exceptions are noted below.
--- NOTE | 2016-11-13 14:02 | Discharge Instructions ---
Discharge Instructions Date of Service Nov 13, 2016. Admission Reason for Admission: Chronic Sinusitis, Hypertrophy Of Both Inferior Discharge Discharge Diagnosis / Problem: SAME Discharge Goals Goal(s): Therapeutic intervention Activity Recommendations Activity Limitations: as noted below LIGHT ACTIVITY AND NO NOSE BLOWING FOR 2 WEEKS; NO DRIVING WHILE ON NORCO . Current Hospital Diet Patient's current hospital diet: Discharge Diet Recommended Diet: Regular Diet Procedures Procedures Performed: Image Guided Bilateral Endoscopic Sinus Surgery And Bilateral Inferior Turbinate Reduction Pending Studies Studies pending at discharge: no Medical Emergencies . Who to Call and When: Medical Emergencies: If at any time you feel your situation is an emergency, please call 911 immediately. . Non-Emergent Contact Non-Emergency issues call your: Surgeon . . "Provider Documentation" section prepared by Tray Haro. . VTE Core Measure Inpt VTE Proph given/why not?: SCD's
[2016-11-13] MEDS: FENTANYL CITRATE INJ 50 MCG/1 ML 2 ML VIAL IV PRN ×3 (14:14→14:44)
--- NOTE | 2016-11-13 14:21 | Anesthesia Progress Nt - [facility] ---
Anesthesia Post Op Note Date & Time Nov 13, 2016 at 14:20 Vital Signs Pain Intensity: 9.0 Vital Signs Past 12 Hours Date Time Temp Pulse Resp B/P (MAP) Pulse Ox O2 Delivery O2 Flow Rate FiO2 11/13/16 13:53 36.5 94 16 133/81 98 High Flow Oxygen 6 Mask 11/13/16 10:23 36.3 70 16 111/69 (83) 100 Room Air Notes Mental Status: alert / awake / arousable, participated in evaluation Pt Amnestic to Procedure: Yes Nausea / Vomiting: adequately controlled Pain: adequately controlled Airway Patency, RR, SpO2: stable & adequate BP & HR: stable & adequate Hydration State: stable & adequate Anesthetic Complications: no major complications apparent
[2016-11-13 15:01] VITALS: TEMP 36.9
[2016-11-13 15:57] VITALS: BP 122/80; PULSE 86; O2SAT 94
--- NOTE | 2016-11-13 22:37 | OPERATIVE REPORT ---
DATE OF OPERATION: 11/13/2016 PREOPERATIVE DIAGNOSES: 1. Chronic rhinosinusitis. 2. Bilateral inferior turbinate hypertrophy. POSTOPERATIVEDIAGNOSES: 1. Chronic rhinosinusitis. 2. Bilateral inferior turbinate hypertrophy. PROCEDURES: Image guided bilateral endoscopic sinus surgery consisting of: 1. Balloon sinuplasty assisted left frontal sinusotomy. 2. Bilateral maxillary antrostomies. 3. Bilateral complete ethmoidectomies. 4. Bilateral sphenoidotomies. 5. Bilateral inferior turbinate reduction. SURGEON: Dr. Haro. ANESTHESIA: General endotracheal. ESTIMATED BLOOD LOSS: 50 mL. FINDINGS: 1. Severe bilateral inferior turbinate hypertrophy. 2. Severe bilateral ethmoid polyposis. 3. Severe mucosal thickening involving the bilateral maxillary, left frontal, bilateral sphenoid sinuses. SPECIMENS: None. COMPLICATIONS: None. INDICATIONS FOR THE PROCEDURE: The patient is a 31-year-old female with chronic polypoid rhinosinusitis which has been unresponsive to maximal medical therapy including systemic antibiotics and steroids. A posttreatment CT scan of the sinuses revealed pansinusitis with the patient having an absent right frontal sinus. She also has severe bilateral inferior turbinate hypertrophy. She presents for the above-mentioned procedure on an outpatient elective basis. DESCRIPTION OF PROCEDURE: After informed consent had been obtained from the patient, the patient was wheeled to the operating room and placed on the operating table in the supine position. Monitors were placed. After induction of general endotracheal anesthesia, the patient was prepped in the usual fashion for image guided endoscopic sinus surgery. Lidocaine and epinephrine pledgets were placed in the bilateral nasal cavities and pressure applied. The [employer] headset was placed over the forehead and was registered, calibrated and verified and used for the frontal sinus and sphenoid sinus portions of the case. Also, due to the severe nasal polyposis in the ethmoid sinuses were used during the ethmoid sinus portion of the case. The pledgets were removed from the left side. A freer elevator was used to medialize the left middle turbinate. The left middle turbinate and uncinate process were injected with 1% lidocaine with 1:100,000 epinephrine. Lidocaine and epinephrine pledget was then placed in the left middle meatus. The right side was then addressed in a similar fashion. The left-sided pledget was removed. A straight Kevin-Cut forceps was used to remove the inferior half of the middle turbinate due to the patient's anatomy for ease of debridement in the office postoperatively. An uncinatectomy was then performed using a freer elevator and straight Kevin-Cut forceps as well as powered instrumentation and backbiting forceps. The natural ostium of the left maxillary sinus was identified and this was enlarged anteriorly, inferiorly, and posteriorly using backbiting forceps and powered instrumentation. Of note, there was severe mucosal thickening involving the left maxillary sinus, but there was no purulence or polyposis. A complete ethmoidectomy was then performed on the left hand side and the intraoperative findings were of severe nasal polyposis involving all of the ethmoid sinus. Image guidance was used for the left complete ethmoidectomy. A #6 frontal sinus balloon was then placed in the left frontal sinus and this was inflated to 12 atmospheres of pressure at 2 different locations in order to dilate the left frontal recess tract. Powered instrumentation was then used to remove polypoid tissue that was blocking the left frontal recess. A transethmoid approach to the sphenoid sinus was then undertaken and the left sphenoid sinus was entered and the natural ostium was enlarged medially and inferiorly using powered instrumentation. A lidocaine and epinephrine pledget was then placed in the left ethmoid cavity. The right side was then addressed in a similar fashion; however, on this side, there was an absent frontal sinus and therefore frontal sinusotomy was not performed. The inferior turbinates were then infractured and subsequently outfractured using a Pelayo elevator. The inferior turbinates were injected with 1% lidocaine with 1:100,000 epinephrine. A 2.0 mm turbinate blade using powered instrumentation was then used to perform bilateral inferior turbinoplasties in the submucosal fashion. The sinonasal cavities were then suctioned. A small amount of fibrillar followed by Merogel was placed into the bilateral ethmoid cavities for hemostasis. The nasal cavities and nasopharynx were suctioned. An orogastric tube was placed and the stomach was suctioned free of air and stomach contents. This marked the end of the case. The patient tolerated the procedure well. There were no apparent complications. The patient was extubated and transferred to recovery room in stable condition. I attest to the content of the Intraoperative Record and any orders documented therein. Any exception s are noted below.
== END | disposition home or self-care (01) ==
LOC: X.SURG 09:48
DX: J32.9 Chronic sinusitis, unspecified (principal); J34.3 Hypertrophy of nasal turbinates; J45.909 Unspecified asthma, uncomplicated; E11.9 Type 2 diabetes mellitus without complications; K21.9 Gastro-esophageal reflux disease without esophagitis; E78.5 Hyperlipidemia, unspecified; M19.90 Unspecified osteoarthritis, unspecified site; E66.9 Obesity, unspecified; E55.9 Vitamin D deficiency, unspecified; Z98.84 Bariatric surgery status

== ENCOUNTER → 2016-12-10 | Outpatient (CLI) | payer OTHER ==
[~2016-12-10] MED LIST changes: -ATROPINE SULFATE 0.1 MG/ML 5ML SYR IV PRN; -CEFAZOLIN 2000 MG/60 ML D5W IV SCH; -DEXAMETHASONE SOD INJ 4 MG/ML VIAL ONE; -EpHEDrine SULFATE INJ 50 MG/ML AMP IV PRN; -EpINEphrine INJ 1MG/ML AMP 1 MG/ML AMP ONE; -FENTANYL CITRATE INJ 50 MCG/1 ML 2 ML VIAL IV PRN; -FENTANYL CITRATE INJ 50 MCG/1 ML 2 ML VIAL ONE; -GLYCOPYRROLATE INJ 0.2 MG/ML VIAL ONE; -HYDROCODONE/ACETAMOPHEN 5/325MG TAB PO PRN; -LIDOCAINE 4% MPF SOAK 5 ML = 1 DOSE TOP ONE; -LIDOCAINE HCL 2% 2 ML VIAL (20MG/ML) ONE; -LIDOCAINE/EPINEPHRINE 1% INJ 50 ML VIAL ONE; -MIDAZOLAM HCL 1 MG/ML 2ML VIAL ONE; -NEOSTIGMINE METHYLSULFATE 5 MG/5 ML SYR ONE; -ONDANSETRON INJ 2 MG/ML 2 ML VIAL IV PRN; -ONDANSETRON INJ 2 MG/ML 2 ML VIAL IV STA; -ONDANSETRON INJ 2 MG/ML 2 ML VIAL ONE; -OXYMETAZOLINE HCL 0.05% NA SPR 15 ML BTL NAE SCH; -OXYMETAZOLINE HCL 0.05% NA SPR 15 ML BTL PRN; -PROPOFOL IV EMULSION 10 MG/ML 20 ML VIAL IV ONE; -SCOPOLAMINE 1.5 MG TDSY TD ONE
--- NOTE | 2016-12-10 12:21 | DIAGNOSTIC IMAGING REPORT ---
GI SERIES W/AIR ROUTINE CLINICAL HISTORY: TYPE II DIABETES. Pain. History of gastric bypass and Nadeen-en-Y anastomosis COMPARISON STUDY: None FLUOROSCOPY TIME: 1.2 minutes. NUMBER OF FLUOROSCOPIC IMAGES: 26 FINDINGS: The patient swallowed barium without difficulty. There are postsurgical changes of a gastric bypass. Gastrojejunostomy appears patent. No contrast was visualized within the excluded stomach. IMPRESSION: Postsurgical changes of a gastric bypass. No complicating features identified. Electronically signed by: Shayan Marcial M.D. 12/10/2016 12:19 PM Dictated Date/Time: 12/10/2016 12:18 PM
== END | disposition home or self-care (01) ==
LOC: C.RAD 10:37
PROVIDERS: ATTEND Surgery
DX: E11.9 Type 2 diabetes mellitus without complications (principal); G47.33 Obstructive sleep apnea (adult) (pediatric); Z98.84 Bariatric surgery status

== ENCOUNTER 2017-01-01 21:51 | Emergency (ER) | payer OTHER ==
[~2017-01-01] VITALS: Ht 167.6 cm; Wt 91.8 kg
[2017-01-01 22:02] VITALS: TEMP 36.9; Ht 167.6 cm; Wt 91.8 kg
[2017-01-01] MEDS ORDERED: SODIUM CHLORIDE 0.9% 1000ML 1,000 ML IV STA (22:36)
[2017-01-01] MEDS ORDERED: ONDANSETRON INJ 2 MG/ML 2 ML VIAL IV STA (22:36)
[2017-01-01] MEDS ORDERED: MoRPHine SULFATE 4 MG/ML 1 ML CARP\\VIAL IV STA ×2 (22:36→23:35)
[2017-01-01] MEDS ORDERED: OPTIRAY 320 IV PRN (22:45)
--- NOTE | 2017-01-01 22:48 | EMERGENCY ROOM VISIT NOTE ---
History First contact with patient: 22:25 Chief Complaint: ABDOMINAL PAIN Stated Complaint: AMBDOMINAL PAIN Nursing Triage Summary: PT HX of gastric bypass at [facility] in July. PT placed on augmentin approx 3 days ago R/T sinus infection. PT tonight has diffuse abd pain, cramping in nature, with nausea. PT has no fever/chills, does have sweats. PT has no vomiting and denies any diarrhea. abd is tender all over History of Present Illness The patient is a 31 year old female who presents to the Emergency Room with complaints of diffuse abdominal pain that started at approximately 9 PM today. She states the pain is diffuse but worse in her left upper quadrant and radiates up into her left shoulder, constant, 10/10. She had gastric bypass surgery with [facility] at [facility] July 2016. She reports she has been having increased pain with eating for the past few months, and has had some imaging studies done by her doctors and told everything was normal. She states that this pain is much worse and more sudden compared to any other pain she has had the past. She reports sweats and nausea, but denies any fevers or chills, vomiting, diarrhea constipation, blood in her stool, urinary symptoms, abnormal vaginal discharge or bleeding, chest pain, shortness of breath, dizziness or passing out. Review of Systems A complete 10 point review of systems was reviewed with the patient with pertinent positives and negatives as per history of present illness. All else were negative. Past Medical/Surgical History Medical Problems: (1) Asthma (2) Diabetes mellitus (3) DM type 2 (diabetes mellitus, type 2) (4) GERD (gastroesophageal reflux disease) (5) Kidney stone (6) Ovarian cyst (7) Sepsis Surgical Problems: (1) S/P appendectomy (2) S/P bilateral breast reduction (3) S/P section (4) S/P cholecystectomy Family History Diabetes mellitus FH: gallbladder disease FH: heart disease FH: lung disease Hypertension Kidney disease or stones Seizures Social History Smoking Status: Never Smoker Alcohol Use: none Drug Use: none Marital Status: Housing Status: lives with family Occupation Status: unemployed Current/Historical Medications Scheduled Omeprazole Magnesium (Prilosec Otc), 20 MG PO BID Ranitidine (Zantac), 150 MG PO BID Scheduled PRN Ondansetron Hcl (Zofran), 1 DOSE PO UD PRN for Nausea Promethazine Hcl (Phenergan), 25 MG PO Q6H PRN for Nausea Allergies Coded Allergies: No Known Allergies (Unverified , 11/13/16) Physical Exam Vital Signs Date Time Temp Pulse Resp B/P (MAP) Pulse Ox O2 Delivery O2 Flow Rate FiO2 01/02/17 07:57 61 15 93/55 97 01/02/17 07:35 61 15 97 01/02/17 07:20 58 13 98 01/02/17 07:01 60 15 93/55 98 01/02/17 06:50 63 15 96 01/02/17 06:36 63 01/02/17 06:35 63 13 97 01/02/17 06:20 70 16 100 01/02/17 06:14 107/59 01/02/17 06:06 70 15 98 01/02/17 05:06 17 01/02/17 05:01 109/70 01/02/17 04:24 81 17 100 01/02/17 04:19 94/59 01/02/17 04:10 60 13 97 01/02/17 03:40 59 14 98 01/02/17 03:13 61 01/02/17 03:10 66 18 99 01/02/17 03:06 72 16 90/51 97 Room Air 01/02/17 01:20 71 18 121/76 100 Room Air 01/01/17 23:46 69 18 111/62 100 Room Air 01/01/17 22:54 73 01/01/17 22:02 36.9 82 18 123/72 98 Room Air Physical Exam CONSTITUTIONAL: No acute distress, but she appears to be in significant pain. Dehydrated. Well appearing and well nourished. Alert and oriented X 4 with normal affect. HEENT: Normocephalic, atraumatic. Pupils equal, round and reactive to light, EOMI. TMs normal. Pharynx normal. Dry mucous membranes. NECK: Supple, full active range of motion without discomfort. RESPIRATORY: Clear to auscultation bilaterally with no wheezing, crackles, rhonchi or stridor. Equal expansion bilaterally. CARDIOVASCULAR: Regular rate and rhythm with no murmurs, rubs or gallops. Normal peripheral perfusion. No edema. GASTROINTESTINAL: Diffuse abdominal tenderness, most significant in the left upper quadrant and flank area, positive guarding. Negative rebound. Abdomen is soft and nondistended. Bowel sounds present in all quadrants. MUSCULOSKELETAL: Full range of motion of all joints without discomfort. INTEGUMENTARY: No rash or other significant dermatologic conditions noted. NEUROLOGIC: Cranial nerves II-XII grossly intact. No focal neurologic deficits noted. Medical Decision & Procedures ER Provider Diagnostic Interpretation: CT SCAN OF THE ABDOMEN AND PELVIS WITH IV CONTRAST CLINICAL HISTORY: Generalized abdominal pain. COMPARISON STUDY: Prior abdominal CT scans, most recently dated 10/30/2016. TECHNIQUE: Following the IV administration of 94 cc of Optiray 320, CT scan of the abdomen and pelvis is performed from the lung bases to the proximal femora. Images are reviewed in the axial, sagittal, and coronal planes. IV contrast was administered without complication. Automated dose control exposure was utilized. The examination is degraded by large body habitus, and by streak artifact from the body wall abutting the CT gantry. A dose lowering technique was utilized adhering to the principles of ALARA. CT DOSE: 928.26 mGy.cm FINDINGS: Lung bases: The heart is normal in size and without pericardial effusion. The lung bases are clear. Liver: The contrast-enhanced liver is enlarged, measuring 19.1 cm in length. The liver demonstrates diminished attenuation consistent with mild hepatic steatosis. There is minimal central intrahepatic biliary ductal dilatation. The hepatic veins and portal veins are patent. Gallbladder: Surgically absent. Spleen: Top normal in size measuring 13.0 cm in length. Pancreas: Unremarkable. Adrenal glands: Unremarkable. Kidneys: The contrast enhanced kidneys are normal in size and without hydronephrosis. The kidneys enhance symmetrically. There is a 3 mm nonobstructing right renal calculus. A subcentimeter cortical hypodensity in the left kidney likely represents a cyst but is too small for definitive characterization. Abdominal vasculature: The abdominal aorta is normal in course and caliber. Stomach and bowel: There are postoperative changes consistent with a Nadeen-en-Y gastric bypass surgery. No bowel obstruction is seen. Enteric contrast fills the pancreaticobiliary limb and the excluded stomach. The appendix is not identified and reported surgically absent. Peritoneum: There is no intraperitoneal free air or abdominal ascites. Lymphadenopathy: None. Pelvic viscera: The bladder is normal as visualized. The uterus appears mildly enlarged and heterogeneous. There are bilateral ovarian follicles. There is a 4.7 cm left ovarian cyst. 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 Skeletal structures: No lytic or blastic lesions are seen. IMPRESSION: 1. There is a 4.7 cm left ovarian cyst. 2. There are postoperative changes consistent with a Nadeen-en-Y gastric bypass procedure. No bowel obstruction is seen. 3. There is enteric contrast present within the excluded stomach and the pancreaticobiliary limb. This suggests a communication between the Nadeen loop and the Y-loop. Follow-up with the patient's bariatric surgeon is recommended. 4. Hepatomegaly and mild hepatic steatosis. 5. Small nonobstructing right renal calculus. 6. 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 This was seen on earlier prior examinations. Laboratory Results 01/01/17 22:37 Red Blood Count 4.79, Mean Corpuscular Volume 81.8, Mean Corpuscular Hemoglobin 26.3, Mean Corpuscular Hemoglobin Concent 32.1, Mean Platelet Volume 10.3, Neutrophils (%) (Auto) 53.6, Lymphocytes (%) (Auto) 37.3, Monocytes (%) (Auto) 6.4, Eosinophils (%) (Auto) 2.3, Basophils (%) (Auto) 0.3, Neutrophils # (Auto) 4.19, Lymphocytes # (Auto) 2.91, Monocytes # (Auto) 0.50, Eosinophils # (Auto) 0.18, Basophils # (Auto) 0.02 01/01/17 22:37 Test 01/01/17 22:37 01/01/17 23:47 White Blood Count 7.81 K/uL (4.8-10.8) Red Blood Count 4.79 M/uL (4.2-5.4) Hemoglobin 12.6 g/dL (12.0-16.0) Hematocrit 39.2 % (37-47) Mean Corpuscular Volume 81.8 fL (80-100) Mean Corpuscular Hemoglobin 26.3 pg (25-34) Mean Corpuscular Hemoglobin Concent 32.1 g/dl (32-36) Platelet Count 255 K/uL (130-400) Mean Platelet Volume 10.3 fL (7.4-10.4) Neutrophils (%) (Auto) 53.6 % Lymphocytes (%) (Auto) 37.3 % Monocytes (%) (Auto) 6.4 % Eosinophils (%) (Auto) 2.3 % Basophils (%) (Auto) 0.3 % Neutrophils # (Auto) 4.19 K/uL (1.4-6.5) Lymphocytes # (Auto) 2.91 K/uL (1.2-3.4) Monocytes # (Auto) 0.50 K/uL (0.11-0.59) Eosinophils # (Auto) 0.18 K/uL (0-0.5) Basophils # (Auto) 0.02 K/uL (0-0.2) RDW Standard Deviation 42.2 fL (36.4-46.3) RDW Coefficient of Variation 14.1 % (11.5-14.5) Immature Granulocyte % (Auto) 0.1 % Immature Granulocyte # (Auto) 0.01 K/uL (0.00-0.02) Anion Gap 5.0 mmol/L (3-11) Est Creatinine Clear Calc Drug Dose 157.4 ml/min Estimated GFR () 140.4 Estimated GFR (Non- 121.1 BUN/Creatinine Ratio 17.2 (10-20) Calcium Level 9.4 mg/dl (8.5-10.1) Total Bilirubin 0.5 mg/dl (0.2-1) Direct Bilirubin 0.1 mg/dl (0-0.2) Aspartate Amino Transf (AST/SGOT) 19 U/L (15-37) Alanine Aminotransferase (ALT/SGPT) 28 U/L (12-78) Alkaline Phosphatase 122 U/L (45-117) Total Protein 8.1 gm/dl (6.4-8.2) Albumin 3.9 gm/dl (3.4-5.0) Lipase 133 U/L (73-393) Urine Color YELLOW Urine Appearance CLEAR (CLEAR) Urine pH 5.0 (4.5-7.5) Urine Specific [place] 1.021 (1.000-1.030) Urine Protein NEG (NEG) Urine Glucose (UA) NEG (NEG) Urine Ketones TRACE (NEG) Urine Occult Blood NEG (NEG) Urine Nitrite NEG (NEG) Urine Bilirubin NEG (NEG) Urine Urobilinogen NEG (NEG) Urine Leukocyte Esterase NEG (NEG) Urine Test NEG (NEG) Medications Administered Medications (Trade) Dose Ordered Sig/Rody Route Start Time Stop Time Status Last Admin Dose Admin Sodium Chloride 1,000 ml @ 999 mls/hr Q1H1M STAT IV 01/01/17 22:36 01/01/17 23:36 DC 01/01/17 22:45 999 MLS/HR Ondansetron HCl (Zofran Inj) 4 mg NOW STAT IV 01/01/17 22:36 01/01/17 22:40 DC 01/01/17 22:45 4 MG Morphine Sulfate (MoRPHine SULFATE INJ) 4 mg NOW STAT IV 01/01/17 22:36 01/01/17 22:40 DC 01/01/17 22:45 4 MG Morphine Sulfate (MoRPHine SULFATE INJ) 4 mg NOW STAT IV 01/01/17 23:35 01/01/17 23:36 DC 01/01/17 23:38 4 MG Morphine Sulfate (MoRPHine SULFATE INJ) 4 mg NOW STAT IV 01/02/17 01:08 01/02/17 01:09 DC 01/02/17 01:16 4 MG Sodium Chloride 1,000 ml @ 125 mls/hr Q8H STAT IV 01/02/17 04:02 01/02/17 09:03 DC 01/02/17 04:40 125 MLS/HR Ondansetron HCl (Zofran Inj) 4 mg NOW STAT IV 01/02/17 04:47 01/02/17 04:50 DC 01/02/17 04:58 4 MG Famotidine (Pepcid 20mg/100 ml) 20 mg ONE STAT IV 01/02/17 04:47 01/02/17 04:50 DC 01/02/17 04:58 20 MG Morphine Sulfate (MoRPHine SULFATE INJ) 2 mg NOW STAT IV 01/02/17 05:10 01/02/17 05:11 DC 01/02/17 06:19 2 MG Medical Decision CC: Patient presenting with complaint of severe abdominal pain and nausea Interpretation of Labs: No leukocytosis, no anemia, no significant electrolyte abnormalities, normal renal function, normal liver enzymes and lipase, UA negative. Differential Diagnosis: Includes, but not limited to gastritis, gastroenteritis , peptic ulcer disease, complication of gastric bypass surgery including anastomotic leak, fistula, infection/abscess, small bowel obstruction, adhesions , diverticulitis, pancreatitis, cholelithiasis, choledocholithiasis, among others. Medication Reconciliation: I attest that I have personally reviewed the patient' s current medication list. Vital signs review: I reviewed the patient's vital signs and interpret them as follows: T: Afebrile; BP: Normotensive; HR: Within normal limits; RR: Within normal limits; Pulse Ox: Within normal limits on room air. Summary: Patient was evaluated at bedside, history of physical exam performed. Patient is alert and in no acute distress, but does appear to be very uncomfortable and in pain. She is tearful on exam. She has significant tenderness in the left flank and upper quadrant, diffuse tenderness throughout the abdomen. Orders were placed at bedside for labs, UA, IV fluids for hydration, IV pain and nausea medication, acute abdominal x-ray series to rule out free air, and CT abdomen/pelvis with IV and oral contrast to evaluate for gastric bypass complication. Patient discussed with Dr. Mukherjee, who agrees with my assessment and plan. Labs reviewed as above, no acute abnormalities. X-ray imaging negative for free air. CT imaging reviewed, no obstruction or obvious acute palpation however there is note of contrast media within the loop. I called and spoke with the on-call surgery attending at [facility], who agrees to accept the patient is a transfer for further evaluation. Patient reassessed multiple times throughout ED stay, her pain and nausea have been controlled medication, she has been resting comfortably in the stretcher. I discussed all results with the patient and plan for transfer to [facility], she verbalizes understanding and is in agreement with this plan. Patient was transferred in stable condition. Impression Primary Impression: Abdominal pain Departure Information Dispostion Transfer Acute Care Facility Condition [facility] Referrals No Doctor, Assigned (PCP) Patient Instructions My [facility] Problem Qualifiers Primary Impression: Abdominal pain Abdominal location: left upper quadrant Qualified Codes: R10.12 - Left upper quadrant pain
[2017-01-01 22:51] LABS: BASO % 0.3 %; BASO ABS # 0.02 K/uL (0-0.2); COMPLETE YES; EOS % 2.3 %; HEMATOCRIT 39.2 % (37-47); IG% 0.1 %; LYMPH % 37.3 %; LYMPH ABS # 2.91 K/uL (1.2-3.4); MEAN CELL VOLUME 81.8 fL (80-100); MEAN CORPUSCULAR HEMOGLOBIN 26.3 pg (25-34); MEAN CORPUSCULAR HGB CONC 32.1 g/dl (32-36); MEAN PLATELET VOLUME 10.3 fL (7.4-10.4); MONO % 6.4 %; NEUT % 53.6 %; PLATELET COUNT 255 K/uL (130-400); RED BLOOD COUNT 4.79 M/uL (4.2-5.4); WHITE BLOOD COUNT 7.81 K/uL (4.8-10.8)
[2017-01-01 23:14] LABS: BUN/CREATININE RATIO 17.2 (10-20); CALCIUM 9.4 mg/dl (8.5-10.1); CREATININE 0.58 mg/dl (0.60-1.20); POTASSIUM 3.7 mmol/L (3.5-5.1)
[2017-01-02 00:11] LABS: URINE APPEARANCE CLEAR (CLEAR); URINE BILIRUBIN NEG (NEG); URINE COLOR YELLOW; URINE NITRITE NEG (NEG); URINE SPECIFIC GRAVITY 1.021 (1.000-1.030); UROBILINOGEN NEG (NEG); ZZUR CULT IF INDIC CLEAN CATCH NO
[2017-01-02 00:20] LABS: MANUAL MICROSCOPIC REQUIRED? NO; REVIEW REQ? NO
--- NOTE | 2017-01-02 00:39 | DIAGNOSTIC IMAGING REPORT ---
PA CHEST WITH ABDOMINAL SERIES CLINICAL HISTORY: Generalized abdominal pain. Nausea. FINDINGS: A PA chest radiograph is compared to study dated 10/20/2016. The cardiomediastinal silhouette is unremarkable. There is chronic elevation of the right hemidiaphragm with associated atelectasis. The lungs and pleural spaces are otherwise clear. No pneumothorax is seen. The bony thorax is grossly intact. Supine and erect abdominal radiographs are correlated with abdominal CT dated 10/30/2016. Suture material projects over the gastroesophageal junction. Enteric contrast is noted. There are mildly distended loops of contrast-filled small bowel. There is no evidence of high-grade small bowel obstruction as gas is present throughout the colon. Scattered air-fluid levels are noted on the upright view. No evidence of intraperitoneal free air is seen. There are no abnormal abdominal calcifications. The lumbosacral spine and bony pelvis appear intact. IMPRESSION: 1. No active disease in the chest. 2. There are mildly distended loops of small bowel which demonstrate air-fluid levels. This could represent low-grade/partial small bowel obstruction versus a nonspecific enteritis. There is no evidence of high-grade small bowel obstruction as gas is seen throughout the colon. Electronically signed by: Delonte Sow M.D. 01/02/2017 12:37 AM Dictated Date/Time: 01/02/2017 12:35 AM
[2017-01-02] MEDS ORDERED: MoRPHine SULFATE 4 MG/ML 1 ML CARP\\VIAL IV STA ×2 (01:08→05:10)
--- NOTE | 2017-01-02 01:22 | DIAGNOSTIC IMAGING REPORT ---
CT SCAN OF THE ABDOMEN AND PELVIS WITH IV CONTRAST CLINICAL HISTORY: Generalized abdominal pain. COMPARISON STUDY: Prior abdominal CT scans, most recently dated 10/30/2016. TECHNIQUE: Following the IV administration of 94 cc of Optiray 320, CT scan of the abdomen and pelvis is performed from the lung bases to the proximal femora. Images are reviewed in the axial, sagittal, and coronal planes. IV contrast was administered without complication. Automated dose control exposure was utilized. The examination is degraded by large body habitus, and by streak artifact from the body wall abutting the CT gantry. A dose lowering technique was utilized adhering to the principles of ALARA. CT DOSE: 928.26 mGy.cm FINDINGS: Lung bases: The heart is normal in size and without pericardial effusion. The lung bases are clear. Liver: The contrast-enhanced liver is enlarged, measuring 19.1 cm in length. The liver demonstrates diminished attenuation consistent with mild hepatic steatosis. There is minimal central intrahepatic biliary ductal dilatation. The hepatic veins and portal veins are patent. Gallbladder: Surgically absent. Spleen: Top normal in size measuring 13.0 cm in length. Pancreas: Unremarkable. Adrenal glands: Unremarkable. Kidneys: The contrast enhanced kidneys are normal in size and without hydronephrosis. The kidneys enhance symmetrically. There is a 3 mm nonobstructing right renal calculus. A subcentimeter cortical hypodensity in the left kidney likely represents a cyst but is too small for definitive characterization. Abdominal vasculature: The abdominal aorta is normal in course and caliber. Stomach and bowel: There are postoperative changes consistent with a Nadeen-en-Y gastric bypass surgery. No bowel obstruction is seen. Enteric contrast fills the pancreaticobiliary limb and the excluded stomach. The appendix is not identified and reported surgically absent. Peritoneum: There is no intraperitoneal free air or abdominal ascites. Lymphadenopathy: None. Pelvic viscera: The bladder is normal as visualized. The uterus appears mildly enlarged and heterogeneous. There are bilateral ovarian follicles. There is a 4.7 cm left ovarian cyst. 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 Skeletal structures: No lytic or blastic lesions are seen. IMPRESSION: 1. There is a 4.7 cm left ovarian cyst. 2. There are postoperative changes consistent with a Nadeen-en-Y gastric bypass procedure. No bowel obstruction is seen. 3. There is enteric contrast present within the excluded stomach and the pancreaticobiliary limb. This suggests a communication between the Nadeen loop and the Y-loop. Follow-up with the patient's bariatric surgeon is recommended. 4. Hepatomegaly and mild hepatic steatosis. 5. Small nonobstructing right renal calculus. 6. 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 This was seen on earlier prior examinations. Electronically signed by: Delonte Sow M.D. 01/02/2017 1:20 AM Dictated Date/Time: 01/02/2017 1:13 AM
[2017-01-02] MEDS ORDERED: SODIUM CHLORIDE 0.9% 1000ML 1,000 ML IV STA (04:02)
[2017-01-02] MEDS ORDERED: ONDANSETRON INJ 2 MG/ML 2 ML VIAL IV STA (04:47)
[2017-01-02] MEDS ORDERED: FAMOTIDINE 20MG/102 ML D5W IV STA (04:47)
[2017-01-02 07:57] VITALS: BP 93/55; PULSE 61; O2SAT 97
== END 2017-01-02 07:59 | disposition short-term general hospital (02) ==
LOC: EDBD 21:51 → C.EDA 21:52
DX: R10.12 Left upper quadrant pain (principal); J45.909 Unspecified asthma, uncomplicated; E11.9 Type 2 diabetes mellitus without complications; K21.9 Gastro-esophageal reflux disease without esophagitis; Z83.3 Family history of diabetes mellitus; Z82.49 Family history of ischemic heart disease and other diseases of the circulatory system; Z82.0 Family history of epilepsy and other diseases of the nervous system; N83.202 Unspecified ovarian cyst, left side

== ENCOUNTER → 2017-01-07 | Outpatient (CLI) | payer OTHER ==
--- NOTE | 2017-01-07 13:53 | DIAGNOSTIC IMAGING REPORT ---
CT SCAN OF THE PARANASAL SINUSES CLINICAL HISTORY: Chronic sinusitis. COMPARISON STUDY: CT scan of the paranasal sinuses dated 09/23/2016. TECHNIQUE: High-resolution CT scan of the paranasal sinuses is performed. Images are reviewed in the axial, sagittal, and coronal planes. IV contrast was not administered for this examination. Examination is performed using the fusion protocol. A dose lowering technique was utilized adhering to the principles of ALARA. CT DOSE: 639.50 mGy.cm FINDINGS: Postoperative change: There are postoperative changes from bilateral maxillary antrectomy with antrostomy formation as well as ethmoid sinus resection. Maxillary antra: Moderate nodular mucosal thickening is seen in the left. Mild nodular mucosal thickening seen on the right. Anterior ethmoid sinuses: Trace mucosal thickening is seen on the left. Moderate to severe mucosal thickening is seen in the right. Posterior ethmoid sinuses: Subtotally opacified bilaterally. Sphenoid sinuses: Mild circumferential mucosal thickening is seen bilaterally. Frontal sinuses: Subtotally opacified on the right. Clear on the left. Antrostomies: The right maxillary antrostomy is widely patent. The left antrostomy is severely narrowed by mucosal thickening. Frontoethmoidal and sphenoethmoidal recesses: The left frontoethmoidal recess is clear. The right frontoethmoidal recess and the sphenoethmoidal recesses are occluded. Carotid arteries: The carotid arteries are covered and without septal attachments. Ethmoid roofs: There is slightly asymmetric elevation of the right ethmoid roof as compared to the left. Nasal turbinates: Normal in appearance. Nasal septum: There is minimal leftward deviation of the bony nasal septum. Optic nerves: Covered. Orbits: The bony orbits are intact. Orbital contents are normal in appearance. Calvarium: The imaged calvarium is normal in appearance Mastoid air cells: Well pneumatized. Brain parenchyma: Partially visualized brain parenchyma is within normal limits. IMPRESSION: Postoperative change and paranasal sinus disease as above. Electronically signed by: Delonte Sow M.D. 01/07/2017 1:52 PM Dictated Date/Time: 01/07/2017 1:48 PM
== END | disposition home or self-care (01) ==
LOC: C.CTS 13:27
DX: J32.9 Chronic sinusitis, unspecified (principal); Z98.890 Other specified postprocedural states

== ENCOUNTER 2017-01-22 19:19 | Emergency (ER) | payer OTHER ==
[~2017-01-22] VITALS: Ht 167.6 cm; Wt 88.8 kg
[~2017-01-22 19:19] MED LIST changes: -PROM25TA9 PO; -ZNTT/150 PO
[2017-01-22 19:26] VITALS: TEMP 37; Ht 167.6 cm; Wt 88.8 kg
[2017-01-22] MEDS ORDERED: SODIUM CHLORIDE 0.9% 1000ML 1,000 ML IV STA (19:46)
[2017-01-22] MEDS ORDERED: MECLIZINE HCL 25 MG TAB PO STA (19:46)
[2017-01-22] MEDS ORDERED: KETOROLAC TROMETHAMINE 30 MG/ML VIAL IV STA (19:46)
[2017-01-22 20:04] VITALS: BP 116/67
[2017-01-22 20:10] LABS: BASO % 0.6 %; BASO ABS # 0.05 K/uL (0-0.2); COMPLETE YES; EOS % 3.1 %; HEMATOCRIT 38.8 % (37-47); IG% 0.1 %; LYMPH % 38.9 %; LYMPH ABS # 3.14 K/uL (1.2-3.4); MEAN CELL VOLUME 82.7 fL (80-100); MEAN CORPUSCULAR HEMOGLOBIN 26.7 pg (25-34); MEAN CORPUSCULAR HGB CONC 32.2 g/dl (32-36); MEAN PLATELET VOLUME 10.1 fL (7.4-10.4); MONO % 5.9 %; NEUT % 51.4 %; PLATELET COUNT 275 K/uL (130-400); RED BLOOD COUNT 4.69 M/uL (4.2-5.4); WHITE BLOOD COUNT 8.07 K/uL (4.8-10.8)
[2017-01-22 20:12] LABS: URINE APPEARANCE CLEAR (CLEAR); URINE BILIRUBIN NEG (NEG); URINE COLOR YELLOW; URINE EPITHELIAL CELL AUTO >30 /lpf (0-5); URINE NITRITE NEG (NEG); URINE PH 6.5 (4.5-7.5); URINE SPECIFIC GRAVITY 1.026 (1.000-1.030); UROBILINOGEN NEG (NEG); ZZUR CULT IF INDIC CLEAN CATCH NO
[2017-01-22 20:14] LABS: MANUAL MICROSCOPIC REQUIRED? NO; REVIEW REQ? NO
[2017-01-22 20:34] LABS: ALT/SGPT 23 U/L (12-78); BLOOD UREA NITROGEN 9 mg/dl (7-18); CARBON DIOXIDE 27 mmol/L (21-32); CHLORIDE 107 mmol/L (98-107); CREATININE 0.59 mg/dl (0.60-1.20); GLUCOSE 89 mg/dl (70-99); POTASSIUM 3.5 mmol/L (3.5-5.1); SODIUM 141 mmol/L (136-145)
[2017-01-22 20:39] LABS: ALKALINE PHOSPHATASE 120 U/L (45-117); AST/SGOT 17 U/L (15-37)
--- NOTE | 2017-01-22 20:40 | DIAGNOSTIC IMAGING REPORT ---
HEAD WITHOUT CONTRAST (CT) CLINICAL HISTORY: 31 years-old Female with ELLISON dizzy . Acute headache and dizziness TECHNIQUE: Multiple axial CT images of the head were obtained without contrast. A dose lowering technique was utilized adhering to the principles of ALARA. CT DOSE: 638.56 mGycm COMPARISON: None. FINDINGS: No acute intracranial hemorrhage, midline shift, mass, large territorial ischemia or abnormal extra-axial collection. The calvarium is intact. Mastoid air cells and middle ear cavities are clear. Moderate to severe mucosal thickening of the ethmoid air cells. There is hypoplasia of the right frontal sinus. Moderate mucoperiosteal thickening of the sphenoid and imaged maxillary sinuses. Soft tissues are unremarkable. IMPRESSION: 1. No acute intracranial abnormality. 2. Paranasal sinus disease as above, most pronounced within the ethmoid sinuses. The above report was generated using voice recognition software. It may contain grammatical, syntax or spelling errors. Electronically signed by: Jagdeep Bhatti M.D. 01/22/2017 8:38 PM Dictated Date/Time: 01/22/2017 8:35 PM
[2017-01-22] MEDS ORDERED: ACETAMINOPHEN 500 MG TAB PO STA (21:11)
[2017-01-22 21:24] VITALS: PULSE 68; O2SAT 100
[2017-01-22] MEDS ORDERED: ANT25 PO (21:28)
--- NOTE | 2017-01-22 21:46 | DIAGNOSTIC IMAGING REPORT ---
ABDOMEN 2VIEW W/PA CHEST RTN HISTORY: 31 years-old Female abd pain acute generalized abdominal pain with nausea COMPARISON: Acute abdominal series radiographs and CT 01/02/2017 TECHNIQUE: PA view of the chest with erect and supine views of the abdomen FINDINGS: Cardiomediastinal and hilar silhouettes are within normal limits. Mild right hemidiaphragmatic elevation redemonstrated. There is no pneumothorax, pleural effusion or focal airspace consolidation. The bones of the chest are grossly intact. Surgical suture material seen within the left upper and left mid abdomen compatible with patient history of prior Nadeen-en-Y gastric bypass. Bowel gas pattern is nonobstructive. There is moderate stool volume of the ascending, transverse and descending colon. Punctate density of the right midabdomen at the level of L2 suggests right renal calculus as seen on comparison CT. IMPRESSION: 1. No acute cardiopulmonary process. 2. Nonobstructive bowel gas pattern with post surgical changes of the central and left upper abdomen compatible with patient history of prior Nadeen-en-Y gastric bypass. 3. Right nephrolithiasis redemonstrated. 4. Moderate stool volume as above suggests constipation. The above report was generated using voice recognition software. It may contain grammatical, syntax or spelling errors. Electronically signed by: Jagdeep Bhatti M.D. 01/22/2017 9:45 PM Dictated Date/Time: 01/22/2017 9:41 PM
--- NOTE | 2017-01-22 22:23 | EMERGENCY ROOM VISIT NOTE ---
History Report prepared by Berenice: Shabbir Gallegos Under the Supervision of: Dr. Adan Andre D.O. First contact with patient: 19:36 Chief Complaint: IRREGULAR HEARTBEAT Stated Complaint: IRREGULAR HEART BEAT,DIZZY,FEVER History of Present Illness The patient is a 31 year old female who presents to the Emergency Room with complaints of persistent lightheadedness beginning two hours ago. The patient states that she experienced similar symptoms a few days ago, but had never had it prior to this. She notes that the lightheadedness feels like she has a spinning in her head. She feels like this is located on the right side. She also complains of abdominal pain, nausea, bilateral legs feeling "hot", shakiness, headache, generalized weakness, and blurred vision. She notes that her abdominal pain is located around her umbilicus. This is unchanged from the same pain that she has had before in the past. No vomiting or diarrhea. Previous appendectomy and cholecystectomy. Previous gastric bypass. Also complains of a headache began 30 minutes ago. This headache came on gradually and progressively worsened. No fevers or stiff neck. She states that her vision is blurry to short distances from her eyes but she has no problem seeing far away. She denies wearing contacts or glasses. The patient states that her additional symptoms all began around the same time as her lightheadedness. She also admits to feeling her heart race which has been present for the past several hours. She denies any chest pain shortness of breath. She has feels that she has a fluttering in her heart. She also complains of a warmness in her bilateral thighs. Nothing makes this better or worse. She's never had this before. Aurelio she complains of feeling shaky and weak throughout her entire body. This all started several hours ago as well. She denies chest pain , SOB, numbness, vomiting, or diarrhea. Her LNMP was 1.5 weeks ago. Her last normal bowel movement was earlier today. No dysuria, urgency or frequency. She admits to having a history of anxiety but notes that this feels different. She denies any drugs or alcohol. She denies any fevers above 100.4. Source of History: patient Onset: Two hours ago Quality: other (lightheadedness) Timing: other (persistent) Associated Symptoms: + headache, + nausea, + abdominal pain, + weakness ( generalized), No vomiting, No diarrhea, No numbness Note: The patient also complains of bilateral legs feeling "hot", shakiness, and blurred vision. Review of Systems See HPI for pertinent positives & negatives. A total of 10 systems reviewed and were otherwise negative. Past Medical & Surgical Medical Problems: (1) Asthma (2) Diabetes mellitus (3) DM type 2 (diabetes mellitus, type 2) (4) GERD (gastroesophageal reflux disease) (5) Kidney stone (6) Ovarian cyst (7) Sepsis Surgical Problems: (1) S/P appendectomy (2) S/P bilateral breast reduction (3) S/P section (4) S/P cholecystectomy Family History Diabetes mellitus FH: gallbladder disease FH: heart disease FH: lung disease Hypertension Kidney disease or stones Seizures Social History Smoking Status: Never Smoker Alcohol Use: none Drug Use: none Marital Status: Housing Status: lives with family Occupation Status: unemployed Current/Historical Medications Scheduled Meclizine HCl (Meclizine HCl), 25 MG PO TID Omeprazole Magnesium (Prilosec Otc), 20 MG PO BID Scheduled PRN Ondansetron Hcl (Zofran), 1 DOSE PO UD PRN for Nausea Allergies Coded Allergies: No Known Allergies (Unverified , 01/22/17) Physical Exam Vital Signs Date Time Temp Pulse Resp B/P (MAP) Pulse Ox O2 Delivery O2 Flow Rate FiO2 01/22/17 21:24 68 19 100 01/22/17 20:24 75 18 01/22/17 20:19 82 18 93 Room Air 01/22/17 20:04 72 18 116/67 01/22/17 19:38 Room Air 01/22/17 19:26 37.0 77 18 119/68 99 Room Air Physical Exam GENERAL: Sitting up in bed, alert, well appearing, well nourished, no distress, non-toxic EYE EXAM: normal conjunctiva. PERRL and EOM's intact. OROPHARYNX: no exudate, no erythema, lips, buccal mucosa, and tongue normal and mucous membranes are moist NECK: supple, no nuchal rigidity, no adenopathy, non-tender LUNGS: Clear to auscultation. Normal chest wall mechanics HEART: no murmurs, S1 normal and S2 normal ABDOMEN: abdomen soft, non-tender, normo-active bowel sounds, no masses, no rebound or guarding. BACK: Back is symmetrical on inspection and there is no deformity, no midline tenderness, no CVA tenderness. SKIN: no rashes and no bruising UPPER EXTREMITIES: upper extremities are grossly normal. LOWER EXTREMITIES: No pitting edema. NEURO EXAM: Normal sensorium, cranial nerves II-XII intact, normal speech, no weakness of arms, no weakness of legs. No drift. Finger to nose intact. Gross sensation intact. Rapid alternating movements of the upper extremities intact. Medical Decision & Procedures ER Provider Diagnostic Interpretation: Radiology results as stated below per my review and the radiologist's interpretation: HEAD WITHOUT CONTRAST (CT) FINDINGS: No acute intracranial hemorrhage, midline shift, mass, large territorial ischemia or abnormal extra-axial collection. The calvarium is intact. Mastoid air cells and middle ear cavities are clear. Moderate to severe mucosal thickening of the ethmoid air cells. There is hypoplasia of the right frontal sinus. Moderate mucoperiosteal thickening of the sphenoid and imaged maxillary sinuses. Soft tissues are unremarkable. IMPRESSION: 1. No acute intracranial abnormality. 2. Paranasal sinus disease as above, most pronounced within the ethmoid sinuses. The above report was generated using voice recognition software. It may contain grammatical, syntax or spelling errors. Electronically signed by: Jagdeep Bhatti M.D. 01/22/2017 8:38 PM ABDOMEN 2VIEW W/PA CHEST RTN FINDINGS: Cardiomediastinal and hilar silhouettes are within normal limits. Mild right hemidiaphragmatic elevation redemonstrated. There is no pneumothorax, pleural effusion or focal airspace consolidation. The bones of the chest are grossly intact. Surgical suture material seen within the left upper and left mid abdomen compatible with patient history of prior Nadeen-en-Y gastric bypass. Bowel gas pattern is nonobstructive. There is moderate stool volume of the ascending, transverse and descending colon. Punctate density of the right midabdomen at the level of L2 suggests right renal calculus as seen on comparison CT. IMPRESSION: 1. No acute cardiopulmonary process. 2. Nonobstructive bowel gas pattern with post surgical changes of the central and left upper abdomen compatible with patient history of prior Nadeen-en-Y gastric bypass. 3. Right nephrolithiasis redemonstrated. 4. Moderate stool volume as above suggests constipation. The above report was generated using voice recognition software. It may contain grammatical, syntax or spelling errors. Electronically signed by: Jagdeep Bhatti M.D. 01/22/2017 9:45 PM Laboratory Results 01/22/17 19:45 Red Blood Count 4.69, Mean Corpuscular Volume 82.7, Mean Corpuscular Hemoglobin 26.7, Mean Corpuscular Hemoglobin Concent 32.2, Mean Platelet Volume 10.1, Neutrophils (%) (Auto) 51.4, Lymphocytes (%) (Auto) 38.9, Monocytes (%) (Auto) 5.9, Eosinophils (%) (Auto) 3.1, Basophils (%) (Auto) 0.6, Neutrophils # (Auto) 4.14, Lymphocytes # (Auto) 3.14, Monocytes # (Auto) 0.48, Eosinophils # (Auto) 0.25, Basophils # (Auto) 0.05 01/22/17 19:45 Test 01/22/17 19:45 White Blood Count 8.07 K/uL (4.8-10.8) Red Blood Count 4.69 M/uL (4.2-5.4) Hemoglobin 12.5 g/dL (12.0-16.0) Hematocrit 38.8 % (37-47) Mean Corpuscular Volume 82.7 fL (80-100) Mean Corpuscular Hemoglobin 26.7 pg (25-34) Mean Corpuscular Hemoglobin Concent 32.2 g/dl (32-36) Platelet Count 275 K/uL (130-400) Mean Platelet Volume 10.1 fL (7.4-10.4) Neutrophils (%) (Auto) 51.4 % Lymphocytes (%) (Auto) 38.9 % Monocytes (%) (Auto) 5.9 % Eosinophils (%) (Auto) 3.1 % Basophils (%) (Auto) 0.6 % Neutrophils # (Auto) 4.14 K/uL (1.4-6.5) Lymphocytes # (Auto) 3.14 K/uL (1.2-3.4) Monocytes # (Auto) 0.48 K/uL (0.11-0.59) Eosinophils # (Auto) 0.25 K/uL (0-0.5) Basophils # (Auto) 0.05 K/uL (0-0.2) RDW Standard Deviation 42.2 fL (36.4-46.3) RDW Coefficient of Variation 14.2 % (11.5-14.5) Immature Granulocyte % (Auto) 0.1 % Immature Granulocyte # (Auto) 0.01 K/uL (0.00-0.02) Urine Color YELLOW Urine Appearance CLEAR (CLEAR) Urine pH 6.5 (4.5-7.5) Urine Specific [place] 1.026 (1.000-1.030) Urine Protein NEG (NEG) Urine Glucose (UA) NEG (NEG) Urine Ketones NEG (NEG) Urine Occult Blood NEG (NEG) Urine Nitrite NEG (NEG) Urine Bilirubin NEG (NEG) Urine Urobilinogen NEG (NEG) Urine Leukocyte Esterase NEG (NEG) Urine WBC (Auto) 1-5 /hpf (0-5) Urine RBC (Auto) 5-10 /hpf (0-4) Urine Hyaline Casts (Auto) 1-5 /lpf (0-5) Urine Epithelial Cells (Auto) >30 /lpf (0-5) Urine Bacteria (Auto) NEG (NEG) Urine Test NEG (NEG) Anion Gap 6.0 mmol/L (3-11) Est Creatinine Clear Calc Drug Dose 152.2 ml/min Estimated GFR () 139.6 Estimated GFR (Non- 120.4 BUN/Creatinine Ratio 16.0 (10-20) Calcium Level 9.0 mg/dl (8.5-10.1) Total Bilirubin 0.3 mg/dl (0.2-1) Direct Bilirubin 0.1 mg/dl (0-0.2) Aspartate Amino Transf (AST/SGOT) 17 U/L (15-37) Alanine Aminotransferase (ALT/SGPT) 23 U/L (12-78) Alkaline Phosphatase 120 U/L (45-117) Troponin I < 0.015 ng/ml (0-0.045) Total Protein 7.7 gm/dl (6.4-8.2) Albumin 3.8 gm/dl (3.4-5.0) Lipase 159 U/L (73-393) Laboratory results per my review. Medications Administered Medications (Trade) Dose Ordered Sig/Rody Route Start Time Stop Time Status Last Admin Dose Admin Sodium Chloride 1,000 ml @ 999 mls/hr Q1H1M STAT IV 01/22/17 19:46 01/22/17 20:46 DC 01/22/17 20:07 999 MLS/HR Ketorolac Tromethamine (Toradol Inj) 30 mg NOW STAT IV 01/22/17 19:46 01/22/17 19:49 DC 01/22/17 20:07 30 MG Meclizine HCl (Antivert Tab) 25 mg NOW STAT PO 01/22/17 19:46 01/22/17 19:49 DC 01/22/17 20:04 25 MG ECG Indication: abdominal pain Rate (beats per minute): 68 Rhythm: sinus rhythm Findings: T-wave inversion (Septal), no ectopy, other (Normal axis) Comparison ECG Date: 01/01/2017 Change: no significant change ED Course ED COURSE: Vital signs were reviewed and appeared normal. The patients medical record was reviewed The above diagnostic studies were performed and reviewed. ED treatments and interventions as stated above. 1936: The patient was evaluated in room B5. A complete history and physical examination was performed. 1945: Ordered Antivert Tab 25 mg PO, Toradol Inj 30 mg IV, Sodium Chloride 1000 ml @ 999 mls/hr IV. 2110: Ordered Tylenol Tab 1000 mg PO. 2042: I reassessed the patient. Her shakiness, sensations in her legs, and dizziness have all improved. 2134: The patient eloped. Medical Decision Differential diagnosis includes etiologies such as benign positional vertigo, dehydration, hypovolemia, anemia, tumor, infection, hypoglycemia, electrolyte abnormalities, cardiac sources, intracerebral event, toxicologic, neurologic, as well as others were entertained. Patient is a 31-year-old female who presents to ER for multiple complaints as noted in the history of present illness. She is completely neurologically intact. EKG was unremarkable. CT head was negative. Neurologic exam is intact. Favor peripheral rather than central cause of dizziness as Antivert worked and neuro exam completely intact. Her abdominal exam is completely benign. Obstruction series was unremarkable. CBC all BMP, LFTs, bilirubin and lipase is unremarkable. Troponin was negative. UA was negative. was negative. With her completely benign abdominal exam I did not feel this warranted any imaging. There is no signs of any arrhythmia on EKG. She was given Toradol and Antivert. She had near complete resolution of the dizziness and headache. Nothing to suggest subarachnoid, meningitis or encephalitis. Patient did have her IV removed by the nurse. She eloped. I was unable to obtain a visual acuity secondary to this. I was also unable to repeat a troponin although she had no chest pain. I did place discharge instructions and she comes back in and Antivert prior to me leaving the ER although I doubt she will return. I questioned this is secondary to me not giving her narcotics for what she described and admitted as her chronic abdominal pain. No discharge instructions were given and she did elope. Medication Reconcilliation Current Medication List: was personally reviewed by me Blood Pressure Screening Patient's blood pressure: Normal blood pressure Blood pressure disposition: Did not require urgent referral Impression Primary Impression: Dizzy Additional Impressions: Abdominal pain Blurry vision, bilateral Warm skin Palpitation Generalized pain Headache Scribe Attestation The scribe's documentation has been prepared under my direction and personally reviewed by me in its entirety. I confirm that the note above accurately reflects all work, treatment, procedures, and medical decision making performed by me. Departure Information Dispostion Other (Eloped) Prescriptions Meclizine HCl (Meclizine HCl) 25 Mg Tab 25 MG PO TID for dizzy, #20 Prov: Adan Andre, DO 01/22/17 Referrals No Doctor, Assigned (PCP) Forms HOME CARE DOCUMENTATION FORM, IMPORTANT VISIT INFORMATION Patient Instructions My [facility] Problem Qualifiers Additional Impressions: Abdominal pain Abdominal location: unspecified location Qualified Codes: R10.9 - Unspecified abdominal pain Headache Headache type: unspecified Headache chronicity pattern: acute headache Intractability: not intractable Qualified Codes: R51 - Headache
== END 2017-01-22 21:25 | disposition home or self-care (01) ==
LOC: C.EDB 19:20
DX: R42 Dizziness and giddiness (principal); R10.9 Unspecified abdominal pain; H53.8 Other visual disturbances; R00.2 Palpitations; R52 Pain, unspecified; R51 Headache; E11.9 Type 2 diabetes mellitus without complications; K21.9 Gastro-esophageal reflux disease without esophagitis; J45.909 Unspecified asthma, uncomplicated; N83.209 Unspecified ovarian cyst, unspecified side; Z87.442 Personal history of urinary calculi; Z86.19 Personal history of other infectious and parasitic diseases; Z90.49 Acquired absence of other specified parts of digestive tract; Z98.890 Other specified postprocedural states; Z79.899 Other long term (current) drug therapy; Z83.3 Family history of diabetes mellitus; Z83.79 Family history of other diseases of the digestive system; Z82.49 Family history of ischemic heart disease and other diseases of the circulatory system; Z84.1 Family history of disorders of kidney and ureter; Z82.0 Family history of epilepsy and other diseases of the nervous system

== ENCOUNTER → 2017-02-01 | Day surgery (SDC) | payer OTHER ==
[2017-01-19 11:42] VITALS: BMI 31.0
[~2017-02-01] VITALS: Ht 167.6 cm; Wt 87.3 kg
[~2017-02-01] MED LIST changes: +ANT25 PO; +ATROPINE SULFATE 0.1 MG/ML 5ML SYR IV PRN; +CEFAZOLIN 2000MG IV PUSH 10 ML IV SCH; +DEXAMETHASONE SOD INJ 4 MG/ML VIAL ONE; +EpHEDrine SULFATE INJ 50 MG/ML AMP IV PRN; +EpHEDrine SULFATE INJ 50 MG/ML AMP ONE; +EpINEphrine INJ 1MG/ML AMP 1 MG/ML AMP ONE; +FENTANYL CITRATE INJ 50 MCG/1 ML 2 ML VIAL ONE; +GLYCOPYRROLATE INJ 0.2 MG/ML VIAL ONE; +HYDROCODONE/ACETAMOPHEN 5/325MG TAB PO PRN; +LACTATED RINGER'S 1000ML 1,000 ML IV SCH; +LIDOCAINE 4% MPF SOAK 5 ML = 1 DOSE TOP ONE; +LIDOCAINE HCL 2% 2 ML VIAL (20MG/ML) ONE; +LIDOCAINE/EPINEPHRINE 1% INJ 50 ML VIAL ONE; +MIDAZOLAM HCL 1 MG/ML 2ML VIAL ONE; +NEOSTIGMINE METHYLSULFATE 5 MG/5 ML SYR ONE; +ONDANSETRON INJ 2 MG/ML 2 ML VIAL IV PRN; +ONDANSETRON INJ 2 MG/ML 2 ML VIAL IV STA; +ONDANSETRON INJ 2 MG/ML 2 ML VIAL ONE; +OXYMETAZOLINE HCL 0.05% NA SPR 15 ML BTL PRN; +OXYMETAZOLINE HCL 0.05% NA SPR 15 ML BTL SCH; +PHENYLEPHRINE HCL INJ 10 MG/ML VIAL ONE; +PROMETHAZINE HCL INJ 12.5 MG in SODIUM CHLORIDE 0.9% 50ML 50 ML IV PRN; +PROMETHAZINE HCL INJ 25 MG/ML 1 ML VIAL ONE; +PROPOFOL IV EMULSION 10 MG/ML 20 ML VIAL IV ONE; +SUCCINYLCHOLINE CHLORIDE 20 MG/ML 10 ML VIAL IV ONE
[2017-02-01 10:17] VITALS: Ht 167.6 cm; Wt 87.3 kg
--- NOTE | 2017-02-01 11:57 | History & Physical Bridge - SC ---
H&P Re-Evaluation Bridge Note: I have examined the patient, reviewed the History & Physical and in the interval since the performance of the History & Physical I have noted the following changes of clinical significance: No changes noted
--- NOTE | 2017-02-01 13:35 | [facility] Operative Report ---
Operative Report Operative Date Feb 01, 2017. Pre-Operative Diagnosis Chronic Sinusitis Post-Operative Diagnosis Same Procedure(s) Performed Revision Image Guided Bilateral Endoscopic Sinus Surgery Surgeon Dr. Haro Cribber Surgeon(s) None Estimated Blood Loss 100 mL Findings 1. SEVERE R>L POLYPOID MUCOSAL THICKENING BLOCKING PREVIOUS L>R MAXILLARY ANTROSTOMIES AND ETHMOID CAVITIES, AND SYNECHIAE SCARRING THE PREVIOUS SPHENOIDOTOMIES BILATERALLY Specimens None I attest to the content of the Intraoperative Record and any orders documented therein. Any exceptions are noted below.
--- NOTE | 2017-02-01 13:37 | Discharge Instructions ---
Discharge Instructions Date of Service Feb 01, 2017. Admission Reason for Admission: Chronic Sinusitis Discharge Discharge Diagnosis / Problem: SAME Discharge Goals Goal(s): Therapeutic intervention Activity Recommendations Activity Limitations: as noted below LIGHT ACTIVITY FOR 2 WEEKS; NO DRIVING WHILE ON NORCO . Current Hospital Diet Patient's current hospital diet: Discharge Diet Recommended Diet: Regular Diet Procedures Procedures Performed: Revision Image Guided Bilateral Endoscopic Sinus Surgery Pending Studies Studies pending at discharge: no Medical Emergencies . Who to Call and When: Medical Emergencies: If at any time you feel your situation is an emergency, please call 911 immediately. . Non-Emergent Contact Non-Emergency issues call your: Surgeon . . "Provider Documentation" section prepared by Tray Haro. . VTE Core Measure Inpt VTE Proph given/why not?: SCD's
[2017-02-01] MEDS: FENTANYL CITRATE INJ 50 MCG/1 ML 2 ML VIAL IV PRN ×4 (14:11→14:51)
--- NOTE | 2017-02-01 14:13 | OPERATIVE REPORT ---
DATE OF OPERATION: 02/01/2017 PREOPERATIVE DIAGNOSIS: Chronic polypoid rhinosinusitis. POSTOPERATIVE DIAGNOSIS: Chronic polypoid rhinosinusitis. PROCEDURE: Image guided revision, bilateral endoscopic sinus surgery consisting of: 1. Bilateral revision maxillary antrostomies. 2. Bilateral revision complete ethmoidectomies. 3. Bilateral revision sphenoidotomies. 4. Revision right frontal sinusotomy. SURGEON: Dr. Tray Haro. ANESTHESIA: General endotracheal. ESTIMATED BLOOD LOSS: 100 mL. FINDINGS: 1. Severe polypoid mucosal thickening involving the left greater than right maxillary sinuses and right greater than left ethmoid and sphenoid sinuses with mild right frontal ethmoidal recess blockage. 2. Synechia blocking the previous bilateral sphenoidotomies. 3. Purulence within the left posterior ethmoid sinus. SPECIMENS: None. COMPLICATIONS: None. INDICATIONS FOR THE PROCEDURE: The patient is a 31-year-old female who underwent image-guided bilateral endoscopic sinus surgery and inferior turbinate reduction for severe polypoid rhinosinusitis. The patient did not tolerate in-office sinonasal debridements very well and developed some scar tissue and further polypoid mucosal thickening due to the inability to have all of the sinonasal crusting and debris removed in the office. Despite several rounds of antibiotics and steroids, she continued to have sinonasal symptoms, but overall was "50%" better after her original surgery compared to the preoperative state. Due to her continued symptomatology, a posttreatment fusion CT scan of sinuses was obtained, which showed resolution of her left frontal sinusitis and improvement of her bilateral maxillary and ethmoid sinusitis. However, she continued to have relative pansinusitis with worsening of the right frontal sinus, improvement of the left frontal sinus, improvement of the bilateral maxillary and ethmoid sinuses and no change in sphenoid sinuses. It was decided to perform revision image-guided bilateral endoscopic sinus surgery and plan a sinonasal debridement in the operating room 2 weeks later to try to prevent this from occurring again. She presents for the above-mentioned procedures on an outpatient elective basis. DESCRIPTION OF PROCEDURE: After informed consent had been obtained from the patient, the patient was wheeled to the operating room and placed on the operating table in the supine position. Monitors were placed. After induction of general endotracheal anesthesia, the patient was prepped in the usual fashion for image guided endoscopic sinus surgery. The Kublax headset was placed over the forehead and was registered, calibrated and used for the majority of the procedure, especially the right frontal sinusotomy and bilateral sphenoidotomies. Lidocaine and epinephrine pledgets were placed in the bilateral nasal cavities and pressure applied. On the left hand side, a Gilchrist elevator was used to medialize the left middle turbinate. The left middle turbinate and lateral nasal wall were injected with 1% lidocaine with 1:100,000 epinephrine. The lidocaine and epinephrine pledget was then placed in the left middle meatus. The right side was then addressed in a similar fashion. On the left hand side, the pledget was removed. The patient's previous left maxillary antrostomy had severe polypoid tissue, blocking the opening to this and this was removed using powered instrumentation. Straight Kevin-Cut forceps was used to enlarge the previous left maxillary antrostomy posteriorly. Powered instrumentation was used to enlarge the inferior and anterior aspects of the maxillary antrostomy. The superior aspect was left undisturbed. Some of the polypoid tissue was removed from the medial aspect of the maxillary sinus to try to prevent synechia formation from occurring due to the severe polypoid mucosal thickening with almost opposing edges of the anterior and posterior aspects of the mucosa of the maxillary sinus. After this had been performed, a revision left complete ethmoidectomy was performed. There was polypoid tissue blocking some of the previous work that had been done. There was some purulence within the left posterior ethmoid sinus, which was suctioned using a straight Mancini suction. Using a transnasal approach, the sphenoid sinus ostium was encountered. There was significant synechia formation, blocking the previous sphenoidotomy. An image-guided straight suction was used to enter the sphenoid sinus and the medial and inferior aspects of the sphenoid sinus ostia were enlarged using powered instrumentation. The frontal sinus was explored and this was found to be widely patent as was depicted on the fusion CT scan. Lidocaine and epinephrine pledget was then placed in the left ethmoid cavity. The right side was then addressed. On this side, the patient's previous maxillary antrostomy was more widely patent than on the left. Nevertheless, the posterior aspect of this was revised using powered instrumentation and straight Kevin-Cut forceps. The mucosa of the right maxillary sinus only showed mild polypoid mucosal thickening and not severe like the left hand side. However, the right ethmoid sinus and sphenoid sinuses seemed to be more inflamed with polypoid mucosal thickening and scar formation. There was synechia and polypoid formation blocking the right frontal ethmoid recess. Using a curved frontal sinus suction, the right frontal sinus was cannulated. Polypoid tissue and synechia was removed using powered instrumentation. Therefore, a right frontal sinusotomy was then performed. Similarly to the left hand side, a transnasal approach to the sphenoid sinus was undertaken. There was significant synechia, blocking the previous sphenoidotomy. This was entered using a Mancini suction and the sphenoid sinus ostium was enlarged medially and inferiorly. There was more extensive bleeding posteriorly within the right posterior ethmoid system and this had to be cauterized using suction Bovie electrocautery. Care was taken to achieve adequate hemostasis. Estimated blood loss was 100 mL. All the pledgets were then removed from the patient. The sinonasal cavities were suctioned. The nasopharynx was suctioned. Merogel was placed in the bilateral ethmoid sinuses/middle meati and an orogastric tube was placed and the stomach was suctioned free of air and stomach contents. This marked the end of the case. The patient tolerated the procedure well. There were no apparent complications. The patient was extubated and transferred to recovery room in stable condition. I attest to the content of the Intraoperative Record and any orders documented therein. Any exception s are noted below.
--- NOTE | 2017-02-01 16:00 | Anesthesia Progress Nt - [facility] ---
Anesthesia Post Op Note Date & Time Feb 01, 2017 at 15:59 Vital Signs Pain Intensity: 5 Vital Signs Past 12 Hours Date Time Temp Pulse Resp B/P (MAP) Pulse Ox O2 Delivery O2 Flow Rate FiO2 02/01/17 15:29 37.5 81 16 138/93 (108) 99 Room Air 02/01/17 15:06 133/91 02/01/17 15:05 78 14 02/01/17 15:05 83 14 96 02/01/17 15:01 145/101 02/01/17 15:00 70 13 98 02/01/17 15:00 72 13 02/01/17 14:56 37.5 71 15 136/92 98 Room Air 02/01/17 14:56 136/92 02/01/17 14:55 89 19 96 02/01/17 14:55 86 19 02/01/17 14:54 70 12 99 02/01/17 14:54 71 12 02/01/17 14:51 151/99 02/01/17 14:49 83 16 02/01/17 14:49 85 16 99 02/01/17 14:46 142/85 02/01/17 14:44 77 13 02/01/17 14:44 76 13 99 02/01/17 14:43 75 12 02/01/17 14:43 75 12 99 02/01/17 14:41 140/95 02/01/17 14:38 76 11 98 02/01/17 14:38 76 11 02/01/17 14:36 134/86 02/01/17 14:33 75 12 02/01/17 14:33 76 12 97 02/01/17 14:31 139/91 02/01/17 14:28 76 13 98 02/01/17 14:28 75 13 02/01/17 14:26 137/94 02/01/17 14:23 72 11 02/01/17 14:23 71 11 95 02/01/17 14:21 132/91 02/01/17 14:18 73 14 96 02/01/17 14:18 73 14 02/01/17 14:16 136/95 02/01/17 14:13 77 12 100 02/01/17 14:13 78 12 02/01/17 14:11 130/102 02/01/17 14:08 84 17 02/01/17 14:08 86 17 99 02/01/17 14:07 143/86 02/01/17 14:03 87 11 02/01/17 14:03 84 11 100 02/01/17 14:01 132/97 02/01/17 13:58 79 14 100 02/01/17 13:58 78 14 02/01/17 13:56 137/91 02/01/17 13:53 82 15 02/01/17 13:53 82 15 100 02/01/17 13:51 129/86 02/01/17 13:48 90 14 100 02/01/17 13:48 90 14 02/01/17 13:46 127/86 02/01/17 13:44 128/84 02/01/17 13:43 96 02/01/17 13:43 96 100 02/01/17 13:43 36.8 88 16 120/84 100 Humidified Oxygen 6 Mask 02/01/17 10:12 36.9 71 20 109/75 (86) 99 Room Air Notes Mental Status: alert / awake / arousable, participated in evaluation Pt Amnestic to Procedure: Yes Nausea / Vomiting: adequately controlled Pain: adequately controlled Airway Patency, RR, SpO2: stable & adequate BP & HR: stable & adequate Hydration State: stable & adequate Anesthetic Complications: no major complications apparent Doing well. Nausea better after phenergan. VSS. Ready for d/c
[2017-02-01 16:08] VITALS: BP 132/82; PULSE 78; TEMP 37.4; O2SAT 100
== END | disposition home or self-care (01) ==
LOC: X.SURG 09:44
DX: J32.0 Chronic maxillary sinusitis (principal); J32.2 Chronic ethmoidal sinusitis; J32.3 Chronic sphenoidal sinusitis; J34.89 Other specified disorders of nose and nasal sinuses; E11.9 Type 2 diabetes mellitus without complications; Z79.899 Other long term (current) drug therapy; Z98.84 Bariatric surgery status
CPT/HCPCS: 31255; 31256; 31276; 31287; S1090

== ENCOUNTER → 2017-02-09 | Day surgery (SDC) | payer OTHER ==
[~2017-02-09] VITALS: Ht 167.6 cm; Wt 85.9 kg
[~2017-02-09] MED LIST changes: -CEFAZOLIN 2000MG IV PUSH 10 ML IV SCH; -DEXAMETHASONE SOD INJ 4 MG/ML VIAL ONE; -EpHEDrine SULFATE INJ 50 MG/ML AMP ONE; -EpINEphrine INJ 1MG/ML AMP 1 MG/ML AMP ONE; -GLYCOPYRROLATE INJ 0.2 MG/ML VIAL ONE; -HYDROCODONE/ACETAMOPHEN 5/325MG TAB PO PRN; -LACTATED RINGER'S 1000ML 1,000 ML IV SCH; -LIDOCAINE 4% MPF SOAK 5 ML = 1 DOSE TOP ONE; -LIDOCAINE/EPINEPHRINE 1% INJ 50 ML VIAL ONE; -MIDAZOLAM HCL 1 MG/ML 2ML VIAL ONE; -NEOSTIGMINE METHYLSULFATE 5 MG/5 ML SYR ONE; -ONDANSETRON INJ 2 MG/ML 2 ML VIAL IV PRN; -ONDANSETRON INJ 2 MG/ML 2 ML VIAL IV STA; -ONDANSETRON INJ 2 MG/ML 2 ML VIAL ONE; -OXYMETAZOLINE HCL 0.05% NA SPR 15 ML BTL PRN; -OXYMETAZOLINE HCL 0.05% NA SPR 15 ML BTL SCH; -PHENYLEPHRINE HCL INJ 10 MG/ML VIAL ONE; -PROMETHAZINE HCL INJ 12.5 MG in SODIUM CHLORIDE 0.9% 50ML 50 ML IV PRN; -PROMETHAZINE HCL INJ 25 MG/ML 1 ML VIAL ONE; +SODIUM CHLORIDE 0.9% 500ML 500 ML IV ONE; -SUCCINYLCHOLINE CHLORIDE 20 MG/ML 10 ML VIAL IV ONE
[2017-02-09 09:43] VITALS: Ht 167.6 cm; Wt 85.9 kg
--- NOTE | 2017-02-09 10:04 | Endo History and Physical ---
History & Physical Date of Service: Feb 09, 2017. Chief Complaint: abdomen pain Referring Physician: Dr. Ulises Matias History of Present Illness 31 yo female who presents for EGD secondary to abdominal pain. Past Medical History Diabetes, Asthma, Reflux, High Cholesterol, CHF Past Surgical History Hx Cardiac Surgery: No Hx Internal Defibrillator: No Hx Pacemaker: No Hx Abdominal Surgery: Yes ( X3, APPY, LISSY, GASTRIC BYPASS (JULY 2016) ) Hx Post-Op Nausea and Vomiting: No Hx Cancer Surgery: No Hx Thoracic Surgery: No Hx Orthopedic: No Hx Urinary Tract Surgery: No Family History None Social History Smoking Status: Never Smoker Hx Substance Use: No Hx Alcohol Use: No Allergies Coded Allergies: No Known Allergies (Verified , 02/09/17) Current Medications Reported Home Medications Medications Dose Route/Sig Max Daily Dose Days Date Category Zofran (Ondansetron HCl) 4 Mg Tab 1 Dose PO UD PRN 11/13/16 Reported Prilosec Otc (Omeprazole Magnesium) 20 Mg Tab 20 Mg PO BID 10/30/16 Reported Vital Signs Weight (Kilograms): 85.91 Height (Feet): 5 Height (Inches): 6 Date Time Temp Pulse Resp B/P (MAP) Pulse Ox O2 Delivery O2 Flow Rate FiO2 02/09/17 09:54 36.8 89 18 173/83 (113) 98 Room Air Physical Exam General Appearance: WD/WN, no apparent distress Respiratory/Chest: Auscultation: breath sounds normal Cardiovascular: Heart Auscultation: RRR Abdomen: Bowel Sounds: normal Inspection & Palpation: soft, non-distended, no tenderness, guarding & rebound Assessment and Plan Assessment: 31 yo female who presents for EGD secondary to abdominal pain. Plan: Proceed with EGD.
--- NOTE | 2017-02-09 10:55 | Discharge Instructions ---
Endoscopy Patient Instructions Date / Procedure(s) Performed Feb 09, 2017. EGD Allergy Information Coded Allergies: No Known Allergies (Verified , 02/09/17) Discharge Date / Findings Feb 09, 2017. Anastomotic ulcer s/p biopsies Medication Instructions OK to resume all medications today as prescribed Reported Home Medications Medications Dose Route/Sig Max Daily Dose Days Date Category Zofran (Ondansetron HCl) 4 Mg Tab 1 Dose PO UD PRN 11/13/16 Reported Prilosec Otc (Omeprazole Magnesium) 20 Mg Tab 20 Mg PO BID 10/30/16 Reported Provider Instructions Activity Restrictions - No exercising or heavy lifting for 24 hours. - Do not drink alcohol the day of the procedure. - Do not drive a car or operate machinery until the day after the procedure. - Do not make any important decisions or sign important papers in 24 hours after the procedure. Following Day: - Return to full activity which may include returning to work/school. Diet Start your diet with liquids and light foods (jello, soup, juice, toast). Then eat your usual diet if not nauseated. Treatment For Common After Affects For mild abdominal pain, bloating, or excessive gas: - Rest - Eat lightly - Lie on right side Follow-Up Information Follow-up with Dr. Ulises Matias as scheduled Anesthesia Information What You Should Know You have had a procedure that required some medicine to reduce anxiety and discomfort. This treatment is called moderate sedation. After receiving the treatment, you may be sleepy, but you will be able to breathe on your own. The effects of the treatment may last for several hours. Follow these instructions along with Activity/Diet recommendations noted above: * Do NOT do anything where dizziness or clumsiness would be dangerous. * Rest quietly at home today, then you can be up and about tomorrow. * Have a responsible person stay with you the rest of today. * You may have had an I.V. today. If so, you may take the dressing off later today. Recommendations Call your doctor if: * Trouble breathing * Continuous vomiting for more than 24 hours * Temperature above 101 degrees * Severe abdominal pain or bloating * Pain not relieved by pain medicine ordered * There is increased drainage or redness from any incision * A large amount of rectal bleeding greater than 2-3 tablespoons. (If you had a polyp/s removed or have hemorrhoids, a small amount of blood - from the rectum is to be expected.) * You have any unanswered questions or concerns. IN THE EVENT OF A SERIOUS EMERGENCY, GO TO THE NEAREST EMERGENCY ROOM Your discharge instructions were prepared by provider Hermes Valenzuela. Patient Instructions Signature Page Pal Barrett Patient (or Guardian) Signature/Date: I have read and understand the instructions given to me by my caregivers. Caregiver/RN/Doctor Signature/Date: The above-named patient and/or guardian has received patient instructions on this date. + Original Patient Signature Page (only) stays with chart. Please make copy for patient.
--- NOTE | 2017-02-09 11:03 | GI REPORT ---
Procedure Date: 02/09/2017 10:28 AM Procedure: Upper GI endoscopy Indications: Epigastric abdominal pain Medicines: Monitored Anesthesia Care Complications: No immediate complications. Estimated Blood Loss: Estimated blood loss: none. Procedure: Pre-Anesthesia Assessment: - Prior to the procedure, a History and Physical was performed, and patient medications and allergies were reviewed. The patient's tolerance of previous anesthesia was also reviewed. The risks and benefits of the procedure and the sedation options and risks were discussed with the patient. All questions were answered, and informed consent was obtained. Prior Anticoagulants: The patient has taken no previous anticoagulant or antiplatelet agents. ASA Grade Assessment: III - A patient with severe systemic disease. After reviewing the risks and benefits, the patient was deemed in satisfactory condition to undergo the procedure. After obtaining informed consent, the endoscope was passed under direct vision. Throughout the procedure, the patient's blood pressure, pulse, and oxygen saturations were monitored continuously. The scope was introduced through the mouth, and advanced to the second part of duodenum. The upper GI endoscopy was accomplished without difficulty. The patient tolerated the procedure well. Findings: The examined esophagus was normal. Evidence of a Nadeen-en-Y gastrojejunostomy was found. The gastrojejunal anastomosis was characterized by ulceration. This was traversed. The irbxk-va-vgeolda limb was characterized by ulceration. The [id number]-oh-pkbkbdl limb was not examined as it could not be found. Biopsies were taken with a cold forceps for histology. The examined jejunum was normal. Impression: - Normal esophagus. - Nadeen-en-Y gastrojejunostomy with gastrojejunal anastomosis characterized by ulceration. Biopsied. - Normal examined jejunum. Recommendation: - Resume previous diet. - Continue present medications. - Await pathology results. - Return to GI clinic as previously scheduled. Hermes Valenzuela, DO 02/09/2017 11:02:57 AM This report has been signed electronically. Note Initiated On: 02/09/2017 10:28 AM I attest to the content of the Intraoperative Record and orders documented therein, exceptions below
[2017-02-09 11:22] VITALS: BP 119/81; PULSE 71; O2SAT 100
--- NOTE | 2017-02-09 11:27 | Anesthesiology Progress Note ---
Anesthesia Post Op Note Date & Time Feb 09, 2017 at 11:27 Vital Signs Pain Intensity: 0 Vital Signs Past 12 Hours Date Time Temp Pulse Resp B/P (MAP) Pulse Ox O2 Delivery O2 Flow Rate FiO2 02/09/17 11:22 71 18 119/81 (94) 100 Room Air 02/09/17 11:11 69 18 123/77 (92) 100 Room Air 02/09/17 10:56 71 18 116/70 (85) 100 Room Air 02/09/17 09:54 36.8 89 18 173/83 (113) 98 Room Air Notes Mental Status: alert / awake / arousable, participated in evaluation Pt Amnestic to Procedure: Yes Nausea / Vomiting: adequately controlled Pain: adequately controlled Airway Patency, RR, SpO2: stable & adequate BP & HR: stable & adequate Hydration State: stable & adequate Anesthetic Complications: no major complications apparent
== END | disposition home or self-care (01) ==
LOC: C.GI 09:12
PROVIDERS: ATTEND Internal Medicine
DX: R10.13 Epigastric pain (principal); E11.9 Type 2 diabetes mellitus without complications; J45.909 Unspecified asthma, uncomplicated; G47.33 Obstructive sleep apnea (adult) (pediatric); K21.9 Gastro-esophageal reflux disease without esophagitis; E78.00 Pure hypercholesterolemia, unspecified; I50.9 Heart failure, unspecified; Z90.49 Acquired absence of other specified parts of digestive tract; Z98.84 Bariatric surgery status

== ENCOUNTER → 2017-02-15 | Day surgery (SDC) | payer OTHER ==
[2017-01-20 13:40] VITALS: Ht 167.6 cm; Wt 89.1 kg
[~2017-02-15] VITALS: Ht 167.6 cm; Wt 89.1 kg
[~2017-02-15] MED LIST changes: -ANT25 PO; +DEXAMETHASONE SOD INJ 4 MG/ML VIAL ONE; +EpINEphrine INJ 1MG/ML AMP 1 MG/ML AMP ONE; +HYDROCODONE/ACETAMOPHEN 5/325MG TAB PO PRN; +LACTATED RINGER'S 1000ML 1,000 ML IV SCH; +LIDOCAINE 4% MPF SOAK 5 ML = 1 DOSE TOP ONE; +LIDOCAINE/EPINEPHRINE 1% INJ 50 ML VIAL ONE; +MIDAZOLAM HCL 1 MG/ML 2ML VIAL ONE; +ONDANSETRON INJ 2 MG/ML 2 ML VIAL IV PRN; +ONDANSETRON INJ 2 MG/ML 2 ML VIAL ONE; +OXYMETAZOLINE HCL 0.05% NA SPR 15 ML BTL PRN; +OXYMETAZOLINE HCL 0.05% NA SPR 15 ML BTL SCH; -SODIUM CHLORIDE 0.9% 500ML 500 ML IV ONE
--- NOTE | 2017-02-15 08:30 | History and Physical: Surg Cnt ---
History & Physical Date Feb 15, 2017. Chief Complaint S/P REVISION B FESS HERE FOR DEBRIDEMENT History of Present Illness The patient is a 31 year old female with complaints of NEED FOR POSTOPERATIVE SINONASAL DEBRIDEMENT AFTER REVISION B FESS 2 WKS AGO. PT DOESN'T TOLERATE DEBRIDEMENT WELL IN THE OFFICE. Past Medical/Surgical History Medical Problems: (1) Asthma (2) Diabetes mellitus (3) DM type 2 (diabetes mellitus, type 2) (4) GERD (gastroesophageal reflux disease) (5) Kidney stone (6) Ovarian cyst (7) Sepsis Surgical Problems: (1) S/P appendectomy (2) S/P bilateral breast reduction (3) S/P section (4) S/P cholecystectomy S/P B FESS X 2 Additional History Hepatic Disease: No Endocrine Disorder: No Kidney Disease: No Hypertension: No Heart Disease: No Bleeding Tendencies: No Infectious Diseases: No Allergies Coded Allergies: No Known Allergies (Verified , 02/15/17) Home Medications Scheduled Omeprazole Magnesium (Prilosec Otc), 20 MG PO BID Scheduled PRN Ondansetron Hcl (Zofran), 1 DOSE PO UD PRN for Nausea Physical Examination Skin: warm/dry, no rash Eyes: normal inspection, EOMI, sclerae normal ENT: normal ENT inspection, pharynx normal Head: normocephalic, atraumatic Neck: supple, no adenopathy, trachea midline Respiratory/Chest: lungs clear, normal breath sounds, no respiratory distress Cardiovascular: regular rate, rhythm, no edema, no murmur Neurologic/Psych: no motor/sensory deficits, alert, normal reflexes, oriented x 3 Diagnosis S/P REVISION B FESS HERE FOR POSTOPERATIVE SINONASAL DEBRIDEMENT Plan of Treatment BILATERAL SINONASAL DEBRIDEMENT
--- NOTE | 2017-02-15 09:49 | [facility] Operative Report ---
Operative Report Operative Date Feb 15, 2017. Pre-Operative Diagnosis CHRONIC SINUSITIS S/P REVISION IMAGE-GUIDED BILATERAL ENDOSCOPIC SINUS SURGERY 2 WEEKS AGO Post-Operative Diagnosis SAME ABOVE Procedure(s) Performed BILATERAL SINONASAL DEBRIDEMENT Surgeon SYLVAIN Insurance Examining Clerk Surgeon(s) NONE Estimated Blood Loss 5ML Findings CRUSTING/DEBRIS WITHIN BILATERAL MAXILLARY/ETHMOID/SPHENOID SINUSES; ALL PARANASAL SINUSES WIDELY PATENT AFTER DEBRIDEMENT Specimens NONE I attest to the content of the Intraoperative Record and any orders documented therein. Any exceptions are noted below.
--- NOTE | 2017-02-15 09:51 | Discharge Instructions ---
Discharge Instructions Date of Service Feb 15, 2017. Admission Reason for Admission: Chronic Sinusitis Discharge Discharge Diagnosis / Problem: SAME Discharge Goals Goal(s): Therapeutic intervention Activity Recommendations Activity Limitations: as noted below LIGHT ACTIVITY FOR 2 DAYS . Current Hospital Diet Patient's current hospital diet: Discharge Diet Recommended Diet: Regular Diet Procedures Procedures Performed: BILATERAL SINONASAL DEBRIDEMENT Pending Studies Studies pending at discharge: no Medical Emergencies . Who to Call and When: Medical Emergencies: If at any time you feel your situation is an emergency, please call 911 immediately. . Non-Emergent Contact Non-Emergency issues call your: Surgeon . . "Provider Documentation" section prepared by Tray Haro. . VTE Core Measure Inpt VTE Proph given/why not?: SCD's
--- NOTE | 2017-02-15 10:25 | Anesthesia Progress Nt - [facility] ---
Anesthesia Post Op Note Date & Time Feb 15, 2017 at 10:25 Vital Signs Pain Intensity: 2 Vital Signs Past 12 Hours Date Time Temp Pulse Resp B/P (MAP) Pulse Ox O2 Delivery O2 Flow Rate FiO2 02/15/17 09:53 36.3 83 20 111/67 97 Humidified Oxygen 5 Diffusion Mask 02/15/17 08:12 36.6 71 18 116/72 (87) 100 Room Air Notes Mental Status: alert / awake / arousable, participated in evaluation Pt Amnestic to Procedure: Yes Nausea / Vomiting: adequately controlled Pain: adequately controlled Airway Patency, RR, SpO2: stable & adequate BP & HR: stable & adequate Hydration State: stable & adequate Anesthetic Complications: no major complications apparent
[2017-02-15] MEDS: FENTANYL CITRATE INJ 50 MCG/1 ML 2 ML VIAL IV PRN ×4 (10:30→10:46)
--- NOTE | 2017-02-15 10:40 | OPERATIVE REPORT ---
DATE OF OPERATION: 02/15/2017 PREOPERATIVE DIAGNOSIS: Chronic sinusitis status post revision image guided bilateral endoscopic sinus surgery. POSTOPERATIVE DIAGNOSIS: Same. PROCEDURE: Bilateral sinonasal debridement. SURGEON: Dr. Tray Haro. ANESTHESIA: General laryngeal mask airway. ESTIMATED BLOOD LOSS: 5 mL. FINDINGS: Crusting and debris as well as leftover Merogel dressing within the bilateral maxillary, ethmoid, and left sphenoid sinuses. SPECIMENS: None. COMPLICATIONS: None. INDICATIONS FOR THE PROCEDURE: The patient is a 31-year-old female who underwent revision image guided bilateral endoscopic sinus surgery 2 weeks ago. One of the reasons that she had revision surgery was that she did not tolerate in office sinonasal debridement very well and therefore needed to have her second postoperative debridement done in the operating room. She presents for the above-mentioned procedure on an outpatient elective basis. DESCRIPTION OF PROCEDURE: After informed consent had been obtained from the patient, the patient was wheeled to the operating room and placed on the operating table in supine position. Monitors were placed. After induction of general anesthesia via laryngeal mask airway, the patient was prepped in the usual fashion for endoscopic sinus surgery. Lidocaine and epinephrine pledgets were placed in the bilateral nasal cavity and pressure applied. After allowing adequate time for vasoconstriction and anesthesia, the left-sided pledget was removed. A 0 degree rigid endoscope was used to perform a left-sided sinonasal debridement removing blood clots, crusting, and leftover Merogel dressing from the left ethmoid, maxillary, and sphenoid sinuses. There was mild mucosal thickening but no purulence, synechiae, or polyp formation. A pledget was then placed into the left ethmoid cavity. The right side was then addressed in a similar fashion; however, there was no purulence within the right sphenoid sinus. There was more mucosal inflammation on the right hand side. Estimated blood loss was 5 mL during the case. All the pledgets were removed from the patient. Afrin was sprayed into the bilateral sinonasal cavities. This marked the end of the case. The patient tolerated the procedure well. There were no complications. All the instrumentation was removed from the patient. The patient had her laryngeal mask airway removed and was transferred to the recovery room in stable condition. I attest to the content of the Intraoperative Record and any orders documented therein. Any exception s are noted below.
[2017-02-15 11:10] VITALS: TEMP 36.1
[2017-02-15 11:38] VITALS: BP 101/70; PULSE 65; O2SAT 100
== END | disposition home or self-care (01) ==
LOC: X.SURG 07:40
DX: J32.9 Chronic sinusitis, unspecified (principal); E11.9 Type 2 diabetes mellitus without complications; J45.909 Unspecified asthma, uncomplicated; K21.9 Gastro-esophageal reflux disease without esophagitis; Z79.899 Other long term (current) drug therapy

== ENCOUNTER 2017-03-03 22:46 | Emergency (ER) | payer OTHER ==
[~2017-03-03] VITALS: Ht 167.6 cm; Wt 86.2 kg
[~2017-03-03 22:46] MED LIST changes: -ATROPINE SULFATE 0.1 MG/ML 5ML SYR IV PRN; -DEXAMETHASONE SOD INJ 4 MG/ML VIAL ONE; -EpHEDrine SULFATE INJ 50 MG/ML AMP IV PRN; -EpINEphrine INJ 1MG/ML AMP 1 MG/ML AMP ONE; -FENTANYL CITRATE INJ 50 MCG/1 ML 2 ML VIAL ONE; -HYDROCODONE/ACETAMOPHEN 5/325MG TAB PO PRN; -LACTATED RINGER'S 1000ML 1,000 ML IV SCH; -LIDOCAINE 4% MPF SOAK 5 ML = 1 DOSE TOP ONE; -LIDOCAINE HCL 2% 2 ML VIAL (20MG/ML) ONE; -LIDOCAINE/EPINEPHRINE 1% INJ 50 ML VIAL ONE; -MIDAZOLAM HCL 1 MG/ML 2ML VIAL ONE; -ONDANSETRON INJ 2 MG/ML 2 ML VIAL IV PRN; -ONDANSETRON INJ 2 MG/ML 2 ML VIAL ONE; -OXYMETAZOLINE HCL 0.05% NA SPR 15 ML BTL PRN; -OXYMETAZOLINE HCL 0.05% NA SPR 15 ML BTL SCH; -PROPOFOL IV EMULSION 10 MG/ML 20 ML VIAL IV ONE
[2017-03-03 22:49] VITALS: BP 102/64; PULSE 70; TEMP 36.5; O2SAT 99; Ht 167.6 cm; Wt 86.2 kg
[2017-03-03] MEDS ORDERED: CEPH500C2 PO (23:09)
[2017-03-03] MEDS ORDERED: CEPHALEXIN 500MG HOME PACK 1 EA BTL PO ONE (23:15)
--- NOTE | 2017-03-03 23:33 | EMERGENCY ROOM VISIT NOTE ---
History First contact with patient: 22:51 Chief Complaint: ABDOMINAL PAIN Stated Complaint: BELLY BUTTON IS RED IN COLOR Nursing Triage Summary: Pt c/o pain and redness around umbilicus that began today. History of Present Illness The patient is a 31 year old female who presents to the Emergency Room with complaints of redness and drainage around her umbilicus for the past day. No history of cellulitis to this area in the past. No injury to the area. No piercings. Patient denies chest pain, dyspnea, fever, chills, nausea, vomiting , diarrhea, back pain. Tetanus is current. Review of Systems See HPI for pertinent positives & negatives. A total of 10 systems reviewed and were otherwise negative. Past Medical/Surgical History Medical Problems: (1) Asthma (2) Diabetes mellitus (3) DM type 2 (diabetes mellitus, type 2) (4) GERD (gastroesophageal reflux disease) (5) Kidney stone (6) Ovarian cyst (7) Sepsis Surgical Problems: (1) S/P appendectomy (2) S/P bilateral breast reduction (3) S/P section (4) S/P cholecystectomy Family History Diabetes mellitus FH: gallbladder disease FH: heart disease FH: lung disease Hypertension Kidney disease or stones Seizures Social History Smoking Status: Current Every Day Smoker Alcohol Use: none Drug Use: none Marital Status: Housing Status: lives with family Occupation Status: unemployed Current/Historical Medications Scheduled Cephalexin Monohydrate (Keflex), 500 MG PO QID Omeprazole Magnesium (Prilosec Otc), 20 MG PO BID Scheduled PRN Ondansetron Hcl (Zofran), 1 DOSE PO UD PRN for Nausea Physical Exam Vital Signs Date Time Temp Pulse Resp B/P (MAP) Pulse Ox O2 Delivery O2 Flow Rate FiO2 03/03/17 22:49 36.5 70 16 102/64 99 Room Air Physical Exam VITALS: Vitals are noted on the nurse's note and reviewed by myself. Vital signs stable. GENERAL: Pleasant female, in no acute distress, nondiaphoretic, well-developed well-nourished. SKIN: Capillary reflex less than 2 seconds. HEENT: Normocephalic. PERRLA. EOMI. Nares patent. Mucous membranes moist. Neck is supple without nuchal rigidity. HEART: Regular rate and rhythm without murmurs gallops or rubs. LUNGS: Clear to auscultation bilaterally without wheezes, rales or rhonchi. No retractions or accessory muscle use. ABDOMEN: Positive bowel sounds x 4. Normal tympanic percussion. Umbilicus erythematous with minimal clear drainage without palpable abscess or lymphangitis Soft, nontender, without masses or organomegaly. Garces sign negative. No guarding or rebound tenderness. No CVA tenderness MUSCULOSKELETAL: No gross musculoskeletal defects. NEURO: Patient was alert and oriented to person place and time. Normal sensation to light and sharp touch. No focal neurological deficits. Medical Decision & Procedures ED Course Prior records reviewed and summarized as above. Triage Nursing notes reviewed. Additional history obtained from family. The patient's history was concerning for swelling and redness of the skin. Differential diagnosis: Etiologies such as cellulitis, abscess, MRSA infection, yeast, necrotizing fasciitis, dermatitis, drug eruption, as well as others were entertained.. Physical examination: The physical examination was consistent with cellulitis ER treatment provided: wound care and Keflex On reassessment the patient felt better. Diagnostics interpreted by me: deferred This appears to be isolated cellulitis. Patient had no abscess. no lymphangitis. she did not have acute abdomen on exam. Patient was advised to apply bacitracin and bandage daily until the drainage heels and take antibiotics as directed. She is advised to follow-up with family care in 2 days for recheck or here in the ER sooner for spreading infection, fevers, abdominal pain, worsening signs or symptoms or as needed. By the evaluation outlined above emergent etiologies such as abscess, necrotizing fasciitis, as well as others were deemed relatively unlikely. The pt informed about the findings as listed above. All questions were answered and pleased with the treatment. Return instructions were outlined and the patient was discharged in stable condition. Outpatient prescription management: Keflex Referral: The patient was referred back to primary care physician for follow-up in 2 to 3 days for a recheck of the current condition. Medical Decision As above Medication Reconcilliation Current Medication List: was personally reviewed by me Blood Pressure Screening Patient's blood pressure: Normal blood pressure Impression Primary Impression: Cellulitis of umbilicus Departure Information Dispostion Home / Self-Care Condition GOOD Prescriptions Cephalexin Monohydrate (KEFLEX) 500 Mg Cap 500 MG PO QID for 10 Days, #40 CAP Prov: Ashley Elizabeth .ZIA 03/03/17 Referrals No Doctor, Assigned Forms Call Back Authorization, HOME CARE DOCUMENTATION FORM, IMPORTANT VISIT INFORMATION Patient Instructions Cellulitis - [facility], [facility] Additional Instructions Cephalexin(Keflex) 500mg: Take one pill four times daily for 10 days for your skin infection. All antibiotics can cause diarrhea. If this occurs and you feel worse or it does not resolve in 1-2 days follow up with your doctor or return to the Emergency Department as this could be signs of serious underlying problems. Any medication can cause an allergic reaction, stop the pills immediately and return to the ER for rash, hives, breathing difficulties, or swelling. Ibuprofen(Motrin, Advil) may be used for fever or pain. Use 600mg every six hours as needed. Take with food. Avoid using more than 2400mg in a 24 hour period. Do not use 2400mg per day for more than three consecutive days without physician direction. Prolonged inappropriate use can lead to stomach upset or ulcers. (AND/OR) Acetaminophen(Tylenol) may be used for fever or pain. Use 1000mg every six hours as needed. Avoid using more than 3000mg in a 24 hour period. Antibiotic ointment and bandage to the areas until healed. Rest and drink plenty of fluids. Continue current medications. Return to the ER for severe pain, persistent fevers, spreading redness, or any worsening of your condition. Follow up with your primary physician within 2-3 days for a recheck of the current condition.
== END 2017-03-03 23:20 | disposition home or self-care (01) ==
LOC: C.EDB 22:48
DX: L03.316 Cellulitis of umbilicus (principal); J45.909 Unspecified asthma, uncomplicated; E11.9 Type 2 diabetes mellitus without complications; K21.9 Gastro-esophageal reflux disease without esophagitis; N83.209 Unspecified ovarian cyst, unspecified side; F17.200 Nicotine dependence, unspecified, uncomplicated; Z87.442 Personal history of urinary calculi; Z83.3 Family history of diabetes mellitus; Z82.49 Family history of ischemic heart disease and other diseases of the circulatory system; Z82.0 Family history of epilepsy and other diseases of the nervous system; Z84.1 Family history of disorders of kidney and ureter

== ENCOUNTER 2017-04-15 16:02 | Emergency (ER) | payer OTHER ==
[~2017-04-15] VITALS: Ht 167.6 cm; Wt 83.7 kg
[2017-04-15 16:10] VITALS: TEMP 36.9; Ht 167.6 cm; Wt 83.7 kg
[2017-04-15] MEDS ORDERED: SODIUM CHLORIDE 0.9% 500ML 500 ML IV STA (16:46)
[2017-04-15] MEDS ORDERED: ONDANSETRON INJ 2 MG/ML 2 ML VIAL IV STA (16:46)
[2017-04-15] MEDS ORDERED: KETOROLAC TROMETHAMINE 30 MG/ML VIAL IV STA (16:46)
--- NOTE | 2017-04-15 16:51 | EMERGENCY ROOM VISIT NOTE ---
History First contact with patient: 16:33 Chief Complaint: ABDOMINAL PAIN Stated Complaint: KIDNEY AND STOMACH PAIN History of Present Illness The patient is a 32 year old female who presents to the Emergency Room with complaints of bilateral flank pain that started last night. She describes it as a severe, dull aching sensation that radiates to the front of her abdomen. She denies any urinary symptoms. No fever or chills. She has had nausea without vomiting. Her last bowel movement was this morning and reportedly normal. The patient has a history of gastric bypass. Her last menstrual period was one week ago Review of Systems 10 system review performed and negative unless noted in HPI or below Past Medical/Surgical History Medical Problems: (1) Asthma (2) Diabetes mellitus (3) DM type 2 (diabetes mellitus, type 2) (4) GERD (gastroesophageal reflux disease) (5) Kidney stone (6) Ovarian cyst (7) Sepsis Surgical Problems: (1) S/P appendectomy (2) S/P bilateral breast reduction (3) S/P section (4) S/P cholecystectomy Family History Diabetes mellitus FH: gallbladder disease FH: heart disease FH: lung disease Hypertension Kidney disease or stones Seizures Social History Smoking Status: Never Smoker Alcohol Use: none Drug Use: none Marital Status: Housing Status: lives with family Occupation Status: unemployed Current/Historical Medications Scheduled Amoxicillin & Pot Clavulanate (Augmentin 875-125 mg), 1 TAB PO BID Calcium Carbonate-Vitamin D (Calcium), 1 TAB PO BID Cyclobenzaprine Hcl (Flexeril), 10 MG PO TID Ergocalciferol (Vitamin D 17765 Unit), 50,000 UNITS PO WK Fluticasone Furoate-Vilanterol (Breo Ellipta), 1 PUFF IN DAILY Multivitamins/Minerals (Mvi With Minerals), 1 TAB PO BID Omeprazole (Prilosec), 20 MG PO BID Ondasetron Odt (Zofran Odt), 4 MG SL Q6H Scheduled PRN Ondansetron Hcl (Zofran), 4 MG PO PRN UD PRN for Nausea Tramadol (Ultram), 1 TAB PO Q4H PRN for Pain Physical Exam Vital Signs Date Time Temp Pulse Resp B/P (MAP) Pulse Ox O2 Delivery O2 Flow Rate FiO2 04/15/17 21:17 65 17 107/66 98 Room Air 04/15/17 19:20 69 15 108/54 99 Room Air 04/15/17 17:32 69 20 100 04/15/17 17:32 68 04/15/17 17:25 112/65 04/15/17 16:10 36.9 74 17 102/69 100 Room Air Physical Exam VITALS: Vitals are noted on the nurse's note and reviewed by myself. Vital signs stable. GENERAL: 32-year-old female, in no acute distress, nondiaphoretic, well- developed well-nourished. SKIN: The skin was without rashes, erythema, edema, or bruising. HEAD: Normocephalic atraumatic. MOUTH: Mucous membranes slightly dry NECK: Supple without nuchal rigidity. No lymphadenopathy. Cervical spine is nontender. No JVD. HEART: Regular rate and rhythm without murmurs gallops or rubs. LUNGS: Clear to auscultation bilaterally without wheezes, rales or rhonchi. No accessory muscle use. ABDOMEN: Positive bowel sounds x 4.Soft, nontender, without organomegaly. No guarding or rebound tenderness. No CVA tenderness bilaterally. MUSCULOSKELETAL: No muscle atrophy, erythema, or edema noted. Strength 5/5 throughout. NEURO: Patient was alert and oriented to person place and time. Normal sensation to touch. No focal neurological deficits. Medical Decision & Procedures ER Provider Diagnostic Interpretation: Chest/abdominal x-rays IMPRESSION: 1. No free air. 2. No evidence for a bowel obstruction. Prominent loop of gas-filled bowel within the mid abdomen which is unchanged from earlier studies and likely related to an anastomosis. 3. No acute cardiopulmonary findings. Electronically signed by: Ren Potts M.D. Laboratory Results 04/15/17 17:50 Red Blood Count 4.88, Mean Corpuscular Volume 85.7, Mean Corpuscular Hemoglobin 28.3, Mean Corpuscular Hemoglobin Concent 33.0, Mean Platelet Volume 10.4, Neutrophils (%) (Auto) 54.5, Lymphocytes (%) (Auto) 36.7, Monocytes (%) (Auto) 5.6, Eosinophils (%) (Auto) 2.7, Basophils (%) (Auto) 0.4, Neutrophils # (Auto) 4.21, Lymphocytes # (Auto) 2.83, Monocytes # (Auto) 0.43, Eosinophils # (Auto) 0.21, Basophils # (Auto) 0.03 04/15/17 17:50 Test 04/15/17 17:50 04/15/17 19:30 White Blood Count 7.72 K/uL (4.8-10.8) Red Blood Count 4.88 M/uL (4.2-5.4) Hemoglobin 13.8 g/dL (12.0-16.0) Hematocrit 41.8 % (37-47) Mean Corpuscular Volume 85.7 fL (80-100) Mean Corpuscular Hemoglobin 28.3 pg (25-34) Mean Corpuscular Hemoglobin Concent 33.0 g/dl (32-36) Platelet Count 183 K/uL (130-400) Mean Platelet Volume 10.4 fL (7.4-10.4) Neutrophils (%) (Auto) 54.5 % Lymphocytes (%) (Auto) 36.7 % Monocytes (%) (Auto) 5.6 % Eosinophils (%) (Auto) 2.7 % Basophils (%) (Auto) 0.4 % Neutrophils # (Auto) 4.21 K/uL (1.4-6.5) Lymphocytes # (Auto) 2.83 K/uL (1.2-3.4) Monocytes # (Auto) 0.43 K/uL (0.11-0.59) Eosinophils # (Auto) 0.21 K/uL (0-0.5) Basophils # (Auto) 0.03 K/uL (0-0.2) RDW Standard Deviation 50.7 fL (36.4-46.3) RDW Coefficient of Variation 16.1 % (11.5-14.5) Immature Granulocyte % (Auto) 0.1 % Immature Granulocyte # (Auto) 0.01 K/uL (0.00-0.02) Anion Gap 6.0 mmol/L (3-11) Est Creatinine Clear Calc Drug Dose 125.2 ml/min Estimated GFR () 131.6 Estimated GFR (Non- 113.6 BUN/Creatinine Ratio 15.0 (10-20) Calcium Level 9.1 mg/dl (8.5-10.1) Total Bilirubin 0.3 mg/dl (0.2-1) Aspartate Amino Transf (AST/SGOT) 13 U/L (15-37) Alanine Aminotransferase (ALT/SGPT) 26 U/L (12-78) Alkaline Phosphatase 118 U/L (45-117) Troponin I < 0.015 ng/ml (0-0.045) Total Protein 7.5 gm/dl (6.4-8.2) Albumin 3.7 gm/dl (3.4-5.0) Globulin 3.8 gm/dl (2.5-4.0) Albumin/Globulin Ratio 1.0 (0.9-2) Lipase 143 U/L (73-393) Urine Color YELLOW Urine Appearance CLEAR (CLEAR) Urine pH 7.0 (4.5-7.5) Urine Specific [place] 1.024 (1.000-1.030) Urine Protein NEG (NEG) Urine Glucose (UA) NEG (NEG) Urine Ketones TRACE (NEG) Urine Occult Blood NEG (NEG) Urine Nitrite NEG (NEG) Urine Bilirubin NEG (NEG) Urine Urobilinogen NEG (NEG) Urine Leukocyte Esterase NEG (NEG) Urine Test NEG (NEG) Medications Administered Medications (Trade) Dose Ordered Sig/Rody Route Start Time Stop Time Status Last Admin Dose Admin Sodium Chloride 500 ml @ 999 mls/hr Q31M STAT IV 04/15/17 16:46 04/15/17 17:16 DC 04/15/17 18:16 999 MLS/HR Ketorolac Tromethamine (Toradol Inj) 30 mg NOW STAT IV 04/15/17 16:46 04/15/17 16:49 DC 04/15/17 18:17 30 MG Ondansetron HCl (Zofran Inj) 4 mg NOW STAT IV 04/15/17 16:46 04/15/17 16:49 DC 04/15/17 18:18 4 MG Morphine Sulfate (MoRPHine SULFATE INJ) 4 mg ONE STAT IV 04/15/17 19:47 04/15/17 19:48 DC 04/15/17 20:24 4 MG ED Course Patient was seen and examined Vital signs including blood pressure were reviewed medications list was verified with patient An EKG was performed and reviewed by myself. Labs were obtained, and a saline lock was established The patient was medicated with Zofran and Toradol. She was hydrated with 1 L normal saline. Imaging was performed and reviewed Upon reevaluation, she was still complaining of pain. She was given morphine 4 mg IV, which helped her pain. We discussed her workup. She voiced understanding. I reviewed discharge instructions the patient. They voiced understanding and had no further questions. Medical Decision Differential diagnosis: Musculoskeletal pain, kidney stone, pyelonephritis, UTI , chest wall pain, coronary disease, PE, pneumothorax, upper respiratory tract infection. This patient is a 32-year-old female that presents to the emergency department complaining of bilateral flank pain. She was also complaining of 2, brief episodes of chest pain. 1 occurred yesterday. The other occurred today. She was at rest when it happened. She denies any shortness of breath. She currently denies any chest pain. Her EKG shows normal sinus rhythm with no signs of ischemia or infarction. Her troponin is negative. I do not suspect coronary disease. I do not suspect pulmonary embolus. She is not tachycardic. She is not hypoxic. The patient has a history of chronic abdominal pain. On exam, she is nontoxic in appearance. She did not have any CVA tenderness. Her abdomen was benign. She was afebrile. There is no leukocytosis. LFTs and lipase are unremarkable. She does not appear to have a urinary tract infection. The etiology of her pain is unclear. This could be chronic pain/ muscular pain. I believe she is stable to be discharged home. She was encouraged close follow-up with her primary care physician in addition to her specialist. She is in agreement with this plan. She will return to the emergency department with any worsening symptoms. This chart was completed in part utilizing [employer] Speech Voice Recognition software. Attempts were made to minimize the grammatical errors, random word insertions, pronoun errors and incomplete sentences. Any formal questions or concerns about the content, text or information contained within the body of this dictation should be directly addressed to the provider for clarification. Medication Reconcilliation Current Medication List: was personally reviewed by me Blood Pressure Screening Patient's blood pressure: Normal blood pressure Impression Primary Impression: Flank pain Departure Information Dispostion Home / Self-Care Condition GOOD Prescriptions Cyclobenzaprine Hcl (FLEXERIL) 10 Mg Tab 10 MG PO TID for Muscle Spasms, #15 TAB Prov: Lizette Spencer PA-C 04/15/17 Tramadol (Ultram) 50 Mg Tab 1 TAB PO Q4H Y for Pain, #15 TAB For Initial Treatment Prov: Lizette Spencer PA-C 04/15/17 Ondasetron Odt (ZOFRAN ODT) 4 Mg Tab 4 MG SL Q6H for Nausea, #20 TAB Prov: Lizette Spencer PA-C 04/15/17 Referrals No Doctor, Assigned (PCP) Patient Instructions ED Flank Pain Uncertain Cause, My [facility] Additional Instructions You have been evaluated in the emergency department for flank pain. There are no signs of a UTI. Imaging did not have any acute findings. It is possible this is muscular in nature. Ibuprofen 600 mg every 6 hours as needed for pain Ultram 1 tab every 4 hours as needed for severe pain. Please do not drink alcohol or drive taking this medication. Zofran 1 tab under the tongue every 6 hours as needed for nausea You have been examined and treated today on an emergency basis only. This is not a substitute for, or an effort to provide, complete comprehensive medical care. It is impossible to recognize and treat all injuries or illnesses in a single emergency department visit. It is therefore important that you follow up closely with [facility], your PCP, and/or your specialist(s). Call as soon as possible for an appointment. Do not hesitate to return to the emergency department with any new, worsening or concerning symptoms.
[2017-04-15] MEDS ORDERED: PRLSR20 PO (17:05)
[2017-04-15] MEDS ORDERED: FLUT1INH IN (17:05)
[2017-04-15] MEDS ORDERED: CALC-51 PO (17:05)
[2017-04-15] MEDS ORDERED: MULT-513 PO (17:05)
[2017-04-15] MEDS ORDERED: ONDA4TAB46 PO (17:05)
[2017-04-15] MEDS ORDERED: ERGO500011 PO (17:05)
[2017-04-15] MEDS ORDERED: AMOX875T PO (17:07)
[2017-04-15 18:28] LABS: BASO % 0.4 %; BASO ABS # 0.03 K/uL (0-0.2); EOS % 2.7 %; EOS ABS # 0.21 K/uL (0-0.5); HEMATOCRIT 41.8 % (37-47); HEMOGLOBIN 13.8 g/dL (12.0-16.0); IG# 0.01 K/uL (0.00-0.02); LYMPH % 36.7 %; LYMPH ABS # 2.83 K/uL (1.2-3.4); MEAN CELL VOLUME 85.7 fL (80-100); MEAN CORPUSCULAR HEMOGLOBIN 28.3 pg (25-34); MEAN PLATELET VOLUME 10.4 fL (7.4-10.4); MONO % 5.6 %; MONO ABS # 0.43 K/uL (0.11-0.59); NEUT % 54.5 %; NEUT ABS # 4.21 K/uL (1.4-6.5); PLATELET COUNT 183 K/uL (130-400); RED CELL DISTRIBUTION WIDTH CV 16.1 % (11.5-14.5); RED CELL DISTRIBUTION WIDTH SD 50.7 fL (36.4-46.3); WHITE BLOOD COUNT 7.72 K/uL (4.8-10.8)
[2017-04-15 18:50] LABS: ALBUMIN 3.7 gm/dl (3.4-5.0); ALT/SGPT 26 U/L (12-78); AST/SGOT 13 U/L (15-37); BLOOD UREA NITROGEN 10 mg/dl (7-18); CALCIUM 9.1 mg/dl (8.5-10.1); CARBON DIOXIDE 26 mmol/L (21-32); CREATININE 0.69 mg/dl (0.60-1.20); GLUCOSE 97 mg/dl (70-99); LIPASE 143 U/L (73-393); POTASSIUM 4.4 mmol/L (3.5-5.1); SODIUM 138 mmol/L (136-145)
[2017-04-15 18:55] LABS: ALKALINE PHOSPHATASE 118 U/L (45-117); TOTAL PROTEIN 7.5 gm/dl (6.4-8.2)
--- NOTE | 2017-04-15 19:23 | DIAGNOSTIC IMAGING REPORT ---
PA CHEST RADIOGRAPH AND UPRIGHT AND SUPINE AP RADIOGRAPHS OF THE ABDOMEN CLINICAL HISTORY: Intermittent left-sided chest pain. COMPARISON STUDY: Chest radiograph abdominal series January 22, 2017. FINDINGS: Lung volumes are normal. Lungs are clear. No pneumothorax or pleural effusion is noted. Cardiac size is normal. Mediastinal contours are normal. Slight elevation of the right hemidiaphragm is unchanged. There is no free air. Postoperative findings from gastric bypass are noted. A prominent loops of gas-filled bowel within the mid abdomen is unchanged from prior studies and is likely related to an anastomosis. IMPRESSION: 1. No free air. 2. No evidence for a bowel obstruction. Prominent loop of gas-filled bowel within the mid abdomen which is unchanged from earlier studies and likely related to an anastomosis. 3. No acute cardiopulmonary findings. Electronically signed by: Ren Potts M.D. 04/15/2017 7:22 PM Dictated Date/Time: 04/15/2017 7:19 PM
[2017-04-15] MEDS ORDERED: MoRPHine SULFATE 4 MG/ML 1 ML CARP\\VIAL IV STA (19:47)
[2017-04-15] MEDS ORDERED: TRAM-10 PO ×2 (20:46→20:49)
[2017-04-15] MEDS ORDERED: ONDA4TAB10 SL (20:46)
[2017-04-15] MEDS ORDERED: CYCL10TA6 PO (20:50)
[2017-04-15 21:17] VITALS: BP 107/66; PULSE 65; O2SAT 98
== END 2017-04-15 21:25 | disposition home or self-care (01) ==
LOC: C.EDB 16:03 → C.EDC 21:25
DX: R10.9 Unspecified abdominal pain (principal); R11.0 Nausea; Z98.84 Bariatric surgery status; J45.909 Unspecified asthma, uncomplicated; E11.9 Type 2 diabetes mellitus without complications; K21.9 Gastro-esophageal reflux disease without esophagitis; N83.209 Unspecified ovarian cyst, unspecified side; Z87.442 Personal history of urinary calculi; Z83.3 Family history of diabetes mellitus; Z82.49 Family history of ischemic heart disease and other diseases of the circulatory system; Z84.1 Family history of disorders of kidney and ureter; Z82.0 Family history of epilepsy and other diseases of the nervous system

== ENCOUNTER 2017-05-05 14:53 | Emergency (ER) | payer OTHER ==
[~2017-05-05] VITALS: Ht 167.6 cm; Wt 81.6 kg
[~2017-05-05 14:53] MED LIST changes: +AMOX875T PO; -OMEP20TA14 PO; +ONDA4TAB10 SL; +PRLSR20 PO; +TRAM-10 PO
[2017-05-05 15:00] VITALS: TEMP 36.3; Ht 167.6 cm; Wt 81.6 kg
[2017-05-05] MEDS ORDERED: HALOPERIDOL LACTATE 5 MG/ML 1 ML VIAL IV STA (16:52)
[2017-05-05] MEDS ORDERED: CALC-51 PO (17:05)
[2017-05-05] MEDS ORDERED: FLUT1INH IN (17:05)
[2017-05-05] MEDS ORDERED: ERGO500011 PO (17:05)
[2017-05-05] MEDS ORDERED: MULT-513 PO (17:05)
--- NOTE | 2017-05-05 17:25 | EMERGENCY ROOM VISIT NOTE ---
History Report prepared by Berenice: Shabbir Gallegos Under the Supervision of: Dr. Kirill Blake M.D. First contact with patient: 16:35 Chief Complaint: DIZZY Stated Complaint: HARD STOMACH, DIZZINESS Nursing Triage Summary: pt reports feeling dizzy since yesterday worse today. feels pain in heart and left arm. History of Present Illness The patient is a 32 year old female with a past medical history of anxiety, depression, kidney stones, GERD, diabetes, gastric bypass, section, appendectomy, and cholecystectomy who presents to the ED with a cc of intermittent lightheadedness beginning this week. Symptoms worsened with standing. Positive intermittent visual changes, constant generalized abdominal pain, nausea, left back pain. Patient notes that she saw an eye doctor as well as a beer runner yesterday. She states "my stomach feels hard after I eat ". Patient notes that she has an upper endoscopy two week ago. Her gastric bypass was about a year ago. No recent medication changes. Patient notes that she took a stool softener yesterday, and had diarrhea last night. LNMP was last week. Negative urinary symptoms, vomiting. Source of History: patient Onset: This week Quality: other (lightheadedness) Timing: intermittent Modifying Factors (Worsening): movement Associated Symptoms: + nausea, + abdominal pain (constant generalized), + back pain (left), No vomiting, No urinary symptoms Note: Positive: intermittent visual changes. Review of Systems See HPI for pertinent positives and negatives. A total of ten systems were reviewed and were otherwise negative. Past Medical & Surgical Medical Problems: (1) Asthma (2) Diabetes mellitus (3) DM type 2 (diabetes mellitus, type 2) (4) GERD (gastroesophageal reflux disease) (5) Kidney stone (6) Ovarian cyst (7) Sepsis Surgical Problems: (1) S/P appendectomy (2) S/P bilateral breast reduction (3) S/P section (4) S/P cholecystectomy Family History Diabetes mellitus FH: gallbladder disease FH: heart disease FH: lung disease Hypertension Kidney disease or stones Seizures Social History Smoking Status: Never Smoker Alcohol Use: none Drug Use: none Marital Status: Housing Status: lives with family Occupation Status: unemployed Current/Historical Medications Scheduled Calcium Carbonate-Vitamin D (Calcium), 1 TAB PO BID Ergocalciferol (Vitamin D 52715 Unit), 50,000 INTER.UNIT PO WK Fluticasone Furoate-Vilanterol (Breo Ellipta), 1 PUFF IN DAILY Lactic Acid (Ammonium Lactate Cream 12%), 1 APPLN TOP DAILY Multivitamins/Minerals (Mvi With Minerals), 1 TAB PO BID Omeprazole Magnesium (Prilosec Otc), 20 MG PO BID Scheduled PRN Dicyclomine Hcl (Bentyl), 10 MG PO QID PRN for Pain Ondasetron Odt (Zofran Odt), 4 MG SL Q6H PRN for Nausea Allergies Coded Allergies: No Known Allergies (Verified , 03/03/17) Physical Exam Vital Signs Date Time Temp Pulse Resp B/P (MAP) Pulse Ox O2 Delivery O2 Flow Rate FiO2 05/05/17 21:25 78 18 121/89 99 05/05/17 20:05 75 16 117/77 97 Room Air 05/05/17 18:44 77 17 121/78 99 Room Air 05/05/17 18:03 90 05/05/17 17:48 88 18 136/80 100 Room Air 05/05/17 16:32 83 18 123/74 100 Room Air 05/05/17 15:00 36.3 76 18 107/70 100 Room Air Physical Exam GENERAL: Awake, alert, well-appearing, NAD HENT: Normocephalic, atraumatic. EYES: Normal conjunctiva. Sclera non-icteric. No nystagmus. NECK: Supple. No nuchal rigidity. FROM. RESPIRATORY: CTAB, no rhonchi, wheezing, crackles CARDIAC: RRR, no MRG ABDOMEN: Soft, BS+. Mild left sided flank pain. Left sided abdominal pain. No guarding or rebound. Non-surgical abdomen. MSK: No chest wall TTP, no LE edema NEURO: GCS 15, CN 2-12 intact, moves all 4s on command SKIN: No rash or jaundice noted. Medical Decision & Procedures ER Provider Diagnostic Interpretation: Radiology results as stated below per my review and radiologist interpretation: ABDOMEN AND PELVIS CT WITH IV AND ORAL CONTRAST FINDINGS: The lung bases are clear. No pneumoperitoneum. No pneumatosis. No fractures within the visualized osseous structures. Trace pericardial effusion. This has slightly progressed. Cholecystectomy. The liver, adrenal glands, pancreas are unremarkable. A stable 9 mm hypodense lesion within the left kidney. This is too small to characterize but favors a cyst. Stable punctate stone within the right kidney. No ureteral stones. No hydronephrosis. A 2 cm left ovarian cyst which is decreased in size. Normal right ovary. The bladder and uterus are unremarkable. Postoperative changes consistent with Nadeen-en-Y gastric bypass. There is no contrast within the excluded portion of the stomach. The appendix is not identified and likely surgically absent. Stable focal thickening of the distal left gonadal vein best seen on image 292. This suggests chronic thrombus. The spleen is enlarged measuring 13.5 cm in length. This is not significantly change. No bowel wall thickening or obstruction. IMPRESSION: 1. No bowel wall thickening or obstruction. 2. Decrease in size in the left ovarian cyst which now measures 2 cm. No change in the focal dilatation within the distal left gonadal vein which suggests chronic thrombus. 3. Mild splenomegaly, unchanged. 4. Prior gastric bypass. 5. Right-sided nephrolithiasis. No hydronephrosis. No ureteral stones. 6. Trace pericardial effusion. Electronically signed by: Junior Freire M.D. 05/05/2017 8:14 PM Laboratory Results 05/05/17 17:35 Red Blood Count 5.58, Mean Corpuscular Volume 85.5, Mean Corpuscular Hemoglobin 28.1, Mean Corpuscular Hemoglobin Concent 32.9, Mean Platelet Volume 10.0, Neutrophils (%) (Auto) 57.4, Lymphocytes (%) (Auto) 33.9, Monocytes (%) (Auto) 4.8, Eosinophils (%) (Auto) 3.1, Basophils (%) (Auto) 0.5, Neutrophils # (Auto) 4.39, Lymphocytes # (Auto) 2.59, Monocytes # (Auto) 0.37, Eosinophils # (Auto) 0.24, Basophils # (Auto) 0.04 05/05/17 17:35 Test 05/05/17 17:10 05/05/17 17:35 Urine Color YELLOW Urine Appearance SL CLOUDY (CLEAR) Urine pH 5.0 (4.5-7.5) Urine Specific [place] >= 1.030 (1.000-1.030) Urine Protein NEG (NEG) Urine Glucose (UA) NEG (NEG) Urine Ketones TRACE (NEG) Urine Occult Blood NEG (NEG) Urine Nitrite NEG (NEG) Urine Bilirubin NEG (NEG) Urine Urobilinogen NEG (NEG) Urine Leukocyte Esterase NEG (NEG) Urine WBC (Auto) 0 /hpf (0-5) Urine RBC (Auto) 5-10 /hpf (0-4) Urine Hyaline Casts (Auto) 1-5 /lpf (0-5) Urine Epithelial Cells (Auto) >30 /lpf (0-5) Urine Bacteria (Auto) NEG (NEG) Urine Mucus PRESENT (NONE PRSENT) Urine Test NEG (NEG) White Blood Count 7.65 K/uL (4.8-10.8) Red Blood Count 5.58 M/uL (4.2-5.4) Hemoglobin 15.7 g/dL (12.0-16.0) Hematocrit 47.7 % (37-47) Mean Corpuscular Volume 85.5 fL (80-100) Mean Corpuscular Hemoglobin 28.1 pg (25-34) Mean Corpuscular Hemoglobin Concent 32.9 g/dl (32-36) Platelet Count 253 K/uL (130-400) Mean Platelet Volume 10.0 fL (7.4-10.4) Neutrophils (%) (Auto) 57.4 % Lymphocytes (%) (Auto) 33.9 % Monocytes (%) (Auto) 4.8 % Eosinophils (%) (Auto) 3.1 % Basophils (%) (Auto) 0.5 % Neutrophils # (Auto) 4.39 K/uL (1.4-6.5) Lymphocytes # (Auto) 2.59 K/uL (1.2-3.4) Monocytes # (Auto) 0.37 K/uL (0.11-0.59) Eosinophils # (Auto) 0.24 K/uL (0-0.5) Basophils # (Auto) 0.04 K/uL (0-0.2) RDW Standard Deviation 48.5 fL (36.4-46.3) RDW Coefficient of Variation 15.4 % (11.5-14.5) Immature Granulocyte % (Auto) 0.3 % Immature Granulocyte # (Auto) 0.02 K/uL (0.00-0.02) Anion Gap 6.0 mmol/L (3-11) Est Creatinine Clear Calc Drug Dose 158.0 ml/min Estimated GFR () 142.7 Estimated GFR (Non- 123.1 BUN/Creatinine Ratio 11.4 (10-20) Calcium Level 9.0 mg/dl (8.5-10.1) Total Bilirubin 0.4 mg/dl (0.2-1) Direct Bilirubin 0.1 mg/dl (0-0.2) Aspartate Amino Transf (AST/SGOT) 15 U/L (15-37) Alanine Aminotransferase (ALT/SGPT) 28 U/L (12-78) Alkaline Phosphatase 130 U/L (45-117) Troponin I < 0.015 ng/ml (0-0.045) Total Protein 7.7 gm/dl (6.4-8.2) Albumin 3.7 gm/dl (3.4-5.0) Lipase 120 U/L (73-393) Laboratory results reviewed by me Medications Administered Medications (Trade) Dose Ordered Sig/Rody Route Start Time Stop Time Status Last Admin Dose Admin Haloperidol Lactate (Haldol Inj) 5 mg NOW STAT IV 05/05/17 16:52 05/05/17 16:54 DC 05/05/17 17:46 5 MG Al Hydroxide/Mg Hydroxide (Maalox Susp) 30 ml STK-MED ONCE .ROUTE 05/05/17 20:00 05/05/17 20:01 DC 05/05/17 20:06 30 ML Lidocaine HCl (Viscous Lidocaine 2% Soln) 20 ml STK-MED ONCE .ROUTE 05/05/17 20:00 05/05/17 20:01 DC 05/05/17 20:06 20 ML Ondansetron HCl (Zofran Inj) 4 mg STK-MED ONCE .ROUTE 05/05/17 20:00 05/05/17 20:01 DC 05/05/17 20:06 4 MG ECG Per My Interpretation Indication: other (lightheadedness) Rate (beats per minute): 69 Rhythm: normal sinus Findings: T-wave inversion (V2), no ectopy, other (Normal axis. Normal intervals. T-wave flattening lead 3, not in contiguous leads.) ED Course 1640: The patient was evaluated in room B4B. A complete history and physical exam was performed. 1957: I checked in on the patient. She feels minimally better. 2039: I reevaluated the patient. Discussed results and discharge instructions: she verbalized understanding and agreement. The patient is ready for discharge. Medical Decision The patient is a 32 year old female with a past medical history of anxiety, depression, kidney stones, GERD, diabetes, gastric bypass, section, appendectomy, and cholecystectomy who presents to the ED with a cc of intermittent lightheadedness beginning this week. Differential diagnosis: Etiologies such as appendicitis, diverticulitis, PUD, biliary pathology, UTI, pancreatitis, obstruction, mesenteric ischemia, aortic pathology, infections, inflammatory bowel disease, renal colic, as well as others were entertained. Patient was seen and evaluated the bedside. Patient does have a prior history of a Nadeen-en-Y gastric bypass and was complaining some left-sided abdominal pain. Patient notes that it is been fairly constant for the last week. Patient has recently seen a beer runner as well as machine assembler for puller over without any acute problems. They believed that she was otherwise well and the patient did state that she had normal blood work. Patient has not had a CT scan since December. On exam the patient does have some mild left-sided flank pain and abdominal pain. Patient has a nonsurgical abdomen otherwise. Patient did have blood work completed. Patient was complaining of some intermittent left-sided chest pain that did get her left arm. Patient does state that her father did have an NE but is unsure as to what age. Patient did have diabetes but that has resolved since her gastric bypass. Patient does not take any other medications. Patient has no prior history of DVT or PE. Patient also was complaining some lightheadedness and vertiginous type symptoms. Patient has no nystagmus and a nonfocal neurologic exam. I do not believe that she requires a CT of the brain at this time. Patient did have blood work, EKG, CT of the abdomen and pelvis with IV and oral contrast. She also had a urine analysis and urine test. Patient was also given medications to help with her symptoms. EKG unremarkable. Trop neg. CT shows prior surgeries. Chronic L gonadal vein thrombosis. This appears to have been present since at least October. I did discuss with vascular who stated nothing to do, pain control. This again is chronic in nature and does not appear to have increased in size and this this unlikely to have propagated to cause PE as patient VSS. Patient's other blood work fairly unremarkable. Explained all findings. Patient deemed suitable for outpatient f/u, and trx. Patient d/c'ed to home. Medication Reconcilliation Current Medication List: was personally reviewed by me Blood Pressure Screening Patient's blood pressure: Normal blood pressure Blood pressure disposition: Did not require urgent referral Consults Time Called: 2104 Consulting Physician: Dr. Flores, Vascular Surgery Returned Call: [phone] The L ovarian vein thrombosis does not require acute treatment or follow up. Pain control is appropriate Impression Primary Impression: Chronic abdominal pain Additional Impression: Thrombosis of ovarian vein, chronic Scribe Attestation The scribe's documentation has been prepared under my direction and personally reviewed by me in its entirety. I confirm that the note above accurately reflects all work, treatment, procedures, and medical decision making performed by me. Departure Information Dispostion Home / Self-Care Prescriptions Dicyclomine Hcl (BENTYL) 10 Mg Cap 10 MG PO QID Y for Pain, #16 CAP Prov: Kirill Blake M.D. 05/05/17 Referrals Ulises Matias D.OChristina (PCP) Patient Instructions Abdominal Pain, My [facility] Additional Instructions Please return to the emergency department if you have worsening or recurrent symptoms not amenable to at-home treatment. Please call for a follow-up appointment with her primary care physician. Please take your medications as prescribed. If you have other concerns and/or complaints please feel free to also call your primary care physician's office or return the ED for further evaluation, management, and treatment. You may take 600 mg Ibuprofen every 6 hours as needed for pain with food for no more than 2 consecutive days. You may take tylenol 1000 mg every 6 hours as needed for pain. You may take motrin and tylenol separately or at the same time. Take your medications as prescribed. You have been examined and treated today on an emergency basis only. This is not a substitute for, or an effort to provide, complete comprehensive medical care. It is impossible to recognize and treat all injuries or illnesses in a single emergency department visit. It is therefore important that you follow up closely with [facility], your PCP, and/or your specialist(s). Call as soon as possible for an appointment. Thank you for your time and consideration. I look forward to speaking with you again soon. Please don't hesitate to call us if you have any questions. Problem Qualifiers
[2017-05-05 17:48] LABS: BASO % 0.5 %; BASO ABS # 0.04 K/uL (0-0.2); EOS % 3.1 %; EOS ABS # 0.24 K/uL (0-0.5); HEMATOCRIT 47.7 % (37-47); HEMOGLOBIN 15.7 g/dL (12.0-16.0); IG# 0.02 K/uL (0.00-0.02); LYMPH % 33.9 %; LYMPH ABS # 2.59 K/uL (1.2-3.4); MEAN CELL VOLUME 85.5 fL (80-100); MEAN CORPUSCULAR HEMOGLOBIN 28.1 pg (25-34); MEAN CORPUSCULAR HGB CONC 32.9 g/dl (32-36); MONO % 4.8 %; MONO ABS # 0.37 K/uL (0.11-0.59); NEUT % 57.4 %; NEUT ABS # 4.39 K/uL (1.4-6.5); PLATELET COUNT 253 K/uL (130-400); RED CELL DISTRIBUTION WIDTH CV 15.4 % (11.5-14.5); RED CELL DISTRIBUTION WIDTH SD 48.5 fL (36.4-46.3); WHITE BLOOD COUNT 7.65 K/uL (4.8-10.8)
[2017-05-05] MEDS ORDERED: OMEP20TA14 PO (17:56)
[2017-05-05] MEDS ORDERED: LCHC12280 TOP (17:56)
[2017-05-05] MEDS ORDERED: ONDA4TAB10 SL (17:56)
[2017-05-05] MEDS ORDERED: OPTIRAY 320 IV PRN (18:00)
[2017-05-05 18:04] LABS: ALBUMIN 3.7 gm/dl (3.4-5.0); ALT/SGPT 28 U/L (12-78); AST/SGOT 15 U/L (15-37); BLOOD UREA NITROGEN 6 mg/dl (7-18); CARBON DIOXIDE 26 mmol/L (21-32); CREATININE 0.54 mg/dl (0.60-1.20); GLUCOSE 98 mg/dl (70-99); LIPASE 120 U/L (73-393); POTASSIUM 3.8 mmol/L (3.5-5.1); SODIUM 140 mmol/L (136-145)
[2017-05-05 18:09] LABS: ALKALINE PHOSPHATASE 130 U/L (45-117); TOTAL PROTEIN 7.7 gm/dl (6.4-8.2)
[2017-05-05] MEDS ORDERED: ONDANSETRON INJ 2 MG/ML 2 ML VIAL ONE (20:00)
[2017-05-05] MEDS ORDERED: LIDOCAINE HCL 2% VISC SOLN 20 ML UDC ONE (20:00)
[2017-05-05] MEDS ORDERED: ALUMINUM/MAGNESIUM SUSP 30 ML UDC ONE (20:00)
--- NOTE | 2017-05-05 20:15 | DIAGNOSTIC IMAGING REPORT ---
ABDOMEN AND PELVIS CT WITH IV AND ORAL CONTRAST CT DOSE: 496.77 mGy.cm HISTORY: RYGB, L sided abdominal pain TECHNIQUE: Multiaxial CT images of the abdomen and pelvis were performed following the use of intravenous and oral contrast. A dose lowering technique was utilized adhering to the principles of ALARA. COMPARISON STUDY: Abdomen and pelvis CT 01/02/2017. FINDINGS: The lung bases are clear. No pneumoperitoneum. No pneumatosis. No fractures within the visualized osseous structures. Trace pericardial effusion. This has slightly progressed. Cholecystectomy. The liver, adrenal glands, pancreas are unremarkable. A stable 9 mm hypodense lesion within the left kidney. This is too small to characterize but favors a cyst. Stable punctate stone within the right kidney. No ureteral stones. No hydronephrosis. A 2 cm left ovarian cyst which is decreased in size. Normal right ovary. The bladder and uterus are unremarkable. Postoperative changes consistent with Nadeen-en-Y gastric bypass. There is no contrast within the excluded portion of the stomach. The appendix is not identified and likely surgically absent. Stable focal thickening of the distal left gonadal vein best seen on image 292. This suggests chronic thrombus. The spleen is enlarged measuring 13.5 cm in length. This is not significantly change. No bowel wall thickening or obstruction. IMPRESSION: 1. No bowel wall thickening or obstruction. 2. Decrease in size in the left ovarian cyst which now measures 2 cm. No change in the focal dilatation within the distal left gonadal vein which suggests chronic thrombus. 3. Mild splenomegaly, unchanged. 4. Prior gastric bypass. 5. Right-sided nephrolithiasis. No hydronephrosis. No ureteral stones. 6. Trace pericardial effusion. Electronically signed by: Junior Freire M.D. 05/05/2017 8:14 PM Dictated Date/Time: 05/05/2017 8:02 PM
[2017-05-05] MEDS ORDERED: DICY10CA55 PO (20:44)
[2017-05-05 21:25] VITALS: BP 121/89; PULSE 78; O2SAT 99
== END 2017-05-05 21:26 | disposition home or self-care (01) ==
LOC: C.EDB 14:54
DX: R10.9 Unspecified abdominal pain (principal); G89.29 Other chronic pain; I82.891 Chronic embolism and thrombosis of other specified veins; R42 Dizziness and giddiness; J45.909 Unspecified asthma, uncomplicated; E11.9 Type 2 diabetes mellitus without complications; K21.9 Gastro-esophageal reflux disease without esophagitis; Z98.84 Bariatric surgery status; Z87.442 Personal history of urinary calculi; Z83.3 Family history of diabetes mellitus; Z83.79 Family history of other diseases of the digestive system; Z82.49 Family history of ischemic heart disease and other diseases of the circulatory system; Z84.1 Family history of disorders of kidney and ureter; Z82.0 Family history of epilepsy and other diseases of the nervous system

== ENCOUNTER 2017-05-07 13:28 | Emergency (ER) | payer OTHER ==
[~2017-05-07] VITALS: Ht 167.6 cm; Wt 80.0 kg
[~2017-05-07 13:28] MED LIST changes: -AMOX875T PO; +CALC-51 PO; +DICY10CA55 PO; +ERGO500011 PO; +FLUT1INH IN; +LCHC12280 TOP; +MULT-513 PO; +OMEP20TA14 PO; -ONDA4TAB46 PO; -PRLSR20 PO; -TRAM-10 PO
[2017-05-07 13:32] VITALS: TEMP 36.7; Ht 167.6 cm; Wt 80.0 kg
--- NOTE | 2017-05-07 14:19 | EMERGENCY ROOM VISIT NOTE ---
ED Visit Note First contact with patient: 13:42 CHIEF COMPLAINT: Lower abdominal pain, blood in stool HISTORY OF PRESENTING ILLNESS: This is a 32-year-old female presents to the emergency department with complaint of lower abdominal pain that started this morning. She states that she felt like she had to move her bowels, and when she did she noticed a large amount of red blood mixed in with her stool. She states that her pain improved after moving her bowels, but she has continued to have some lower abdominal pain. She denies any persistent blood per rectum. She does report a history of blood in her stool in the past, but states it was never this much. She states that she has had a colonoscopy about a year ago, she does not remember what it showed. She has a past medical history of Nadeen-en -Y gastric bypass surgery. She has chronic abdominal pain, for which she states she takes oxycodone as needed. She denies any fevers or chills, nausea, vomiting, diarrhea, constipation, urinary symptoms, vaginal bleeding or discharge, chest pain, shortness of breath, dizziness or syncope, or rash. Patient was evaluated in the emergency department 2 days ago for diffuse abdominal pain and nausea, she states she was given an IV medicine that she had a bad reaction to, she describes as confusion, feeling restless, and states she had difficulty sleeping because of receiving this medication. She states part of why she is here today is because she wants to know what the medication was that she was given. REVIEW OF SYSTEMS: A complete 10 point review of systems was reviewed with the patient with pertinent positives and negatives as per history of present illness. All else were negative. PAST MEDICAL HISTORY: Reviewed in chart. SOCIAL HISTORY: Lives at home with family. She denies tobacco use, alcohol use , recreational drug use. ALLERGIES: No known allergies. PHYSICAL EXAM: CONSTITUTIONAL: Pleasant and cooperative. No acute distress. Well appearing and well nourished. HEENT: Normocephalic, atraumatic. Pupils equal, round and reactive to light, EOMI. TMs normal. Pharynx normal. Moist mucous membranes. NECK: Supple, full active range of motion without discomfort. RESPIRATORY: Clear to auscultation bilaterally with no wheezing, crackles, rhonchi or stridor. Equal expansion bilaterally. CARDIOVASCULAR: Regular rate and rhythm with no murmurs, rubs or gallops. Normal peripheral perfusion. No edema. GASTROINTESTINAL: Soft, mild diffuse tenderness throughout the abdomen, more tender in the suprapubic region, nondistended. No rebound tenderness or guarding. No palpable masses or HSM. No CVA tenderness. Bowel sounds present in all quadrants. DIGITAL RECTAL EXAM: No external hemorrhoids, no internal hemorrhoids, no anal fissures, no palpable masses. Stool is light brown, guaiac POSITIVE. MUSCULOSKELETAL: Full range of motion of all joints without discomfort. INTEGUMENTARY: No rash or other significant dermatologic conditions noted. NEUROLOGIC: Alert and oriented X 4 with normal affect. No focal neurologic deficits noted. Normal strength and sensation all 4 extremities. Normal speech. Normal gait observed. ED COURSE AND MEDICAL DECISION MAKING: CC: Patient presenting with complaint of lower abdominal pain, blood in stool DIFFERENTIAL DIAGNOSIS: Includes, but not limited to GI bleed, hemorrhoids, constipation, anemia, chronic abdominal pain, among others. INTERPRETATION OF LABS: No leukocytosis, no anemia, no significant electrolyte abnormality, normal renal function, normal liver enzymes and lipase. UA negative, urine negative. MEDICATION RECONCILIATION: I attest that I have personally reviewed the patient 's current medication list. INITIAL VITAL SIGNS REVIEW: I reviewed the patient's initial vital signs and interpret them as follows: T: Afebrile; BP: Normotensive; HR: Within normal limit; RR: Within normal limit; Pulse Ox: Within normal limits on room air. Blood pressure screening: The patient was found to have normal blood pressure on screening and does not require follow-up for repeat blood pressure check. SUMMARY: Patient was evaluated at bedside, history and physical exam performed. Patient is alert and oriented, no acute distress, resting calmly in the stretcher. Mild tenderness at the diffuse lower abdomen to palpation. No rebound tenderness or guarding. Digital rectal exam reveals no internal or external hemorrhoids, anal fissures, or masses. Stool is guaiac positive. Review of the patient's chart was performed, noting her recent ED visit 2 days ago, at which time she had a CT of the abdomen and pelvis that was unremarkable. It appears that she was given IV Haldol as a management for her nausea, I suspect this is the medication she received that caused her reaction as described. Orders were placed at bedside for labs, UA and urine to evaluate for her lower abdominal pain and rectal bleeding. Patient discussed with Dr. Blake, who agrees with my assessment and plan. Labs reviewed as above, unremarkable. She is not anemic. I did discuss the patient's results and medications from her previous ED visit, as well as her results from today. She was given a dose of oral Bentyl, and encouraged to continue taking this medication for her abdominal pain, which I suspect may be secondary to gastroparesis. I did also encourage her to follow-up with her chemical process operator regarding her rectal bleeding, to determine a need for possible colonoscopy. Patient reassessed multiple times throughout ED stay, she remained stable and appears comfortable. Patient was updated on all results and plan for discharge, she was encouraged to follow closely with her primary care provider. Patient was also given strict return precautions should her symptoms worsen, she verbalized understanding. Patient was discharged home in stable condition and ambulatory. Problem List Medical Problems: (1) Asthma Status: Chronic (2) Diabetes mellitus Status: Chronic (3) DM type 2 (diabetes mellitus, type 2) Status: Chronic (4) GERD (gastroesophageal reflux disease) Status: Chronic (5) Kidney stone Status: Chronic (6) Ovarian cyst Status: Resolved Surgical Problems: (1) S/P appendectomy Status: Chronic (2) S/P bilateral breast reduction Status: Chronic (3) S/P section Status: Chronic (4) S/P cholecystectomy Status: Chronic Current/Historical Medications Scheduled Calcium Carbonate-Vitamin D (Calcium), 1 TAB PO BID Ergocalciferol (Vitamin D 61883 Unit), 50,000 INTER.UNIT PO WK Fluticasone Furoate-Vilanterol (Breo Ellipta), 1 PUFF IN DAILY Lactic Acid (Ammonium Lactate Cream 12%), 1 APPLN TOP DAILY Multivitamins/Minerals (Mvi With Minerals), 1 TAB PO BID Omeprazole Magnesium (Prilosec Otc), 20 MG PO BID Scheduled PRN Dicyclomine Hcl (Bentyl), 10 MG PO QID PRN for Pain Ondasetron Odt (Zofran Odt), 4 MG SL Q6H PRN for Nausea Allergies Coded Allergies: No Known Allergies (Verified , 03/03/17) Vital Signs Date Time Temp Pulse Resp B/P (MAP) Pulse Ox O2 Delivery O2 Flow Rate FiO2 05/07/17 15:44 69 16 117/71 99 05/07/17 15:02 68 16 115/56 99 Room Air 05/07/17 14:14 73 05/07/17 13:32 36.7 73 20 122/67 100 Room Air Laboratory Results 05/07/17 14:15 Red Blood Count 5.28, Mean Corpuscular Volume 84.3, Mean Corpuscular Hemoglobin 28.0, Mean Corpuscular Hemoglobin Concent 33.3, Mean Platelet Volume 9.7, Neutrophils (%) (Auto) 56.4, Lymphocytes (%) (Auto) 36.0, Monocytes (%) (Auto) 4.2, Eosinophils (%) (Auto) 2.7, Basophils (%) (Auto) 0.5, Neutrophils # (Auto) 3.32, Lymphocytes # (Auto) 2.12, Monocytes # (Auto) 0.25, Eosinophils # (Auto) 0.16, Basophils # (Auto) 0.03 05/07/17 14:15 Test 05/07/17 14:10 05/07/17 14:15 Urine Color DK YELLOW Urine Appearance CLEAR (CLEAR) Urine pH 5.0 (4.5-7.5) Urine Specific [place] 1.023 (1.000-1.030) Urine Protein NEG (NEG) Urine Glucose (UA) NEG (NEG) Urine Ketones TRACE (NEG) Urine Occult Blood NEG (NEG) Urine Nitrite NEG (NEG) Urine Bilirubin NEG (NEG) Urine Urobilinogen NEG (NEG) Urine Leukocyte Esterase NEG (NEG) Urine Test NEG (NEG) White Blood Count 5.89 K/uL (4.8-10.8) Red Blood Count 5.28 M/uL (4.2-5.4) Hemoglobin 14.8 g/dL (12.0-16.0) Hematocrit 44.5 % (37-47) Mean Corpuscular Volume 84.3 fL (80-100) Mean Corpuscular Hemoglobin 28.0 pg (25-34) Mean Corpuscular Hemoglobin Concent 33.3 g/dl (32-36) Platelet Count 238 K/uL (130-400) Mean Platelet Volume 9.7 fL (7.4-10.4) Neutrophils (%) (Auto) 56.4 % Lymphocytes (%) (Auto) 36.0 % Monocytes (%) (Auto) 4.2 % Eosinophils (%) (Auto) 2.7 % Basophils (%) (Auto) 0.5 % Neutrophils # (Auto) 3.32 K/uL (1.4-6.5) Lymphocytes # (Auto) 2.12 K/uL (1.2-3.4) Monocytes # (Auto) 0.25 K/uL (0.11-0.59) Eosinophils # (Auto) 0.16 K/uL (0-0.5) Basophils # (Auto) 0.03 K/uL (0-0.2) RDW Standard Deviation 47.4 fL (36.4-46.3) RDW Coefficient of Variation 15.3 % (11.5-14.5) Immature Granulocyte % (Auto) 0.2 % Immature Granulocyte # (Auto) 0.01 K/uL (0.00-0.02) Anion Gap 4.0 mmol/L (3-11) Est Creatinine Clear Calc Drug Dose 119.1 ml/min Estimated GFR () 128.8 Estimated GFR (Non- 111.1 BUN/Creatinine Ratio 11.5 (10-20) Calcium Level 9.6 mg/dl (8.5-10.1) Total Bilirubin 0.6 mg/dl (0.2-1) Direct Bilirubin 0.2 mg/dl (0-0.2) Aspartate Amino Transf (AST/SGOT) 18 U/L (15-37) Alanine Aminotransferase (ALT/SGPT) 28 U/L (12-78) Alkaline Phosphatase 137 U/L (45-117) Total Protein 8.2 gm/dl (6.4-8.2) Albumin 4.2 gm/dl (3.4-5.0) Lipase 113 U/L (73-393) Medications Administered Medications (Trade) Dose Ordered Sig/Rody Route Start Time Stop Time Status Last Admin Dose Admin Dicyclomine HCl (Bentyl Cap) 10 mg NOW STAT PO 05/07/17 14:55 05/07/17 14:56 DC 05/07/17 15:44 10 MG Departure Information Impression Primary Impression: Blood in stool Dispostion Home / Self-Care Condition GOOD Referrals Ulises Matias, D.O. (PCP) Patient Instructions ED Hematochezia Stable, My [facility] Additional Instructions You have been treated in the Emergency Department your Abdominal Pain. Laboratory results today did not show any concerning findings which would warrant admission or surgery. Your stool tested positive for the presence of blood today. It is important for you to follow-up with your gastroenterology provider and discuss having a colonoscopy to further evaluate this. Please call for an appointment. You may continue to take your prescribed pain medications as needed for pain. You have previously been provided with a prescription for Bentyl, please start taking this, and discuss its continued use with your chemical process operator. During your last emergency visit, you were given a dose of Haldol (haloperidol) , which may have caused your symptoms of confusion and restlessness. Be sure to add this medication to your list of potential allergies/adverse reactions. Return to the emergency department if your symptoms worsen, including severe worsening pain, large amounts of blood or numerous bloody stools, dizziness or passing out, fevers or chills, vomiting up blood, or any other concerns. Work Instructions Return To Work: 1 day
[2017-05-07 14:31] LABS: BASO % 0.5 %; BASO ABS # 0.03 K/uL (0-0.2); EOS % 2.7 %; EOS ABS # 0.16 K/uL (0-0.5); HEMATOCRIT 44.5 % (37-47); HEMOGLOBIN 14.8 g/dL (12.0-16.0); IG# 0.01 K/uL (0.00-0.02); LYMPH ABS # 2.12 K/uL (1.2-3.4); MEAN CELL VOLUME 84.3 fL (80-100); MEAN CORPUSCULAR HGB CONC 33.3 g/dl (32-36); MEAN PLATELET VOLUME 9.7 fL (7.4-10.4); MONO % 4.2 %; MONO ABS # 0.25 K/uL (0.11-0.59); NEUT % 56.4 %; NEUT ABS # 3.32 K/uL (1.4-6.5); PLATELET COUNT 238 K/uL (130-400); RED CELL DISTRIBUTION WIDTH CV 15.3 % (11.5-14.5); RED CELL DISTRIBUTION WIDTH SD 47.4 fL (36.4-46.3); WHITE BLOOD COUNT 5.89 K/uL (4.8-10.8)
[2017-05-07 14:49] LABS: ALBUMIN 4.2 gm/dl (3.4-5.0); CALCIUM 9.6 mg/dl (8.5-10.1); CREATININE 0.71 mg/dl (0.60-1.20); POTASSIUM 3.4 mmol/L (3.5-5.1)
[2017-05-07 14:52] LABS: TOTAL PROTEIN 8.2 gm/dl (6.4-8.2)
[2017-05-07] MEDS: DICYCLOMINE HCL 10 MG CAP PO STA ×2 (14:55→15:44)
[2017-05-07 15:44] VITALS: BP 117/71; PULSE 69; O2SAT 99
== END 2017-05-07 15:46 | disposition home or self-care (01) ==
LOC: C.EDB 13:30
DX: K92.1 Melena (principal); Z98.84 Bariatric surgery status; G89.29 Other chronic pain; R10.9 Unspecified abdominal pain; J45.909 Unspecified asthma, uncomplicated; E11.9 Type 2 diabetes mellitus without complications; K21.9 Gastro-esophageal reflux disease without esophagitis; Z87.442 Personal history of urinary calculi; Z90.49 Acquired absence of other specified parts of digestive tract; Z79.899 Other long term (current) drug therapy

== ENCOUNTER → 2017-05-28 | Outpatient (CLI) | payer OTHER ==
[~2017-05-28] MED LIST changes: -DICY10CA55 PO
== END | disposition home or self-care (01) ==
LOC: C.LAB 08:23
PROVIDERS: ATTEND Registered Nurse
DX: K62.5 Hemorrhage of anus and rectum (principal)

== ENCOUNTER 2017-06-24 09:18 | Emergency (ER) | payer OTHER ==
[~2017-06-24] VITALS: Ht 167.6 cm; Wt 77.9 kg
[2017-06-24 09:21] VITALS: TEMP 36.7; Ht 167.6 cm; Wt 77.9 kg
[2017-06-24] MEDS ORDERED: DiphenhydrAMINE HCL 50 MG/ML VIAL IV STA (09:58)
[2017-06-24] MEDS ORDERED: PROCHLORPERAZINE 5 MG/ML 2 ML VIAL IV STA (09:58)
[2017-06-24] MEDS ORDERED: SODIUM CHLORIDE 0.9% 1000ML 1,000 ML IV STA (09:58)
[2017-06-24] MEDS ORDERED: KETOROLAC TROMETHAMINE 30 MG/ML VIAL IV STA (09:58)
[2017-06-24 10:19] LABS: BASO % 0.4 %; BASO ABS # 0.02 K/uL (0-0.2); EOS ABS # 0.16 K/uL (0-0.5); HEMATOCRIT 38.6 % (37-47); HEMOGLOBIN 13.3 g/dL (12.0-16.0); IG# 0.01 K/uL (0.00-0.02); LYMPH % 36.1 %; LYMPH ABS # 1.92 K/uL (1.2-3.4); MEAN CORPUSCULAR HEMOGLOBIN 29.3 pg (25-34); MEAN CORPUSCULAR HGB CONC 34.5 g/dl (32-36); MONO % 6.8 %; MONO ABS # 0.36 K/uL (0.11-0.59); NEUT % 53.5 %; NEUT ABS # 2.85 K/uL (1.4-6.5); PLATELET COUNT 179 K/uL (130-400); RED CELL DISTRIBUTION WIDTH CV 14.4 % (11.5-14.5); RED CELL DISTRIBUTION WIDTH SD 44.7 fL (36.4-46.3); WHITE BLOOD COUNT 5.32 K/uL (4.8-10.8)
[2017-06-24 10:35] LABS: ALBUMIN 3.4 gm/dl (3.4-5.0); CALCIUM 8.9 mg/dl (8.5-10.1); CREATININE 0.56 mg/dl (0.60-1.20); POTASSIUM 3.4 mmol/L (3.5-5.1)
[2017-06-24 10:38] LABS: TOTAL PROTEIN 6.7 gm/dl (6.4-8.2)
--- NOTE | 2017-06-24 10:58 | DIAGNOSTIC IMAGING REPORT ---
HEAD WITHOUT CONTRAST (CT) CLINICAL HISTORY: 32 years-old Female with ELLISON. Acute headache TECHNIQUE: Multiple axial CT images of the head were obtained without contrast. A dose lowering technique was utilized adhering to the principles of ALARA. CT DOSE: 690.05 mGycm COMPARISON: CT head 01/22/2017. FINDINGS: No acute intracranial hemorrhage, midline shift, intracranial mass, hydrocephalus, territorial ischemia or abnormal extra-axial collection. The calvarium is intact. Moderate mucosal thickening of the ethmoid air cells. Hypoplasia of the right frontal sinus. Mild mucosal thickening of the left frontal, imaged maxillary and sphenoid sinuses. Mastoid air cells are clear. Soft tissues and orbits are unremarkable. IMPRESSION: No acute intracranial abnormality. The above report was generated using voice recognition software. It may contain grammatical, syntax or spelling errors. Electronically signed by: Jagdeep Bhatti M.D. 06/24/2017 10:56 AM Dictated Date/Time: 06/24/2017 10:54 AM
[2017-06-24 11:18] VITALS: BP 108/75; PULSE 86; O2SAT 99
--- NOTE | 2017-06-24 16:14 | EMERGENCY ROOM VISIT NOTE ---
History Report prepared by Berenice: Abhi Pinedo Under the Supervision of: Dr. Adan Andre D.O. First contact with patient: 09:44 Chief Complaint: HEADACHE Stated Complaint: HEADACHE History of Present Illness The patient is a 32 year old female who presents to the Emergency Room with complaints of a persistent headache that began yesterday at 1000, 24 hours ago. The patient states that the headache starts in the front of her head and radiates into the back bilaterally. She rates the severity of the pain as a 10/ 10 currently. The pain is "sharp and stabbing." The patient has a history of headaches, but notes that this is different in severity and the pain in the back of the head is new. She also currently complains of nausea, but denies abdominal pain. She has not had any fevers. She denies any other change in vision, fevers, chest pain, shortness of breath, pain with urination, and melena. Source of History: patient Onset: 24 hours ago Position: head Quality: sharp, stabbing, other (Headache) Timing: other (persistent) Associated Symptoms: + nausea, No chest pain, No abdominal pain, No urinary symptoms Review of Systems See HPI for pertinent positives & negatives. A total of 10 systems reviewed and were otherwise negative. Past Medical & Surgical Medical Problems: (1) Asthma (2) Diabetes mellitus (3) DM type 2 (diabetes mellitus, type 2) (4) GERD (gastroesophageal reflux disease) (5) Kidney stone (6) Ovarian cyst (7) Sepsis Surgical Problems: (1) S/P appendectomy (2) S/P bilateral breast reduction (3) S/P section (4) S/P cholecystectomy Family History Diabetes mellitus FH: gallbladder disease FH: heart disease FH: lung disease Hypertension Kidney disease or stones Seizures Social History Smoking Status: Never Smoker Alcohol Use: none Drug Use: none Marital Status: Housing Status: lives with family Occupation Status: unemployed Current/Historical Medications Scheduled Calcium Carbonate-Vitamin D (Calcium), 1 TAB PO BID Ergocalciferol (Vitamin D 43519 Unit), 50,000 INTER.UNIT PO WK Fluticasone Furoate-Vilanterol (Breo Ellipta), 1 PUFF IN DAILY Lactic Acid (Ammonium Lactate Cream 12%), 1 APPLN TOP DAILY Multivitamins/Minerals (Mvi With Minerals), 1 TAB PO BID Omeprazole Magnesium (Prilosec Otc), 20 MG PO BID Scheduled PRN Ondasetron Odt (Zofran Odt), 4 MG SL Q6H PRN for Nausea Allergies Coded Allergies: No Known Allergies (Verified , 03/03/17) Physical Exam Vital Signs Date Time Temp Pulse Resp B/P (MAP) Pulse Ox O2 Delivery O2 Flow Rate FiO2 06/24/17 11:18 86 16 108/75 99 Room Air 06/24/17 10:42 78 16 134/89 100 Room Air 06/24/17 09:21 36.7 77 18 119/82 100 Room Air Physical Exam GENERAL: Sitting up in bed with her arms crossed, alert, well appearing, well nourished, minimal distress, non-toxic HEAD: There is acute reproducible tenderness at the base of the OA joint. This is radiating bilaterally. EYE EXAM: normal conjunctiva. PERRL and EOM's intact. OROPHARYNX: no exudate, no erythema, lips, buccal mucosa, and tongue normal and mucous membranes are moist NECK: supple, no nuchal rigidity, no adenopathy, non-tender LUNGS: Clear to auscultation. Normal chest wall mechanics HEART: no murmurs, S1 normal and S2 normal ABDOMEN: abdomen soft, non-tender, normo-active bowel sounds, no masses, no rebound or guarding. BACK: Back is symmetrical on inspection and there is no deformity, no midline tenderness, no CVA tenderness. SKIN: no rashes and no bruising UPPER EXTREMITIES: upper extremities are grossly normal. LOWER EXTREMITIES: No pitting edema. NEURO EXAM: Normal sensorium, cranial nerves II-XII intact, normal speech, no weakness of arms, no weakness of legs. No drift. Finger to nose intact. Gross sensation intact. Medical Decision & Procedures ER Provider Diagnostic Interpretation: Radiology results as stated below per my review and the radiologist's interpretation: HEAD WITHOUT CONTRAST (CT) CLINICAL HISTORY: 32 years-old Female with ELLISON. Acute headache TECHNIQUE: Multiple axial CT images of the head were obtained without contrast. A dose lowering technique was utilized adhering to the principles of ALARA. CT DOSE: 690.05 mGycm COMPARISON: CT head 01/22/2017. FINDINGS: No acute intracranial hemorrhage, midline shift, intracranial mass, hydrocephalus, territorial ischemia or abnormal extra-axial collection. The calvarium is intact. Moderate mucosal thickening of the ethmoid air cells. Hypoplasia of the right frontal sinus. Mild mucosal thickening of the left frontal, imaged maxillary and sphenoid sinuses. Mastoid air cells are clear. Soft tissues and orbits are unremarkable. IMPRESSION: No acute intracranial abnormality. The above report was generated using voice recognition software. It may contain grammatical, syntax or spelling errors. Electronically signed by: Jagdeep Bhatti M.D. 06/24/2017 10:56 AM Dictated Date/Time: 06/24/2017 10:54 AM Laboratory Results 06/24/17 10:10 Red Blood Count 4.54, Mean Corpuscular Volume 85.0, Mean Corpuscular Hemoglobin 29.3, Mean Corpuscular Hemoglobin Concent 34.5, Mean Platelet Volume 10.0, Neutrophils (%) (Auto) 53.5, Lymphocytes (%) (Auto) 36.1, Monocytes (%) (Auto) 6.8, Eosinophils (%) (Auto) 3.0, Basophils (%) (Auto) 0.4, Neutrophils # (Auto) 2.85, Lymphocytes # (Auto) 1.92, Monocytes # (Auto) 0.36, Eosinophils # (Auto) 0.16, Basophils # (Auto) 0.02 06/24/17 10:10 Test 06/24/17 10:10 White Blood Count 5.32 K/uL (4.8-10.8) Red Blood Count 4.54 M/uL (4.2-5.4) Hemoglobin 13.3 g/dL (12.0-16.0) Hematocrit 38.6 % (37-47) Mean Corpuscular Volume 85.0 fL (80-100) Mean Corpuscular Hemoglobin 29.3 pg (25-34) Mean Corpuscular Hemoglobin Concent 34.5 g/dl (32-36) Platelet Count 179 K/uL (130-400) Mean Platelet Volume 10.0 fL (7.4-10.4) Neutrophils (%) (Auto) 53.5 % Lymphocytes (%) (Auto) 36.1 % Monocytes (%) (Auto) 6.8 % Eosinophils (%) (Auto) 3.0 % Basophils (%) (Auto) 0.4 % Neutrophils # (Auto) 2.85 K/uL (1.4-6.5) Lymphocytes # (Auto) 1.92 K/uL (1.2-3.4) Monocytes # (Auto) 0.36 K/uL (0.11-0.59) Eosinophils # (Auto) 0.16 K/uL (0-0.5) Basophils # (Auto) 0.02 K/uL (0-0.2) RDW Standard Deviation 44.7 fL (36.4-46.3) RDW Coefficient of Variation 14.4 % (11.5-14.5) Immature Granulocyte % (Auto) 0.2 % Immature Granulocyte # (Auto) 0.01 K/uL (0.00-0.02) Anion Gap 5.0 mmol/L (3-11) Est Creatinine Clear Calc Drug Dose 149.1 ml/min Estimated GFR () 141.0 Estimated GFR (Non- 121.7 BUN/Creatinine Ratio 19.6 (10-20) Calcium Level 8.9 mg/dl (8.5-10.1) Total Bilirubin 0.5 mg/dl (0.2-1) Direct Bilirubin 0.2 mg/dl (0-0.2) Aspartate Amino Transf (AST/SGOT) 17 U/L (15-37) Alanine Aminotransferase (ALT/SGPT) 17 U/L (12-78) Alkaline Phosphatase 88 U/L (45-117) Total Protein 6.7 gm/dl (6.4-8.2) Albumin 3.4 gm/dl (3.4-5.0) Lipase 86 U/L (73-393) Laboratory results per my review. Medications Administered Medications (Trade) Dose Ordered Sig/Rody Route Start Time Stop Time Status Last Admin Dose Admin Sodium Chloride 1,000 ml @ 999 mls/hr Q1H1M STAT IV 06/24/17 09:58 06/24/17 10:58 DC 06/24/17 10:12 999 MLS/HR Ketorolac Tromethamine (Toradol Inj) 30 mg NOW STAT IV 06/24/17 09:58 06/24/17 09:59 DC 06/24/17 10:12 30 MG Prochlorperazine Edisylate (Compazine Inj) 10 mg NOW STAT IV 06/24/17 09:58 06/24/17 09:59 DC 06/24/17 10:12 10 MG Diphenhydramine HCl (Benadryl Inj) 50 mg NOW STAT IV 06/24/17 09:58 06/24/17 10:00 DC 06/24/17 10:11 50 MG ED Course ED COURSE: Vital signs were reviewed and showed normal blood pressure. The patients medical record was reviewed The above diagnostic studies were performed and reviewed. ED treatments and interventions as stated above. 0954: The patient was evaluated in room B12B. A complete history and physical examination was performed. 0958: Ordered Benadryl 50 mg IV, Compazine 10 mg IV, Toradol 30 mg IV, Sodium Chloride 1000 mL @ 999 mL/hr IV. 1124: Upon reevaluation, the patient is declining the LP and wants to go noe.I discussed my findings with the patient and she understands and agrees with the treatment plan. Based on the patients age, coexisting illnesses, exam and lab findings the decision to treat as an outpatient was made. The patient remained stable while under my care. The patient appeared well at the time of discharge. Medical Decision Differential Diagnosis includes but is not limited to headache, tension headache , cluster headache, migraine, subarachnoid hemorrhage, meningitis, mass, central venous thrombus, concussion, trauma and epidural/subdural hemorrhage. Patient is a 32-year-old female who presents the ER for headache which started the day yesterday. It radiates from the back of her head anteriorly up to the front. It is completely reproducible on exam. Vitals are stable. Labs including CBC and BMP were remarkable for mild hypokalemia. Bilirubin, LFTs and lipase were negative and were obtained as she did have some nausea. CT head was negative. Patient was completely neurologically intact. Recommended LP as she said this headache was extremely severe but she declined. Explained risk and benefits. I do favor this likely muscle skeletal in origin from the OA joint. Patient was updated at bedside. Patient was given IV Toradol, Compazine and Benadryl. She has significant improvement her pain. There is no signs of meningitis or encephalitis. Discussed with Pt concerning signs and symptoms to watch out for. Pt was instructed to follow up with their PCP and discussed with the patient their option to return to the ED at anytime for persistent or worsening symptoms. The appropriate anticipatory guidance and out- patient management, including indications for return to the emergency department , were explained at length to the patient and understood. Medication Reconcilliation Current Medication List: was personally reviewed by me Blood Pressure Screening Patient's blood pressure: Normal blood pressure Impression Primary Impression: Headache Scribe Attestation The scribe's documentation has been prepared under my direction and personally reviewed by me in its entirety. I confirm that the note above accurately reflects all work, treatment, procedures, and medical decision making performed by me. Departure Information Dispostion Home / Self-Care Referrals No Doctor, Assigned (PCP) Forms HOME CARE DOCUMENTATION FORM, IMPORTANT VISIT INFORMATION Patient Instructions My [facility] Additional Instructions Please follow up with your primary care doctor with in the next 24 hours. Any worsening of your symptoms, please return to the ED immediately. This includes any fevers greater than 100.4, worsening pain, chest pain, shortness breath, persistent nausea, vomiting, unable to eat or drink, or any other concerning signs or symptoms from your standpoint. You were given medications during this visit that will inhibit your ability to drive, operate machinery and work. Please do NOT drive, operate machinery, drink alcohol or work for the next 12hrs. Problem Qualifiers Primary Impression: Headache Headache type: unspecified Headache chronicity pattern: unspecified pattern Intractability: not intractable Qualified Codes: R51 - Headache
[2017-07-02] MEDS ORDERED: LINA72CA PO (14:11)
== END 2017-06-24 11:48 | disposition home or self-care (01) ==
LOC: C.EDB 09:20
DX: R51 Headache (principal); R11.0 Nausea; E11.9 Type 2 diabetes mellitus without complications; Z79.899 Other long term (current) drug therapy; K21.9 Gastro-esophageal reflux disease without esophagitis

== ENCOUNTER → 2017-07-08 | Day surgery (SDC) | payer OTHER ==
[2017-07-02 14:12] VITALS: Ht 167.6 cm; Wt 77.7 kg
[~2017-07-08] VITALS: Ht 167.6 cm; Wt 77.7 kg
[~2017-07-08] MED LIST changes: -FLUT1INH IN; +LIDOCAINE HCL 2% 2 ML VIAL (20MG/ML) ONE; +LINA72CA PO; +PROPOFOL IV EMULSION 10 MG/ML 20 ML VIAL IV ONE; +SODIUM CHLORIDE 0.9% 500ML 500 ML IV ONE
--- NOTE | 2017-07-08 13:49 | Endo History and Physical ---
History & Physical Date of Service: Jul 08, 2017. Chief Complaint: Rectal bleeding Referring Physician: Dr. Ulises Matias History of Present Illness 32 yo female who presents for Colonoscopy secondary to rectal bleeding. Past Medical History Diabetes, Asthma, Reflux, High Cholesterol, CHF Past Surgical History Hx Cardiac Surgery: No Hx Internal Defibrillator: No Hx Pacemaker: No Hx Abdominal Surgery: Yes ( X3, APPY, LISSY, GASTRIC BYPASS (JULY 2016) ) Hx of Implantable Prosthesis: No Hx Post-Op Nausea and Vomiting: No Hx Cancer Surgery: No Hx Thoracic Surgery: No Hx Orthopedic: No Hx Urinary Tract Surgery: No Family History None Social History Smoking Status: Never Smoker Hx Substance Use: No Hx Alcohol Use: No Allergies Coded Allergies: No Known Allergies (Verified , 07/02/17) Current Medications Reported Home Medications Medications Dose Route/Sig Max Daily Dose Days Date Category Dose Instructions Linzess (Linaclotide) 72 Mcg Cap 1 Tab PO DAILY 07/02/17 Reported Zofran Odt (Ondansetron HCl) 4 Mg Tab 4 Mg SL Q6H PRN 05/05/17 Reported Ammonium Lactate Cream 12% (Lactic Acid) 280 Gm Cr 1 Appln TOP DAILY 05/05/17 Reported APPLY DIRECTED TO AFFECTED AREA(s) OF FEET Prilosec Otc (Omeprazole Magnesium) 20 Mg Tab 20 Mg PO BID 05/05/17 Reported Vitamin D 50802 Unit (Ergocalciferol) 50,000 Unit Cap 50,000 Inter.unit PO WK 04/15/17 Reported TAKE THIS MEDICATION EVERY WEDNESDAY Mvi With Minerals (Multivitamins/Minerals) Tab 1 Tab PO BID 04/15/17 Reported Calcium (Calcium Carbonate-Vitamin D) 1 Tab Tab 1 Tab PO BID 04/15/17 Reported Vital Signs Weight (Kilograms): 77.73 Height (Feet): 5 Height (Inches): 6 Date Time Temp Pulse Resp B/P (MAP) Pulse Ox O2 Delivery O2 Flow Rate FiO2 07/08/17 13:30 36.7 68 18 108/71 (83) 100 Room Air Physical Exam General Appearance: WD/WN, no apparent distress Respiratory/Chest: Auscultation: breath sounds normal Cardiovascular: Heart Auscultation: RRR Abdomen: Bowel Sounds: normal Inspection & Palpation: soft, non-distended, no tenderness, guarding & rebound Assessment and Plan Assessment: 32 yo female who presents for Colonoscopy secondary to rectal bleeding. Plan: Proceed with colonoscopy.
--- NOTE | 2017-07-08 14:27 | Discharge Instructions ---
Endoscopy Patient Instructions Date / Procedure(s) Performed Jul 08, 2017. Colonoscopy Allergy Information Coded Allergies: No Known Allergies (Verified , 07/02/17) Discharge Date / Findings Jul 08, 2017. Colon polyp Internal hemorrhoids Medication Instructions OK to resume all medications today as prescribed Reported Home Medications Medications Dose Route/Sig Max Daily Dose Days Date Category Dose Instructions Linzess (Linaclotide) 72 Mcg Cap 1 Tab PO DAILY 07/02/17 Reported Zofran Odt (Ondansetron HCl) 4 Mg Tab 4 Mg SL Q6H PRN 05/05/17 Reported Ammonium Lactate Cream 12% (Lactic Acid) 280 Gm Cr 1 Appln TOP DAILY 05/05/17 Reported APPLY DIRECTED TO AFFECTED AREA(s) OF FEET Prilosec Otc (Omeprazole Magnesium) 20 Mg Tab 20 Mg PO BID 05/05/17 Reported Vitamin D 15994 Unit (Ergocalciferol) 50,000 Unit Cap 50,000 Inter.unit PO WK 04/15/17 Reported TAKE THIS MEDICATION EVERY WEDNESDAY Mvi With Minerals (Multivitamins/Minerals) Tab 1 Tab PO BID 04/15/17 Reported Calcium (Calcium Carbonate-Vitamin D) 1 Tab Tab 1 Tab PO BID 04/15/17 Reported Provider Instructions Activity Restrictions - No exercising or heavy lifting for 24 hours. - Do not drink alcohol the day of the procedure. - Do not drive a car or operate machinery until the day after the procedure. - Do not make any important decisions or sign important papers in 24 hours after the procedure. Following Day: - Return to full activity which may include returning to work/school. Diet Start your diet with liquids and light foods (jello, soup, juice, toast). Then eat your usual diet if not nauseated. Treatment For Common After Affects For mild abdominal pain, bloating, or excessive gas: - Rest - Eat lightly - Lie on right side Follow-Up Information Follow-up with Dr. Ulises Matias as scheduled Anesthesia Information What You Should Know You have had a procedure that required some medicine to reduce anxiety and discomfort. This treatment is called moderate sedation. After receiving the treatment, you may be sleepy, but you will be able to breathe on your own. The effects of the treatment may last for several hours. Follow these instructions along with Activity/Diet recommendations noted above: * Do NOT do anything where dizziness or clumsiness would be dangerous. * Rest quietly at home today, then you can be up and about tomorrow. * Have a responsible person stay with you the rest of today. * You may have had an I.V. today. If so, you may take the dressing off later today. Recommendations Call your doctor if: * Trouble breathing * Continuous vomiting for more than 24 hours * Temperature above 101 degrees * Severe abdominal pain or bloating * Pain not relieved by pain medicine ordered * There is increased drainage or redness from any incision * A large amount of rectal bleeding greater than 2-3 tablespoons. (If you had a polyp/s removed or have hemorrhoids, a small amount of blood - from the rectum is to be expected.) * You have any unanswered questions or concerns. IN THE EVENT OF A SERIOUS EMERGENCY, GO TO THE NEAREST EMERGENCY ROOM Your discharge instructions were prepared by provider Hermes Valenzuela. Patient Instructions Signature Page Pal Barrett Patient (or Guardian) Signature/Date: I have read and understand the instructions given to me by my caregivers. Caregiver/RN/Doctor Signature/Date: The above-named patient and/or guardian has received patient instructions on this date. + Original Patient Signature Page (only) stays with chart. Please make copy for patient.
--- NOTE | 2017-07-08 14:31 | GI REPORT ---
Patient Name: Pal Barrett Procedure Date: 07/08/2017 2:02 PM Date of : 1985 Admit Type: Outpatient Age: 32 Gender: Female Attending MD: Hermes Valenzuela DO Procedure: Colonoscopy Providers: Hermes Valenzuela DO Referring MD: Ulises Matias Indications: Rectal bleeding Medicines: Monitored Anesthesia Care Complications: No immediate complications. Estimated Blood Loss: Estimated blood loss: none. Procedure: Pre-Anesthesia Assessment: - Prior to the procedure, a History and Physical was performed, and patient medications and allergies were reviewed. The patient's tolerance of previous anesthesia was also reviewed. The risks and benefits of the procedure and the sedation options and risks were discussed with the patient. All questions were answered, and informed consent was obtained. Prior Anticoagulants: The patient has taken no previous anticoagulant or antiplatelet agents. ASA Grade Assessment: II - A patient with mild systemic disease. After reviewing the risks and benefits, the patient was deemed in satisfactory condition to undergo the procedure. After I obtained informed consent, the scope was passed under direct vision. Throughout the procedure, the patient's blood pressure, pulse, and oxygen saturations were monitored continuously. The scope was introduced through the anus and advanced to the terminal ileum. The colonoscopy was performed without difficulty. The patient tolerated the procedure well. The quality of the bowel preparation was good. The terminal ileum, ileocecal valve, appendiceal orifice, and rectum were photographed. Findings: The perianal and digital rectal examinations were normal. A 4 mm polyp was found in the sigmoid colon. The polyp was sessile. The polyp was removed with a cold snare. Resection and retrieval were complete. Non-bleeding internal hemorrhoids were found during retroflexion. The hemorrhoids were small. Impression: - One 4 mm polyp in the sigmoid colon, removed with a cold snare. Resected and retrieved. - Non-bleeding internal hemorrhoids. Recommendation: - Resume previous diet. - Continue present medications. - Repeat colonoscopy for surveillance based on pathology results. - Return to primary care physician as previously scheduled. Hermes Valenzuela DO 07/08/2017 2:31:16 PM This report has been signed electronically. Note Initiated On: 07/08/2017 2:02 PM Number of Addenda: 0 I attest to the content of the Intraoperative Record and orders documented therein, exceptions below {[id number]}
--- NOTE | 2017-07-08 14:44 | Anesthesiology Progress Note ---
Anesthesia Post Op Note Date & Time Jul 08, 2017 at 14:44 Vital Signs Pain Intensity: 0 Vital Signs Past 12 Hours Date Time Temp Pulse Resp B/P (MAP) Pulse Ox O2 Delivery O2 Flow Rate FiO2 07/08/17 13:30 36.7 68 18 108/71 (83) 100 Room Air Notes Mental Status: alert / awake / arousable, participated in evaluation Pt Amnestic to Procedure: Yes Nausea / Vomiting: adequately controlled Pain: adequately controlled Airway Patency, RR, SpO2: stable & adequate BP & HR: stable & adequate Hydration State: stable & adequate Anesthetic Complications: no major complications apparent
[2017-07-08 14:55] VITALS: BP 126/86; PULSE 74; O2SAT 100
== END | disposition home or self-care (01) ==
LOC: C.GI 11:12
PROVIDERS: ATTEND Internal Medicine
DX: K62.5 Hemorrhage of anus and rectum (principal); D12.5 Benign neoplasm of sigmoid colon; K64.8 Other hemorrhoids; E11.9 Type 2 diabetes mellitus without complications; J45.909 Unspecified asthma, uncomplicated; I50.9 Heart failure, unspecified; K21.9 Gastro-esophageal reflux disease without esophagitis; E78.00 Pure hypercholesterolemia, unspecified; F41.9 Anxiety disorder, unspecified; F32.9 Major depressive disorder, single episode, unspecified; Z98.84 Bariatric surgery status; Z79.899 Other long term (current) drug therapy

== ENCOUNTER 2024-02-10 02:37 | Inpatient (IN) ==
[2024-02-10] MEDS ORDERED: SODIUM CHLORIDE 0.9% 100 ML IV PRN (03:01)
[2024-02-10] MEDS ORDERED: SODIUM CHLORIDE 0.9% 50 ML IV PRN (03:01)
--- NOTE | 2024-02-10 03:15 | History & Physical Report ---
Date of Service February 10, 2024 Assessment & Plan (1) History of : Plan: repeat planned Admission and Anticipated Discharge Date Admission Date: February 10, 2024 History of Present Illness Chief Complaint: ruptured membranes Primary Care Provider: Ulises Matias, DO 38 F [id number] at 38.1 weeks presents with SROM this AM clear fluid mwith onset of contractions. She has 3 prior C-sections in the past. Allergies Allergy/AdvReac Type Severity Reaction Status Date / Time oxycodone Allergy Intermediate Hives,ITCHY Verified 08/18/22 22:18 Estrogens AdvReac Intermediate AURA Verified 08/18/22 22:18 W/MIGRAINE HEADACHE famotidine AdvReac Intermediate CONFUSION, Verified 08/18/22 22:18 NUMBNESS haloperidol [From Haldol] AdvReac Intermediate CONFUSION, Verified 08/18/22 22:18 NUMBNESS, TROUBLE SPEAKING ketorolac [From Toradol] AdvReac Intermediate Confusion Verified 08/18/22 22:18 meclizine AdvReac Intermediate Confusion Verified 08/18/22 22:18 prochlorperazine AdvReac Intermediate CONFUSION, Verified 08/18/22 22:18 [From Compazine] NUMBNESS, DIFFICULTY SPEAKING promethazine [From Phenergan] AdvReac Intermediate Confusion Verified 08/18/22 22:18 sertraline [From Zoloft] AdvReac Intermediate CONFUSION, Verified 08/18/22 22:18 BURNING IN BODY, EAR & NOSE, WORSE ANXIETY. Home Medications Medication Instructions Recorded Confirmed Type tramadol 50 mg tablet 100 mg PO Q6 PRN Pain 05/11/20 09/03/23 History calcium 315 mg (as 1 tab PO BID 05/08/21 02/10/24 History citrate)-vitamin D3 5 mcg (200 unit) tablet (Calcium Citrate + D) fluticasone furoate 100 1 inh inhalation QPM 05/08/21 08/18/22 History mcg-vilanterol 25 mcg/dose inhalation powder (Breo Ellipta) hydrocortisone 2.5 % topical cream 1 applic topical BID PRN ITCHY RASH 05/08/21 08/18/22 History tizanidine 2 mg tablet 2 mg PO HS PRN MUSCLE SPASMS 05/08/21 08/18/22 History ondansetron 4 mg disintegrating 4 mg PO Q6H PRN nausea and 09/29/21 08/18/22 Rx tablet vomiting #20 tabs lubiprostone 24 mcg capsule 24 mcg PO BID #180 caps 03/10/22 08/18/22 Rx (Amitiza) ergocalciferol (vitamin D2) 1,250 50,000 unit PO WK 08/18/22 08/18/22 History mcg (50,000 unit) capsule hydroxyzine HCl 25 mg tablet 25 mg PO DIRECTED 08/18/22 09/03/23 History omeprazole 20 mg tablet,delayed 20 mg PO DAILY 08/18/22 08/18/22 History release pediatric uknefuea-tqyf-hzr 1 tab PO DAILY 08/18/22 09/03/23 History (Flintstones Complete (iron) chewable tablet) Patient History Medical History History of kidney stones NO SURGERY REQUIRED IBS (irritable bowel syndrome) GERD (gastroesophageal reflux disease) Asthma controlled w/ inhalers Diabetes NO MEDS CURRENTLY-SINCE 120 LB WT LOSS "DIET CONTROLLED" Surgical History H/O colonoscopy (06/2017) Hx of appendectomy History of esophagogastroduodenoscopy (EGD) (08/2018) Hx of breast reduction, elective BILAT History of cholecystectomy WITH APPENDECTOMY History of X 3 Family History Father Family history of diabetes mellitus Mother Family history of diabetes mellitus Sister Family history of diabetes mellitus Other No family history of adverse response to anesthesia Social History Smoking Status: Never smoker Second Hand Exposure: No; Do You Dip or Chew Tobacco: No; Hx Alcohol Use: No Hx Substance Use: No Preferred Language: Nigerien Communication Ability: Effective Visual Impairment: No Limitations Hearing Ability: Normal [employer] Required: Voice Beliefs That Will Affect Care: None marital status: Current Living Situation: Alone How many Children do You have: 4 Feels Safe at Home: Yes Safety Concerns: Feels Safe At This Time Diet: diabetic and regular Assistive Devices: None 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 multiple laparoscopies for adhesions Physical Exam Constitutional: WD/WN, vitals as above Eyes: PERRL, conjunctivae normal, anicteric sclerae Respiratory: normal respiratory effort, lungs clear to auscultation Gastrointestinal (Abdomen): Inspection/Auscultation: abdomen normal to inspection Musculoskeletal: Extremities: extremities normal to inspection Skin: no rashes, warm and dry Neurologic: patellar DTR's 2+ bilat, sensation intact Psychiatric: A+Ox3, euthymic affect Genitourinary: OB Exam Monitor Tracing: + external FHT monitor used, + external uterine monitor used, + category I and + normal FHT variability Results & Data Vital Signs (Past 12 Hours) Vital Signs Temp Pulse Resp BP 02/10/24 02:46 37.1 C 18 02/10/24 02:44 76 161/72 H Monitoring External Monitor Cat 1
[2024-02-10] MEDS ORDERED: fentaNYL citrate PF 100 MCG/2 ML VIAL ONE (03:16)
[2024-02-10] MEDS ORDERED: PHENYLEPHRINE 100MCG/ML 5ML SYR ONE (03:16)
[2024-02-10] MEDS ORDERED: PHENYLEPHRINE HCL 25 MG/250 ML NSS IV ONE (03:16)
[2024-02-10] MEDS ORDERED: MoRPHine SULFATE PF 1 MG/ML 10 ML AMP/VIAL ONE (03:16)
[2024-02-10] MEDS ORDERED: ONDANSETRON INJ 2 MG/ML 2 ML VIAL ONE (03:16)
[2024-02-10] MEDS ORDERED: DEXAMETHASONE SOD INJ 4 MG/ML VIAL ONE (03:16)
[2024-02-10] MEDS: LACTATED RINGER'S 1,000 ML IV SCH (03:18)
[2024-02-10] MEDS: ceFAZolin 3000MG 3,000 MG/72.5 ML BAG IV SCH (03:22)
[2024-02-10] MEDS: ACETAMINOPHEN 500 MG TAB PO SCH (03:24)
[2024-02-10] MEDS: CITRIC ACID/SODIUM CITRATE 15 ML UDC PO SCH (03:24)
--- NOTE | 2024-02-10 03:25 | Anesthesiology Consultation ---
Date of Service February 10, 2024 Assessment & Plan (1) Encounter for pre-operative examination: Chart Review Chart Review: Acceptable Risk for Surgery and Patient NOT seen in Pre Admission Testing Consults Requested none History Surgery Operation Date: 02/10/24 03:30 Proposed Procedures p Section in LD - Kyler Yepez MD Height/Weight Height: 5 ft 2 in Weight: 90.718 kg Allergies Allergy/AdvReac Type Severity Reaction Status Date / Time oxycodone Allergy Intermediate Hives,ITCHY Verified 08/18/22 22:18 Estrogens AdvReac Intermediate AURA Verified 08/18/22 22:18 W/MIGRAINE HEADACHE famotidine AdvReac Intermediate CONFUSION, Verified 08/18/22 22:18 NUMBNESS haloperidol [From Haldol] AdvReac Intermediate CONFUSION, Verified 08/18/22 22:18 NUMBNESS, TROUBLE SPEAKING ketorolac [From Toradol] AdvReac Intermediate Confusion Verified 08/18/22 22:18 meclizine AdvReac Intermediate Confusion Verified 08/18/22 22:18 prochlorperazine AdvReac Intermediate CONFUSION, Verified 08/18/22 22:18 [From Compazine] NUMBNESS, DIFFICULTY SPEAKING promethazine [From Phenergan] AdvReac Intermediate Confusion Verified 08/18/22 22:18 sertraline [From Zoloft] AdvReac Intermediate CONFUSION, Verified 08/18/22 22:18 BURNING IN BODY, EAR & NOSE, WORSE ANXIETY. Medications Home Medications Medication Instructions Recorded Confirmed Last Taken tramadol 50 mg tablet 100 mg PO Q6 PRN Pain 05/11/20 09/03/23 12/10/21 20:00 calcium 315 mg (as 1 tab PO BID 05/08/21 02/10/24 12/07/21 citrate)-vitamin D3 5 mcg (200 unit) tablet (Calcium Citrate + D) fluticasone furoate 100 1 inh inhalation QPM 05/08/21 08/18/22 11/20/21 mcg-vilanterol 25 mcg/dose inhalation powder (Breo Ellipta) hydrocortisone 2.5 % topical cream 1 applic topical BID PRN ITCHY RASH 05/08/21 08/18/22 10/14/21 08:00 tizanidine 2 mg tablet 2 mg PO HS PRN MUSCLE SPASMS 05/08/21 08/18/22 12/10/21 20:00 ondansetron 4 mg disintegrating 4 mg PO Q6H PRN nausea and 09/29/21 08/18/22 12/10/21 20:00 tablet vomiting #20 tabs lubiprostone 24 mcg capsule 24 mcg PO BID #180 caps 03/10/22 08/18/22 Unknown (Amitiza) ergocalciferol (vitamin D2) 1,250 50,000 unit PO WK 08/18/22 08/18/22 Unknown mcg (50,000 unit) capsule hydroxyzine HCl 25 mg tablet 25 mg PO DIRECTED 08/18/22 09/03/23 Unknown omeprazole 20 mg tablet,delayed 20 mg PO DAILY 08/18/22 08/18/22 Unknown release pediatric jmbnvgeh-khwb-buy 1 tab PO DAILY 08/18/22 09/03/23 Unknown (Flintstones Complete (iron) chewable tablet) Active Medications Generic Name Dose Route Start Last Admin Trade Name Freq PRN Reason Stop Dose Admin Acetaminophen 1,000 mg 02/10/24 03:00 02/10/24 03:24 Acetaminophen 500 Mg Tab PO 02/10/24 08:00 1,000 mg PREOP@0300 JAMES Administration Citric Acid/Sodium Citrate 30 ml 02/10/24 03:00 02/10/24 03:24 Citric Acid/Sodium Citrate 15 Ml Udc PO 02/10/24 07:00 30 ml 0300 JAMES Administration Lactated Ringer's 1,000 mls @ 999 mls/hr 02/10/24 03:00 02/10/24 03:18 Lr IV 02/10/24 04:00 999 mls/hr .Q1H1M JAMES Administration Cefazolin Sodium 3,000 mg in 72.5 mls @ 130 mls/hr 02/10/24 03:00 02/10/24 03:22 Ancef 3000mg IV 02/10/24 08:00 130 mls/hr PREOP@0300 JAMES Administration Protocol Past Medical History Medical History History of kidney stones NO SURGERY REQUIRED IBS (irritable bowel syndrome) GERD (gastroesophageal reflux disease) Asthma controlled w/ inhalers Diabetes NO MEDS CURRENTLY-SINCE 120 LB WT LOSS "DIET CONTROLLED" Exercise / Class Metabolic Activity II 4-5 Yardwork/Stairs/Walk up hill Past Family History Family History Father Family history of diabetes mellitus Mother Family history of diabetes mellitus Sister Family history of diabetes mellitus Other No family history of adverse response to anesthesia Past Surgical History Surgical History H/O colonoscopy (06/2017) Hx of appendectomy History of esophagogastroduodenoscopy (EGD) (08/2018) Hx of breast reduction, elective BILAT History of cholecystectomy WITH APPENDECTOMY History of X 3 Social History Smoking Status: Never smoker Do You Dip or Chew Tobacco: No Hx Alcohol Use: No Hx Substance Use: No substance use type: does not use Physical Exam Vital Signs Last Vital Signs Temp 37.1 C 02/10/24 02:46 Pulse 76 02/10/24 02:44 Resp 18 02/10/24 02:46 BP 161/72 H 02/10/24 02:44 Testing Laboratory Results 02/10/24 03:09
[2024-02-10 03:33] LABS: Hemoglobin 9.1 g/dl (12.0-16.0); Mean Corpuscular Hemoglobin 22.6 pg (25.0-34.0); Mean Corpuscular Hgb Conc 30.3 g/dL (32.0-36.0); Mean Corpuscular Volume 74.6 fL (80.0-100.0); Mean Platelet Volume 9.8 fL (9.4-12.4); Platelet Count 233 K/uL (130-400); RDW Coefficient of Variation 15.4 % (11.5-14.5); RDW Standard Deviation 41.7 fL (36.4-46.3); Red Blood Count 4.02 M/uL (4.20-5.40); White Blood Count 5.65 K/ul (4.8-10.8)
[2024-02-10] MEDS: AZITHROMYCIN 500 MG in SODIUM CHLORIDE 0.9% 250 ML IV STA (03:49)
[2024-02-10] MEDS ORDERED: KETAMINE HCL 10MG/ML SYR ONE (03:57)
[2024-02-10] MEDS ORDERED: MIDAZOLAM HCL 1 MG/ML 2ML VIAL ONE (03:57)
[2024-02-10] MEDS ORDERED: LACTATED RINGER'S 1,000 ML IV SCH ×2 (04:00→05:19)
[2024-02-10] MEDS ORDERED: diphenhydrAMINE 50 MG/ML VIAL ONE (04:07)
[2024-02-10] MEDS ORDERED: NALOXONE HCL 1 MG in SODIUM CHLORIDE 0.9% 1,000 ML IV PRN (04:08)
[2024-02-10] MEDS ORDERED: NALOXONE HCL 0.4 MG/1 ML VIAL/CARP IV PRN (04:08)
[2024-02-10] MEDS ORDERED: ePHEDrine sulfate 50 MG/ML AMP IV PRN (04:08)
[2024-02-10] MEDS ORDERED: NALOXONE HCL 0.08 MG in SYRINGE 1.8 ML IV PRN (04:08)
[2024-02-10] MEDS ORDERED: ONDANSETRON INJ 2 MG/ML 2 ML VIAL IV PRN ×2 (04:08→22:08)
[2024-02-10] MEDS ORDERED: DC INTRASPINAL MORPHINE SCH (04:15)
--- NOTE | 2024-02-10 04:54 | Post Operative Brief Note ---
Immediate Post Op Note Date of Surgery February 10, 2024 Pre & Post Diagnosis Operation Date: 02/10/24 03:30 <No data on this case meets the specified criteria> I identified the patient and participated in the time-out.: Yes Procedure Operation Date: 02/10/24 03:30 <No data on this case meets the specified criteria> Surgeon Kyler Yepez MD Floor Person Dr. Coombs Quantitative Blood Loss (QBL) 917 ml. Findings Consistent with Post-Op Diagnosis live male Apgars 9/9 weight pending nuchal cord x2 Fluids 1000 ml LR Specimens Specimen Description: placenta-exam cord blood Drains Pride Catheter Anesthesia Type Spinal Complications none Disposition Accompanied Patient To Recovery: Yes Overlapping Procedure I was present for: the critical portions of procedure. I was immediately available: during the entire case. Back up surgeon: used during listed procedure.
[2024-02-10] MEDS ORDERED: DIPHTHER/TETAN/PERTUS Vaccine (Tdap, Adol/Adult) 0.5mL IM ONE (05:19)
[2024-02-10] MEDS ORDERED: CALCIUM CARBONATE 500 MG CHEWABLE TAB PO PRN (05:19)
[2024-02-10] MEDS ORDERED: MAGNESIUM HYDROXIDE SUSP 30 ML UDC PO PRN (05:19)
[2024-02-10] MEDS ORDERED: HYDROCORTISONE ACETATE 25 MG SUPP PR PRN (05:19)
[2024-02-10] MEDS ORDERED: BENZOCAINE 20% SPRY 85 APPLN/85 GM CAN EXT PRN (05:19)
--- NOTE | 2024-02-10 05:29 | Operative Report ---
Post Operative Report Pre & Post Diagnosis Operation Date: 02/10/24 03:30 <No data on this case meets the specified criteria> I identified the patient and participated in the time-out.: Yes Procedure Operation Date: 02/10/24 03:30 <No data on this case meets the specified criteria> Surgeon Kyler Yepez MD [facility] Dr. Coombs Estimated Blood Loss 917 Findings Consistent with Post-Op Diagnosis live male vertex Apgars 9/9 weight 7 lbs. 2oz. nuchal coed x2 Fluids LR 1000 ml. Specimens cord blood placenta Drains Pride 100 ml. Complications none Indications previous x3 Description of Procedure Under satisfactory spinal anesthesia the patient was prepped draped in the usual sterile fashion. She was identified and a timeout was done. She was given antibiotics preop. A low Pfannenstiel incision was then made carrying the incision down into the abdomen without difficulty. Upon entering into the abdominal cavity the peritoneum was opened and then widened in the AP diameter. The uterus was not able to be exterirized due to multiple adhesions. A low segment transverse incision over the lower uterine segment was made and the incision was widened and the amniotic sac was then nicked with meconium noted. There was a double nuchal cord from the vertex presentation the baby was delivered with the aid of fundal pressure. Delayed cord clamping and then the cord was doubly clamped and cut with the baby handed to precision grinder external. Apgars 9 and 9 weight 7 pounds 2 ounces. There was an anterior placenta the placenta was then delivered spontaneously and intact. There was several trailing membranes that were stuck and using ring forceps these were pulled out. The uterus was not able to be exteriorized due to adhesions that were in multiple locations. Decision was made to close the uterus remaining inside the abdomen. The uterus was closed in a double layer closure with #1 Vicryl suture in a continuous interlocking fashion followed by a second imbricating suture of #1 Vicryl suture. The initial sponge needle and instrument count were found to be correct. The fascia was then reapproximated from both ends using 0 Vicryl suture in a continuous fashion. Subcuticular space was closed in a double layer closure with 3-0 plain suture. Skin was reapproximated with charissa followed by Telfa and ABD dressing. The final sponge needle and instrument count were found to be correct. The QBL was 917 mL total fluids 1000 mL. Urine output was 100 mL. The patient was then placed supine on the stretcher she was moved to recovery room in stable condition I attest to the content of the Intraoperative Record and any orders documented therein. Any exceptions are noted below. Please note Dr. Coombs was needed for retraction, help with delivery of the baby, closure of the uterus and abdomen. No qualified resident was available.
--- NOTE | 2024-02-10 06:21 | Anesthesiology Progress Note ---
Date of Service February 10, 2024 Anesthesia Post Procedure Vital Signs Vital Signs: Temp Pulse Resp BP Pulse Ox O2 Del Method 02/10/24 06:20 98 02/10/24 06:20 55 L 02/10/24 06:15 99 02/10/24 06:15 57 L 02/10/24 06:13 53 L 02/10/24 06:13 104/61 02/10/24 06:10 100 02/10/24 06:10 57 L 02/10/24 06:05 100 02/10/24 06:05 54 L 02/10/24 06:04 55 L 02/10/24 06:04 105/59 L 02/10/24 06:03 94 02/10/24 06:03 58 L 02/10/24 06:00 36.7 C 16 Room Air 02/10/24 06:00 98 02/10/24 06:00 56 L 02/10/24 05:55 99 02/10/24 05:55 57 L 02/10/24 05:54 56 L 02/10/24 05:54 109/57 L 02/10/24 05:50 16 02/10/24 05:50 98 02/10/24 05:50 57 L 02/10/24 05:45 98 02/10/24 05:45 57 L 02/10/24 05:43 54 L 02/10/24 05:43 104/57 L 02/10/24 05:40 16 02/10/24 05:40 97 02/10/24 05:40 58 L 02/10/24 05:35 98 02/10/24 05:35 56 L 02/10/24 05:34 58 L 02/10/24 05:34 104/56 L 02/10/24 05:30 18 02/10/24 05:30 99 02/10/24 05:30 62 02/10/24 05:25 100 02/10/24 05:25 58 L 02/10/24 05:24 53 L 02/10/24 05:24 113/55 L 02/10/24 05:20 18 02/10/24 05:20 100 02/10/24 05:20 58 L 02/10/24 05:16 59 L 02/10/24 05:16 106/60 02/10/24 05:15 98 02/10/24 05:15 58 L 02/10/24 05:14 55 L 02/10/24 05:14 103/58 L 02/10/24 05:14 93 02/10/24 05:14 58 L 02/10/24 05:10 16 02/10/24 05:10 100 02/10/24 05:10 59 L 02/10/24 05:05 100 02/10/24 05:05 59 L 02/10/24 05:00 36.6 C 18 Room Air 02/10/24 05:00 99 02/10/24 05:00 61 02/10/24 05:00 61 02/10/24 05:00 116/56 L 02/10/24 02:46 37.1 C 18 02/10/24 02:44 76 161/72 H Transfer of Care Handoff Completed per policy Notes Mental Status: alert / awake / arousable and participated in evaluation Patient Amnestic to Procedure: No Nausea / Vomiting: adequately controlled Pain: adequately controlled Airway Patency, RR, SpO2: stable & adequate BP & HR: stable & adequate Hydration State: stable & adequate Neuraxial Anesthesia: was administered and sensory block is resolving Anesthetic Complications: no major complications apparent and Pt Satisfied with anesthetic care
[2024-02-10] MEDS: MoRPHine SULFATE PF 1 MG/ML 10 ML AMP/VIAL INT SPINAL ONE (07:31)
[2024-02-10] MEDS: OXYTOCIN 30 UNITS/LR 1,003 ML IV SCH (07:44)
[2024-02-10] MEDS: HYDROmorphone INJ 0.5 MG/0.5 ML SYR IV PRN (07:51)
[2024-02-10] MEDS: DOCUSATE SODIUM 100 MG CAP PO SCH (08:25)
[2024-02-10] MEDS: PRENATAL VITAMIN 1 TAB PO SCH (08:25)
[2024-02-10] MEDS: SIMETHICONE 80 MG CHEW PO SCH (08:25)
[2024-02-10] MEDS: CALCIUM CITRATE 950 MG TAB PO SCH (08:25)
[2024-02-10] MEDS: FERROUS SULFATE 325 MG TAB PO SCH (08:25)
[2024-02-10] MEDS: ACETAMINOPHEN 325 MG TAB PO SCH (09:43)
[2024-02-10] MEDS: diphenhydrAMINE 50 MG/ML VIAL IV PRN (12:23)
--- OUTSIDE RECORDS SUMMARY | 2024-02-10 13:08 | External Medical Summary | Summary of Care ---
Author Name Unknown Organization [facility] Address [address] [place] [address] Phone [phone] Care Team Providers Care Game Attendant Name Role Phone Ulises Matias DO Primary Care Provider [phone] Encounter Details Date Type Department Care Team (Late st Contact Info) Description 02/09/2024 Result Scan Unspecified Department <No scans attached> Allergies Active Allergy Reactions Criticality Noted Date Comments Prochlorperazine Edisylate 10/29/2017 Confusion, neuro complaints compared with Haloperidol Estrogens 08/04/2019 Has aura with migraines, estrogens contraindicated. Famotidine Neuro complications (Please comment) Low 04/03/2019 confusion Haloperidol Neuro complications (Please comment) 05/19/2017 Confusion, numbness, difficulty speaking Ketorolac Low 06/21/2019 Meclizine High 04/03/2019 Oxycodone Itching,Rash Medium 11/23/2017 Promethazine 04/26/2019 Confusion per patient Sumatriptan Itching 12/29/2022 Generalized itching Sertraline Hcl 09/24/2018 Confusion, "burning in body from ear-nose", worsened anxiety documented as of this encounter (statuses as of 02/09/2024) Medications Calcium Citrate-Vitamin D 315-5 MG-MCG Oral Tablet Take by mouth 2 times a day. Active Pediatric Multivitamins-Iron (FLINTSTONES PLUS IRON) chewable tablet Take 1 Tab by mouth daily. Active Biotin 1000 MCG Tablet Take 1 Tablet by mouth in the morning and 1 Tablet before bedtime. Active Lancet Devices (ONETOUCH DELICA LANCING DEV) MISC Use 2 to 4 times daily with lancets. Dx:E11.9 1 Each 02/24/20 19 Active Additional Information Patient not taking.Reported on 08/24/2023 Hydrocortisone 2.5 % External Ointment Apply topically to affected area 2 times a day. Applied to flare-ups of facial itching and rash such as under lips and around chin 28.35 g 3 07/27/19 21 Active Additional Information Patient not taking.Reported on 08/24/2023 Camphor-Menthol 0.5-0.5 % External Lotion (Sarna (Men-Phor)) Apply topically to affected area as needed for Itching. Apply to itching area on left knee instead of scratching 222 mL 3 07/27/19 21 Active Additional Information Patient not taking.Reported on 08/24/2023 Cetaphil Moisturizing External Cream Apply to dry skin areas daily especially after bathing. 05/08/19 22 Active Additional Information Patient not taking.Reported on 08/24/2023 Cetirizine HCl 10 MG Oral Tablet (ZyrTEC) TAKE 1 TABLET BY MOUTH ONCE DAILY IN THE MORNING TO PREVENT ITCHING 90 Tablet 3 11/22/19 23 Active Additional Information Patient not taking.Reported on 08/24/2023 Fluticasone Furoate-Vilanterol 100-25 MCG/ACT Inhalation Aerosol Powder Breath Activated (BREO ellipta) INHALE 1 PUFF BY MOUTH ONCE DAILY EACH AFTERNOON TO PREVENT ASTHMA RELATED SYMPTOMS 180 Each 06/09/19 24 Active Additional Information Patient not taking.Reported on 08/24/2023 Element Works Flex System w/Device KitIndications:Sup ervision of high risk in first trimester,History of diabetes mellitus Use to test blood sugar 4 times a day (fasting, one hour after breakfast, lunch, and dinner) 1 Kit 08/24/19 24 Active Aquacue Lancets 33GIndications:Sup ervision of high risk in first trimester,History of diabetes mellitus Use to test blood sugar 4 times a day (fasting, one hour after breakfast, lunch, and dinner) 200 Each 6 08/24/19 24 Active Element Works In Vitro Strip (Glucose Blood)Indications: Supervision of high risk in first trimester,History of diabetes mellitus Use to test blood sugar 4 times a day (fasting, one hour after breakfast, lunch, and dinner). 200 Strip 6 08/24/19 24 Active Gaviscon 80-14.2 MG Oral Tablet Chewable (Alum Hydroxide-Mag Trisilicate)Indica tions:Gastroesopha geal reflux disease without esophagitis Take 1 Tablet by mouth 4 times a day as needed (heartburn). 08/25/19 24 Active Albuterol Sulfate HFA 108 (90 Base) MCG/ACT Inhalation Aerosol Solution INHALE 2 PUFFS BY MOUTH EVERY 4 HOURS NEEDED FOR COUGH, SHORTNESS OR BREATH OR WHEEZING 3 TO 5 MINUTES APART 54 g 09/17/19 24 Active Betamethasone Dipropionate 0.05 % External Cream (Diprosone) APPLY TO ITCHY ECZEMA RASH ON BODY AND EXTREMITIES TWICE DAILY NEEDED 135 g 09/19/19 24 Active Iron-Vitamin C 65-125 MG Oral Tablet (Vitron C)Indications:Ante anemia complicating Take 1 Tablet by mouth in the morning and 1 Tablet before bedtime. 60 Tablet 3 09/20/19 24 Active Docusate Sodium 100 MG Oral Capsule (Colace) Take 1 Capsule by mouth 2 times a day as needed for Constipation. 30 Capsule 1 09/20/19 24 Active traMADol HCl 50 MG Oral Tablet (Ultram)Indication s:Spinal stenosis of lumbar region without neurogenic claudication Take 1 Tablet by mouth every 8 hours as needed for Pain, Severe. Please begin to cut back with 360 Tablet 10/12/19 24 Active Ondansetron 4 MG Oral Tablet Disintegrating (Zofran)Indication s:S/P gastric bypass DISSOLVE 1 TABLET IN MOUTH EVERY 6 HOURS NEEDED FOR NAUSEA 180 Tablet 10/18/19 24 Active Vitamin D (Ergocalciferol) 1.25 MG (51464 UT) Oral Capsule (Drisdol) Take 1 capsule by mouth once a week 12 Capsule 10/20/19 24 Active Breast Pump Dispense 1 breast pump and supplies to uses as directed 1 Each 02/02/20 24 Active Hospital, Clinic, or Other Facility Administered Medication Ordered Dose Route Frequency Start Date End Date Status vitamin b-12 (Cyanocobalamin) inj 1,000 mcgIndications:S/P gastric bypass 1000 mcg IM [id number] 06/18/2023 05/19/2024 Active vitamin b-12 (Cyanocobalamin) inj 1,000 mcgIndications:B12 deficiency 1000 mcg IM [id number] 08/25/2023 07/26/2024 Active documented as of this encounter (statuses as of 02/09/2024) Active Problems Problem Noted Date Diagnosed Date 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 With this finding, there appears to be a raised placental margin with an annular shape. The prevalence of circumvallate placenta is estimated to be approximately 1-18%. When the chorionic plate is smaller than the basal plate, the misalignment between the two plates may cause hematoma retention in the placental margin. Thus, this finding (along with any clinical signs/symptoms of vaginal bleeding) may be associated with a higher incidence of PPROM, delivery, or placental abruption. RECOMMENDATIONS: Very small portion of placenta remains circumvallate and is expected to resolve Recommend serial growth assessments To be completed for Hx of gastric bypass as well Pt will return to [place] x[place] months and is aware of need for serial growth scans Antepartum anemia complicating 024 Overview (09/20/2023): Started on Vitron C BID at 17w5d d/t hemoglobin 11.0 Family history of bleeding disorder 08/24/2023 Overview (08/24/2023): FOB with bleeding disorder - reports "bleeds too much" Patient agreeable to genetic counseling referral. Assessment & Plan (08/24/2023 4:56 PM EDT): Recommend genetic counseling referral. Supervision of high-risk , unspecified trimester 08/20/2023 Antepartum multigravida of advanced maternal age 0608/20/2023 Overview (08/24/2023): Age 38YO Patient desires genetic screening. Agreeable to genetic counseling referral. Assessment & Plan (10/01/2023 7:36 AM EDT): -low risk NIPT Assessment & Plan (08/24/2023 4:50 PM EDT): CONSIDERATIONS: We reviewed the most pertinent aspects of the following: Advanced maternal age (AMA) refers to a woman with a cantu who will be at the age of 35 or older at the estimated time of delivery and may be associated with increased morbidity. After discussion of the genetic screening/testing options, the patient desires cffDNA screening, and testing was coordinated by [facility]. Cell-free DNA (cffDNA) screening is a genetic screening option that analyzes maternal blood for DNA that is placental in origin and targets the following conditions: Trisomy 21 (Down syndrome), trisomy 18, trisomy 13, and sex chromosome abnormalities such as monosomy X (Desir syndrome), and sex chromosome trisomies (triple X, Klinefelter syndrome, XYY). It may also evaluate for other genetic alterations such as microdeletions, depending on the specific test. It reveals the sex of the fetus but should generally not be performed solely for this indication. Results provided are NOT diagnostic, but provide a risk estimate. Types of results include low-risk/negative, high-risk/positive, and inconclusive. Low-risk results convey a low risk for the conditions screened, while high-risk results will indicate which condition is high risk and the likelihood of the condition based on the results. High-risk and inconclusive results would require follow up with a Maternal- Medicine genetic counselor. Amniocentesis would be recommended in the setting of high-risk results. Cost of cffDNA screening is dependent on health insurance plan. Offer MSAFP only (not Quad Screen) at 16-22 weeks if screening for open neural tube defects is desired. Amniocentesis for diagnosis of chromosomal abnormalities is also available. The risk of complications from the procedure and that risk is 1 in 500 (0.2%). In addition to the risk of chromosomal abnormalities, there is an increased risk of congenital/structural anomalies. RECOMMENDATIONS: Recommend MFM anatomy ultrasound at 19-20 weeks gestation. As patient is greater than 40 at SUGEY: Recommend ultrasound for growth 28-30 weeks gestation. Recommend surveillance with twice weekly NST at 38 weeks. Recommend delivery by EDC. Medication exposure during first trimester of pr egnancy 08/20/2023 Maternal asthma complicating 4 Overview (08/24/2023): History of asthma Reports well controlled Managed with albuterol as needed 08/24/23: last albuterol use was 6 months ago Assessment & Plan (08/23/2023 5:09 PM EDT): CONSIDERATIONS: Asthma symptoms may improve, worsen or remain unchanged in severity in . Asthma is generally managed the same in as in the non- patient, as asthma-control medications are considered safe in . If asthma is well-controlled with medications prior to , it is recommended to continue the same medication regimen during . A patient should seek medical care immediately if an asthma flare does not respond to therapy. Mild and well-controlled moderate asthma can be associated with excellent maternal and outcomes. Severe and poorly controlled asthma may be associated with increased morbidity and mortality. Asthma management includes monitoring of lung function with pulmonary function testing (when indicated), avoidance of triggers (such as tobacco smoke, mold, dust mite exposure, animal dander and cockroaches), and a step-care approach to pharmacologic therapy based on the severity of the patient's asthma. RECOMMENDATIONS: Inhaled corticosteroids are the mainstay of therapy for all patients except those with intermittent asthma. If patients are routinely requiring rescue inhaler (such as albuterol, Ventolin, ProAir, Atrovent, or Proventil) use more than twice weekly, we recommend adding a low-dose inhaled corticosteroid. [Pulmicort (budesonide) is preferred to use in .] If patients are routinely requiring rescue inhaler use daily, we recommend adding a combined low-dose inhaled corticosteroid/long-acting beta-agonist [such as Advair (fluticasone/salmeterol) or Symbicort (budesonide/formoterol)] or a medium dose inhaled corticosteroid. Patient should discuss these treatment options with her primary OB provider or PCP. Typically, patients do not need stress dose steroids as long as they continue their usual dose perioperatively (or during labor) and do not have primary renal failure or other problems with the pituitary axis. Medications such as prostaglandin F2a (including Hemabate), ergonovine, and indomethacin (in patients who are aspirin allergic) should be used with caution. Patients with moderate or severe persistent asthma should have Maternal- Medicine ultrasound for anatomy at 19-20 weeks. surveillance with growth ultrasounds and non-stress tests should be considered starting at 32 weeks. History of section complicating pregnan cy 08/20/2023 Overview (08/23/2023): History of section x 3 Anticipate ERCD Per OB note: "first two in [place] where she is from. Third completed in [place]. Pt reports all LTCS. [place] attempt to get records from [place]." Obesity in , antepartum 08/20/2023 Overview (08/23/2023): The patient's pre-gravid BMI is 32.57. Class 1 Assessment & Plan (08/23/2023 5:09 PM EDT): CONSIDERATIONS: Discussed obstetrical risks associated with class I obesity (pre- BMI of 30 to 34.9) Reviewed that the accuracy of ultrasound at diagnosing anomalies is significantly decreased for women with an increased BMI. RECOMMENDATIONS: Recommend restricting weight gain during to 11-20 pounds. Consider referral for nutrition consult. Recommend evaluation for signs and symptoms (snoring, excessive daytime sleepiness witnessed apnea or unexplained hypoxia) of obstructive sleep apnea. If any of these are present, referral to Sleep Medicine specialist for further evaluation should be considered. Recommend Maternal- Medicine ultrasound for anatomy at 20 weeks. Migraine with aura and with status migrainosus, not intractable 08/16/2023 Uterine fibroid in 04/17/2022 Overview (08/24/2023): Dating ultrasound 07/2023 stated "probable myoma" Assessment & Plan (10/01/2023 9:28 AM EDT): -Several small anterior fibroids noted -See separate ultrasound report for details Sacroiliitis, not elsewhere classified Mild persistent asthma without complication 05/14 Migraine with aura and witho ut status migrainosus, not intractable 06/07/2020 Therapeutic opioid-induced constipation (OIC) KRISTEN (generalized anxiety disorder) 03/31/2019 Assessment & Plan (06/14/2020 12:11 PM EDT): 1. Risks and benefits of anti-anxiety medications in should be considered and compared with the risks of untreated anxiety or mental illness in . Anxiety in has been associated with miscarriage, delivery and delivery complications. 2. Treatment of anxiety in can include counseling or medication. Monotherapy is preferred over polytherapy, and at the lowest effective dose. Benzodiazepines (Xanax, Ativan, Klonopin) are category D medications used to treat anxiety. They can be expected to cross the placenta. Some benzodiazepines have shown teratogenic potential, therefore the risk cannot be ruled out. Main risks of benzodiazepine use throughout the , are withdrawal symptoms. Symptoms include tremors, irritability, hyperactivity, tachypnea, and hypertonicity. Careful monitoring of the for these signs/symptoms should be performed. Data suggests that is not recommended while a woman is taking benzodiazepines. 3. Additional classes of medications include non-benzodiazepines that are in categories B or C, and have not been shown to cause harm. In all cases, it is important to consider the benefits and risks of medication use in . Intestinal postoperative nonabsorption 0 Post-traumatic stress disorder, unspecified 03/15 Pruritic disorder 03/22/2019 Other atopic dermatitis 03/22/2019 Panic attacks 11/28/2018 Adjustment disorder with mixed anxiety and depre ssed mood 10/05/2018 Current moderate episode of major depressive disorder without prior episode 09/27/2018 Assessment & Plan (06/14/2020 12:11 PM EDT): DISCUSSION: 1. Discussed with patient that depression can and should be treated during when the benefits of treatment outweigh potential risks. Risks of leaving maternal depression untreated or inadequately treated are maternal suicide/homicide, an increased risk of depression/psychosis, relapse during and impaired maternal-child bonding. Risks of untreated mental illness pose additional risks in , such as miscarriage, low weight, and delivery. 2. Discussed that although there have been reports in the past regarding anti-depressant therapy and abnormalities or complications, research has not confirmed or supported this claim. Studies of first-trimester SSRI exposure do not demonstrate consistent data to support an increased risk for structural malformations, however, echocardiogram is indicated at this time for patients who were treated with paroxetine (Paxil) in the first trimester. 3. Anti- depressants have been associated with transient effects (withdrawal syndrome). 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 Explained to patient that pregnancies for women with pre-existing diabetes are at increased risk for multiple complications to both mother and fetus. The most important thing to note is that with optimal blood glucose control many of these risks can be reduced to the baseline risk of complications in non-diabetic women. Glycemic control during the first 10 weeks of is crucial to normal development. Increasing early HbA1C values in are associated with an increased risk for congenital anomalies (HbA1C <7% = baseline risk; HbA1C >=11 is associated with greater than 10-20% risk for congenital defect). 2. Discussed that the risks for the fetus of a diabetic mother include an increased incidence of congenital anomalies and malformations, spontaneous miscarriage, labor and delivery, polyhydramnios, macrosomia and shoulder dystocia or trauma, intrauterine demise, respiratory distress syndrome, hypoglycemia, hyperbilirubinemia, hypocalcemia or hypomagnesemia. There are also increased risks of childhood diabetes, childhood obesity, impaired/delayed fine and gross motor functions, and/or attention deficit/hyperactivity disorders in children of diabetics. 3. Explained that risks to the diabetic woman during include an increased incidence of gestational hypertension and/or pre-eclampsia, thyroid disease, infection (especially urinary tract), development or worsening of pre-existing retinopathy or nephropathy, worsening of cardiovascular disease, and higher incidence of section delivery. 4. Advised patient that the presence of the following comorbidities increase the risk of complications in : maternal ischemic heart disease, active untreated proliferative retinopathy, renal insufficiency (e.g., serum creatinine greater than 1.5 mg/dL), persistent HTN greater than 140/90 despite medical treatment, or severe gastroenteropathy. 5. Advised insulin is the preferred treatment of patients with pre- existing diabetes when blood sugar levels are not well controlled with diet and exercise. Oral agents (metformin preferred over glyburide) may be considered as an alternative to insulin on a case by case basis for those that were well controlled on these regimens prior to . History of type 2 diabetes mellitus 02/25/2018 Overview (08/24/2023): History of Type 2 diabetes - diagnosed around age 23. On Metformin in the past. Reports diabetes resolved following gastric bypass. Lab Results Component Value Date/Time HEMOGLOBIN A1C - [facility] 5.9 (H) 08/16/2023 03:07 PM HEMOGLOBIN A1C - [facility] 5.8 (H) 03/01/2020 02:56 PM Glucose meter and supplies re-ordered. Patient agreeable to monitor blood sugars QID (fasting and 1 hr PP) x 1 week and review with provider once completed. Assessment & Plan (10/01/2023 7:35 AM EDT): -HgbA1c at initial visit 5.9, consistent with prediabetes versus well-controlled Type2 DM Assessment & Plan (08/24/2023 4:49 PM EDT): RECOMMENDATIONS: Recommend testing for undiagnosed type 2 diabetes mellitus with the first visit using the standard diagnostic criteria (2016 ADA Diabetes Management Guidelines). Dystrophy of vulva 08/20/2017 Overview (08/20/2017): Biopsy sent 08/20/17 Pelvic pain in female 08/19/2017 Overview (04/17/2022): 04/15/22 us IMPRESSION: Heterogeneous appearance of the myometrium without clear interface of the endometrial/myometrial junction which may represent adenomyosis. MRI can be obtained for complete evaluation as clinically indicated. A 2.1 x 1.8 cm right lateral body fibroid. Endometrial thickness of 1.9 cm. Ovarian cyst 01/03/2017 Overview (07/06/2019): 07/06/19 - 2.0 x 1.4 x 1.4 cm complex cyst right ovary found on US. Pt has hx of ovarian cysts. May have repeat US in 3 to 6 months for f/u. - Norah Johnson CNM Assessment & Plan (10/01/2023 9:29 AM EDT): -Persistent from prior imaging -Denies any pain or issues -Continue to monitor Previous bariatric surgery affecting , antepartum 08/05/2016 Overview (08/24/2023): History of Nadeen-en-Y gastric bypass in 07/2016 Total weight loss = 120# Denies post-op complications Denies known dumping syndrome Per OB note: "taking vitamins and get Vitamin B12 injection through PCP" Patient agreeable to Nutrition referral. Assessment & Plan (10/01/2023 9:27 AM EDT): -Continue serial growth scans -Will bring patient back in 3 weeks to clear anatomy and assess growth -pt states she is going back to [place] x2.5 months starting 10/22-01/08/24 -pt made aware of risk for FGR given existing risk factor sand the importance of surveillance while abroad -She states she will see an OB regularly and ensure growth scans are performed -She demonstrated clear understanding of these precautions and recommendations Assessment & Plan (08/23/2023 5:04 PM EDT): CONSIDERATIONS: Explained to patient that weight loss after bariatric surgery often leads to greater fertility and a decreased risk for the obstetric complications. Explained that it is recommended to delay for 12 to 24 months after bariatric surgery to avoid during the period of rapid weight loss. Women with a gastric band should be monitored during because the band may need to be adjusted. In there may be a delay in diagnosis of bariatric-related operative complications, including anastomotic leaks, bowel obstructions, internal hernias, ventral hernias, band erosion, and band migration. Therefore, all gastrointestinal problems such as nausea, vomiting, and abdominal pain should be thoroughly evaluated with involvement of the bariatric surgeon because the underlying pathology may be related to the bariatric surgery, not the itself. Discussed the most common nutritional deficiencies after gastric bypass surgery to include protein, iron, vitamin B12, folate, vitamin D, and calcium. RECOMMENDATIONS: Recommend nutrition referral to help the patient adhere to dietary regimens and to cope with the physiologic changes of . Recommend Maternal Medicine anatomy ultrasound at 19-20 weeks and serial growth assessments every 4 weeks after 24 weeks. Patients with a history of gastric bypass often cannot tolerate the gestational diabetes screen secondary to dumping syndrome. Therefore, as an alternative screening method, we recommend monitoring fasting and 1-hour postprandial blood sugars for one week between 24-28 weeks of gestation. Bariatric surgery should not alter the course of labor and delivery, and therefore, it does not significantly affect its management. Bariatric surgery itself should not be considered as an indication for delivery. Patients with history of bariatric surgery within past two years should notify their bariatric surgeon. Consider pre-labor consultation with bariatric surgeon if extensive abdominal surgery was performed. Assessment & Plan (06/14/2020 12:10 PM EDT): DISCUSSION: 1. Explained to patient that weight loss after bariatric surgery often leads to greater fertility and a decreased risk for the obstetric complications. 2. Explained that it is recommended to delay for 12 to 24 months after bariatric surgery to avoid during the period of rapid weight loss. Women with a gastric band should be monitored during because the band may need to be adjusted. 3. In there may be a delay in diagnosis of bariatric-related operative complications, including anastomotic leaks, bowel obstructions, internal hernias, ventral hernias, band erosion, and band migration. Therefore, all gastrointestinal problems such as nausea, vomiting, and abdominal pain should be thoroughly evaluated with involvement of the bariatric surgeon because the underlying pathology may be related to the bariatric surgery, not the itself. 4. Discussed the most common nutritional deficiencies after gastric bypass surgery to include protein, iron, vitamin B12, folate, vitamin D, and calcium. LYNN (obstructive sleep apnea) 04/10/2016 Lumbar spinal stenosis 01/22/2016 Lumbar radiculopathy 01/22/2016 Asthma, moderate persistent 04/09/2014 Assessment & Plan (06/14/2020 12:09 PM EDT): 1. We discussed that in general, asthma improves during for approximately one-third of women and worsens for approximately one-third. Most exacerbations occur between 24-36 weeks. 2. Discussed that as per the National Asthma Education and Prevention Program, it is safer for women with asthma to be treated with asthma medications than it is for them to have asthma symptoms and exacerbations. 3. As with non- patients, asthma management includes monitoring of lung function with pulmonary function testing, avoidance of triggers (such as tobacco smoke, mold, dust mite exposure, animal dander and cockroaches), and a step-care approach to pharmacologic therapy based on the severity of the patient s asthma. 4. Explained that asthma is generally managed the same in as in the non- patient, as asthma-control medications are considered safe in . If asthma is well-controlled with medications prior to , it is recommended to continue the same medication regimen during . A patient should seek medical care immediately if an asthma flare does not respond to therapy. 5. Those with well-controlled asthma can have excellent obstetric outcomes. However, poorly controlled or severe asthma may be associated with increased risk of prematurity, preeclampsia, growth restriction, and maternal morbidity and mortality. 6. Certain medications can worsen asthma and use should be limited, eg, prostaglandin F2? (including Hemabate), ergonovine, and indomethacin (in patients who are aspirin allergic). Estimated Date of Delivery Comme nts Yes 02/23/2024 Based on last me nstrual period of 05/19/2023 (Exact Date) documented as of this encounter (statuses as of 02/09/2024) Resolved Problems Problem Noted Date Diagnosed Date Resolved Date Type 2 diabetes mellitus wit h diabetic peripheral angiopathy without gangrene 05/16/2018 0 03/31/2019 Food insecurity 03/28/2018 11/27/2021 Overview: Per [facility] Protocol Food insecurity 10/26/2017 03/11/2018 Overview: Per [facility] Protocol Labia irritation 08/19/2017 03/11/2018 Overview (08/19/2017): Recommend biopsy Abdominal pain 01/03/2017 07/27/2018 Perennial allergic rhinitis 05/14/2016 07/10/2019 Morbid obesity due to excess calories 12/23/2015 10/07/2016 Controlled substance agreement signed 11/22/2015 01/05/2017 Kidney stone 09/10/2014 01/05/2017 Overview (09/10/2014): Left renal stone- not seen on [facility]. Small on CT. Calculus of ureter 09/10/2014 7 Overview (09/10/2014): Right distal ureter. Likely has passed. Back pain 09/10/2014 01/05/2017 Overview (09/10/2014): Seems to be muscular. Asthma with severity to be determined 05/03/2013 04/09/2014 Overview (06/24/2015): ICD-10 update of inactive term Type 2 diabetes mellitus wit h hemoglobin A1c goal of less than 7.0% 05/03/2013 04/12/2017 Overview (07/09/2015): ICD-10 update of inactive term documented as of this encounter (statuses as of 02/09/2024) Immunizations Name Administration Dates Next Due Covid-19 Ad26, Single Dose ([employer]J&J) 07/23/2020,05/13/2020 Covid-19, Mrna, Lnp-s, Pf, B ivalent, 30 Mcg, IM, 12 yrs and above (Pfizer) 01/13/2022 Hepatitis B, 20+ yrs 02/19/2014,08/21/2013,07/21 Pneumococcal Polysaccharide PPV23 (Pneumovax) 09/08/2013 Seasonal Influenza Vac, Quad , Cell Cult, PF, 6 Mos and Up, IM, (Flucelvax Quad) 01/13/2022 Seasonal Influenza Vac., MDV , IM, 0.5 mL (Fluzone) 11/20/2014,01/13/2014,12/30/2012 Seasonal Influenza Virus Vac cine, Unspecified Formulation 11/18/2018,12/28/2017,11/18/2017,10/29,12/23/2015,11/20/2014,01/13/2014 ,12/22/2007 Seasonal Influenza, PF, 6 M & above, IM , (FluLaval or Fluzone) 11/19/2020,11/18/2018,11/18/2017 Seasonal Influenza, Quadriva lent, No Preserve, IM 11/25/2022,12/28/2017,12/23/2015 Seasonal Influenza, Quadriva lent, No Preserve, Mdck 11/08/2019 Seasonal Influenza, Quadriva lent,with Preserve, 3 yr & above, IM 10/29/2016 Seasonal Influenza, Trivalen t, (IIV3), PF, (Fluzone) 11/10/2019 TDAP (age 10 and older)(Boostrix) 11/08/2019,07/2014 documented as of this encounter Social History Tobacco Use Types Packs/Day Years Used Date Smoking Tobacco: Never Smokeless Tobacco: Never Comments:no passive smoke Alcohol Use Standard Drinks/Week Comments No 0 (1 standard drink = 0.6 oz pur e alcohol) denies in PHQ-2 Answer Date Recorded PHQ Adult Total Score 0 08/24/2023 Hunger Vital Sign Answer Date Recorded Within the past 12 months, y ou worried that your food would run out before you got the money to buy more. Never true 08/24/19 24 Within the past 12 months, t he food you bought just didn't last and you didn't have money to get more. Never true 08/24/2023 [place] Depression Scale Answer Date Recorded [place] Depression Scale Total 13 08/20/2023 The thought of harming myself has occurred to me . Never 08/20/2023 Childcare Answer Date Recorded Do you feel overwhelmed with taking care of a child, family member or friend? No 08/24/2023 Does your family need help f inding childcare? (Household - for ages 0-17 years) Not on file 08/24/2023 Clothing Answer Date Recorded Have you been unable to get clothing when it was really needed? No 08/24/2023 Is your family able to get c lothes or diapers when needed? (Household - for ages 0-17 years) Not on file 08/24/2023 Personal Safety Answer Date Recorded Do you feel unsafe or have concerns for your saf ety? No 08/24/2023 Do you have concerns for you r family's safety? (Household - for ages 0-17 years) Not on file 08/24/2023 Utilities Answer Date Recorded Do you have trouble paying y our heating, water, or electric bill? No 08/24/2023 Is your family able to pay t he heat, water, or electric bill? (Household - for ages 0-17 years) Not on file 08/24/2023 Does your family have access to good internet? (Household - for ages 0-17 years) Not on file 08/24/2023 Employment Status Answer Date Recorded Are you unemployed or without regular income? No 08/24/2023 Does the household have a re gular source of income? (Household - for ages 0-17 years) Not on file 08/24/2023 Social Connections Answer Date Recorded How often do you feel lonely or isolated from th ose around you? Never 08/24/2023 Financial Resource Strain Answer Date R ecorded Do you have any trouble payi ng for your medications, or do you think you might in the future? No 08/24/2023 Does your family have troubl e paying for medicine? (Household - for ages 0-17 years) Not on file 08/24/2023 Transportation Needs Answer Date Record ed READ ONLY Do you have troubl e getting a ride to medical visits or work? Never True 08/24/2023 Does your family have a hard time getting a ride to doctors visits? (Household - for ages 0-17 years) Not on file 08/24/2023 Has lack of transportation k ept you from medical appointments, meetings, work, or from getting things needed for daily living? Check all that apply. (Adult - for ages 18 years and over) Not on file 08/24/2023 Do you (or your family) have trouble finding or paying for a ride (transportation)? (Household - for ages 0-17 years) Not on file 08/24/2023 Housing Stability Answer Date Recorded Do you currently live in a s helter or have no steady place to sleep at night? No 08/24/2023 READ ONLY Do you think you a re at risk of becoming homeless? No 08/24/2023 Does your family worry about paying for your home or becoming homeless? (Household - for ages 0-17 years) Not on file 0 08/24/2023 Are you homeless or worried that you might be in the future? (Adult - for ages 18 years and over) Not on file Are you (or your family) noe eless or worried that you might be in the future? (Household - for ages 0-17 years) Not on file Food Insecurity Answer Date Recorded Do you need food for this week? No 08/24/2023 Are you able to get enough f ood for your family? (Household - for ages 0-17 years) Not on file 08/24/2023 Does your family need food t his week? (Household - for ages 0-17 years) Not on file 08/24/2023 Do you always have enough fo od for your family? (Household - for ages 0-17 years) Not on file 08/24/2023 Estimated Date of Delivery Comme nts Yes 02/23/2024 Based on last me nstrual period of 05/19/2023 (Exact Date) Sex and Gender Information Value Date Recorded Sex Assigned at Female 09/12/2021 12:34 PM EDT Legal Sex Female 4:19 PM EDT Gender Identity Female 09/12/2021 12:34 PM EDT Sexual Orientation Straight 09/12/2021 12 :34 PM EDT Occupation Industry Job Start Date Job End Date none Not on file Not on file Not on file documented as of this encounter Functional Status * Are you deaf or do you have serious difficulty hearing? Answer Date of Assessment Author No 09/26/2019 10:58 PM Donna Mckinney RN * Are you blind or do you have serious difficulty seeing, even when wearing glasses? Answer Date of Assessment Author No 09/26/2019 10:58 PM Donna Mckinney RN * Do you have serious difficulty walking or climbing stairs? (5 years old or older) Answer Date of Assessment Author No 09/26/2019 10:58 PM Donna Mckinney RN * Do you have difficulty dressing or bathing? (5 years old or older) Answer Date of Assessment Author No 09/26/2019 10:58 PM Donna Mckinney RN * Because of a physical, mental, or emotional condition, do you have difficulty doing errands alone such as visiting a doctors office or shopping? (15 years old or older) Answer Date of Assessment Author No 09/26/2019 10:58 PM Donna Mckinney RN documented as of this encounter Mental Status * Because of a physical, mental, or emotional condition, do you have serious difficulty concentrating, remembering, or making decisions? (5 years old or older) Answer Entry Date Author No 09/26/2019 10:58 PM EDT Donna Wakefield RN documented in this encounter Plan of Treatment Upcoming Encounters Date Type Department Care Team (Latest Contact Info) Description 02/11/2024 1:15 PM EST Office Visit Gynecology/Obstetri [facility] [address] [facility] [place] [id number] Fly Coombs MD [address] [place] [address] 02/18/2024 9:00 AM EST Hospital Encounter [id number], Women's Lower Level 1st Floor [address], [place] [id number] Remy Gonzáles MD [address] [place] [address] 02/18/2024 9:00 AM EST - 02/18/2024 11:35 AM EST Surgery [facility], OB Triage, Women's Lower Level 1st Floor [address], [place] [id number] Remy Gonzáles MD [address], [place] [id number] DELIVERY AND CARE 02/25/2024 11:00 AM EST Office Visit Family Practice [facility] [address] [facility] [place] [address] Ulises Matias, DO [address] [facility] [place] [address] Scheduled Procedures Name Priority Associated Diagnoses Date/Ti me DELIVERY AND CARE 39 weeks gestation of 02/18/2024 9:00 AM EST Health Maintenance Due Date Last Done Comments HPV/Co-Test 2013 Pneumococcal Vaccine: Pediatrics (0 to 5 Years) and At-Risk Patients (6 to 64 Years) (2 of 2 - PCV) 09/08/2014 09/08/2013 Cervical Cancer Screening 05/29/2023 Pap Smear 05/29/2023 05/28/2020, 11/13, 11/23/2016, Additional history exists COVID-19 Vaccine ( season) 2023 01/13/2022, 07/23/2020, 05/13/2020 Influenza Vaccine (FLU shot) (#1) 2023 11/25/2022, 01/13/2022, 11/19/2020, Additional history exists Diabetic Eye Exam 12/30/2023 12/29/2022, , 05/27/2021, Additional history exists Diabetic Foot Exam 12/30/2023 12/29/2022, 0 05/27/2021, 06/07/2020, Additional history exists Mammogram 06/14/2024 06/15/2023, 02/12, 02/24/2021, Additional history exists Depression Monitoring 08/23/2024 08/24/2023 GFR 02/01/2025 02/02/2024, 06/0 09/2023, 06/15/2023, Additional history exists Lipid Panel 06/14/2028 06/15/2023, 11/14, 03/18/2016, Additional history exists DTap/Tdap Vaccines (3 - Td or Tdap) 11/07/2029 11/08/2019, 03/19/2014 Hepatitis B Vaccine Completed 02/19/2014, 08/21/2013, 07/21/2013 Albumin/Creatinine Ratio Discontinued 024, 12/29/2022, 05/27/2021, Additional history exists HPV (Gardasil) Vaccine Aged Out No lo nger eligible based on patient's age to complete this topic MENINGOCOCCAL (MENACTRA/MENVEO) Aged Out No longer eligible based on patient's age to complete this topic documented as of this encounter Medical Devices Not on filedocumented as of this encounter Procedures Procedure Name Priority Date/Time Associated Diagnosis Comments OUTSIDE LAB RESULTS 02/09/2024 documented in this encounter Results * OUTSIDE LAB RESULTS (02/09/2024) 02/09/2024 us No Physician Data Unknown LABORATORY Final Result documented in this encounter Advance Directives * Full Code (Latest Code Status on File) Date Activated Date Inactivated Comments 09/26/2019 7:11 PM 09/27/2019 4:52 PM Question Answer Comments Discussion of Advance Directives occurred with: Not Discussed * Full Code Date Activated Date Inactivated Comments 09/26/2019 11:39 AM 09/26/2019 7:11 PM Question Answer Comments Discussion of Advance Directives occurred with: Not Discussed * Full Code Date Activated Date Inactivated Comments 11/22/2017 2:50 PM 11/24/2017 2:42 PM This order r eflects the patients wishes and were consensually agreed upon. * Full Code Date Activated Date Inactivated Comments 01/02/2017 12:13 PM 01/03/2017 10:00 PM This ord er reflects the patients wishes and were consensually agreed upon. Question Answer Comments Discussion of Advance Directives occurred with: Patient Does the patient have a Living Will? No Does the patient have Health Care Power of Attor ban? No * Full Code Date Activated Date Inactivated Comments 07/29/2016 3:11 PM 08/02/2016 3:48 PM This order r eflects the patients wishes and were consensually agreed upon. Question Answer Comments Discussion of Advance Directives occurred with: Not Discussed Does the patient have a Living Will? No Does the patient have Health Care Power of Attor ban? No Care Teams Game Attendant Relationship Specialty Start Date End Date Ulises Matias DO [address] [place] [address] PCP - General Family Medicine 08/24/16 documented as of this encounter
[2024-02-10] MEDS: SENNA 8.6 MG TAB PO PRN (20:38)
[2024-02-10] MEDS ORDERED: HYDROmorphone INJ 0.5 MG/0.5 ML SYR IV PRN (22:08)
[2024-02-10] MEDS ORDERED: PROMETHAZINE 12.5 MG/50.5 ML BAG IV PRN (22:08)
[2024-02-10] MEDS ORDERED: diphenhydrAMINE 50 MG/ML VIAL IV PRN (22:08)
[2024-02-10] MEDS: traMADol HCL 50 MG TABLET PO SCH (22:41)
[2024-02-11] MEDS ORDERED: IBUPROFEN 600 MG TAB PO SCH (06:00)
[2024-02-11 07:14] LABS: Basophils # (auto) 0.02 K/uL (0.00-0.20); Basophils % (auto) 0.1 %; Eosinophils # (auto) 0.02 K/uL (0.00-0.50); Eosinophils % (auto) 0.1 %; Hematocrit (blood only) 24.6 % (37.0-47.0); Hemoglobin 7.5 g/dl (12.0-16.0); Immature Granulocytes % (auto) 0.7 %; Lymphocytes # (auto) 1.84 K/uL (1.20-3.40); Lymphocytes % (auto) 13.6 %; Mean Corpuscular Hemoglobin 22.8 pg (25.0-34.0); Mean Corpuscular Hgb Conc 30.5 g/dL (32.0-36.0); Mean Corpuscular Volume 74.8 fL (80.0-100.0); Mean Platelet Volume 9.4 fL (9.4-12.4); Monocytes # (auto) 0.79 K/uL (0.11-0.59); Monocytes % (auto) 5.9 %; Neutrophils # (auto) 10.72 K/uL (1.40-6.50); Neutrophils % (auto) 79.6 %; Platelet Count 185 K/uL (130-400); RDW Coefficient of Variation 15.5 % (11.5-14.5); Red Blood Count 3.29 M/uL (4.20-5.40); White Blood Count 13.49 K/ul (4.8-10.8)
[2024-02-11 07:37] LABS: Microcytosis Present; Polychromasia 1+
--- NOTE | 2024-02-11 07:45 | Obstetrical Progress Note ---
Date of Service February 11, 2024 Assessment & Plan Admission and Anticipated Discharge Date Admission Date: February 10, 2024 Subjective Patient is seen and examined. She feels well, no complaints. Pain is under control with oral meds. Ambulating without dizziness Voiding without difficulty Tolerating regular diet with out N&V Flatus + BM neg Bleeding is minimal No fever/ chills/ CP/ SOB/ N&V/ Leg pain Breast feeding without problems Vital Signs Temp Pulse Pulse Resp BP BP Pulse Ox 02/11/24 03:58 36.7 C 81 20 110/70 100 02/11/24 00:10 36.8 C 78 16 112/70 02/10/24 22:00 100 02/10/24 21:00 99 02/10/24 20:00 99 02/10/24 19:30 99 02/10/24 19:30 36.6 C 81 18 110/69 99 02/10/24 18:00 18 97 02/10/24 16:45 18 96 02/10/24 16:15 36.9 C 85 18 126/73 97 02/10/24 15:45 18 97 02/10/24 14:45 18 97 02/10/24 13:00 36.8 C 78 18 121/76 97 02/10/24 12:40 18 98 02/10/24 11:50 18 98 02/10/24 10:50 18 99 02/10/24 10:50 36.8 C 71 18 122/74 99 02/10/24 09:30 36.7 C 20 02/10/24 09:26 100 02/10/24 09:26 72 02/10/24 09:25 77 02/10/24 09:25 122/59 L 02/10/24 09:23 93 02/10/24 09:23 93 H 02/10/24 09:21 98 02/10/24 09:21 86 02/10/24 09:17 91 02/10/24 09:17 79 02/10/24 09:16 97 02/10/24 09:16 71 02/10/24 09:11 97 02/10/24 09:11 75 02/10/24 09:06 98 02/10/24 09:06 69 02/10/24 09:01 97 02/10/24 09:01 65 02/10/24 09:00 20 02/10/24 08:56 97 02/10/24 08:56 78 02/10/24 08:51 98 02/10/24 08:51 67 02/10/24 08:46 98 02/10/24 08:46 73 02/10/24 08:41 98 02/10/24 08:41 70 02/10/24 08:36 98 02/10/24 08:36 81 02/10/24 08:31 98 02/10/24 08:31 78 02/10/24 08:26 98 02/10/24 08:26 75 02/10/24 08:21 97 02/10/24 08:21 75 02/10/24 08:16 99 02/10/24 08:16 69 02/10/24 08:11 99 02/10/24 08:11 65 02/10/24 08:07 93 02/10/24 08:07 58 L 02/10/24 08:06 99 02/10/24 08:06 59 L 02/10/24 08:04 60 02/10/24 08:04 128/69 02/10/24 08:01 99 02/10/24 08:01 65 02/10/24 08:00 16 02/10/24 07:56 98 02/10/24 07:56 61 02/10/24 07:51 99 02/10/24 07:51 63 02/10/24 07:46 98 02/10/24 07:46 64 O2 Del Method 02/11/24 03:58 Room Air 02/11/24 00:10 Room Air 02/10/24 22:00 02/10/24 21:00 02/10/24 20:00 02/10/24 19:30 02/10/24 19:30 Room Air 02/10/24 18:00 02/10/24 16:45 02/10/24 16:15 Room Air 02/10/24 15:45 02/10/24 14:45 02/10/24 13:00 Room Air 02/10/24 12:40 02/10/24 11:50 02/10/24 10:50 02/10/24 10:50 Room Air 02/10/24 09:30 02/10/24 09:26 02/10/24 09:26 02/10/24 09:25 02/10/24 09:25 02/10/24 09:23 02/10/24 09:23 02/10/24 09:21 02/10/24 09:21 02/10/24 09:17 02/10/24 09:17 02/10/24 09:16 02/10/24 09:16 02/10/24 09:11 02/10/24 09:11 02/10/24 09:06 02/10/24 09:06 02/10/24 09:01 02/10/24 09:01 02/10/24 09:00 02/10/24 08:56 02/10/24 08:56 02/10/24 08:51 02/10/24 08:51 02/10/24 08:46 02/10/24 08:46 02/10/24 08:41 02/10/24 08:41 02/10/24 08:36 02/10/24 08:36 02/10/24 08:31 02/10/24 08:31 02/10/24 08:26 02/10/24 08:26 02/10/24 08:21 02/10/24 08:21 02/10/24 08:16 02/10/24 08:16 02/10/24 08:11 02/10/24 08:11 02/10/24 08:07 02/10/24 08:07 02/10/24 08:06 02/10/24 08:06 02/10/24 08:04 02/10/24 08:04 02/10/24 08:01 02/10/24 08:01 02/10/24 08:00 02/10/24 07:56 02/10/24 07:56 02/10/24 07:51 02/10/24 07:51 02/10/24 07:46 02/10/24 07:46 Intake and Output 02/10/24 02/11/24 02/11/24 22:59 06:59 14:59 Intake Total 2603 / 2603 Output Total 1050 / 1375 200 / 1375 Balance 1553 / 1228 -200 / 1228 Intake: IV 1003 / 1003 Oxytocin 30 Units/Lr 1,003 ml @ 1003 / 1003 125 mls/hr IV .Q8H2M JAMES Rx#: [id number] Oral 1600 / 1600 Output: Urine 200 / 200 Urine Amount (Catheter) 1050 / 1175 Pride/Indwelling 1050 / 1175 Lab Results 02/10/24 02/10/24 02/10/24 Range/Units 03:09 04:09 16:13 WBC 5.65 (4.8-10.8) K/ul RBC 4.02 L (4.20-5.40) M/uL Hgb 9.1 L (12.0-16.0) g/dl Hct 30.0 L (37.0-47.0) % MCV 74.6 L (80.0-100.0) fL MCH 22.6 L (25.0-34.0) pg MCHC 30.3 L (32.0-36.0) g/dL RDW Std Deviation 41.7 (36.4-46.3) fL RDW Coeff of Speedy 15.4 H (11.5-14.5) % Plt Count 233 (130-400) K/uL MPV 9.8 (9.4-12.4) fL Immature Gran % (Auto) % Neut % (Auto) % Lymph % (Auto) % Rankin % (Auto) % Eos % (Auto) % Baso % (Auto) % Neut # (Auto) (1.40-6.50) K/uL Lymph # (Auto) (1.20-3.40) K/uL Rankin # (Auto) (0.11-0.59) K/uL Eos # (Auto) (0.00-0.50) K/uL Baso # (Auto) (0.00-0.20) K/uL Immature Gran # (Auto) (0.01-0.20) K/uL Polychromasia Microcytosis POC Glucose 121 H (70-99) mg/dl Treponema pallidum Ab Negative (Negative) Blood Type B Positive Blood Type Recheck B Positive Antibody Screen NEGATIVE Crossmatch See Detail 02/11/24 Range/Units 06:39 WBC 13.49 H (4.8-10.8) K/ul RBC 3.29 L (4.20-5.40) M/uL Hgb 7.5 L (12.0-16.0) g/dl Hct 24.6 L (37.0-47.0) % MCV 74.8 L (80.0-100.0) fL MCH 22.8 L (25.0-34.0) pg MCHC 30.5 L (32.0-36.0) g/dL RDW Std Deviation 42.0 (36.4-46.3) fL RDW Coeff of Speedy 15.5 H (11.5-14.5) % Plt Count 185 (130-400) K/uL MPV 9.4 (9.4-12.4) fL Immature Gran % (Auto) 0.7 % Neut % (Auto) 79.6 % Lymph % (Auto) 13.6 % Rankin % (Auto) 5.9 % Eos % (Auto) 0.1 % Baso % (Auto) 0.1 % Neut # (Auto) 10.72 H (1.40-6.50) K/uL Lymph # (Auto) 1.84 (1.20-3.40) K/uL Rankin # (Auto) 0.79 H (0.11-0.59) K/uL Eos # (Auto) 0.02 (0.00-0.50) K/uL Baso # (Auto) 0.02 (0.00-0.20) K/uL Immature Gran # (Auto) 0.10 (0.01-0.20) K/uL Polychromasia 1+ Microcytosis Present POC Glucose (70-99) mg/dl Treponema pallidum Ab (Negative) Blood Type Blood Type Recheck Antibody Screen Crossmatch PE: General: Alert, orientedx3, NAD CVS: S1S2 RRR Lungs; CTAB Abd: soft, NT, ND, BS+, fundus firm, below Umbilicus Incision: Clean, dry, intact Perineum intact, Lochia rubra minimal Ext; NT, no edema AP: 38 yo s/p C Section, pod# 1 VSS Afebrile doing well Anemic, asymptomatic, will give Iron IV Continue routine postop care Encourage ambulation, PO intake All questions were answered D/C home tomorrow Results & Data Vital Signs (Past 12 Hours) Vital Signs Temp Pulse Resp BP Pulse Ox O2 Del Method 02/11/24 03:58 36.7 C 81 20 110/70 100 Room Air 02/11/24 00:10 36.8 C 78 16 112/70 Room Air 02/10/24 22:00 100 02/10/24 21:00 99 02/10/24 20:00 99
[2024-02-11] MEDS: MAGNESIUM HYDROXIDE SUSP 30 ML UDC PO ONE (08:25)
[2024-02-11] MEDS: IRON SUCROSE 200 MG in SODIUM CHLORIDE 0.9% 100 ML IV ONE (08:25)
[2024-02-11] MEDS: diphenhydrAMINE Capsule 25 MG CAP PO PRN (15:39)
[2024-02-11] MEDS: bisacodyL 5 MG TABEC PO SCH (21:32)
[2024-02-12] MEDS ORDERED: bisacodyL 10 MG SUPP PR PRN
[2024-02-12] MEDS ORDERED: IBUPROFEN 600 MG TAB PO PRN (05:30)
[2024-02-12 07:03] LABS: Hematocrit (blood only) 24.3 % (37.0-47.0); Hemoglobin 7.3 g/dl (12.0-16.0)
--- NOTE | 2024-02-12 09:45 | Obstetrical Progress Note ---
Date of Service February 12, 2024 Assessment & Plan Admission and Anticipated Discharge Date Admission Date: February 10, 2024 Subjective abdomen soft and non tender estella dressing is dry bowel sounds present no calf tenderness ambulating well vaginal bleeding scant hgb 7.3 Results & Data Vital Signs (Past 12 Hours) Vital Signs Temp Pulse Resp BP Pulse Ox O2 Del Method 02/12/24 07:10 36.7 C 77 16 96/63 L 96 Room Air 02/12/24 00:00 36.8 C 98 H 16 128/86 99 Room Air
[2024-02-12] MEDS: ACETAMINOPHEN 325 MG TAB PO PRN (13:06)
[2024-02-13 03:38] VITALS: TEMP 98.2
[2024-02-13 08:20] VITALS: BP 120/81; PULSE 79; RESP 18; O2SAT 97
--- NOTE | 2024-02-13 10:33 | Obstetrical Progress Note ---
Date of Service February 13, 2024 Assessment & Plan Admission and Anticipated Discharge Date Admission Date: February 10, 2024 Subjective abdomen soft and non tender incision is clean and dry no calf tenderness ambulating well vaginal bleeding scant hgb 7.3 Results & Data Vital Signs (Past 12 Hours) Vital Signs Temp Pulse Resp BP Pulse Ox O2 Del Method 02/13/24 08:32 36.8 C 79 18 120/81 97 02/13/24 07:30 36.8 C 79 18 120/81 97 Room Air 02/13/24 03:34 36.8 C 82 16 131/79 95 Room Air
[2024-02-13 11:36] LABS: Hematocrit (blood only) 27.8 % (37.0-47.0); Hemoglobin 8.2 g/dl (12.0-16.0)
--- NOTE | 2024-02-14 11:31 | Coding Query ---
CODING QUERY To promote full compliance with coding requirements relating to patient care, provider participation is requested in all cases of gourmet coffee attendant uncertainty. Please assist us with the question(s) below: Coding Question(s): The H&P documents under the Patient History, Medical History, "Diabetes NO MEDS CURRENTLY-SINCE 120 LB WT LOSS "DIET CONTROLLED"". Please specify below, in your clinical opinion: ( ) /childbirth is complicated by Pre-existing Diabetes, diet controlled. Please specify the type of pre-existing Diabetes below: ( x) Type 2 Diabetes ( ) Type 1 Diabetes ( ) Diabetes of unknown type ( x) Diabetes, other: Please Specify Gestational diabetes ( ) Pre-existing Diabetes is not complicating /Childbirth Physician's Response(s): Thank you Latricia Connolly Principal Diagnosis: "that condition established after study, to be chiefly responsible for occasioning the admission of the patient to the hospital for care." Co-Existing Principal Diagnosis: "when two or more diagnoses equally meet the criteria for principal diagnosis as determined by the circumstances of admission, diagnostic work up, and/or therapy provided, and the Alphabetic Index, Tabular List, or another coding guideline does not provide sequencing direction, any one of the diagnoses may be sequenced first." "When the physician has documented what appears to be a current diagnosis in the body of the record, but has not included the diagnosis in the final diagnostic statement, the physician should be asked whether the diagnosis should be added." ([facility] 2 QTR90. p3-4) ELIAZAR
--- NOTE | 2024-02-21 10:08 | Discharge Summary ---
Date of Service February 21, 2024 Admission HPI Per Admitting Provider 38 F [id number] at 38.1 weeks presents with SROM this AM clear fluid mwith onset of contractions. She has 3 prior C-sections in the past. Discharge Data Consultations 02/10/24 02:47 Consult Anesthesiology Stat Procedures Performed Operation Date: 02/10/24 03:30 Actual Procedures p Section in LD - Kyler Yepez MD
== END 2024-02-13 13:15 | disposition home or self-care (01) | DRG 786 ==
LOC: OPB 02:37 → 4S1 02:38 → 4E2 10:17